=== PATIENT | male | born 1975 | race Caucasian/White ===

== ENCOUNTER 2021-09-04 21:59 | Emergency (ER) | payer MEDICAID, SELFPAY ==
[2021-09-04 22:00] VITALS: BP 163/88; PULSE 89; RESP 18; TEMP 36.3; O2SAT 98
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
[2021-09-04] MEDS: Lidocaine 5% Patch 1 PATCH TP (22:16)
[2021-09-04] MEDS: Acetaminophen 325 MG TAB 650 MG PO (22:16)
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
== END 2021-09-04 22:56 | disposition home or self-care (01) ==
PROVIDERS: Emergency Provider Physician Assistant; PCP Family Medicine
DX: S70.01XA Contusion of right hip, initial encounter (principal); W22.8XXA Striking against or struck by other objects, initial encounter
CPT/HCPCS: 99285; 73502; 99283

== ENCOUNTER 2022-01-30 18:21 | Outpatient (REF) | payer MEDICAID, SELFPAY ==
[2022-01-30 20:15] LABS: HCT 46.9 % (40.0-50.0); HGB 15.2 g/dL (13.5-17.5); MCH 27.2 pg (27.0-33.0); MCHC 32.4 % (32.0-36.0); MCV 83.9 fL (80-95); MPV 11.4 fL (8.0-11.0); Platelet Count 317 10^3/uL (130-400); RBC 5.59 10^6/uL (4.36-5.78); RDW 12.6 % (11.8-14.1); RDW-SD 38.4 fL; WBC 7.42 10^3/uL (4.4-10.8)
[2022-01-30 20:32] LABS: ALT 328 U/L (16-63); AST 110 U/L (15-37); Albumin 4.4 g/dL (3.4-5.0); Alkaline Phosphatase 107 U/L (46-116); Anion Gap 10.1 mmol/L (3-11); BUN 13 mg/dL (7-18); Bilirubin, Total 0.5 mg/dL (0.2-1.0); CO2 24.9 mmol/L (21.0-32.0); CREATININE 0.8 mg/dL (0.70-1.30); Calcium 9.4 mg/dL (8.5-10.1); Chloride 101 mmol/L (98-107); Glucose 401 mg/dL (74-106); Potassium 4.6 mmol/L (3.5-5.1); Sodium 136 mmol/L (136-145); Total Protein 8.3 g/dL (6.4-8.2)
[2022-01-30 20:34] LABS: Hemoglobin A1C 10.7 % (<5.7)
[2022-01-31 15:00] LABS: Calculated LDL 97 mg/dL (<100); Cholesterol 162 mg/dL (<200); HDL Cholesterol 46 mg/dL (40-60); Triglyceride 97 mg/dL (<150)
== END 2022-01-30 18:22 | disposition home or self-care (01) ==
LOC: NCHCN 18:21
PROVIDERS: PCP Family Medicine; Visit Provider Physician Assistant
DX: E11.9 Type 2 diabetes mellitus without complications (principal); I25.810 Atherosclerosis of coronary artery bypass graft(s) without angina pectoris
CPT/HCPCS: 80053; 80061; 85027; 83036

== ENCOUNTER → 2022-02-11 01:03 | Outpatient (CLI) | payer MEDICAID, SELFPAY ==
--- NOTE | 2022-02-11 13:30 | DI.RAD_ITS ---
Exam(s) XR HIP RT COMPLETE AP PELVIS EXAM: XR HIP RT COMPLETE AP PELVIS INDICATION: PROGRESSIVE LOWER BACK, HIP RT LEG PAIN, M25.551. COMPARISON: CR,XR XR HIP RT COMPLETE AP PELVIS from 09/04/2021 TECHNIQUE: 2D digital imaging was performed. Two views. FINDINGS: There is intramedullary stephan in the right femur. There is mild right hip joint space narrowing and mi ld periarticular spurring, greatest superiorly. The left hip joint space is well maintained. SI alexis nts and pubic symphysis are unremarkable. IMPRESSION: Mild degenerative changes of the right hip. DATA REPOSITORY: RADIATION DOSE DELIVERED:
== END ==
PROVIDERS: PCP Family Medicine; Visit Provider Physician Assistant
DX: M25.551 Pain in right hip (principal); M79.604 Pain in right leg; M54.59 Other low back pain; M16.11 Unilateral primary osteoarthritis, right hip
CPT/HCPCS: 73502

== ENCOUNTER 2022-04-05 14:56 | Outpatient (REF) | payer MEDICAID, SELFPAY ==
[2022-04-05 18:21] LABS: ALT 78 U/L (16-63); AST 56 U/L (15-37); Albumin 4.3 g/dL (3.4-5.0); Alkaline Phosphatase 105 U/L (46-116); Anion Gap 9.4 mmol/L (3-11); BUN 12 mg/dL (7-18); Bilirubin, Total 0.3 mg/dL (0.2-1.0); CO2 26.6 mmol/L (21.0-32.0); CREATININE 0.8 mg/dL (0.70-1.30); Calcium 9.2 mg/dL (8.5-10.1); Chloride 101 mmol/L (98-107); Glucose 139 mg/dL (74-106); Potassium 4.1 mmol/L (3.5-5.1); Sodium 137 mmol/L (136-145); Total Protein 8.5 g/dL (6.4-8.2)
[2022-04-05 18:24] LABS: Hemoglobin A1C 8.7 % (<5.7)
[2022-04-08 14:43] LABS: HCV RNA Detection Quantitative 14500000 IU/mL (Undetected); HCV RNA Qualitative Detected (Undetected)
== END 2022-04-05 14:57 | disposition home or self-care (01) ==
LOC: NCHCN 14:56
PROVIDERS: PCP Family Medicine; Visit Provider Physician Assistant
DX: B18.2 Chronic viral hepatitis C (principal); E11.9 Type 2 diabetes mellitus without complications
CPT/HCPCS: 80053; 86803; 87522; 83036

== ENCOUNTER 2022-04-11 10:15 | Outpatient (CLI) | payer MEDICAID, SELFPAY ==
--- NOTE | 2022-04-11 10:03 | DI.RAD_ITS ---
Exam(s) XR FEMUR RT EXAM: XR FEMUR RT CLINICAL HISTORY: painful hardware. TECHNIQUE: 2D digital imaging was performed. COMPARISON: CR,XR XR HIP RT COMPLETE AP PELVIS from 09/04/2021 FINDINGS: Two views There is again noted a long intramedullary stephan through the length of the femur transfixing a healed f racture site in the distal half. This exhibits healing. No evidence hardware loosening nor osteomye litis. Mild degenerative changes ipsilateral hip noted. IMPRESSION: DATA REPOSITORY: RADIATION DOSE DELIVERED:
== END 2022-04-11 10:16 | disposition home or self-care (01) ==
LOC: DIORS 10:15
PROVIDERS: PCP Physician Assistant; Visit Provider Physician Assistant Surgical
DX: Z87.81 Personal history of (healed) traumatic fracture (principal); T84.84XA Pain due to internal orthopedic prosthetic devices, implants and grafts, initial encounter; Y83.8 Other surgical procedures as the cause of abnormal reaction of the patient, or of later complication, without mention of misadventure at the time of the procedure
CPT/HCPCS: 73552

== ENCOUNTER 2022-06-13 19:50 | Emergency (ER) | payer MEDICAID, SELFPAY ==
[2022-06-13 20:00] VITALS: BP 153/100; PULSE 117; RESP 20; TEMP 36.9; O2SAT 94
[2022-06-13] MEDS: Normal Saline 1,000 ML 1000 ML IV (20:00)
--- NOTE | 2022-06-13 20:05 | ED.GENADUL_ITS ---
Discharge Plan Disposition Patient Disposition: STILL A PATIENT Condition: Good Discharge Details Clinical Impression: Elevated ETOH level, Depression Primary Care Provider: Ranjan Denise ED Provider: Myles Rangel Home Meds and New Rx's Prescriptions: Continued clonazepam 1 mg tablet 1 mg PO QID clopidogrel 75 mg tablet 75 mg PO DAILY gabapentin 800 mg tablet 800 mg PO TID glimepiride 2 mg tablet 2 mg PO DAILY metformin 1,000 mg tablet 1,000 mg PO BID metoprolol tartrate 100 mg tablet 100 mg PO BID venlafaxine 150 mg capsule,extended release 24hr 150 mg PO DAILY atorvastatin 80 mg tablet 80 mg PO DAILY amlodipine 10 mg tablet 10 mg PO DAILY dextroamphetamine-amphetamine [Adderall] 20 mg tablet 20 mg PO DAILY Discharge Instructions Instructions: Depression (ED) Additional Instructions: Please follow-up closely with your mental health advocates. If you notice any worsening of your symptoms, or any new symptoms such as vomiting, diarrhea, fever, chills, shortness of breath, chest pain, numbness, weakness, or fainting , please return immediately to the emergency department for reevaluation. Please follow up with your primary care provider as soon as possible for reassessment and reevaluation. As always, it was a pleasure participating in your medical care today. Referrals: Ranjan Denise [Primary Care Provider] - Medical Decision Making This is a 46-year-old male with a past medical history of CABG/AL, with stents in [place] 8 years ago, hepatitis C, type 2 diabetes, hyperte nsion, high cholesterol, anxiety and depression with previous suicidal ideations and previous suicide attempt via carbon monoxide poisoning, as well as a previous femur fracture on the right status post stephan placement, who presents today via local police for mental health evaluation. The patient was evicted from a location earlier today, he had been drinking alcohol. He was brought to the [facility] the [facility] term, and while there he expressed suicidal ideations. Mental health believe that secondary to his intoxicated state he needed to be brought to the emergency department to be medically cleared and then reevaluated by mental health. Currently the patient states that he does not see any point in living anymore, but also I do not really want to , and I do not want to kill myself.I just do not see a reason for living. Patient denies any IV or illicit drug use. He states that he has been taking his medications as directed. He states that he just had a little bit of alcohol this evening. He denies any other complaints or attempts to harm himself. No other modifying factors. Physical exam demonstrates a well-appearing male, dry mucous membranes, heightened emotional response, with active crying. He does not have a plan to harm himself currently and specifically states that he does not want to end his life, he just does not see a reason for living currently. Patient actively states and reassurance that he is not a threat to himself, but he just needs some help, and no one seems to be getting me any help. We will rehydrate, wait until the patient demonstrates sobriety, evaluate for metabolic abnormalities, reassess, and involve mental health. 6:10 AM Patient has been medically cleared, laboratory work-up is stable. Mental health has seen and assessed the patient, and at this time they do not feel that the patient meets inpatient criteria and. Mental health advocates states that he has a [facility] patient, and she will be meeting with them at 9 AM to discuss outpatient treatment options and support. She states that they will be calling back with the plan at around 10 AM. Patient otherwise remained stable. He will be signed out to my colleague Dr. Chambers for follow-up for plan and reassessment. HPI General Date/Time Provider Initiated Documentation: 06/13/22 20:02 . HPI Narrative: This is a 46-year-old male with a past medical history of CABG/AL, with stents in [place] 8 years ago, hepatitis C, type 2 diabetes, hypertension, high cholesterol, anxiety and depression with previous suicidal ideations and previous suicide attempt via carbon monoxide poisoning, as well as a previous femur fracture on the right status post stephan placement, who presents today via local police for mental health evaluation. The patient was evicted from a location earlier today, he had been drinking alcohol. He was brought to the [facility] at the long term, and while there he expressed suicidal ideations. Mental health believe that secondary to his intoxicated state he needed to be brought to the emergency department to be medically cleared and then reevaluated by mental health. Currently the patient states that he does not see any point in living anymore, but also I do not really want to , and I do not want to kill myself.I just do not see a reason for living. Patient denies any IV or illicit drug use. He states that he has been taking his medications as directed. He states that he just had a little bit of alcohol this evening. He denies any other complaints or attempts to harm himself. No other modifying factors. Related Data Home Medications Medication Instructions Recorded Confirmed clonazepam 1 mg tablet 1 mg PO QID 07/19/21 06/13/22 clopidogrel 75 mg tablet 75 mg PO DAILY 07/19/21 06/13/22 gabapentin 800 mg tablet 800 mg PO TID 07/19/21 06/13/22 glimepiride 2 mg tablet 2 mg PO DAILY 07/19/21 06/13/22 metformin 1,000 mg tablet 1,000 mg PO BID 07/19/21 06/13/22 metoprolol tartrate 100 mg tablet 100 mg PO BID 07/19/21 06/13/22 venlafaxine 150 mg 150 mg PO DAILY 07/19/21 06/13/22 capsule,extended release 24 hr amlodipine 10 mg tablet 10 mg PO DAILY 02/05/22 04/11/22 atorvastatin 80 mg tablet 80 mg PO DAILY 02/05/22 06/13/22 dextroamphetamine-amphetamine 20 20 mg PO DAILY 02/05/22 06/13/22 mg tablet (Adderall) Allergies Allergy/AdvReac Type Severity Reaction Status Date / Time No Known Allergies Allergy Verified 06/13/22 20:24 General FARAZ: 3 Review of Systems All systems reviewed & are unremarkable except as noted in HPI and below PFSH All Active Problems (Updated 06/14/22 @ 04:38 by Myles Rangel DO) Elevated ETOH level (Acute) Depression (Chronic) History of femur fracture (Acute 2001) Hypertension (Chronic) Hyperlipidemia (Acute) Nicotine dependence (Acute) Hepatitis C carrier (Acute) CAD (coronary artery disease) (Chronic) Hematoma of right hip (Acute) ADD (attention deficit disorder) (Acute) Anxiety (Chronic) Diabetes mellitus, type II (Acute) Medical History Myocardial infarction Social History Smoking/Tobacco Use Status: Current every day Tobacco Type: cigarettes and e- cigarettes Smoking risk assessment performed?: Yes Alcohol Intake: current Substance use type: other Details: declines to answer Do you feel safe at home: Yes Do you feel safe in your relationship?: Yes Exam Narrative Exam Narrative: 1.Const: Well-nourished, Well-developed, appearing stated age 2.Eyes: PERRL, no conjunctival injection, and symmetrical lids. 3.ENT: Atraumatic external nose and ears. Dry MM. Neck: Symmetric, trachea midline, No thyromegaly. 4.CVS: +S1/S2, No murmurs or gallops. Peripheral pulses 2+ and equal in all extremities. Brisk capillary refill in all extremities. 5.RESP: Unlabored respiratory effort. Clear to auscultation bilaterally. No wheezes rales or rhonchi 6.GI: Soft, Nontender/Nondistended, No hepatosplenomegaly. No guarding or rebound. 7.MSK: Normocephalic/Atraumatic, Extremities w/o deformity or ttp No cyanosis or clubbing, Normal movement of all extremities 8.Skin: Warm, Dry. No rashes or lesions. 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 Sensation grossly intact, no focal neurologic deficits. 10.Psych: (AAO) x3. Patient does appear slightly emotional, he is actively crying when we are talking. He does appear slightly intoxicated.
[2022-06-13 20:40] LABS: Source Nasal/Nares
[2022-06-13 20:50] LABS: Abs Immature Grans 0.02 10^3/uL (0.0-0.06); Absolute Basophil Count 0.07 10^3/uL (0.0-0.2); Absolute Eosinophil Count 0.23 10^3/uL (0.0-0.7); Absolute Lymphocyte Count 2.13 10^3/uL (1.2-3.4); Absolute Monocyte Count 0.68 10^3/uL (0.1-0.8); Absolute Neutrophil Count 4.66 10^3/uL (1.2-6.7); Basophils % 0.9; HCT 40.6 % (40.0-50.0); HGB 13.6 g/dL (13.5-17.5); Immature Grans % 0.3; Lymphocytes % 27.3; MCH 28.5 pg (27.0-33.0); MCHC 33.5 % (32.0-36.0); MCV 85 fL (80-95); MPV 10.1 fL (8.0-11.0); Monocytes % 8.7; Neutrophils % 59.8; Platelet Count 235 10^3/uL (130-400); RBC 4.77 10^6/uL (4.36-5.78); RDW 12.8 % (11.8-14.1); RDW-SD 39.3 fL; WBC 7.79 10^3/uL (4.4-10.8)
[2022-06-13 21:02] LABS: Ammonia < 10 umol/L (11-32)
[2022-06-13 21:09] LABS: ALT 83 U/L (16-63); AST 90 U/L (15-37); Albumin 4.4 g/dL (3.4-5.0); Alkaline Phosphatase 108 U/L (46-116); Anion Gap 10.4 mmol/L (3-11); BUN 9 mg/dL (7-18); Bilirubin, Total 0.3 mg/dL (0.2-1.0); CO2 27.6 mmol/L (21.0-32.0); CREATININE 0.8 mg/dL (0.70-1.30); Calcium 8.5 mg/dL (8.5-10.1); Chloride 100 mmol/L (98-107); ETHANOL BLOOD 164.8 mg/dL (<10); Glucose 185 mg/dL (74-106); Potassium 3.4 mmol/L (3.5-5.1); Sodium 138 mmol/L (136-145); TSH (W/Ref FT4) 0.56 uIU/mL (0.36-3.74); Total Protein 8.5 g/dL (6.4-8.2)
[2022-06-13 21:12] LABS: COVID-19 PCR Negative (Negative)
[2022-06-13 21:17] LABS: Salicylate 3.2 mg/dL (<2.8)
[2022-06-13 21:20] LABS: Acetaminophen < 2 ug/mL (10-30)
[2022-06-14 00:17] LABS: *AMPHETAMINES SCREEN URINE Positive (Negative); *BARBITURATES SCREEN URINE Negative (Negative); *BENZODIAZEPINES SCREEN URINE Negative (Negative); Cannabinoids THC Positive (Negative); Cocaine Screen,Urine Negative (Negative); METHADONE URINE SCREEN Negative (Negative); OPIATES URINE SCREEN Negative (Negative); Tricyclic Antidepressants Negative (Negative)
[2022-06-14 08:20] VITALS: BP 152/86; PULSE 82; RESP 18; TEMP 36.1; O2SAT 97
--- NOTE | 2022-06-14 08:34 | NUR.NOTE ---
pt refused his morning meds Nursing Note:
--- NOTE | 2022-06-14 09:54 | PDOC.CMSAFED ---
- If Service Date Differs Date of service: 06/14/22 Time of Service: 10:09 Care Management Safety Plan This is a 46-year-old male with a past medical history of CABG/NM, with stents in [place] 8 years ago, hepatitis C, type 2 diabetes, hypertension, high cholesterol, anxiety and depression with previous suicidal ideations and previous suicide attempt via carbon monoxide poisoning, as well as a previous femur fracture on the right status post stephan placement, who presents today via local police for mental health evaluation. The patient was evicted from a location earlier today, he had been drinking alcohol. He was brought to the [facility] at the halfway, and while there he expressed suicidal ideations. Mental health believe that secondary to his intoxicated state he needed to be brought to the emergency department to be medically cleared and then reevaluated by mental health. Currently the patient states that he does not see any point in living anymore, but also I do not really want to , and I do not want to kill myself.I just do not see a reason for living. Patient denies any IV or illicit drug use. He states that he has been taking his medications as directed.
[2022-06-14] MEDS: Clopidogrel 75 MG TAB PO (10:15)
[2022-06-14] MEDS: metFORMIN 500 MG TAB 1000 MG PO (10:16)
[2022-06-14] MEDS: Glimepiride 2 MG TAB PO (10:16)
[2022-06-14] MEDS: Gabapentin 800 MG TAB PO (10:16)
[2022-06-14] MEDS: Metoprolol 50 MG TAB 100 MG PO (10:16)
[2022-06-14] MEDS: Venlafaxine 150 MG CAPCR PO (10:17)
--- NOTE | 2022-06-14 12:15 | ED.PROG_ITS ---
Date of service: 06/14/22 Time of Service: 12:16 Medical Decision Making Care signed out by Dr. Rangel, patient medically cleared and awaiting [facility] [employer]IST consultation for disposition planning. Patient is not suicidal. 1200 -- I spoke with CUST[employer]ER [employer]OURCE SPECIALIST Agency Trainer Saravanan who evaluated the patient and is available for ongoing outpatient assistance. Plan for discharge with outpatient follow-up. Patient was provided [facility] [employer] contact information. Usual customary discharge instructions reviewed with the patient. Sign Out Sign Out Data: Sign Out Comment: Depression, currently homeless, was intoxicated last night. Mental health feels that he can go home for outpatient follow-up, however C[employer] [employer]OURCE SPECIALIST needs to formulate plan to facilitate this. They will be calling back at 10 AM with plan. Last updated by Myles Rangel DO at 06/14/22 06:12 Discharge Plan Disposition Patient Disposition: HOME Condition: Stable Discharge Details Clinical Impression: Elevated ETOH level, Depression Primary Care Provider: Ranjan Denise ED Provider: Steve Chambers Home Meds and New Rx's Prescriptions: Continued clonazepam 1 mg tablet 1 mg PO QID clopidogrel 75 mg tablet 75 mg PO DAILY gabapentin 800 mg tablet 800 mg PO TID glimepiride 2 mg tablet 2 mg PO DAILY metformin 1,000 mg tablet 1,000 mg PO BID metoprolol tartrate 100 mg tablet 100 mg PO BID venlafaxine 150 mg capsule,extended release 24hr 150 mg PO DAILY atorvastatin 80 mg tablet 80 mg PO DAILY amlodipine 10 mg tablet 10 mg PO DAILY dextroamphetamine-amphetamine [Adderall] 20 mg tablet 20 mg PO DAILY Discontinued dextroamphetamine-amphetamine [Adderall XR] 20 mg Capsule,Extended Release 24hr 20 mg PO DAILY dextroamphetamine-amphetamine [Adderall] 20 mg Tablet 20 mg PO HS clonazepam 1 mg Tablet 1 mg PO QID Discharge Instructions Instructions: Depression (ED), Abuse of Alcohol (ED) Additional Instructions: Please follow-up closely with your mental health advocates. Your CUST[employer]ER RESOURCE SPECIALIST is Saravanan and her number is . If you notice any worsening of your symptoms, or any new symptoms such as vomiting, diarrhea, fever, chills, shortness of breath, chest pain, numbness, weakness, or fainting , please return immediately to the emergency department for reevaluation. Please follow up with your primary care provider as soon as possible for reassessment and reevaluation. As always, it was a pleasure participating in your medical care today. Referrals: Ranjan Denise [Primary Care Provider] - Discharge Data Discharge Date/Time-TO BE ENTERED AT DEPARTURE: 06/14/22 13:40
== END 2022-06-14 13:40 | disposition home or self-care (01) ==
PROVIDERS: Student in an Organized Health Care Education/Training Program; Emergency Provider Student in an Organized Health Care Education/Training Program; PCP Physician Assistant
DX: F10.120 Alcohol abuse with intoxication, uncomplicated (principal); F32.A Depression, unspecified; I10 Essential (primary) hypertension; E11.9 Type 2 diabetes mellitus without complications; F17.210 Nicotine dependence, cigarettes, uncomplicated; F17.290 Nicotine dependence, other tobacco product, uncomplicated; Z20.822 Contact with and (suspected) exposure to COVID-19; Z79.84 Long term (current) use of oral hypoglycemic drugs; Z59.00 Homelessness unspecified
CPT/HCPCS: 80053; 80307; 87635; 96360; 99284; 80320; 80329; 82140; 84443; 85025

== ENCOUNTER 2023-05-16 01:01 | Emergency (ER) | payer MEDICAID, SELFPAY ==
[2023-05-16] VITALS (38 sets, daily range): BP systolic 103–152; BP diastolic 56–95; PULSE 89–127; RESP 10–28; TEMP 37.1; O2SAT 89–98
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
--- NOTE | 2023-05-16 02:00 | RT.EKG_ITS ---
APPROVED REPORT Exam: Resting ECG Reason for Exam: chest pain Patient Location: E HR:124 bpm ECG Measurements Heart Rate 124 AXIS NV 141 P 73 QRSd 82 QRS 82 QT 331 T 23 QTc 476 Conclusion Sinus tachycardia...rate> 99 sinus tachycardia, normal axis, non ischemic
--- NOTE | 2023-05-16 02:00 | DI.RAD_ITS ---
Exam(s) XR CHEST 2V PA LATERAL EXAM: XR CHEST 2V PA LATERAL CLINICAL HISTORY: chest pain. TECHNIQUE: 2D digital imaging was performed. COMPARISON: No exams were available for comparison FINDINGS: 2 views: Heart size is normal. The mediastinum is not widened. Lungs are clear. No infiltrates nor pleural effusions. IMPRESSION: No acute pulmonary findings. DATA REPOSITORY: RADIATION DOSE DELIVERED:
[2023-05-16 02:29] LABS: Abs Immature Grans 0.02 10^3/uL (0.0-0.06); Absolute Basophil Count 0.06 10^3/uL (0.0-0.2); Absolute Lymphocyte Count 1.95 10^3/uL (1.2-3.4); Absolute Monocyte Count 0.94 10^3/uL (0.1-0.8); Absolute Neutrophil Count 4.68 10^3/uL (1.2-6.7); Basophils % 0.8; Eosinophils % 1.3; HCT 42.2 % (40.0-50.0); HGB 13.7 g/dL (13.5-17.5); Immature Grans % 0.3; Lymphocytes % 25.2; MCH 27.1 pg (27.0-33.0); MCHC 32.5 % (32.0-36.0); MCV 84 fL (80-95); MPV 10.4 fL (8.0-11.0); Monocytes % 12.1; Neutrophils % 60.3; Platelet Count 409 10^3/uL (130-400); RBC 5.05 10^6/uL (4.36-5.78); RDW 13.2 % (11.8-14.1); RDW-SD 39.8 fL; WBC 7.75 10^3/uL (4.4-10.8)
[2023-05-16] MEDS: Aspirin 81 MG CHEW 324 MG CH (02:35)
[2023-05-16] MEDS: LORazepam 2 MG/ML VIAL 1 MG IVP (02:36)
[2023-05-16] MEDS: Normal Saline 1,000 ML 125 ML IV (02:46)
[2023-05-16 02:50] LABS: PTT Activated 27.1 sec (21.5-31.9); Prothrombin Time 10.3 sec (9.3-11.0)
[2023-05-16 02:58] LABS: ALT 57 U/L (16-63); AST 51 U/L (15-37); Albumin 3.7 g/dL (3.4-5.0); Alkaline Phosphatase 158 U/L (46-116); Anion Gap 10.7 mmol/L (3-11); BUN 7 mg/dL (7-18); Bilirubin, Direct 0.1 mg/dL (0.0-0.2); Bilirubin, Total 0.3 mg/dL (0.2-1.0); CO2 30.3 mmol/L (21.0-32.0); CREATININE 0.7 mg/dL (0.70-1.30); Calcium 9.2 mg/dL (8.5-10.1); Chloride 98 mmol/L (98-107); Estimated GFR 112.95 (mL/min/1.73m2); Glucose 333 mg/dL (74-106); Magnesium 1.7 mg/dL (1.8-2.4); NT-proBNP 400 pg/mL (<300); Potassium 3.9 mmol/L (3.5-5.1); Sodium 139 mmol/L (136-145); Total Protein 8.8 g/dL (6.4-8.2); Troponin I < 50 ng/L (<or=60)
[2023-05-16 03:09] LABS: D-Dimer 589 ng/mlFEU (<500)
[2023-05-16] MEDS: nitroGLYcerin 0.4 MG TAB SL (03:44)
[2023-05-16 04:14] LABS: Troponin I < 50 ng/L (<or=60)
--- NOTE | 2023-05-16 04:46 | DI.VRAD_ITS ---
PROCEDURE INFORMATION: Exam: XR Chest Exam date and time: 05/16/2023 3:12 AM Age: 47 years old Clinical indication: Pain; Left-sided; Prior surgery; Surgery date: <1 month; Surgery type: Cardiac stent; Additional info: Chest pain TECHNIQUE: Imaging protocol: Radiologic exam of the chest. Views: 2 views. COMPARISON: No relevant prior studies available. FINDINGS: Lungs: Normal. Pleural spaces: Unremarkable. No pleural effusion. No pneumothorax. Heart/Mediastinum: Normal. Bones/joints: No acute abnormality. IMPRESSION: No acute findings. Dictated and Authenticated by: Danie Estrada MD. Ordering:RON Contreras MD
--- NOTE | 2023-05-19 18:01 | NUR.NOTE ---
Nursing Note: Nursing Note: Accessed pt chart to determine number of EKG orders.
== END 2023-05-16 06:28 | disposition home or self-care (01) ==
PROVIDERS: Emergency Provider Emergency Medicine Emergency Medical Services; PCP Physician Assistant
DX: R07.9 Chest pain, unspecified (principal); E11.9 Type 2 diabetes mellitus without complications; I10 Essential (primary) hypertension; I50.9 Heart failure, unspecified; E78.5 Hyperlipidemia, unspecified; F17.210 Nicotine dependence, cigarettes, uncomplicated
CPT/HCPCS: 80053; 80076; 93005; 96361; 96374; 99291; 71046; 83735; 83880; 84484; 85025; 85379; 85610; 85730; 93010; J2060

== ENCOUNTER 2024-08-14 15:37 | Emergency (ER) | payer MEDICAID, SELFPAY ==
[2024-08-14 15:39] VITALS: BP 174/111; PULSE 123; RESP 24; TEMP 36.2; O2SAT 99
--- NOTE | 2024-08-14 16:00 | RT.EKG_ITS ---
APPROVED REPORT Exam: Resting ECG Reason for Exam: chest pain Patient Location: E HR:92 bpm ECG Measurements Heart Rate 92 AXIS ME 146 P 53 QRSd 85 QRS 43 QT 362 T 0 QTc 448 Conclusion Sinus arrhythmia...V-rate 64-107, variation>10% Probable inferior infarct, old...Q>35mS, II III aVF Sinus rhythm normal axis normal intervals , T wave inversion lead III
--- NOTE | 2024-08-14 16:00 | DI.RAD_ITS ---
Exam(s) XR PORTABLE CHEST AP EXAM: XR PORTABLE CHEST AP CLINICAL HISTORY: chest pain. TECHNIQUE: 2D digital imaging was performed. COMPARISON: CR,XR XR CHEST 2V PA LATERAL from 05/16/2023 FINDINGS: Single AP portable view. Heart size is upper normal. The mediastinum is not widened. Right coronary artery stent is again noted Lungs are clear. No infiltrates nor obvious pleural effusions. No pulmonary edema. IMPRESSION: No acute pulmonary findings on this single AP portable view of the chest. Right coronary artery stent again noted DATA REPOSITORY: RADIATION DOSE DELIVERED:
[2024-08-14] MEDS: clonazePAM 0.5 MG TAB 1 MG PO (16:13)
[2024-08-14 16:22] LABS: Absolute Basophil Count 0.06 10^3/uL (0.0-0.2); Absolute Eosinophil Count 0.06 10^3/uL (0.0-0.7); Absolute Lymphocyte Count 1.37 10^3/uL (1.2-3.4); Absolute Monocyte Count 0.48 10^3/uL (0.1-0.8); Absolute Neutrophil Count 3.17 10^3/uL (1.2-6.7); Basophils % 1.2 %; Eosinophils % 1.2 %; HCT 47.5 % (40.0-50.0); HGB 15.5 g/dL (13.5-17.5); Lymphocytes % 26.7 %; MCH 28.4 pg (27.0-33.0); MCHC 32.6 % (32.0-36.0); MCV 87 fL (80-95); MPV 11.1 fL (8.0-11.0); Monocytes % 9.3 %; Neutrophils % 61.6 %; Platelet Count 246 10^3/uL (130-400); RBC 5.45 10^6/uL (4.36-5.78); RDW-SD 41.2 fL; WBC 5.14 10^3/uL (4.4-10.8)
[2024-08-14 16:30] LABS: Bilirubin Negative (Negative); Blood Negative (Negative); Clarity Clear (Clear); Glucose 500 mg/dL (Negative); Ketones Negative (Negative); Leukocyte Esterase Negative (Negative); Nitrite Negative (Negative); Specific Gravity <= 1.005 (1.005-1.025); Urobilinogen 0.2 mg/dL (Up to 0.2)
[2024-08-14 16:41] LABS: ALT 29 U/L (16-63); AST 22 U/L (15-37); Albumin 3.8 g/dL (3.4-5.0); Alkaline Phosphatase 96 U/L (46-116); BUN 7 mg/dL (7-18); Bilirubin, Total 0.17 mg/dL (0.2-1.0); Calcium 8.8 mg/dL (8.5-10.1); Chloride 103 mmol/L (98-107); Estimated GFR 91.69 (mL/min/1.73m2); Glucose 291 mg/dL (74-106); Potassium 3.7 mmol/L (3.5-5.1); Sodium 140 mmol/L (136-145); Total Protein 8.1 g/dL (6.4-8.2); Troponin I 4 ng/L (<or=76)
[2024-08-14 16:49] LABS: Magnesium 1.8 mg/dL (1.8-2.4)
[2024-08-14 16:50] LABS: *AMPHETAMINES SCREEN URINE Negative (Negative); *BARBITURATES SCREEN URINE Negative (Negative); *BENZODIAZEPINES SCREEN URINE Negative (Negative); Cannabinoids THC Negative (Negative); Cocaine Screen,Urine Negative (Negative); METHADONE URINE SCREEN Negative (Negative); OPIATES URINE SCREEN Negative (Negative)
[2024-08-14 16:53] LABS: Tricyclic Antidepressants Negative (Negative)
[2024-08-14 17:05] VITALS: PULSE 104; RESP 12; O2SAT 99
--- OUTSIDE RECORDS SUMMARY | 2024-08-14 17:32 | XMS_ITS | Clinical Summary ---
Author Organization [facility] Address [address] [place] [address] Care Team Providers Care Demurrage Man Name Role Phone Ramila Pagan INFORMATION SYSTEMS CONSULTANT Unavailable [phone] Yana De La Cruz MD Primary Care Provider + Allergies No known active allergies Medications Medication Sig Dispensed Refills Start Date End Date Status nitroGLYCERIN (NITROSTAT) 0.[address] 1 Tab under the tongue every 5 minutes as needed for Chest Pain. 25 Tab 1 03/18/20 14 Active Additional Information Patient not taking.Reported on 04/22/2023 buprenorphine-naloxone (SUBOXONE) 8-2 mg tablet, sublingual 08/21/20 23 Active acetaminophen (TYLENOL) 325 mg tablet Take 2 Tablets by mouth every 4 hours as needed for Pain. 100 Tablet 2 08/23/20 23 Active atorvastatin (LIPITOR) 80 mg tabletIndications:Famil ial hypercholesterolemia Take 1 Tablet by mouth at bedtime. 90 Tablet 3 12/16/19 24 Active clopidogreL (PLAVIX) 75 mg tabletIndications:NSTEM I (non-ST elevated myocardial infarction) ([facility]) Take 1 Tablet by mouth daily. 90 Tablet 3 12/16/19 24 Active empagliflozin (JARDIANCE) 10 mg tabletIndications:Type 2 diabetes mellitus with hyperglycemia, unspecified whether supervisor intermediates insulin use ([facility]) Take 1 Tablet by mouth daily. 90 Tablet 3 12/16/19 24 Active metFORMIN (GLUCOPHAGE) 1,000 mg tabletIndications:Diabe manoj mellitus type 2 in nonobese ([facility]) Take 1 Tablet by mouth 2 times daily. 180 Tablet 3 12/16/19 24 Active metoprolol SUCCinate (TOPROL-XL) 100 mg tabletIndications:NSTEM I (non-ST elevated myocardial infarction) ([facility]) Take 1 Tablet by mouth daily. 90 Tablet 3 12/16/19 24 Active venlafaxine (EFFEXOR-XR) 150 mg XR capsuleIndications:Gene ralized anxiety disorder Take 1 Capsule by mouth daily. 90 Capsule 3 12/16/19 24 Active losartan (COZAAR) 100 mg tabletIndications:Prima ry hypertension Take 1 Tablet by mouth daily. 90 Tablet 3 02/17/20 24 Active glimepiride (AMARYL) 4 mg tabletIndications:Type 2 diabetes mellitus with hyperglycemia, unspecified whether senior care insulin use ([facility]) Take 1 Tablet by mouth daily. 90 Tablet 3 03/25/20 24 Active clonazePAM (KLONOPIN) 1 mg tabletIndications:Gener alized anxiety disorder Take 1 Tablet by mouth 2 times daily for 84 days. Daily Max: 2 mg 56 Tablet 2 06/15/20 24 024 Active gabapentin (NEURONTIN) 600 mg tabletIndications:Neuro loli Take 1 Tablet by mouth 3 times daily. 90 Tablet 3 07/19/20 24 Active gabapentin (NEURONTIN) 600 mg tabletIndications:Neuro loli Take 1 Tablet by mouth 3 times daily. 90 Tablet 3 04/06/20 24 024 Discontinued lisdexamfetamine (VYVANSE) 40 mg capsuleIndications:Atte ntion deficit hyperactivity disorder (ADHD), combined type Take 1 Capsule by mouth every morning for 28 days. Daily Max: 40 mg 28 Capsule 07/15/20 24 024 Active Problems Problem Noted Date Diagnosed Date Housing insecurity 07/08/2024 Chronic post-traumatic stress disorder (PTSD) Attention deficit hyperactiv ity disorder (ADHD), combined type 12/30/2023 History of alcohol use disorder 12/30/2023 Overview: Reports from ages ~[age]. Stopped drinking when his child was born. Opioid use disorder in remission 12/30/2023 Overview: Reports opioid (pills only) use from ~age [age]. He started suboxone for chronic pain related to an orthopedic injury. Depression 12/04/2023 Insomnia 12/04/2023 Type 2 diabetes mellitus wit h hyperglycemia, without long-term current use of insulin ([facility]) 04/23/2023 NSTEMI (non-ST elevated myocardial infarction) ( [facility]) 03/17/2014 Smoking 08/14/2010 Hypertensive disorder 08/14/2010 Hyperlipidemia 08/14/2010 Myocardial infarction ([facility]) 03/03/2008 Overview: Inf set elevation Anxiety disorder Resolved Problems Problem Noted Date Diagnosed Date Resolved Date Hypertensive disorder 2013 Hyperlipidemia 03/17/2014 Encounters Date Type Department Care Team Description 07/19/2024 Patient Outreach [address] [address] Ramila Pagan LICSW 07/19/[address] [address] Marisa Chan NP Medications Refill 07/14/2024 Refill [facility] [address] [place] [address] Yana De La Cruz MD Medications Refill 06/22/2024 Patient Outreach [facility] [address] [place] [address] Ramila Pagan LICSW 06/15/2024 Refill [facility] [address] [place] [address] Yana De La Cruz MD Medications Refill 05/24/2024 Patient Outreach [address] [address] Ramila Pagan LICSW from Last 3 Months Immunizations Name Administration Dates Next Due Covid-19 Ad26 Vaccine (JANSS EN COVID-19) PF 0.5 ml IM (18 yrs+) 03/22/2021 Covid-19 mRNA Vaccine (PFIZE R COVID-19) PF 0.3 ml IM (12 yrs+) 10/24/2021 Covid-19 mRNA-LNP La ccine (MODERNA COVID-19) PF 0.5 mL IM (12 yrs+) 09/11/2023 Influenza Vaccine Quad (AFLURIA) PF 0.5 ml IM (3 yrs+) 09/11/2023 Tdap Vaccine =>7YO IM 04/22/2019 Surgical History Surgery Date Site/Laterality Comments FEMUR FRACTURE SURGERY CARDIAC CATHERIZATION 03/2008 FINGER TRIGGER RELEASE Medical History Medical History Date Comments Hypertension Psychiatric problem anxiety and depression CAD (coronary artery disease) st ents placed in 2007 HLD (hyperlipidemia) Diabetes ([facility]) Social History Tobacco Use Types Packs/Day Years Used Date Smoking Tobacco: Every Day Cigarettes Smokeless Tobacco: Former Chew Tobacco Cessation:Ready to Q uit: Not Asked; Counseling Given: Not Answered Alcohol Use Standard Drinks/Week Comments Not Currently 0 (1 standard drink = 0.6 oz pur e alcohol) seldom [facility] Utilities Answer Date Recorded In the past 12 months has th e [employer], gas, oil, or water [employer] threatened to shut off services in your home? No 01/05/2024 Overall Financial Resource Strain (CARDIA) Answe r Date Recorded How hard is it for you to pa y for the very basics like food, housing, medical care, and heating? Hard 01/05/2024 Exercise Vital Sign Answer Date Recorde d On average, how many days pe r week do you engage in moderate to strenuous exercise (like a brisk walk)? 7 days 01/05/2024 On average, how many minutes do you engage in exercise at this level? 120 min 01/05/2024 Hunger Vital Sign Answer Date Recorded Within the past 12 months, y ou worried that your food would run out before you got the money to buy more. Often true 01/05/20 24 Within the past 12 months, t he food you bought just didn't last and you didn't have money to get more. Often true 01/05/2024 PRAPARE - Transportation Answer Date Re corded In the past 12 months, has l ack of transportation kept you from medical appointments or from getting medications? Yes 02/2024 In the past 12 months, has l ack of transportation kept you from meetings, work, or from getting things needed for daily living? Yes 01/05/2024 Housing Stability Vital Sign Answer Percy e Recorded In the last 12 months, was t here a time when you were not able to pay the mortgage or rent on time? Yes 01/05/2024 In the last 12 months, how many places have you lived? 3 01/05/2024 In the last 12 months, was t here a time when you did not have a steady place to sleep or slept in a residential (including now)? Yes 01/05/2024 Interpersonal Safety Answer Date Record ed How often does anyone, amna mahmood family, hit, punch or physically hurt you? 01/05/2024 How often does anyone, amna mahmood family, insult, scream, curse or threaten to hurt you? 01/05/2024 Sex and Gender Information Value Date Recorded Sex Assigned at Not on file Gender Identity Male 08/08/2023 21:13 EDT Sexual Orientation Not on file Obstetrics History Last Filed Vital Signs Vital Sign Reading Time Taken Comments Blood Pressure 130/78 03/25/2024 0934 EDT Pulse 67 03/25/2024 0934 EDT Temperature 36.1 ??C (97 ??F) 01/27/2024 2347 EDT Respiratory Rate 16 02/17/2024 0944 EDT Oxygen Saturation 98% 03/25/2024 0934 EDT Inhaled Oxygen Concentration - - Weight 71.1 kg (156 lb 12.5 oz) 03/25/2024 0934 EDT Height 165.1 cm (5' 5) 02/17/2024 0944 EDT Body Mass Index 26.09 02/17/2024 0944 EDT Plan of Treatment Health Maintenance Due Date Last Done Comments Eye Exam 1973 Foot Exam 1973 Microalbumin/Creatinine Ratio 1973 Pneumococcal Immunization (1 of 2 - PCV) 1979 Depression Screening 1985 Advance Directive 1991 Preventive Care Visit 1991 Hepatitis B Vaccine (1 of 3 - 19+ 3-dose series) 1992 Cologuard (Colon Cancer Screening) 2018 Colonoscopy (Colon Cancer Screening) 2018 Colorectal Cancer Screening 2018 FIT Test (Colon Cancer Screening) 2018 Sigmoidoscopy (Colon Cancer Screening) 2018 Shingles Immunization (1 of 2) 2023 COVID-19 Vaccine (2023-2 5 season) 2024 09/11/2023, 10/24/2021, 03/22/2021 Influenza Immunization (Adul t) (#1) 2024 09/11/2023 Hemoglobin A1C (Ha1C) 08/18/2024 02/17/2024 , 12/04/2023, 09/01/2023, Additional history exists Opioid Informed Consent 12/30/2024 12/30/2023 Prescription Agreement 12/30/2024 12/30/2023 Social Determinants Of Healt h (SDOH) 01/04/2025 01/05/2024 Lipid Profile Screening (Cholesterol) 02/16/2025 02/17/2024, 04/22/2023, 03/18/2014, Additional history exists Urine Drug Screen 02/16/2025 02/17/2024, 12/30/2023 [place] Prescription Monitor ing System 07/27/2025 07/27/2024 Tetanus (Adult) Immunization 04/22/2029 04/22/2019 HIV Screening Completed 11/09/2010 Pertussis (Adult) Immunization Completed 04/22/2019 Hepatitis C Screen Completed 04/05/2022, 11/09/2010 Medical Devices Implanted Type Area Animal Bounty Hunter Device Identifier Shelf Expiration Date Model / Serial / Lot Stent Coronary Everomimus Eluting Pt Cr Otw 3.5x38mm Promus Elite [id number] - [id number] Implanted:Qty : 1 on 04/24/2023 by Zeus Preciado MD at [facility] Drug Eluting Stent N/A: Coronary [employer] [id number] 03/07/2024 [id number] / [id number] Procedures Procedure Name Priority Date/Time Associated Diagnosis Comments HEMOGLOBIN A1C Routine 02/17/2024 10:26 EDT Type 2 diabetes mellitus with hyperglycemia, unspecified whether supervisor intermediates insulin use ([facility]) LIPID PROFILE (INCLUDES CHOLESTEROL, TRIGLYCERIDES, HDL, LDL) Routine 02/17/2024 10:26 EDT Familial hypercholesterolemia POCT DRUG SCREEN, URINE Routine 02/17/2024 Attention deficit hyperactivity disorder (ADHD), combined type Generalized anxiety disorder Controlled substance agreement signed HCV RNA DETECT QUANT Routine 04/05/2022 14:41 EDT HIV 1/2 ANTIGEN AND ANTIBODY, 4TH GENERATION Routine 11/09/2010 16:12 EST from Last 3 Months or Most Recently Relevant to Health Maintenance Results * (ABNORMAL) HEMOGLOBIN A1C (02/17/2024 10:26 EDT) Hemoglobin A1c 10.0(H) <5.7 % 02/23/2024 17:23 EDT [facility] Comment: Glycemic Status References: Normal: ??<5.7% Pre-Diabetes: ??5.7% - 6.4% Diagnostic of Diabetes: ??> or = 6.5% (if confirmed) Est Avg Glucose 240 mg/dL 17:23 EDT [facility] Comment:The eAG represents t he A1c result expressed as average glucose in mg/dL. Blood VENOUS BLOOD / Unknown Venipuncture / Unknown 02/17/2024 10:26 EDT 02/17/2024 10:26 EDT Beatrice Tsang MD CHEMISTRY & BLOOD G ORDERABLES [facility] [address] [place] [address] * LIPID PROFILE (INCLUDES CHOLESTEROL, TRIGLYCERIDES, HDL, LDL) (02/17/2024 10:26 EDT) Cholesterol 186 <200 mg/dL 02/17/2024 16:15 EDT [facility] Comment:Note that therapeuti c goals will differ between patients based on cardiac risk factors and current medical therapy. HDL 68 >=40 mg/dl 02/17/2024 16:15 EDT [facility] Comment:Note that therapeuti c goals will differ between patients based on cardiac risk factors and current medical therapy. LDL, Calculated 103 <160 mg/dL 16:15 [facility] Comment:Note that therapeuti c goals will differ between patients based on cardiac risk factors and current medical therapy. Triglyceride 77 <=150 mg/dL 02/17/2024 16:15 [facility] Comment:Note that therapeuti c goals will differ between patients based on cardiac risk factors and current medical therapy. Chol/HDL Ratio 2.7 See Note 02/17/2024 16:15 T [facility] Comment: NOTE: Desirable Ratio = <4.1 Patient At Risk Ratio = >5.0(Males) ?>6.0(Females) Non HDL Cholesterol 118 <160 mg/dL 02/17/2024 16:15 [facility] Comment:Note that therapeuti c goals will differ between patients based on cardiac risk factors and current medical therapy. Blood VENOUS BLOOD / Unknown Venipuncture / Unknown 02/17/2024 10:26 EDT 02/17/2024 10:26 EDT Beatrice Tsang MD CHEMISTRY & BLOOD G ORDERABLES Performing Organization Address [facility]/State/[facility] Co de Phone Number [facility] [address] [place] [address] * (ABNORMAL) POCT DRUG SCREEN, URINE (02/17/2024) Temperature, POC 94 ??F 90 - 100 ??F [facility] POINT OF CARE Creatinine, POC 20 mg/dL 20-200 mg/dL [facility] POINT OF CARE Specific [place], POC 1.015 1.005 - 1.025 [facility] pH, POC 5.0 4.0 - 9.0 [facility] POIN T OF CARE Amphetamine, POC Preliminary positive, Result should be confirmed if clinically indicated(A) . [facility] POINT [facility] CARE Barbiturates, POC Negative . [facility] POINT [facility] CARE Buprenorphine , POC Preliminary positive, Result should be confirmed if clinically indicated(A) . [facility] POINT OF CARE Benzodiazapen e, POC Negative . [facility] PO[facility] Cocaine, POC Negative . [facility] OINT [facility] MDMA, POC Negative . [facility] PO[facility] CARE Methamphetami ne, POC Negative . [facility] POINT OF CARE Opiates 300, POC Negative . [facility] POINT OF CARE Methadone, POC Negative . [facility] POINT OF CARE Oxycodone, POC Negative . [facility] POINT OF CARE PCP, POC Negative . [facility] POIN T OF CARE THC, POC Negative . [facility] POIN T OF CARE Urine URINE / Unknown 02/17/2024 Beatrice Tsang MD POINT OF CARE TEST ORDERABLES Performing Organization Address [facility]/ZIP Co de Phone Number [facility] POINT OF CARE * (ABNORMAL) HCV RNA DETECT QUANT (04/05/2022 14:41 EDT) [facility] HCV RNA Qualitative Detected( A) Undetected 04/08/2022 14:37 EDT [facility] HCV RNA Quantitative 14,500,00 0(H) Undetected IU/mL 04/08/2022 14:37 EDT [facility] Blood VENOUS BLOOD / Unknown 04/05/2022 14:41 EDT 04/06/2022 21:41 EDT Narrative [facility] - 04/08/2022 14:37 EDT The quantification range of this assay is 15 IU/mL to 100,000,000 IU/mL. Testing was performed using the Shahriar HCV test ([employer] with the shahriar 6800 System. Provider Outr Resulting Lab CHEMISTRY & BLOOD GAS ORDERABLES [facility] [address] [place] [address] * HIV ANTIBODY (11/09/2010 16:12 EST) [facility] HIV 1/2 Antibody Negative Reference Range: Negative [facility] 11/09/2010 16:1 2 EST 11/09/2010 16:25 EST January PHARMACY CONSULTANT IMMUNOLOGY AND SEROL OGY ORDERABLES [facility] [address] [place] [address] from Last 3 Months or Most Recently Relevant to Health Maintenance Advance Directives For more information, please contact: [phone] * Full Code (Latest Code Status on File) Date Activated Date Inactivated Comments 04/23/2023 17:58 04/24/2023 18:43 Question Answer Comments When the patient has NO PULSE: Full Code / CPR Who Made the Decision? Default/Not Discussed * Full Code Date Activated Date Inactivated Comments 04/23/2023 0:36 04/23/2023 17:47 Question Answer Comments When the patient has NO PULSE: Full Code / CPR Who Made the Decision? Default/Not Discussed * Full Code Date Activated Date Inactivated Comments 03/17/2014 11:26 03/18/2014 22:59 * Full Code Date Activated Date Inactivated Comments 08/13/2010 19:31 08/20/2010 17:08 Care Teams Demurrage Man Relationship Specialty Start Date End Date Yana De La Cruz MD [address] [place] [address] PCP - General 06/04/24 Ramila Pagan LICSW [address] [place], [place] [id number] Trial Mgr 12/19/23
--- OUTSIDE RECORDS SUMMARY | 2024-08-14 17:33 | XMS_ITS | Encounter Summary ---
Author Organization [facility] Address [address] [place] [address] Care Team Providers Care Cook Pickled Meat Name Role Phone Yumiko Land MD Primary Care Provider Ramila Pagan [facility] Unavailable [phone] Reason for Visit * Reason Comments Follow-up Encounter Details Date Type Department Care Team ([facility] st Contact Info) Description 03/10/2024 Community Health Team [facility] Primary [place] - [place] [address] [place] [id number] Care Management, [facility] [place] Social History Tobacco Use Types Packs/Day Years Used Date Smoking Tobacco: Every Day Cigarettes Smokeless Tobacco: Former Chew Alcohol Use Standard Drinks/Week Comments Not Currently 0 (1 standard drink = 0.6 oz pur e alcohol) seldom [facility] Utilities Answer Date Recorded In the past 12 months has th e electric, gas, oil, or water company threatened to shut off services in your [...] place to sleep or slept in a mcfp (including now)? Yes 01/05/2024 Interpersonal Safety Answer [...] 21:13 EDT Sexual Orientation Not on file documented as of this encounter Functional Status Functional Status Response Date of Assess ment Are you deaf or do you have serious difficulty h earing? No 04/23/2023 Are you blind or do you have serious difficulty seeing, even when wearing glasses? No 04/23/2023 Do you have serious difficul ty walking or climbing stairs? (5 years old or older) No 04/23/2023 Do you have difficulty dress ing or bathing? (5 years old or older) No 04/23/2023 Because of a physical, menta l, or emotional condition, do you have difficulty doing errands alone such as visiting a doctor's office or shopping? (15 years old or older) No 04/23/2023 Cognitive Status Response Date of Assessm ent Because of a physical, menta l, or emotional condition, do you have serious difficulty concentrating, remembering, or making decisions? (5 years old or older) No 04/23/2023 documented as of this encounter Progress Notes * Marianne Lara - 03/10/2024 1027 EDT Freight Flagman LVM for Rizwan on 03/10/24 in order to work on getting him a lock box for his medications (HAP). PLAN: [facility] to follow up on 03/15/24 if no response sooner. Marianne Lara 03/10/2024 10:29 documented in this encounter Plan of Treatment Not on file documented as of this encounter Visit Diagnoses Not on filedocumented in this encounter Care Teams Cook Pickled Meat Relationship Specialty Start Date End Date Yumiko Land MD PCP - General Internal Medicine - Primary Care 08/28/23 06/03/24 Ramila Pagan SET UP MACHINIST [address] [place] [id number] Supervisor Publications 12/19/23 documented as of this encounter
--- OUTSIDE RECORDS SUMMARY | 2024-08-14 17:33 | XMS_ITS | Encounter Summary ---
Author Organization [facility] Address [address] [place] [address] Care Team Providers Care Tenterer Name Role Phone Yumiko Land MD Primary Care Provider [phone] Ramila Pagan FURNITURE ASSEMBLER AND INSTALLER Unavailable [phone] Reason for Visit * Reason Onset Date Comments Coordination Of Care 05/03/2024 Encounter Details Date Type Department Care Team ([facility] st Contact Info) Description 05/03/2024 Telephone [facility] Adult Primary Care - [place] [address] [place], [place] [address] Ramila Pagan, FURNITURE ASSEMBLER AND INSTALLER [address] [place], [place] [phone] Coordination Of Care Social History Tobacco Use Types Packs/Day Years Used Date Smoking Tobacco: Every Day Cigarettes Smokeless Tobacco: Former Chew Alcohol Use Standard Drinks/Week Comments Not Currently 0 (1 standard drink = 0.6 oz pur e alcohol) seldom [facility] Utilities Answer Date Recorded In the past 12 months has [employer], gas, oil, or water [employer] threatened to shut off services in your [...] place to sleep or slept in a nursing home (including now)? Yes 01/05/2024 Interpersonal Safety Answer [...] No 04/23/2023 documented as of this encounter Miscellaneous Notes * Telephone Encounter - Ramila Pagan LICSW - 05/04/2024 1232 EDT Thank you. Form sent to [facility]. Patient notified. * Telephone Encounter - Otto Clinton MD - 05/03/2024 1800 EDT Form signed based on information in the chart. * Telephone Encounter - Ramila Pagan LICSW - 05/03/2024 1106 EDT Rizwan called to share that he is going to camp starting next Friday. He has 80 days and plans to use them in the fall. The state informed him that they updated the needed form for him to stay on the program that will give him 80 days in the fall. I went to Economic services to sweet pickle maker the form. It says that the provider is treating the issues. Shared that providers are covering for other providers so they may cover the issues for now howevernot ongoing. They said that it is fine to sign off on this. Also shared that Rizwan is going to be following up with [facility] and [facility]. They will be providing services however it has been difficult to get them to accept him as a patient, patient is willing. She shared that as long as he is working with Medical home to pursue his care it would be alright to sign the form. I will place the form on Dr. Collins's desk. documented in this encounter Plan of Treatment Not on file documented as of this encounter Visit Diagnoses Not on filedocumented in this encounter Care Teams Tenterer Relationship Specialty Start Date End Date Yumiko Land MD PCP - General Internal Medicine - Primary Care 08/28/23 06/03/24 Ramila Pagan, [facility] [address] [place] [id number] Veterinarian Laboratory Animal Care 12/19/23 documented as of this encounter
--- OUTSIDE RECORDS SUMMARY | 2024-08-14 17:33 | XMS_ITS | Encounter Summary ---
Author Organization [facility] Address [address] [place] [address] Care Team Providers Care Tape Edge Machine Operator Name Role Phone Yumiko Land MD Primary Care Provider [phone] Ramila Pagan DOBBY LOOM WEAVER Unavailable [phone] Yana De La Cruz MD Primary Care Provider + Reason for Visit * Reason Onset Date Comments Appointment Related 03/16/2024 Encounter Details Date Type Department Care Team (Late st Contact Info) Description 03/16/2024 Telephone [facility] [place] Adult Primary Care - [address] [address] Beatrice Tsang MD [address] [place] [phone] Appointment Related (/) Social History Tobacco Use Types Packs/Day Years Used Date Smoking Tobacco: Every Day Cigarettes Smokeless Tobacco: Former Chew Alcohol Use Standard Drinks/Week Comments Not Currently 0 (1 standard drink = 0.6 oz pur e alcohol) seldom [facility] Utilities Answer Date Recorded In the past 12 months has [employer], gas, oil, or water [employer] threatened to shut off services in your [...] place to sleep or slept in a snf (including now)? Yes 01/05/2024 Interpersonal Safety Answer [...] No 04/23/2023 documented as of this encounter Ordered Prescriptions Prescription Sig Dispensed Refills Start Date End Da te lisdexamfetamine (VYVANSE) 30 mg capsuleIndications:Atten tion deficit hyperactivity disorder (ADHD), combined type Take 1 Capsule by mouth every morning for 10 days. Daily Max: 30 mg 10 Capsule 03/16/2024 03/19/2024 clonazePAM (KLONOPIN) 0.5 mg tabletIndications:Genera lized anxiety disorder Take 2 Tablets by mouth 2 times daily for 10 days. Daily Max: 2 mg 40 Tablet 03/16/2024 03/19/2024 documented in this encounter Miscellaneous Notes * Telephone Encounter - Beatrice Tsang MD - 03/16/2024 1408 EDT Medication refills sent through 03/26 to get to rescheduled appointment. Beatrice Tsang MD * Telephone Encounter - Anabella Chan - 03/16/2024 1306 EDT Pt has been rescheduled to 03/25/24 at 9:45 am. Pt is requesting his refills to be sent to [facility] in [place] as he is living in [place] at the [facility] now. * Telephone Encounter - Beatrice Tsang MD - 03/16/2024 1257 EDT Please reschedule Rizwan first, then I can send refill. He will get a bridging refill that will last until his next appt so I need the date first. Beatrice Tsang MD * Telephone Encounter - Omkar Candi - 03/16/2024 1225 EDT Rizwan is unabloe to make the appointment today, requesting refills and qill call to rescheduel/ documented in this encounter Plan of Treatment Not on file documented as of this encounter Visit Diagnoses Diagnosis Generalized anxiety disorder Attention deficit hyperactivity disorder (ADHD), combined type documented in this encounter Discontinued Medications Medication Sig Discontinue Reason Start Date End Da te lisdexamfetamine (VYVANSE) 30 mg capsuleIndications:Attent ion deficit hyperactivity disorder (ADHD), combined type Take 1 Capsule by mouth every morning for 28 days. Daily Max: 30 mg Reorder 02/16/2024 03/16/2024 clonazePAM (KLONOPIN) 0.5 mg tabletIndications:General ized anxiety disorder Take 2 Tablets by mouth 2 times daily for 28 days. Daily Max: 2 mg Reorder 02/17/2024 03/16/2024 documented as of this encounter Care Teams Tape Edge Machine Operator Relationship Specialty Start Date End Date Yumiko Land MD PCP - General Internal Medicine - Primary Care 08/28/23 06/03/24 Yana De La Cruz MD [address] [place] [address] PCP - General 06/04/24 Ramila Pagan LICSW [address] [place], [place] [id number] Automatic Corn Grinder Operator 12/19/23 documented as of this encounter
--- OUTSIDE RECORDS SUMMARY | 2024-08-14 17:33 | XMS_ITS | Encounter Summary ---
Author Organization [facility] Address [address] [place] [address] Care Team Providers Care Manager Underwriting Name Role Phone Yumiko Land MD Primary Care Provider [phone] Ramila Pagan BILINGUAL SCHOOL PSYCHOLOGIST Unavailable [phone] Encounter Details Date Type Department Care Team (Late st Contact Info) Description 03/25/2024 Patient Outreach [facility] [place] [address] [place], [place] [address] Ramila Pagan LICSW [address] [place] [address] Social History Tobacco Use Types Packs/Day Years Used Date Smoking Tobacco: Every Day Cigarettes Smokeless Tobacco: Former Chew Alcohol Use Standard Drinks/Week Comments Not Currently 0 (1 standard drink = 0.6 oz pur e alcohol) seldom [facility] Utilities Answer Date Recorded In the past 12 months has [employer], gas, oil, or water [employer] threatened to shut off services in your [...] place to sleep or slept in a correction (including now)? Yes 01/05/2024 Interpersonal Safety Answer [...] as of this encounter Progress Notes * Ramila Pagan LICSW - 03/25/2024 0951 EDT [facility] Follow Up Principal Research Economist followed up with Rizwan prior to his visit with Dr. Tsang. TOPIC OF CONVERSATION: Reviewed assessment and plan from previous visit with patient. Engaged patient in conversation related to positive behavior change, self- management, goal setting and action planning using motivational interviewing and active listening. Medication reviewed: Will be addressing this with Dr. Tsang. He would like a lock box for medications. If it could have a combo lock it would be good. He said he has many medications. So it would have to be a good size. Social determinants of health needs reviewed: Rizwan said that he still has not heard about the paperwork to prove his citizenship. He paid them over a month ago and they have not provided proof. He needs this to obtain and ID to get medications and to work on SSI application. Call to Subha, his embedded case manager at [facility] that assisted with the process. Gaps in community resources: Needs help navigating social security, etc. He has not followed up with [employer]. Will assist for now. Education provided on condition and/or disease: no Prioritized Patient Identified Goals: 1. Rizwan would like to re establish with a counselor and psychiatrist. He will reach out to [facility] to determine if they are a resource. He will do so in the next month. Will extend to 6 months. Achievement towards goals: In progress 2. Rizwan would like to find an income source in the next 4 months. He will connect with [employer] and work with them to outline a plan for employment or application for SSDI. Achievement towards goals: In progress 3. 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 He will work with [employer] in the next 6 months to outline a plan for this.Waiting for ID, need citizenship paperwork. Plan: Call to [facility] manager of project management. Letter completed so he can apply for general assistance,he is going to apply for SSI will support this. CM will follow-up In 2 weeks CYNDY ALCANTARA 03/25/2024 13:06 documented in this encounter Plan of Treatment Not on file documented as of this encounter Visit Diagnoses Not on filedocumented in this encounter Care Teams Manager Underwriting Relationship Specialty Start Date End Date Yumiko Land MD PCP - General Internal Medicine - Primary Care 08/28/23 06/03/24 Ramila Pagan LICSW [address] [place] [address] Principal Research Economist 12/19/23 documented as of this encounter
--- OUTSIDE RECORDS SUMMARY | 2024-08-14 17:33 | XMS_ITS | Encounter Summary ---
Author Organization [facility] Address [address] [place] [address] Care Team Providers Care Screw Machine Adjuster Automatic Name Role Phone Ramila Pagan ALL ROUND BUTCHER Unavailable [phone] Yana De La Cruz MD Primary Care Provider + Reason for Visit * Reason Onset Date Comments Medications Refill 07/14/2024 Encounter Details Date Type Department Care Team (Late st Contact Info) Description 07/14/2024 Refill [facility] Adult Primary Care - [place] [address] [place], [place] [phone] Yana De La Cruz MD [address] [place] [address] Medications Refill Social History Tobacco Use Types Packs/Day Years Used Date Smoking Tobacco: Every Day Cigarettes Smokeless Tobacco: Former Chew Alcohol Use Standard Drinks/Week Comments Not Currently 0 (1 standard drink = 0.6 oz pur e alcohol) seldom [facility] Utilities Answer Date Recorded In the past 12 months has [employer], gas, oil, or water [employer] threatened to shut off services in [...] place to sleep or slept in a skilled nursing (including now)? Yes 01/05/2024 Interpersonal Safety Answer [...] Start Date End Da te lisdexamfetamine (VYVANSE) 40 mg capsuleIndications:Atten tion deficit hyperactivity disorder (ADHD), combined type Take 1 Capsule by mouth every morning for 28 days. Daily Max: 40 mg 28 Capsule 07/15/2024 08/12/2024 documented in this encounter Miscellaneous Notes * Telephone Encounter - Anabella Chan - 07/15/2024 1252 EDT Pt is out of his prescription for Vyvanse and need a refill sent to [facility] in [place] please. * Telephone Encounter - Alfredo Valadez RN - 07/15/2024 1235 EDT Medication(s) Requested: vyvanse Preferred Pharmacy: [facility] Are visits in compliance? Yes Last Refill Date: VPMS: 06/17/24, #28, 28d, 0rf, due 07/15/24 Script pended Recent Visits Date Type Provider Dept 09/01/23 Office Visit Yumiko Land MD [facility] [place] Showing recent visits within past 540 days with a meds authorizing provider and meeting all other requirements Future Appointments Date Type Provider Dept 07/27/24 Appointment Marisa Chan NP [facility] [place] Showing future appointments within next 150 days with a meds authorizing provider and meeting all other requirements ALFREDO VALADEZ RN 07/15/2024 12:35 * Telephone Encounter - Diogo Carcamo - 07/15/2024 0844 EDT 07/15/24 8:49AM Rizwan called again, his Vyvanse runs out today so he needs the refill sent today to [facility]. * Telephone Encounter - Cathryn Victor - 07/14/2024 0832 EDT Rizwan patient calling needs a refill on Vyvanse 40mg Dawson Gomez [phone] documented in this encounter Plan of Treatment Not on file documented as of this encounter Visit Diagnoses Diagnosis Attention deficit hyperactivity disorder (ADHD), combined type- Primary documented in this encounter Discontinued Medications Medication Sig Discontinue Reason Start Date End Da te lisdexamfetamine (VYVANSE) 40 mg capsuleIndications:Attent ion deficit hyperactivity disorder (ADHD), combined type Take 1 Capsule by mouth every morning for 28 days. Daily Max: 40 mg Reorder 06/17/2024 07/15/2024 documented as of this encounter Care Teams Screw Machine Adjuster Automatic Relationship Specialty Start Date End Date Yana De La Cruz MD [address] [place] [address] PCP - General 06/04/24 Ramila Pagan LICSW [address] [place] [address] Trademark Attorney 12/19/23 documented as of this encounter
--- OUTSIDE RECORDS SUMMARY | 2024-08-14 17:33 | XMS_ITS | Encounter Summary ---
Author Organization [facility] Address [address] [place] [address] Care Team Providers Care Voice Intercept Technician Name Role Phone Yumiko Land MD Primary Care Provider [phone] Ramila Pagan [facility] Unavailable [phone] Reason for Visit * Reason Comments Follow-up Encounter Details Date Type Department Care Team ([facility] st Contact Info) Description 03/18/2024 Community Health Team [facility] [place] - [place] [address] [place] [phone] Care Management, [facility] [place] Social History Tobacco Use Types Packs/Day Years Used Date Smoking Tobacco: Every Day Cigarettes Smokeless Tobacco: Former Chew Alcohol Use Standard Drinks/Week Comments Not Currently 0 (1 standard drink = 0.6 oz pur e alcohol) seldom [facility] Utilities Answer Date Recorded In the past [...] place to sleep or slept in a chcf (including now)? Yes 01/05/2024 Interpersonal Safety Answer [...] encounter Progress Notes * Marianne Lara - 03/18/2024 1034 EDT Fence Laborer LVM for Rizwan on 03/18/24 to get details on what he wants for his lockbox. PLAN: RC to follow up with [facility]. Marianne Lara 03/18/2024 10:38 documented in this encounter Plan of Treatment Not on file documented as of this encounter Visit Diagnoses Not on filedocumented in this encounter Care Teams Voice Intercept Technician Relationship Specialty Start Date End Date Yumiko Land MD PCP - General Internal Medicine - Primary Care 08/28/23 06/03/24 Ramila Pagan LEAD SOFTWARE ARCHITECT [address] [place] [address] Chinchilla Machine Operator 12/19/23 documented as of this encounter
--- OUTSIDE RECORDS SUMMARY | 2024-08-14 17:33 | XMS_ITS | Encounter Summary ---
Author Organization [facility] Address [address] [place] [address] Care Team Providers Care Director Of Corporate Real Estate Name Role Phone Yumiko Land MD Primary Care Provider [phone] [facility] Unavailable [phone] Reason for Visit * Reason Comments Medications Refill Encounter Details Date Type Department Care Team ([facility] st Contact Info) Description 03/16/2024 Refill [facility] Adult Primary Care - [address] [id number] Beatrice Tsang MD [address] [place] [phone] Medications Refill Social History Tobacco Use Types Packs/Day Years Used Date Smoking Tobacco: Every Day Cigarettes Smokeless Tobacco: Former Chew Alcohol Use Standard Drinks/Week Comments Not Currently 0 (1 standard drink = 0.6 oz pur e alcohol) seldom [facility] Utilities Answer Date Recorded In the past 12 months has [employer], gas, oil, or water [employer] threatened to shut off services in your [...] place to sleep or slept in a penitentiary (including now)? Yes 01/05/2024 Interpersonal Safety Answer [...] No 04/23/2023 documented as of this encounter Plan of Treatment Not on file documented as of this encounter Visit Diagnoses Diagnosis Generalized anxiety disorder- Primary documented in this encounter Care Teams Director Of Corporate Real Estate Relationship Specialty Start Date End Date Yumiko Land MD PCP - General Internal Medicine - Primary Care 08/28/23 06/03/24 Ramila Pagan BLOOD BANK SPECIALIST [address] [place] [address] Dried Yeast Supervisor 12/19/23 documented as of this encounter
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
--- OUTSIDE RECORDS SUMMARY | 2024-08-14 17:33 | XMS_ITS | Encounter Summary ---
Author Organization [facility] Address [address] [place] [address] Care Team Providers Care Handbag Operator Name Role Phone Ramila Pagan PRICING STRATEGIST Unavailable [phone] Yana De La Cruz MD Primary Care Provider + Encounter Details Date Type Department Care Team ([facility] st Contact Info) Description 06/22/2024 Patient Outreach [facility] [place] Primary Care - [place] [address] [place], [place] [phone] Ramila Pagan, PRICING STRATEGIST [address] [place], [place] [address] Social History Tobacco Use Types Packs/Day Years Used Date Smoking Tobacco: Every Day Cigarettes Smokeless Tobacco: Former Chew Alcohol Use Standard Drinks/Week Comments Not Currently 0 (1 standard drink = 0.6 oz pur e alcohol) seldom [facility] Utilities Answer Date Recorded In the past 12 months has [employer], gas, oil, or water [employer] threatened to shut off services in your [...] place to sleep or slept in a senior care (including now)? Yes 01/05/2024 Interpersonal Safety Answer [...] of this encounter Progress Notes * Ramila Pagan, PRICING STRATEGIST - 06/22/2024 1113 EDT [facility] Care Management Follow Up Finisher Operator was alerted by Rizwan that he needs another letter from [employer] to obtain his GA. TOPIC OF CONVERSATION: Reviewed assessment and plan from previous visit with patient. Engaged patient in conversation related to positive behavior change, self- management, goal setting and action planning using motivational interviewing and active listening. Medication reviewed: No new needs identified Social determinants of health needs reviewed: Rizwan may return to the senior care. He is on the list and can call close to the th when his hotel voucher runs out. Gaps in community resources: He is still waiting for his naturalization papers to be sent. He spokewith Taylor at the senior care. She assisted in the process and she said that they are on their way. Education provided on condition and/or disease: no Rizwan has not heard from [facility], he is on the wait list for a therapist. I sent a message to [facility] to check the status. Letter provided for [employer] Rizwan has a packet of paperwork for SSDI. He is working on this. Prioritized Patient Identified Goals: Rizwan would like to re establish with a counselor and psychiatrist. He will reach out to [facility] to determine if they are a resource. He will do so in the next year. Achievement towards goals: Ended - pt no longer working towards this goal, [facility] 2. Rizwan would like to find an income source in the next 12 months. He will connect with [employer] and work with them to outline a plan for employment or application for SSDI. 3. 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 He will work with [employer] in the next 6 months to outline a plan for this. Achievement towards goals: Ended - pt no longer working towards this goal New Goal: Rizwan is still in need of income, however he has decided to apply for SSDI instead of working on it with [employer]. He will also work on the driver engineer's license independently. He will follow throughwith all appointments and paperwork needed for this over the next 6 months. Plan: Available as needed, otherwise CM will follow-up in one month CYNDY ALCANTARA 06/23/2024 8:39 documented in this encounter Plan of Treatment Not on file documented as of this encounter Visit Diagnoses Not on filedocumented in this encounter Care Teams Handbag Operator Relationship Specialty Start Date End Date Yana De La Cruz MD [address] [place] [address] PCP - General 06/04/24 Ramila Pagan LICSW [address] [place] [address] Finisher Operator 12/19/23 documented as of this encounter
--- OUTSIDE RECORDS SUMMARY | 2024-08-14 17:33 | XMS_ITS | Encounter Summary ---
Author Organization [facility] Address [address] [place] [address] Care Team Providers Care Grades 9 Thru 12 Visiting Teacher Name Role Phone Yumiko Land MD Primary Care Provider [phone] Ramila Pagan [facility] Unavailable [phone] Reason for Visit * Reason Comments DME Encounter Details Date Type Department Care Team ([facility] st Contact Info) Description 04/07/2024 Community Health Team [facility] [place] - [place] [address] [place] [phone] Care Management, [facility] [place] Social History Tobacco Use Types Packs/Day Years Used Date Smoking Tobacco: Every Day Cigarettes Smokeless Tobacco: Former Chew Alcohol Use Standard Drinks/Week Comments Not Currently 0 (1 standard drink = 0.6 oz pur e alcohol) seldom [facility] Utilities Answer Date Recorded In the [...] to sleep or slept in a senior living (including now)? Yes 01/05/2024 Interpersonal Safety Answer [...] encounter Progress Notes * Marianne Lara - 04/07/2024 1537 EDT Upper Extremity Surgeon submitted medication lock box DME order request on 04/07/24 to [facility] team. PLAN: RC awaiting response and will contact Rizwan once the item has shipped. Marianne Lara 04/07/2024 15:38 documented in this encounter Plan of Treatment Not on file documented as of this encounter Visit Diagnoses Not on filedocumented in this encounter Care Teams Grades 9 Thru 12 Visiting Teacher Relationship Specialty Start Date End Date Yumiko Land MD PCP - General Internal Medicine - Primary Care 08/28/23 06/03/24 Ramila Pagan DISPATCHER CHIEF COAL SLURRY [address] [place] [phone] Baby Doctor 12/19/23 documented as of this encounter
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
--- OUTSIDE RECORDS SUMMARY | 2024-08-14 17:33 | XMS_ITS | Encounter Summary ---
Author Organization [facility] Address [address] [place] [address] Care Team Providers Care Manager Leadership Development Name Role Phone Ramila Pagan MANAGER FEDERAL Unavailable [phone] Yana De La Cruz MD Primary Care Provider + Encounter Details Date Type Department Care Team (Late st Contact Info) Description 07/19/[address] [facility] Adult Primary Care - [place] [address] [place], [place] [id number] Ramila Pagan, MANAGER FEDERAL [address] [place], [place] [address] Social History Tobacco Use Types Packs/Day Years Used Date Smoking Tobacco: Every Day Cigarettes Smokeless Tobacco: Former Chew Alcohol Use Standard Drinks/Week Comments Not Currently 0 (1 standard drink = 0.6 oz pur e alcohol) seldom [facility] Utilities Answer Date Recorded In the past 12 months has [employer], gas, oil, or water [employer] threatened to shut off services in your [...] place to sleep or slept in a fdc (including now)? Yes 01/05/2024 Interpersonal Safety Answer [...] Progress Notes * Ramila Pagan LICSW - 07/19/2024 0905 EDT [facility] Care Management Follow Up Community Theater Actor followed up with Rizwan by phone. TOPIC OF CONVERSATION: Reviewed assessment and plan from previous visit with patient. Engaged patient in conversation related to positive behavior change, self- management, goal setting and action planning using motivational interviewing and active listening. Medication reviewed: No new needs identified Social determinants of health needs reviewed: No new needs identified Gaps in community resources: No new needs identified Education provided on condition and/or disease: no Rizwan has to leave the hotel by next week. He has a plan to move in with his ex girlfriend. They have both talked it over and feel that this plan will work. He will be able [facility] support. Agree to follow through the transition and assist with barriers. Prioritized Patient Identified Goals: Rizwan is still in need of income, however he has decided to apply for SSDI instead of working on it with [employer]. 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 He will follow throughwith all appointments and paperwork needed for this over the next 6 months.(copy and paste previousgoal) Achievement towards goals: In progress Rizwan is still in process of application process. He still has not received his documentation for citizenship. He is contacting [employer] office. Plan: Follow up next week to assure that he moves safely. Rizwan has moved. He will follow up. He is alight in this setting for now. He is not sure it will be alright prison. CYNDY ALCANTARA 07/19/2024 9:28 documented in this encounter Plan of Treatment Not on file documented as of this encounter Visit Diagnoses Not on filedocumented in this encounter Care Teams Manager Leadership Development Relationship Specialty Start Date End Date Yana De La Cruz MD [address] [place] [phone] PCP - General 06/04/24 Ramila Pagan LICSW [address] [place] [address] Community Theater Actor 12/19/23 documented as of this encounter
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
--- OUTSIDE RECORDS SUMMARY | 2024-08-14 17:33 | XMS_ITS | Encounter Summary ---
Author Organization [facility] Address [address] [place] [address] Care Team Providers Care Information Officer Name Role Phone Yumiko Land MD Primary Care Provider [phone] Ramila Pagan OUTSOLE FLEXER Unavailable [phone] Encounter Details Date Type Department Care Team (Late st Contact Info) Description 04/23/2024 Patient Outreach [facility] Adult Primary Care - [place] [address] [place], [place] [id number] Ramila Pagan LICSW [address] [place] [address] Social History Tobacco Use Types Packs/Day Years Used Date Smoking Tobacco: Every Day Cigarettes Smokeless Tobacco: Former Chew Alcohol Use Standard Drinks/Week Comments Not Currently 0 (1 standard drink = 0.6 oz pur e alcohol) seldom [facility] Utilities Answer Date Recorded In the past 12 months has AA Party, gas, oil, or water [employer] threatened to shut off services in your [...] place to sleep or slept in a usp (including now)? Yes 01/05/2024 Interpersonal Safety Answer [...] Progress Notes * Ramila Pagan LICSW - 04/23/2024 1049 EDT [facility] Care Management Follow Up Manufacturing Test Engineer followed up with Rizwan by phone. TOPIC OF CONVERSATION: Reviewed assessment and plan from previous visit with patient. Engaged patient in conversation related to positive behavior change, self- management, goal setting and action planning using motivational interviewing and active listening. Medication reviewed: No new needs identified Social determinants of health needs reviewed: need for continued housing Gaps in community resources: No new needs identified Education provided on condition and/or disease: yes educate on the need to be in counseling, addressing mental health especially if applying for SSI [facility] has his med lock box, will arrange to deliver Rizwan needs a form to extent housing 80 days past May 03. Will send to a covering provider. Rizwan made an appt with [facility] 04/30/24 at 1:15, [facility] to join via phone. He has to clarify housing with [facility]. He will then schedule an intake with TA. Prioritized Patient Identified Goals: Rizwan would like to re establish with a counselor and psychiatrist. He will reach out to [facility] to determine if they are a resource. He will do so in the next month. Achievement towards goals: In progress 2. Rizwan would like to find an income source in the next 4 months. He will connect with [employer] and work with them to outline a plan for employment or application for SSDI. Achievement towards goals: In progress 3. 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 He will work with [email or web address] in the next 6 months to outline a plan for this. In process, defer Plan: Rizwan will make the needed appointments, requesting career technology teacherplant quality manager with the appointments. Will accommodate as able. CM will follow-up on 04/30, and sooner to address housing and the lock box CYNDY ALCANTARA 04/23/2024 10:52 documented in this encounter Plan of Treatment Not on file documented as of this encounter Visit Diagnoses Not on filedocumented in this encounter Care Teams Information Officer Relationship Specialty Start Date End Date Yumiko Land MD PCP - General Internal Medicine - Primary Care 08/28/23 06/03/24 Ramila Pagan OUTSOLE FLEXER [address] [place] [address] Manufacturing Test Engineer 12/19/23 documented as of this encounter
--- OUTSIDE RECORDS SUMMARY | 2024-08-14 17:33 | XMS_ITS | Encounter Summary ---
Author Organization [facility] Address [address] [place] [address] Care Team Providers Care Arc Cutter Plasma Arc Name Role Phone Yumiko Land MD Primary Care Provider [phone] [facility] Unavailable [phone] Reason for Visit * Reason Comments Other Food stamps Encounter Details Date Type Department Care Team (Late st Contact Info) Description 02/16/2024 Community Health Team [facility] [address], [address] [place], [place] [id number] [facility] Aco/Clothes Wringer, [facility] Adult Social History Tobacco Use Types Packs/Day Years Used Date Smoking Tobacco: Every Day Cigarettes Smokeless Tobacco: Former Chew Alcohol Use Standard Drinks/Week Comments Not Currently 0 (1 standard drink = 0.6 oz pur e alcohol) seldom [facility] Utilities Answer Date Recorded In the past 12 months has e electric, gas, oil, or water company [...] encounter Progress Notes * Marianne Lara - 02/16/2024 1030 EDT Foot Doctor spoke with Rizwan on 02/16/24 to follow up on the [employer] application RC completed with him weeks ago. Rizwan states he hasn't heard anything on it. He states he needs to go to [facility] to get it straightened out and he will. PLAN: RC to follow up with Rizwan in 2 weeks after he has done this. Marianne Lara 02/16/2024 10:32 documented in this encounter Plan of Treatment Not on file documented as of this encounter Visit Diagnoses Not on filedocumented in this encounter Care Teams Arc Cutter Plasma Arc Relationship Specialty Start Date End Date Yumiko Land MD PCP - General Internal Medicine - Primary Care 08/28/23 06/03/24 Ramila Pagan LICSW [address] [place] [address] Media Services Coordinator 12/19/23 documented as of this encounter
--- OUTSIDE RECORDS SUMMARY | 2024-08-14 17:33 | XMS_ITS | Encounter Summary ---
Author Organization [facility] Address [address] [place] [address] Care Team Providers Care Dope Edger Name Role Phone Ramila Pagan RUBBER WORKER Unavailable [phone] Yana De La Cruz MD Primary Care Provider + Reason for Visit * Reason Comments Medications Refill Encounter Details Date Type Department Care Team ([facility] st Contact Info) Description 07/19/2024 Refill [facility] Adult Primary Care - [place] [address] [place] [address] Marisa Chan NP [address] [place] [address] Medications Refill Social History Tobacco Use Types Packs/Day Years Used Date Smoking Tobacco: Every Day Cigarettes Smokeless Tobacco: Former Chew Alcohol Use Standard Drinks/Week Comments Not Currently 0 (1 standard drink = 0.6 oz pur e alcohol) seldom [facility] Utilities Answer Date Recorded In the past 12 months has [employer], gas, oil, or water [employer] threatened to shut off services in your [...] Dispensed Refills Start Date End Da te gabapentin (NEURONTIN) 600 mg tabletIndications:Neuropat hy Take 1 Tablet by mouth 3 times daily. 90 Tablet 3 07/19/2024 documented in this encounter Miscellaneous Notes * Telephone Encounter - Alfredo Valadez RN - 07/19/2024 1621 EDT Medication(s) Requested: gabapentin Preferred Pharmacy: [facility] Are visits in compliance? Yes Last Refill Date: Script escribed Recent Visits Date Type Provider Dept 09/01/23 Office Visit Yumiko Land MD [facility] Showing recent visits within past 540 days with a meds authorizing provider and meeting all other requirements Future Appointments Date Type Provider Dept 07/27/24 Appointment Marisa Chan NP [facility] Showing future appointments within next 150 days with a meds authorizing provider and meeting all other requirements ALFREDO VALADEZ RN 07/19/2024 16:21 * Telephone Encounter - Anabella Chan - 07/19/2024 1245 EDT Pt is in need of Gabapentin refill to be sent to [facility] in [place] please. documented in this encounter Plan of Treatment Not on file documented as of this encounter Visit Diagnoses Diagnosis Neuropathy- Primary Mononeuritis of unspecified site documented in this encounter Discontinued Medications Medication Sig Discontinue Reason Start Date End Da te gabapentin (NEURONTIN) 600 mg tabletIndications:Neurop athy Take 1 Tablet by mouth 3 times daily. 04/06/2024 07/19/2024 documented as of this encounter Care Teams Dope Edger Relationship Specialty Start Date End Date Yaan De La Cruz MD [address] [place] [address] PCP - General 06/04/24 Ramila Pagan, RUBBER WORKER [address] [place] [address] Vacuum Spindle Sander 12/19/23 documented as of this encounter
--- OUTSIDE RECORDS SUMMARY | 2024-08-14 17:33 | XMS_ITS | Referral Summary ---
Author Organization [facility] Address [address] [place] [address] Care Team Providers Care Whipped Topping Finisher Name Role Phone Ramila Pagan NUCLEAR PLANT INSTRUMENT TECHNICIAN Unavailable [phone] Yana De La Cruz MD Primary Care Provider + Encounters Date Type Department Care Team Description 07/19/2024 Patient Outreach [facility] [address] [place] [address] Ramila Pagan LICSW 07/19/2024 Refill [facility] [address] [place] [address] Marisa Chan NP Medications Refill 07/14/[address] [address] Yana De La Cruz MD Medications Refill 06/22/2024 Patient Outreach [facility] [address] [place] [address] Ramila Pagan LICSW 06/15/2024 Refill [facility] [address] [place] [address] Yana De La Cruz MD Medications Refill 05/24/2024 Patient Outreach [facility] [address] [place] [address] Ramila Pagan LICSW from Last 3 Months Allergies No known active allergies Medications Medication Sig Dispensed Refills Start Date End Date Status nitroGLYCERIN (NITROSTAT) 0.[address] 1 Tab under the tongue every 5 minutes as needed for Chest Pain. 25 Tab 1 03/18/20 14 Active Additional Information Patient not taking.Reported on 04/22/2023 buprenorphine-naloxone (SUBOXONE) 8-2 mg tablet, sublingual 08/21/20 Active acetaminophen (TYLENOL) 325 mg tablet Take 2 Tablets by mouth every 4 hours as needed for Pain. 100 Tablet 2 08/23/20 23 Active atorvastatin (LIPITOR) 80 mg tabletIndications:Famil ial hypercholesterolemia Take 1 Tablet by mouth at bedtime. 90 Tablet 3 12/16/19 24 Active clopidogreL (PLAVIX) 75 mg tabletIndications:NSTEM I (non-ST elevated myocardial infarction) ([facility]) Take 1 Tablet by mouth daily. 90 Tablet 3 12/16/19 24 Active empagliflozin (JARDIANCE) 10 mg tabletIndications:Type 2 diabetes mellitus with hyperglycemia, unspecified whether care home insulin use ([facility]) Take 1 Tablet by mouth daily. 90 Tablet 3 12/16/19 24 Active metFORMIN (GLUCOPHAGE) 1,000 mg tabletIndications:Diabe manoj mellitus type 2 in nonobese ([facility]) Take 1 Tablet by mouth 2 times daily. 180 Tablet 3 12/16/19 24 Active metoprolol SUCCinate (TOPROL-XL) 100 mg tabletIndications:NSTEM I (non-ST elevated myocardial infarction) ([facility]) Take 1 Tablet by mouth daily. 90 [...] 2 diabetes mellitus with hyperglycemia, unspecified whether intermission coordinator insulin use ([facility]) Take 1 Tablet by mouth daily. 90 [...] hyperglycemia, without long-term current use of insulin ([facility]) 04/23/2023 NSTEMI (non-ST elevated myocardial infarction) ( [facility]) 03/17/2014 Smoking 08/14/2010 Hypertensive disorder 08/14/2010 Hyperlipidemia 08/14/2010 Myocardial infarction ([facility]) 03/03/2008 Overview: Inf set elevation Anxiety disorder Resolved Problems Problem Noted Date Diagnosed Date Resolved Date Hypertensive disorder 2013 Hyperlipidemia 03/17/2014 Immunizations Name Administration Dates Next Due Covid-19 Ad26 Vaccine (JANSJayy EN COVID-19) PF 0.5 ml IM (18 yrs+) 03/22/2021 Covid-19 mRNA Vaccine (PFIZE R COVID-19) PF 0.3 ml IM (12 yrs+) 10/24/2021 Covid-19 mRNA-LNP Nm ccine (MODERNA COVID-19) PF 0.5 mL IM (12 yrs+) 09/11/2023 Influenza Vaccine Quad (AFLURIA) PF 0.5 ml IM (3 yrs+) 09/11/2023 Tdap Vaccine =>7YO IM 04/22/2019 Social History Tobacco Use Types Packs/Day Years Used Date Smoking Tobacco: Every Day Cigarettes Smokeless Tobacco: Former Chew Tobacco Cessation:Ready to Q uit: Not Asked; Counseling Given: Not Answered Alcohol Use Standard Drinks/Week Comments Not Currently 0 (1 standard drink = 0.6 oz pur e alcohol) seldom [facility] Utilities Answer Date Recorded In the [...] money to buy more. Often true 01/05/20 Within the past 12 months, t he [...] 21:13 EDT Sexual Orientation Not on file Last Filed Vital Signs Vital Sign Reading [...] Body Mass Index 26.09 02/17/2024 0944 EDT Functional Status Functional Status Response Date of [...] (5 years old or older) No 04/23/2023 Plan of Treatment Not on file Medical Devices Implanted Type Area Software Reliability Engineer Device Identifier Shelf Expiration Date Model / Serial / Lot Stent Coronary Everomimus Eluting Pt Cr Otw 3.5x38mm Promus Elite [id number] - [id number] Implanted:Qty : 1 on 04/24/2023 by Zeus Preciado MD at [facility] Drug Eluting Stent N/A: Coronary [employer] [id number] 03/07/2024 [id number] / / [id number] Procedures Procedure Name Priority Date/Time Associated Diagnosis Comments HEMOGLOBIN A1C Routine 02/17/2024 10:26 EDT Type 2 diabetes mellitus with hyperglycemia, unspecified whether care home insulin use ([facility]) LIPID PROFILE (INCLUDES CHOLESTEROL, TRIGLYCERIDES, HDL, LDL) [...] A1c 10.0(H) <5.7 % 02/23/2024 17:23 EDT [facility] Comment: Glycemic Status References: Normal: ??<5.7% Pre-Diabetes: ??5.7% - 6.4% Diagnostic of Diabetes: ??> or = 6.5% (if confirmed) Est Avg Glucose 240 mg/dL 17:23 T [facility] Comment:The eAG represents t he A1c result expressed as average glucose in mg/dL. Blood VENOUS BLOOD / Unknown Venipuncture / Unknown 02/17/2024 10:26 EDT 02/17/2024 10:26 EDT Beatrice Tsang MD CHEMISTRY & BLOOD G ORDERABLES [facility] [address] [place] [address] * LIPID PROFILE (INCLUDES CHOLESTEROL, TRIGLYCERIDES, HDL, LDL) (02/17/2024 10:26 EDT) Cholesterol 186 <200 mg/dL 02/17/2024 16:15 EDT [facility] Comment:Note that therapeuti c goals will differ between patients based on cardiac risk factors and current medical therapy. HDL 68 >=40 mg/dl 02/17/2024 16:15 [facility] Comment:Note that therapeuti c goals will differ between patients based on cardiac risk factors and current medical therapy. LDL, Calculated 103 <160 mg/dL 16:15 T [facility] Comment:Note that therapeuti c goals will differ between patients based on cardiac risk factors and current medical therapy. Triglyceride 77 <=150 mg/dL 02/17/2024 16:15 [facility] Comment:Note that therapeuti c goals will differ between patients based on cardiac risk factors and current medical therapy. Chol/HDL Ratio 2.7 See Note 02/17/2024 16:15 [facility] Comment: NOTE: Desirable Ratio = <4.1 Patient At Risk Ratio = >5.0(Males) ?>6.0(Females) Non HDL Cholesterol 118 <160 mg/dL 02/17/2024 16:15 T [facility] Comment:Note that therapeuti c goals will differ between patients based on cardiac risk factors and current medical therapy. Blood VENOUS BLOOD / Unknown Venipuncture / Unknown 02/17/2024 10:26 EDT 02/17/2024 10:26 EDT Beatrice Tsang MD CHEMISTRY & BLOOD G ORDERABLES [facility] [address] [place] [address] * (ABNORMAL) POCT DRUG SCREEN, URINE (02/17/2024) Temperature, POC 94 ??F 90 - 100 ??F [facility] POINT OF CARE Creatinine, POC 20 mg/dL 20-200 mg/dL [facility] POINT OF CARE Specific [place], POC 1.015 1.005 - 1.025 [facility] POINT OF CARE pH, POC 5.0 4.0 - 9.0 [facility] POIN T OF CARE Amphetamine, POC Preliminary positive, Result should be confirmed if clinically indicated(A) . [facility] POINT OF CARE Barbiturates, POC Negative . [facility] POINT OF CARE Buprenorphine , POC Preliminary positive, Result should be confirmed if clinically indicated(A) . [facility] POINT OF CARE Benzodiazapen e, POC Negative . [facility] POINT [facility] Cocaine, POC Negative . [facility] OINT [facility] MDMA, POC Negative . [facility] POIN T OF CARE Methamphetami ne, POC Negative . [facility] POINT OF CARE Opiates 300, POC Negative . [facility] POINT OF CARE Methadone, POC Negative . [facility] POINT OF CARE Oxycodone, POC Negative . [facility] POINT OF CARE PCP, POC Negative . [facility] POIN [facility] OF CARE THC, POC Negative . [facility] POIN T OF CARE Urine URINE / Unknown 02/17/2024 Beatrice Tsang MD POINT OF CARE TEST ORDERABLES [facility] POINT OF CARE * (ABNORMAL) HCV RNA DETECT QUANT (04/05/2022 14:41 EDT) [facility] HCV RNA Qualitative Detected( A) Undetected 04/08/2022 14:37 EDT [facility] HCV RNA Quantitative 14,500,00 0(H) Undetected IU/mL 04/08/2022 14:37 EDT [facility] Blood VENOUS BLOOD / Unknown 04/05/2022 14:41 EDT 04/06/2022 21:41 EDT Narrative [facility] - 04/08/2022 14:37 EDT The quantification range of this assay is 15 IU/mL to 100,000,000 IU/mL. Testing was performed using the Shahriar HCV test ([employer] with the shahriar 6800 System. Provider Outr Resulting Lab CHEMISTRY & BLOOD GAS ORDERABLES Performing Organization Address City/[facility] Co de Phone Number [facility] [address] [place] [address] * HIV ANTIBODY (11/09/2010 16:12 EST) [facility] HIV 1/2 Antibody Negative Reference Range: Negative [facility] 11/09/2010 16:1 2 EST 11/09/2010 16:25 EST Deann Lukas January [facility] IMMUNOLOGY AND SEROL OGY ORDERABLES Performing Organization Address [facility] de Phone Number [facility] [address] [place] [address] from Last 3 Months or Most Recently Relevant to Health Maintenance Advance Directives For more information, please contact: [phone] * Full Code (Latest Code Status on [...] Comments 08/13/2010 19:31 08/20/2010 17:08 Care Teams Whipped Topping Finisher Relationship Specialty Start Date End Date Yana De La Cruz MD [address] [place] [address] PCP - General 06/04/24 Ramila Pagan, [facility] [address] [place] [address] Freight Car Loader 12/19/23
--- OUTSIDE RECORDS SUMMARY | 2024-08-14 17:33 | XMS_ITS | Encounter Summary ---
Author Organization [facility] Address [address] [place] [address] Care Team Providers Care Industrial Laborer Name Role Phone Yumiko Land MD Primary Care Provider [phone] Ramila Pagan INFORMATION LEAD Unavailable [phone] Encounter Details Date Type Department Care Team (Late st Contact Info) Description 02/17/2024 Patient Outreach [facility] Adult Primary Care - [place] [address] [place] [address] Ramila Pagan LICSW [address] [place] [address] Social History Tobacco Use Types Packs/Day Years Used Date Smoking Tobacco: Every Day Cigarettes Smokeless Tobacco: Former Chew Alcohol Use Standard Drinks/Week Comments Not Currently 0 (1 standard drink = 0.6 oz pur e alcohol) seldom [facility] Utilities Answer Date Recorded In the past 12 months has [employer], gas, oil, or water [employer] threatened to shut off services in your [...] Progress Notes * Ramila Pagan LICSW - 02/17/2024 1346 EDT [facility] Care Management Follow Up Composition Professor followed up with Rizwan at his office visit. TOPIC OF CONVERSATION: Reviewed assessment and plan from previous visit with patient. Engaged patient in conversation related to positive behavior change, self- management, goal setting and action planning using motivational interviewing and active listening. Medication reviewed: handled by provider Social determinants of health needs reviewed: Rizwan would like to transfer to a hotel Gaps in community resources: No new needs identified Education provided on condition and/or disease: no Rizwan said that he called [facility] and they told him he needed to go to [facility]. Agreed SW would follow up with this. Prioritized Patient Identified Goals: Rizwan would like to re establish with a counselor and psychiatrist. He will reach out to [facility] to determine if they are a resource. He will do so in the next month. Achievement towards goals: In progress, will extend 2. Rizwan would like to find an income source in the next 4 months. He will connect with [employer] and work with them to outline a plan for employment or application for SSDI. Achievement towards goals: In progress 3. 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 He will work with [employer] in the next 6 months to outline a plan for this. Plan: Call to [facility] and [facility] to determine plan CM will follow-up in one month Spoke with [facility] and [facility], will assist pt making the phone calls. CYNDY ALCANTARA 02/17/2024 21:28 documented in this encounter Plan of Treatment Not on file documented as of this encounter Visit Diagnoses Not on filedocumented in this encounter Care Teams Industrial Laborer Relationship Specialty Start Date End Date Yumiko Land MD PCP - General Internal Medicine - Primary Care 08/28/23 06/03/24 Ramila Pagan, INFORMATION LEAD [address] [place] [address] Composition Professor 12/19/23 documented as of this encounter
--- OUTSIDE RECORDS SUMMARY | 2024-08-14 17:33 | XMS_ITS | Encounter Summary ---
Author Organization [facility] Address [address] [place] [address] Care Team Providers Care Director Family Name Role Phone Yumiko Land MD Primary Care Provider [phone] Ramila Pagan NETBACKUP ADMINISTRATOR Unavailable [phone] Yana De La Cruz MD Primary Care Provider + Reason for Visit * Reason Comments Medications Refill Encounter Details Date Type Department Care Team (Late st Contact Info) Description 02/12/2024 Refill [facility] Adult Primary Care - [address] [address] Beatrice Tsang MD [address] [place] [phone] Medications Refill Social History Tobacco Use Types Packs/Day Years Used Date Smoking Tobacco: Every Day Cigarettes Smokeless Tobacco: Former Chew Alcohol Use Standard Drinks/Week Comments Not Currently 0 (1 standard drink = 0.6 oz pur e alcohol) seldom [facility] Utilities Answer Date Recorded In the past 12 months has [employer], gas, oil, or water [employer] threatened to shut off services in your [...] place to sleep or slept in a half-way (including now)? Yes 01/05/2024 Interpersonal Safety Answer [...] Dispensed Refills Start Date End Da te clonazePAM (KLONOPIN) 1 mg tabletIndications:General ized anxiety disorder Take 1 Tablet by mouth 2 times daily. Daily Max: 2 mg 56 Tablet 02/17/2024 02/17/2024 documented in this encounter Miscellaneous Notes * Telephone Encounter - Connie Parada - 02/16/2024 1004 EDT DKASHA Astorga states elisha rene will not have 1 mg of clonazepam for two weeks, he takes it two timesper day. He mentioned he has an appt tomorrow with dr tsang. Other TE states she will be discussing another med at his appt. Advised him to speak to her about this med too, he agreed. Reviewed time of apptfor tomorrow. * Telephone Encounter - Beatrice Tsang MD - 02/12/2024 1044 EDT Last clonazepam Rx was supposed to be filled on 01/19 - that is when the Rx was dated for. I am unsure why he was able to fill at the pharmacy on 01/12, however I can confirm on VPMS that this was whenit was last filled. Will follow up at our upcoming visit. Beatrice Tsang MD * Telephone Encounter - Isabel-Deidre Simms RN - 02/12/2024 1024 EDT Medication(s) Requested: Clonazepam Preferred Pharmacy: 01/13/2024 Is patient out of medication? Unknown Last Refill Date: 01/13/2024 Due: 02/10/2024 Recent Visits Date Type Provider Dept 01/13/24 Office Visit Beatrice Tsang MD [facility] [place] 12/30/23 Office Visit Beatrice Tsang MD [facility] [place] 12/15/23 Office Visit Beatrice Tsang MD [facility] [place] Showing recent visits within past 540 days with a meds authorizing provider and meeting all other requirements Future Appointments Date Type Provider Dept 02/17/24 Appointment Beatrice Tsang MD [facility] [place] Showing future appointments within next 150 days with a meds authorizing provider and meeting all other requirements DEIDRE BROUSSARD RN 02/12/2024 10:25 documented in this encounter Plan of Treatment Not on file documented as of this encounter Visit Diagnoses Diagnosis Generalized anxiety disorder documented in this encounter Discontinued Medications Medication Sig Discontinue Reason Start Date End Da te clonazePAM (KLONOPIN) 1 mg tabletIndications:Genera lized anxiety disorder Take 1 Tablet by mouth 2 times daily. Daily Max: 2 mg 01/20/2024 02/12/2024 documented as of this encounter Care Teams Director Family Relationship Specialty Start Date End Date Yumiko Land MD PCP - General Internal Medicine - Primary Care 08/28/23 06/03/24 Yana De La Cruz MD [address] [place] [phone] PCP - General 06/04/24 Ramila Pagan LICSW [address] [place], [place] [id number] Manual Lathe Operator 12/19/23 documented as of this encounter
--- OUTSIDE RECORDS SUMMARY | 2024-08-14 17:33 | XMS_ITS | Encounter Summary ---
Author Organization [facility] Address [address] [place] [address] Care Team Providers Care Reference Archivist Name Role Phone Yumiko Land MD Primary Care Provider [phone] Ramila Pagan MDS MANAGER Unavailable [phone] Encounter Details Date Type Department Care Team (Late st Contact Info) Description 05/24/2024 Patient Outreach [facility] [place] - [place] [address] [place] [address] Ramila Pagan LICSW [address] [place] [address] Social History Tobacco Use Types Packs/Day Years Used Date Smoking Tobacco: Every Day Cigarettes Smokeless Tobacco: Former Chew Alcohol Use Standard Drinks/Week Comments Not Currently 0 (1 standard drink = 0.6 oz pur e alcohol) seldom [facility] Utilities Answer Date Recorded In the past 12 months has [employer], gas, oil, or water [employer] threatened to shut off services in your [...] Progress Notes * Ramila Pagan LICSW - 05/24/2024 1331 EDT [facility] Integrated Care Management Care Coordination Note Manager Outreach spoke with Rizwan. He is working to navigate his housing voucher. He does not need a letter at this time. He is having difficulty getting in touch with [facility]. Will support him with this process when he is able. PLAN: Available when Rizwan reaches out, otherwise follow up in one month. CYNDY ALCANTARA 05/26/2024 13:50 documented in this encounter Plan of Treatment Not on file documented as of this encounter Visit Diagnoses Not on filedocumented in this encounter Care Teams Reference Archivist Relationship Specialty Start Date End Date Yumiko Land MD PCP - General Internal Medicine - Primary Care 08/28/23 06/03/24 Ramila Pagan LICSW [address] [place] [phone] Manager Outreach 12/19/23 documented as of this encounter
--- OUTSIDE RECORDS SUMMARY | 2024-08-14 17:33 | XMS_ITS | Encounter Summary ---
Author Organization [facility] Address [address] [place] [address] Care Team Providers Care Ham Curer Name Role Phone Yumiko Land MD Primary Care Provider [phone] Ramila Pagan [facility] Unavailable [phone] Reason for Visit * Reason Onset Date Comments Paperwork request 02/20/2024 Temporary hous ing Encounter Details Date Type Department Care Team ([facility] st Contact Info) Description 02/20/2024 Telephone [facility] [place] - [address] [address] Yumiko Land MD [address] [place] [address] Paperwork request (Temporary housing ) Social History Tobacco Use Types Packs/Day Years Used Date Smoking Tobacco: Every Day Cigarettes Smokeless Tobacco: Former Chew Alcohol Use Standard Drinks/Week Comments Not Currently 0 (1 standard drink = 0.6 oz pur e alcohol) seldom [facility] Utilities Answer Date Recorded In the past 12 months has [employer], gas, oil, or water [employer] threatened to shut off services in your [...] place to sleep or slept in a fpc (including now)? Yes 01/05/2024 Interpersonal Safety Answer [...] encounter Miscellaneous Notes * Telephone Encounter - Diogo Carcamo - 02/25/2024 1017 EDT 02/25/24 9:00am Rizwan stopped in and picked up paperwork. 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 Tsang to fill out for temporary emergency housing. Scanned paperwork into chart and placedin Dr. Tsang' folder. Rizwan will stop back in next week to pick it up. documented in this encounter Plan of Treatment Not on file documented as of this encounter Visit Diagnoses Not on filedocumented in this encounter Care Teams Ham Curer Relationship Specialty Start Date End Date Yumiko Land MD PCP - General Internal Medicine - Primary Care 08/28/23 06/03/24 Ramila Pagan WASH OPERATOR [address] [place] [address] Supervisor Evaporator 12/19/23 documented as of this encounter
--- OUTSIDE RECORDS SUMMARY | 2024-08-14 17:33 | XMS_ITS | Encounter Summary ---
Author Organization [facility] Address [address] [place] [address] Care Team Providers Care Erp Developer Name Role Phone Yumiko Land MD Primary Care Provider [phone] Ramila Pagan [facility] Unavailable [phone] Reason for Visit * Reason Onset Date Comments Medications Refill 02/17/2024 Encounter Details Date Type Department Care Team ([facility] st Contact Info) Description 02/17/2024 Telephone [facility] - [address] [phone] Yumiko Land MD [address] [place] [address] Medications Refill Social History Tobacco Use Types Packs/Day Years Used Date Smoking Tobacco: Every Day Cigarettes Smokeless Tobacco: Former Chew Alcohol Use Standard Drinks/Week Comments Not Currently 0 (1 standard drink = 0.6 oz pur e alcohol) seldom [facility] Utilities Answer Date Recorded In the past 12 months has [employer], oil, or water [employer] threatened to shut off services in your [...] encounter Miscellaneous Notes * Telephone Encounter - Sharee Valadez, RN - 02/17/2024 1555 EDT Script already sent * Telephone Encounter - Anabella Chan - 02/17/2024 1124 EDT Pt states that he needs a new prescription for .5mg Clonzapam as [facility] only has that amount available. documented in this encounter Plan of Treatment Not on file documented as of this encounter Visit Diagnoses Not on filedocumented in this encounter Care Teams Erp Developer Relationship Specialty Start Date End Date Yumiko Land MD PCP - General Internal Medicine - Primary Care 08/28/23 06/03/24 Ramila Pagan LICSW [address] [place] [id number] Media Arts Professor 12/19/23 documented as of this encounter
--- OUTSIDE RECORDS SUMMARY | 2024-08-14 17:33 | XMS_ITS | Encounter Summary ---
Author Organization [facility] Address [address] [place] [address] Care Team Providers Care Technician Telecommunication Systems Name Role Phone Yumiko Land MD Primary Care Provider [phone] Ramila Pagan MEMBERSHIP DIRECTOR Unavailable [phone] Reason for Visit * Reason Onset Date Comments Medication Questions 03/25/2024 Encounter Details Date Type Department Care Team ([facility] st Contact Info) Description 03/25/2024 Telephone [facility] [place] [address] [place] [address] Ramila Pagan, MEMBERSHIP DIRECTOR [address] [place], [place] [phone] Medication Questions Social History Tobacco Use Types Packs/Day Years Used Date Smoking Tobacco: Every Day Cigarettes Smokeless Tobacco: Former Chew Alcohol Use Standard Drinks/Week Comments Not Currently 0 (1 standard drink = 0.6 oz pur e alcohol) seldom [facility] Utilities Answer Date Recorded In the past 12 months has [employer], gas, oil, or water [employer] threatened to shut off services in your [...] place to sleep or slept in a assisted (including now)? 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 * Telephone Encounter - Cathryn Victor - 03/26/2024 1352 EDT Rizwan calling in regard to Clozapine script says [facility] doesn't have it. Advised it was sent yesterday and they verified the receipt it may take 24 hours from when it was sent for them to review Spoke to Sharee she will check when they open (currently closed for lunch) Patient doesn't have an ID so he has to have someone go with him when he picks it up * Telephone Encounter - Ramila Pagan LICSW - 03/25/2024 1452 EDT I called Rizwan and let him know. 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 He is aware that he is to take one tab 2x a day. Thank you * Telephone Encounter - Beatrice Tsang MD - 03/25/2024 1437 EDT New script signed for 1mg clonazepam. Please let rizwan know that with the 1mg tablets he can only take ONE twice per day, not 2. Beatrice Tsang MD * Telephone Encounter - Marguerite Rodriguez - 03/25/2024 1235 EDT [facility] called and stated they have the 1mg Clonazepam if you want to sent a script for that CB: [phone] * Telephone Encounter - Beatrice Tsang MD - 03/25/2024 1218 EDT His prescriptions were already sent at the time of our OV today. * Telephone Encounter - Ramila Pagan LICSW - 03/25/2024 1159 EDT Rizwan asked if he could have his script sent to [facility] he is in town and can pickit up. He has to have a friend help with this as he does not have ID. documented in this encounter Plan of Treatment Not on file documented as of this encounter Visit Diagnoses Diagnosis Generalized anxiety disorder- Primary documented in this encounter Discontinued Medications Medication Sig Discontinue Reason Start Date End Da te clonazePAM (KLONOPIN) 0.5 mg tabletIndications:Genera lized anxiety disorder Take 2 Tablets by mouth 2 times daily for 84 days. Daily Max: 2 mg Reorder 03/25/2024 03/25/2024 documented as of this encounter Care Teams Technician Telecommunication Systems Relationship Specialty Start Date End Date Yumiko Land MD PCP - General Internal Medicine - Primary Care 08/28/23 06/03/24 Ramila Pagan LICSW [address] [place] [id number] Tube Filler 12/19/23 documented as of this encounter
--- OUTSIDE RECORDS SUMMARY | 2024-08-14 17:33 | XMS_ITS | Encounter Summary ---
Author Organization [facility] Address [address] [place] [address] Care Team Providers Care Lease Administrator Name Role Phone Yumiko Land MD Primary Care Provider [phone] Ramila Pagan [facility] Unavailable [phone] Reason for Visit * Reason Comments Follow-up ADHD, anxiety Encounter Details Date Type Department Care Team (Latest Contact Info) Description 03/25/2024 9:45 EDT [facility] [place] Primary Care - [address] [address] Beatrice Tsang MD [address] [place] [phone] Attention deficit hyperactivity disorder (ADHD), combined type (Primary Dx); Generalized anxiety disorder; Type 2 diabetes mellitus with hyperglycemia, unspecified whether fdc insulin use ([facility]); Primary hypertension; History of alcohol use disorder; Housing insecurity Social History Tobacco Use Types Packs/Day Years Used Date Smoking Tobacco: Every Day Cigarettes Smokeless Tobacco: Former Chew Tobacco Cessation:Ready to Q uit: Not Asked; Counseling Given: Not Answered Alcohol Use Standard Drinks/Week Comments Not Currently 0 (1 standard drink = 0.6 oz pur e alcohol) seldom [facility] Utilities Answer Date Recorded In the past 12 months has th e [employer], gas, oil, or water company threatened to [...] EDT Pulse 67 03/25/2024 0934 EDT Temperature - - Respiratory Rate - - Oxygen Saturation 98% 03/25/2024 0934 EDT Inhaled Oxygen Concentration - - Weight 71.1 kg (156 lb 12.5 oz) 03/25/2024 0934 EDT Height - - Body Mass Index 26.09 02/17/2024 0944 EDT documented in this encounter [...] Dispensed Refills Start Date End Da te glimepiride (AMARYL) 4 mg tabletIndications:Type 2 diabetes mellitus with hyperglycemia, unspecified whether roasterman insulin use ([facility]) Take 1 Tablet by mouth daily. 90 Tablet 3 03/25/2024 clonazePAM (KLONOPIN) 0.5 mg tabletIndications:Genera lized anxiety disorder Take 2 Tablets by mouth 2 times daily for 84 days. Daily Max: 2 mg 112 Tablet 2 03/25/2024 03/25/2024 lisdexamfetamine (VYVANSE) 40 mg capsuleIndications:Atten tion deficit hyperactivity disorder (ADHD), combined type Take 1 Capsule by mouth every morning for 28 days. Daily Max: 40 mg 28 Capsule 03/25/2024 04/22/2024 lisdexamfetamine (VYVANSE) 40 mg capsuleIndications:Atten tion deficit hyperactivity disorder (ADHD), combined type Take 1 Capsule by mouth every morning for 28 days. Daily Max: 40 mg 28 Capsule 04/22/2024 05/20/2024 lisdexamfetamine (VYVANSE) 40 mg capsuleIndications:Atten tion deficit hyperactivity disorder (ADHD), combined type Take 1 Capsule by mouth every morning for 28 days. Daily Max: 40 mg 28 Capsule 05/20/2024 06/15/2024 documented in this encounter Progress Notes * Beatrice Tsang MD - 03/25/2024 0945 EDT Adult Primary Care Office Visit Assessment & Plan Rizwan was seen today for follow-up. Diagnoses and all orders for this visit: Attention deficit hyperactivity disorder (ADHD), combined type Prior dose of vyvanse in [facility] was 60mg. Have not titrated vyvanse since initiating dueto prohibitive blood pressures. His BP today is under good control, allowing uptitrating of vyvanse. Explained that we will up-titrate slowly, by 10mg max each OV, monitoring BP closely. - lisdexamfetamine (VYVANSE) 40 mg capsule; Take 1 Capsule by mouth every morning for 28 days. Daily Max: 40 mg - lisdexamfetamine (VYVANSE) 40 mg capsule; Take 1 Capsule by mouth every morning for 28 days. Daily Max: 40 mg - lisdexamfetamine (VYVANSE) 40 mg capsule; Take 1 Capsule by mouth every morning for 28 days. Daily Max: 40 mg Generalized anxiety disorder Externalized anxiety is overall much improved from prior appointments. On stable dose of SNRI and BZD for several visits, will add refills to clonazepam and extend follow up to q2m. Interested in establishing with counselor - determined that he will have to get a counselor through [facility], he reportspreviously was on a long wait list. It would be a priority for him to be established with a consistent therapist, not bounce around. - clonazePAM (KLONOPIN) 0.5 mg tablet; Take 2 Tablets by mouth 2 times daily for 84 days. Daily Max: 2 mg Type 2 diabetes mellitus with hyperglycemia, unspecified whether fdc insulin use ([facility]) Much improved from >14.3 to 10.0 on labs from last visit. On metformin 1000mg BID, jardiance 10mg, and glimepiride 2mg. Will increase glimepiride to 4mg daily today. Recheck A1c at next f/u in 2 months. - glimepiride (AMARYL) 4 mg tablet; Take 1 Tablet by mouth daily. Primary hypertension Now controlled on losartan 100mg, metoprolol 100mg XL. History of alcohol use disorder Currently not drinking. He finds that his change in living situation makes it easier to stay away from alcohol. Admits to drinking for 4-5 days while in the senior care, around the time of the ED visit. Housing insecurity Successfully moved from senior care to a hotel, doing better with this move. Working closely with [employer] obtaining ID/naturalization (born in [place]) and housing insecurity. Some difficulty with follow up on certain goals. Beatrice Tsang MD Subjective HPI Rizwan Solano is a 48 y.o. male presenting with Follow-up (ADHD, anxiety ) ?[facility] vs treatment associates -->ramila thinks TA Had to be established with [facility] to even to TA Needs to go to the hub to be established ETOH - not now 4 days ago smoked some cannabis, can cause him to feel paranoid T2DM A1c from 14.3 -> 10.0 On metformin 1000mg BID, glimepiride 2mg, jardiance 10mg Glimep 2->4mg Objective BP 130/78 (BP Cuff Location: Left arm, BP Patient Position: Sitting, BP Cuff Sizes: Adult, regular) Pulse 67 Wt 71.1 kg (156 lb 12.5 oz) SpO2 98% BMI 26.09 kg/m?? Wt Readings from Last 3 Encounters: 03/25/24 71.1 kg (156 lb 12.5 oz) 02/17/24 73.5 kg (162 lb) 01/27/24 79.4 kg (175 lb) Physical Exam Constitutional: General: He is not [...] Mood and affect normal. Behavior: Behavior normal. Comments: Appears calm, alert, well groomed documented in this encounter Plan of Treatment Not on file documented as of this encounter Visit Diagnoses Diagnosis Attention deficit hyperactivity disorder (ADHD), combined type- Primary Generalized anxiety disorder Type 2 diabetes mellitus with hyperglycemia, unspecified whether fdc insulin use (HCC-CMS) Primary hypertension Unspecified essential hypertension History of alcohol use disorder Housing insecurity documented in this encounter Discontinued Medications Medication Sig Discontinue Reason Start Date End Da te glimepiride (AMARYL) 2 mg tabletIndications:Type 2 diabetes mellitus with hyperglycemia, unspecified whether fdc insulin use (HCC-CMS) Take 1 Tablet by mouth daily. Reorder 12/16/2023 03/25/2024 clonazePAM (KLONOPIN) 0.5 mg tabletIndications:General ized anxiety disorder Take 2 Tablets by mouth 2 times daily for 10 days. Daily Max: 2 mg Reorder 03/16/2024 03/19/2024 lisdexamfetamine (VYVANSE) 30 mg capsuleIndications:Attent ion deficit hyperactivity disorder (ADHD), combined type Take 1 Capsule by mouth every morning for 10 days. Daily Max: 30 mg Reorder 03/16/2024 03/19/2024 documented as of this encounter Care Teams Lease Administrator Relationship Specialty Start Date End Date Yumiko Land MD PCP - General Internal Medicine - Primary Care 08/28/23 06/03/24 Ramila Pagan, FLIGHT ATTENDANT [employer] [address] [place] [address] Wharf Laborer 12/19/23 documented as of this encounter
--- OUTSIDE RECORDS SUMMARY | 2024-08-14 17:33 | XMS_ITS | Encounter Summary ---
Author Organization [facility] Address [address] [place] [address] Care Team Providers Care Steel Construction Worker Name Role Phone Yumiko Land MD Primary Care Provider [phone] [facility] Unavailable [phone] Reason for Visit * Reason Onset Date Comments Medications Refill 04/02/2024 Encounter Details Date Type Department Care Team (Late st Contact Info) Description 04/02/2024 Refill [facility] [place] [facility] [place] - [address] [address] Yumiko Land MD [address] [place], [place] [id number] Medications Refill Social History Tobacco Use Types Packs/Day Years Used Date Smoking Tobacco: Every Day Cigarettes Smokeless Tobacco: Former Chew Alcohol Use Standard Drinks/Week Comments Not Currently 0 (1 standard drink = 0.6 oz pur e alcohol) seldom [facility] Utilities Answer Date Recorded In the past 12 months has [employer], [employer], oil, or water [employer] threatened to shut off services in your [...] place to sleep or slept in a prison (including now)? Yes 01/05/2024 Interpersonal Safety Answer Date Record ed How often does anyone, amna mahmodo family, hit, punch or physically hurt you? [...] End Da te gabapentin (NEURONTIN) 600 mg tabletIndications:Neuropa thy Take 1 Tablet by mouth 3 times daily. 90 Tablet 3 04/06/2024 07/19/2024 documented in this encounter Miscellaneous Notes * Telephone Encounter - Johana Ryan MA - 04/02/2024 1504 EDT Medication(s) Requested: Gabapentin [facility]acy: [facility] Are visits in compliance? Yes Last Refill Date: 12/16/23 90/3 Recent Visits Date Type Provider Dept 03/25/24 Office Visit Beatrice Tsang MD [facility] [place] 02/17/24 Office Visit Beatrice Tsang MD [facility] [place] 01/13/24 Office Visit Beatrice Tsang MD [facility] [place] 12/30/23 Office Visit Beatrice Tsang MD [facility] [place] 12/15/23 Office Visit Beatrice Tsang MD [facility] [place] 09/01/23 Office Visit Yumiko Land MD [facility] [place] Showing recent visits within past 540 days with a meds authorizing provider and meeting all other requirements Future Appointments Date Type Provider Dept 05/26/24 Appointment Marisa Chan NP [facility] [place] Showing future appointments within next 150 days with a meds authorizing provider and meeting all other requirements JOHANA RYAN MA 04/02/2024 15:05 documented in this encounter Plan of Treatment Not on file documented as of this encounter Visit Diagnoses Diagnosis Neuropathy- Primary Mononeuritis of unspecified site documented in this encounter Discontinued Medications Medication Sig Discontinue Reason Start Date End Da te gabapentin (NEURONTIN) 600 mg tabletIndications:Neurop athy Take 1 Tablet by mouth 3 times daily. Reorder 12/16/2023 04/02/2024 documented as of this encounter Care Teams Steel Construction Worker Relationship Specialty Start Date End Date Yumiko Land MD PCP - General Internal Medicine - Primary Care 08/28/23 06/03/24 Ramila Pagan LICSW [address] [place] [address] Sterile Processing Manager 12/19/23 documented as of this encounter
--- OUTSIDE RECORDS SUMMARY | 2024-08-14 17:33 | XMS_ITS | Encounter Summary ---
Author Organization [facility] Address [address] [place] [address] Care Team Providers Care Facilities Supervisor Name Role Phone Yumiko Land MD Primary Care Provider [phone] Ramila Pagan TOOL REPAIR TECHNICIAN Unavailable [phone] Encounter Details Date Type Department Care Team (Late st Contact Info) Description 05/11/2024 Patient Outreach [facility] [place] - [place] [address] [place] [address] Ramila Pagan LICSW [address] [place] [address] Social History Tobacco Use Types Packs/Day Years Used Date Smoking Tobacco: Every Day Cigarettes Smokeless Tobacco: Former Chew Alcohol Use Standard Drinks/Week Comments Not Currently 0 (1 standard drink = 0.6 oz pur e alcohol) seldom [facility] Utilities Answer Date Recorded In the past 12 months has [employer], gas, oil, or water [employer] threatened to shut off services in your [...] place to sleep or slept in a intermediate (including now)? Yes 01/05/2024 Interpersonal Safety Answer [...] this encounter Progress Notes * Ramila Pagan, [facility] - 05/11/2024 6572 EDT [facility] Care Management Follow Up Senior Technologist followed up with Rizwan by phone. TOPIC OF CONVERSATION: Reviewed assessment and plan from previous visit with patient. Engaged patient in conversation related to positive behavior change, self- management, goal setting and action planning using motivational interviewing and active listening. Medication reviewed: No new needs identified Social determinants of health needs reviewed: No new needs identified Gaps in community resources: Rizwan said he is still waiting for his ID for citizenship. Once he receives this he will be able to replace needed identification. Plan to call previous briefcase sewer, Taylor to obtain timeframe for the ID to come. Education provided on condition and/or disease: no Rizwan had a letter stating that he is not being screed for SSI as he declined to be. We called Martina. Celio spoke with us and shared that the letter is just a time stamp. He can disregard the letter, he is being screened for SSI. Rizwan agreed that he would call [facility] to initiate counseling. We discussed the reason [facility] originally turned him down and recommended TA. He is not engaging in substance use. Rizwan said he is taking all medication as prescribed. He is working with [facility] for suboxone. Rizwan is in the hotel at this time. He has renewed until the end of May. We will continue to coordinate. Prioritized Patient Identified Goals: Rizwan would like to re establish with a counselor and psychiatrist. He will reach out to [facility] to determine if they are a resource. He will do so in the next year Achievement towards goals: In progress, see note, will start with [facility]. Rizwan is not using substances at this time, he feels support through mental health would be beneficial. 2. Rizwan would like to find an income source in the next 12 months. He will connect with [employer] and work with them to outline a plan for employment or application for SSDI. Achievement towards goals: In progress 3. 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 He will work with [employer] in the next 6 months to outline a plan for this. In process Plan: Available to assist as needed otherwise, CM will follow-up in one month CYNDY ALCANTARA 05/11/2024 13:32 documented in this encounter Plan of Treatment Not on file documented as of this encounter Visit Diagnoses Not on filedocumented in this encounter Care Teams Facilities Supervisor Relationship Specialty Start Date End Date Yumiko Land MD PCP - General Internal Medicine - Primary Care 08/28/23 06/03/24 Ramila Pagan LICSW [address] [place] [address] Senior Technologist 12/19/23 documented as of this encounter
--- OUTSIDE RECORDS SUMMARY | 2024-08-14 17:33 | XMS_ITS | Encounter Summary ---
Author Organization [facility] Address [address] [place] [address] Care Team Providers Care Winder Hand Name Role Phone Yumiko Land MD Primary Care Provider [phone] Ramila Pagan [facility] [phone] Yana De La Cruz MD Primary Care Provider + Reason for Visit * Reason Onset Date Comments Patient Information Update 02/18/2024 Encounter Details Date Type Department Care Team ([facility] st Contact Info) Description 02/18/2024 Telephone [facility] [place] [facility] [place] Primary Care - [address] [address] Yumiko Land MD [address] [place] [address] Patient Information Update Social History Tobacco Use Types Packs/Day Years Used Date Smoking Tobacco: Every Day Cigarettes Smokeless Tobacco: Former Chew Alcohol Use Standard Drinks/Week Comments Not Currently 0 (1 standard drink = 0.6 oz pur e alcohol) seldom [facility] Utilities Answer Date Recorded In the past 12 months has [employer], gas, oil, or water [employer] threatened to shut off services in your [...] * Telephone Encounter - Anabella Chan - 02/19/2024 1003 EDT Yes he is requesting this be sent to [facility]. * Telephone Encounter - Beatrice Tsang MD - 02/18/2024 1701 EDT I think this was a conversation with Ramila, not me. I can place a DME order, unsure if it needs to go [facility] or somewhere else? Beatrice Tsang MD * Telephone Encounter - Connie Parada - 02/18/2024 1417 EDT Rizwan said initially he did not want a lock box for his meds when he spoke to dr tsang but now he does want it. [facility]. Rizwan tele number [phone]. * Telephone Encounter - Anabella Chan - 02/18/2024 1002 EDT Pt states he spoke to Dr. Tsang/ Ramila about getting a prescription for lock box that would be cost free to him and he would like to proceed in getting this please. A return call is requested please. documented in this encounter Plan of Treatment Not on file documented as of this encounter Visit Diagnoses Diagnosis Controlled substance agreement signed- Primary Encounter for long-term (current) use of other medications documented in this encounter Orders Equipment Count Last Ordered Date First Orde red Date GENERIC DME ORDER 1 02/18/2024 documented in this encounter Care Teams Winder Hand Relationship Specialty Start Date End Date Yumiko Land MD PCP - General Internal Medicine - Primary Care 08/28/23 06/03/24 Yana De La Cruz MD [address] [place] [phone] PCP - General 06/04/24 Ramila Pagan LICSW [address] [place] [address] Paperhanger Supervisor 12/19/23 documented as of this encounter
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
--- OUTSIDE RECORDS SUMMARY | 2024-08-14 17:33 | XMS_ITS | Encounter Summary ---
Author Organization [facility] Address [address] [place] [address] Care Team Providers Care Carpenter'S Assistant Name Role Phone Yumiko Land MD Primary Care Provider Ramila Pagan CLINICAL MOLECULAR GENETICIST Unavailable [phone] Encounter Details Date Type Department Care Team (Late st Contact Info) Description 02/03/2024 Patient Outreach [facility] [place] [place] - [place] [address] [place] [address] Ramila Pagan LICSW [address] [place] [address] Social History Tobacco Use Types Packs/Day Years Used Date Smoking Tobacco: Every Day Cigarettes Smokeless Tobacco: Former Chew Alcohol Use Standard Drinks/Week Comments Not Currently 0 (1 standard drink = 0.6 oz pur e alcohol) seldom [facility] Utilities Answer Date Recorded In the past 12 months has [employer] gas, oil, or water [employer] threatened to shut off services in your [...] place to sleep or slept in a [facility] (including now)? Yes 01/05/2024 Interpersonal Safety Answer [...] Progress Notes * Ramila Pagan LICSW - 02/03/2024 1513 EDT [facility] Care Management Follow Up Call to Rizwan as he did not return the call last week, mailbox full unable to leave a message. Message left with the [facility], 02/09/24. Qa Automation Architect followed up with Rizwan 02/09/24. TOPIC OF CONVERSATION: He shared that he felt he could lower his A1C by cutting out sugar, taking his medication and he has increased his activity. He will have a blood draw next visit to check on the progress. He will follow up with [facility]. Rizwan shared that the manager account management is going to have him sign something so he can get his identification as a naturalized citizen. Asked that he share my information so we can coordinate. This is holding up his ability to apply for SSI. Prioritized Patient Identified Goals: Rizwan would like [...] 3. 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 He will work with [employer] in the next 6 months to outline a plan for this.In progress. Will address this at the next visit. Plan: CM will follow-up in 7 days CYNDY ALCANTARA 02/03/2024 15:14 documented in this encounter Plan of Treatment Not on file documented as of this encounter Visit Diagnoses Not on filedocumented in this encounter Care Teams Carpenter'S Assistant Relationship Specialty Start Date End Date Yumiko Land MD PCP - General Internal Medicine - Primary Care 08/28/23 06/03/24 Ramila Pagan, CLINICAL MOLECULAR GENETICIST [address] [place] [address] Qa Automation Architect 12/19/23 documented as of this encounter
--- OUTSIDE RECORDS SUMMARY | 2024-08-14 17:33 | XMS_ITS | Encounter Summary ---
Author Organization [facility] Address [address] [place] [address] Care Team Providers Care Medical Records Secretary Name Role Phone Yumiko Land MD Primary Care Provider [phone] Ramila Pagan [facility] Unavailable Reason for Visit * Reason Comments Follow-up Encounter Details Date Type Department Care Team ([facility] st Contact Info) Description 05/05/2024 Community Health Team [facility] [place] - [place] [address] [place] [id number] Care Management, [facility] [place] Social History Tobacco Use Types Packs/Day Years Used Date Smoking Tobacco: Every Day Cigarettes Smokeless Tobacco: Former Chew Alcohol Use Standard Drinks/Week Comments Not Currently 0 (1 standard drink = 0.6 oz pur e alcohol) seldom [facility] Utilities Answer Date Recorded In the [...] place to sleep or slept in a alf (including now)? Yes 01/05/2024 Interpersonal Safety Answer [...] encounter Progress Notes * Marianne Lara - 05/05/2024 1538 EDT [facility] ICM Faculty Administrator Follow-up Note Encounter type: Text Notes: RC texted Rizwan on 05/05/24 offering to support him in completing housing applications next week. Plan / Action Items: RC will follow up on 05/11/24. Marianne Lara 05/05/24 15:38 documented in this encounter Plan of Treatment Not on file documented as of this encounter Visit Diagnoses Not on filedocumented in this encounter Care Teams Medical Records Secretary Relationship Specialty Start Date End Date Yumiko Land MD PCP - General Internal Medicine - Primary Care 08/28/23 06/03/24 Ramila Pagan LICSW [address] [place] [address] Chief Analytics Officer 12/19/23 documented as of this encounter
--- OUTSIDE RECORDS SUMMARY | 2024-08-14 17:33 | XMS_ITS | Encounter Summary ---
Author Organization [facility] Address [address] [place] [address] Care Team Providers Care Environmental Protection Specialist Name Role Phone Yumiko Land MD Primary Care Provider [phone] Ramila Pagan [facility] Unavailable [phone] Reason for Visit * Reason Onset Date Comments Medications Refill 02/12/2024 Encounter Details Date Type Department Care Team (Late st Contact Info) Description 02/12/2024 Refill [facility] [place] - [address] [address] Yumiko Land MD [address] [place] [address] Medications Refill Social History Tobacco Use Types Packs/Day Years Used Date Smoking Tobacco: Every Day Cigarettes Smokeless Tobacco: Former Chew Alcohol Use Standard Drinks/Week Comments Not Currently 0 (1 standard drink = 0.6 oz pur e alcohol) seldom [facility] Utilities Answer Date Recorded In the past 12 months has [employer], [employer], oil, or water [employer] threatened to shut off services in your [...] place to sleep or slept in a long-term (including now)? Yes 01/05/2024 Interpersonal Safety Answer [...] for 28 days. Daily Max: 30 mg 28 Capsule 02/16/2024 03/16/2024 documented in this encounter Miscellaneous Notes * Telephone Encounter - Beatrice Tsang MD - 02/16/2024 0905 EDT Signed for 1 month only, appointment tomorrow to discuss duration of refills, likely will remain with q1 month follow ups Beatrice Tsang MD * Telephone Encounter - Verenice Hubbard MA - 02/12/2024 1332 EDT Medication(s) Requested: Vyvanse [facility] Are visits in compliance? Yes Last Refill Date: Recent Visits Date Type Provider Dept 01/13/24 Office Visit Beatrice Tsang MD [facility] [place] 12/30/23 Office Visit Beatrice Tsang MD [facility] [place] 12/15/23 Office Visit Beatrice Tsang MD [facility] [place] Showing recent visits within past 540 days with a meds authorizing provider and meeting all other requirements Future Appointments Date Type Provider Dept 02/17/24 Appointment Beatrice Tsang MD [facility] [place] Showing future appointments within next 150 days with a meds authorizing provider and meeting all other requirements VERENICE HUBBARD MA 02/12/2024 13:33 documented in this encounter Plan of Treatment Not on file documented as of this encounter Visit Diagnoses Diagnosis Attention deficit hyperactivity disorder (ADHD), combined type- Primary documented in this encounter Discontinued Medications Medication Sig Discontinue Reason Start Date End Da te lisdexamfetamine (VYVANSE) 30 mg capsuleIndications:Attent ion deficit hyperactivity disorder (ADHD), combined type Take 1 Capsule by mouth every morning. Daily Max: 30 mg Reorder 01/13/2024 02/12/2024 documented as of this encounter Care Teams Environmental Protection Specialist Relationship Specialty Start Date End Date Yumiko Land MD PCP - General Internal Medicine - Primary Care 08/28/23 06/03/24 Ramila Pagan [facility] [address] [place] [address] Store Stock Help 12/19/23 documented as of this encounter
--- OUTSIDE RECORDS SUMMARY | 2024-08-14 17:33 | XMS_ITS | Encounter Summary ---
Author Organization [facility] Address [address] [place] [address] Care Team Providers Care Skatesman Name Role Phone Yumiko Land MD Primary Care Provider [phone] Ramila Pagan DRUM STRAIGHTENER Unavailable [phone] Encounter Details Date Type Department Care Team (Late st Contact Info) Description 02/24/2024 Patient Outreach [facility] [place] Primary Care - [place] [address] [place] [address] Ramila Pagan LICSW [address] [place] [address] Social History Tobacco Use Types Packs/Day Years Used Date Smoking Tobacco: Every Day Cigarettes Smokeless Tobacco: Former Chew Alcohol Use Standard Drinks/Week Comments Not Currently 0 (1 standard drink = 0.6 oz pur e alcohol) seldom [facility] Utilities Answer Date Recorded In the past 12 months has [employer], gas, oil, or water [employer] threatened to shut off services in your [...] Progress Notes * Ramila Pagan LICSW - 02/24/2024 1336 EDT [facility] Cyber Security Specialist Care Coordination Cyber Security Specialist spoke with Rizwan. Dr. Tsang completed the missing page for the hotel. Rizwan shared that it will really help him focus and reduce anxiety to be out of the correction. They staff said that they would continue to director case for housing as long as he remains in [facility]. He will picking machine operator the form and present to economic services. PLAN: Follow up next week to call [facility]. CYNDY ALCANTARA 02/24/2024 14:04 documented in this encounter Plan of Treatment Not on file documented as of this encounter Visit Diagnoses Not on filedocumented in this encounter Care Teams Skatesman Relationship Specialty Start Date End Date Yumiko Land MD PCP - General Internal Medicine - Primary Care 08/28/23 06/03/24 Ramila Pagan LICSW [address] [place] [address] Cyber Security Specialist 12/19/23 documented as of this encounter
--- OUTSIDE RECORDS SUMMARY | 2024-08-14 17:33 | XMS_ITS | Encounter Summary ---
Author Organization [facility] Address [address] [place] [address] Care Team Providers Care Catshovel Driver Name Role Phone Yumiko Land MD Primary Care Provider [phone] Ramila Pagan BOTTOM LIQUOR ATTENDANT Unavailable [phone] Encounter Details Date Type Department Care Team (Late st Contact Info) Description 04/30/2024 Patient Outreach [facility] [place] - [place] [address] [place] [address] Bre Cazares RN [address] [place] [address] Social History Tobacco Use Types Packs/Day Years Used Date Smoking Tobacco: Every Day Cigarettes Smokeless Tobacco: Former Chew Alcohol Use Standard Drinks/Week Comments Not Currently 0 (1 standard drink = 0.6 oz pur e alcohol) seldom [facility] Utilities Answer Date Recorded In the past 12 months has [email or web address], gas, oil, or water company threatened [...] as of this encounter Progress Notes * Bre Cazares, RN - 04/30/2024 1424 EDT [facility] Management Care Coordination Note Clay Processing Labourer spoke with Rizwan and Social Security representation in order to coordinate care. Information taken for Disability Insurance application Social security will provide a determinationwithin the next 4 to 6 months. PLAN: Coordination with his assigned Clay Processing Labourer , Ramila Next visit date unknown BRE CAZARES RN 04/30/2024 14:25 documented in this encounter Plan of Treatment Not on file documented as of this encounter Visit Diagnoses Not on filedocumented in this encounter Care Teams Catshovel Driver Relationship Specialty Start Date End Date Yumiko Land MD PCP - General Internal Medicine - Primary Care 08/28/23 06/03/24 Ramila Pagan, [facility] [address] [place] [id number] Clay Processing Labourer 12/19/23 documented as of this encounter
--- OUTSIDE RECORDS SUMMARY | 2024-08-14 17:33 | XMS_ITS | Encounter Summary ---
Author Organization [facility] Address [address] [place] [address] Care Team Providers Care Swager Operator Name Role Phone Yumiko Land MD Primary Care Provider [phone] Raimla Pagan MECHANICAL ENGINEERING TEACHER Unavailable [phone] Encounter Details Date Type Department Care Team (Late st Contact Info) Description 05/03/2024 Patient Outreach [facility] [place] [facility] [place] [address] [place] [address] Ramila Pagan LICSW [address] [place] [address] Social History Tobacco Use Types Packs/Day Years Used Date Smoking Tobacco: Every Day Cigarettes Smokeless Tobacco: Former Chew Alcohol Use Standard Drinks/Week Comments Not Currently 0 (1 standard drink = 0.6 oz pur e alcohol) seldom [facility] Utilities Answer Date Recorded In the past 12 months has [employer], gas, oil, or water Known threatened to shut off services in your [...] Progress Notes * Ramila Pagan LICSW - 05/03/2024 6160 EDT [facility] Care Management Follow Up Clerical And Office Support Workers followed up with Rizwan by phone. TOPIC OF CONVERSATION: Reviewed assessment and plan from previous visit with patient. Engaged patient in conversation related to positive behavior change, self- management, goal setting and action planning using motivational interviewing and active listening. Medication reviewed: No new needs identified Social determinants of health needs reviewed: Rizwan said he is going to start camping on Friday. He will save his 80 days for colder weather. He is gathering camping gear. Gaps in community resources: No new needs identified Education provided on condition and/or disease: yes Stressed the need [facility] to show the need [facility] disability. He agreed. Rizwan needed a new form for housing. Obtained the form, Dr. Clinton completed it and sent it to [employer]. Rizwan reached out later to say they denied him SSI as he told them he did not want SSI in the interview. He said that this was not true. Agreed to call SSA together when they are open. Messages leftfor Rizwan the rest of the week. No return contact from him. Of note ROBI Ball also tried to contact him to help with housing applications. He did not return the call. Prioritized Patient Identified Goals: Rizwan would like to re establish with a counselor and psychiatrist. He will reach out to [facility] to determine if they are a resource. He will do so in the next month. Achievement towards goals: In progress, extended to one year 2. Rizwan would like to find an income source in the next 4 months. He will connect with [employer] and work with them to outline a plan for employment or application for SSDI. 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 He will work with [employer] in the next 6months to outline a plan for this. In progress Plan: CM will follow-up In one month, sooner if he returns the calls. CYNDY ALCANTARA 05/07/2024 12:11 documented in this encounter Plan of Treatment Not on file documented as of this encounter Visit Diagnoses Not on filedocumented in this encounter Care Teams Swager Operator Relationship Specialty Start Date End Date Yumiko Land MD PCP - General Internal Medicine - Primary Care 08/28/23 06/03/24 Ramila Pagan LICSW [address] [place] [id number] Clerical And Office Support Workers 12/19/23 documented as of this encounter
--- OUTSIDE RECORDS SUMMARY | 2024-08-14 17:33 | XMS_ITS | Encounter Summary ---
Author Organization [facility] Address [address] [place] [address] Care Team Providers Care Repairer Cylinder Heads Name Role Phone Ramila Pagan PARQUET FLOOR LAYER'S HELPER Unavailable [phone] Yana De La Cruz MD Primary Care Provider + Reason for Visit * Reason Onset Date Comments Medications Refill 06/15/2024 Encounter Details Date Type Department Care Team (Late st Contact Info) Description 06/15/2024 Refill [facility] Adult Primary Care - [place] [address] [place], [place] [id number] Yana De La Cruz MD [address] [place] [address] Medications Refill Social History Tobacco Use Types Packs/Day Years Used Date Smoking Tobacco: Every Day Cigarettes Smokeless Tobacco: Former Chew Alcohol Use Standard Drinks/Week Comments Not Currently 0 (1 standard drink = 0.6 oz pur e alcohol) seldom [facility] Utilities Answer Date Recorded In the past 12 months has [employer], gas, oil, or water English Helper threatened to shut off services in your [...] Daily Max: 2 mg 56 Tablet 2 06/15/2024 09/07/2024 lisdexamfetamine (VYVANSE) 40 mg capsuleIndications:Atten tion deficit hyperactivity disorder (ADHD), combined type Take 1 Capsule by mouth every morning for 28 days. Daily Max: 40 mg 28 Capsule 06/17/2024 07/15/2024 documented in this encounter Miscellaneous Notes * Telephone Encounter - Iris Sampson RN - 06/15/2024 5908 EDT Per [facility] Medication: clonazepam Last Filled: 04/22/2024 Last Script: 03/25/2024 # Refills: 0 Quantity: 56 Duration: 28 Due: 05/20/2024 Last OV: 03/25/2024 Next OV: 07/08/2024 Requesting Refill Per [facility] Medication: vyvanse Last Filled: 04/22/2024 Last Script: 03/25/2024 # Refills: 0 Quantity: 28 Duration: 28 Due: 05/20/2024 Last OV: 03/25/2024 Next OV: 07/08/2024 Requesting Refill * Telephone Encounter - Diogo Carcamo - 06/15/2024 1349 EDT 06/15/24 1:49pm Rizwan has an upcoming appt with Marisa in July but he is in need of having some prescriptions refilled. He needs his Clonazapam and his Vyvanse. He would like them to be sent to [facility]. CB: [phone] documented in this encounter Plan of Treatment [...] 28 days. Daily Max: 40 mg Reorder 05/20/2024 06/15/2024 clonazePAM (KLONOPIN) 1 mg tabletIndications:General ized anxiety disorder Take 1 Tablet by mouth 2 times daily for 84 days. Daily Max: 2 mg Reorder 03/25/2024 06/15/2024 documented as of this encounter Care Teams Repairer Cylinder Heads Relationship Specialty Start Date End Date Yana De La Cruz MD [address] [place] [address] PCP - General 06/04/24 Ramila Pagan LICSW [address] [place] [address] Pier Master Assistant 12/19/23 documented as of this encounter
--- OUTSIDE RECORDS SUMMARY | 2024-08-14 17:33 | XMS_ITS | Encounter Summary ---
Author Organization [facility] Address [address] [place] [address] Care Team Providers Care Senior Bioinformatics Specialist Name Role Phone Yumiko Land MD Primary Care Provider [phone] Ramila Pagan OIL PUMP STATION OPERATOR CHIEF Unavailable [phone] Encounter Details Date Type Department Care Team (Late st Contact Info) Description 04/28/2024 Community Health Team [facility] Adult Primary Care - [place] [address] [place] [address] Care Management, [facility] [place] Social History Tobacco Use Types Packs/Day Years Used Date Smoking Tobacco: Every Day Cigarettes Smokeless Tobacco: Former Chew Alcohol Use Standard Drinks/Week Comments Not Currently 0 (1 standard drink = 0.6 oz pur e alcohol) seldom [facility] Utilities Answer Date Recorded In [...] as of this encounter Progress Notes * O'Tigist-Short, Marianne - 04/28/2024 1014 EDT [facility] Washer Repairman Follow-up Note Encounter type: Telephone Notes: Washer Repairman LVM for Rizwan on 04/28/24 to see if he wanted to set up a time to complete housing applications. iRzwan has picked up his medication lockbox. Plan / Action Items: RC will follow up in 1 week. Marianne Lara 04/28/24 10:14 documented in this encounter Plan of Treatment Not on file documented as of this encounter Visit Diagnoses Not on filedocumented in this encounter Care Teams Senior Bioinformatics Specialist Relationship Specialty Start Date End Date Yumiko Land MD PCP - General Internal Medicine - Primary Care 08/28/23 06/03/24 Ramila Pagan OIL PUMP STATION OPERATOR CHIEF [address] [place] [address] City Director 12/19/23 documented as of this encounter
--- OUTSIDE RECORDS SUMMARY | 2024-08-14 17:33 | XMS_ITS | Encounter Summary ---
Author Organization [facility] Address [address] [place] [address] Care Team Providers Care Ostrich Farmer Name Role Phone Yumiko Land MD Primary Care Provider [phone] Ramila Pagan [facility] Unavailable Reason for Visit * Reason Comments Medication Management Encounter Details Date Type Department Care Team ([facility] st Contact Info) Description 03/01/2024 Community Health Team [facility] [place] [facility] [place] Primary Care - [place] [address] [place] [address] Care Management, [facility] [place] Social History Tobacco Use Types Packs/Day Years Used Date Smoking Tobacco: Every Day Cigarettes Smokeless Tobacco: Former Chew Alcohol Use Standard Drinks/Week Comments Not Currently 0 (1 standard drink = 0.6 oz pur e alcohol) seldom [facility] Utilities Answer Date Recorded In [...] encounter Progress Notes * Marianne Lara - 03/01/2024 1456 EDT Internal Communications Specialist LVM for Rizwan on 03/01/24 to discuss what kind of lockbox he is interested infor his medications. RC will plan to use [facility] funding for this. PLAN: RC to follow up within 1 week. Marianne Lara 03/01/2024 14:57 documented in this encounter Plan of Treatment Not on file documented as of this encounter Visit Diagnoses Not on filedocumented in this encounter Care Teams Ostrich Farmer Relationship Specialty Start Date End Date Yumiko Land MD PCP - General Internal Medicine - Primary Care 08/28/23 06/03/24 Ramila Pagan LICSW [address] [place] [id number] Leather Colorer 12/19/23 documented as of this encounter
--- OUTSIDE RECORDS SUMMARY | 2024-08-14 17:34 | XMS_ITS | Encounter Summary ---
Author Organization [facility] Address [address] [place] [address] Care Team Providers Care Bed Spring Maker Name Role Phone Yumiko Land MD Primary Care Provider [phone] Ramila Pagan OYSTER TONGER Unavailable [phone] Encounter Details Date Type Department Care Team (Late st Contact Info) Description 01/26/2024 Patient Outreach [facility] - [facility] [place] Care - [place] [address] [place] [address] Ramila Pagan LICSW [address] [place] [address] Social History Tobacco Use Types Packs/Day Years Used Date Smoking Tobacco: Every Day Cigarettes Smokeless Tobacco: Former Chew Alcohol Use Standard Drinks/Week Comments Not Currently 0 (1 standard drink = 0.6 oz pur e alcohol) seldom [facility] Utilities Answer Date Recorded In the past 12 months has [employer], gas, oil, or water [employer] threatened to shut off services in your [...] place to sleep or slept in a custodial (including now)? Yes 01/05/2024 Interpersonal Safety Answer [...] this encounter Progress Notes * Ramila Pagan, [facility] - 01/26/2024 1504 EDT [facility] Care Management Follow Up Electrician Deck followed up with iRzwan by phone. He said he was walking around town and enjoying the day. TOPIC OF CONVERSATION: Reviewed assessment and plan from previous visit with patient. Engaged patient in conversation related to positive behavior change, self- management, goal setting and action planning using motivational interviewing and active listening. Medication reviewed: No new needs identified Social determinants of health needs reviewed: Expressed that he really wants to get out of the custodial. He is agitated by other people, he is not able to study now that he is in college. He would like to get into a hotel. Gaps in community resources: No new needs identified Education provided on condition and/or disease: no Asked Rizwan about his missed appointments. His overall tone for the phone call was agitation. He said he did not know about the visits. Asked how we could help to fix that. He said he has a process planner and he can call later to get his appointments. Agreed to this. He was also very agitated that he has to stay at the custodial. He wants a form to be able to stay inthe hotel. Asked him to get the form and I could have Dr. Dumas review it. Asked if he followed up with TA as promised. He said he has not, again said he does not have a way to remember appointments. Asked him about My Chart, he said he does not know how to access it. It does seem that he has accessed it last month. Shared that we can help him with this so he can see his appointments. Prioritized Patient Identified Goals: Rizwan would like [...] 3. 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 He will work with [employer] in the next 6 months to outline a plan for this. Plan: Rizwan was to call me later in the day. Closing note 01/27 end of day. He still has not calledto coordinate his appointments. CM will follow-up in 7 days CYNDY ALCANTARA 01/26/2024 15:05 documented in this encounter Plan of Treatment Not on file documented as of this encounter Visit Diagnoses Not on filedocumented in this encounter Care Teams Bed Spring Maker Relationship Specialty Start Date End Date Yumiko Land MD PCP - General Internal Medicine - Primary Care 08/28/23 06/03/24 Ramila Pagan LICSW [address] [place] [address] Electrician Deck 12/19/23 documented as of this encounter
--- OUTSIDE RECORDS SUMMARY | 2024-08-14 17:34 | XMS_ITS | Encounter Summary ---
Author Organization [facility] Address [address] [place] [address] Care Team Providers Care Extended Insurance Clerk Name Role Phone None, Provider Primary Care Provider Unavailabl e Encounter Details Date Type Department Care Team (Latest Contact Info) Description 08/08/2023 Travel Social History Tobacco Use Types Packs/Day Years Used Date Smoking Tobacco: Every Day Cigarettes Smokeless Tobacco: Current Chew Alcohol Use Standard Drinks/Week Comments Not Currently 0 (1 standard drink = 0.6 oz pur e alcohol) seldom Sex and Gender Information Value Date Recorded [...] on filedocumented in this encounter Care Teams Extended Insurance Clerk Relationship Specialty Start Date End Date None, Provider PCP - General 08/08/23 08/27/23 documented as of this encounter
--- OUTSIDE RECORDS SUMMARY | 2024-08-14 17:34 | XMS_ITS | Encounter Summary ---
Author Organization [facility] Address [address] [place] [address] Care Team Providers Care Laborer Tan [facility] Name Role Phone Yumiko Land MD Primary Care Provider [phone] Reason for Referral * Consult (Routine/Next Available) - Closed Specialty Diagnoses / Procedures Referred By Devendra alonzo Referred To Contact Diagnoses Sheltered homelessness Persistent depressive disorder Anxiety disorder, unspecified type Beatrice Tsang MD [address] [place] [address] Referral ID Status Reason Start Date Expiration Date V isits Requested Visits Authorized [id number] Closed Specialty Services Required 12/15/2023 1 1 Question Answer Practice Site: [facility] Adult Counseling - Behavioral Health Integration Program - [facility] Concerns Resulting in Behavioral Health Consultation: Depression, Anxiety, Mental Health Assessment Comments [facility] then was moved to friend for assisted placement now with significant destabilization. * Consult (Routine/Next Available) - Closed Specialty Diagnoses / Procedures Referred By Devendra alonzo Referred To Contact Endocrinology Diagnoses Type 2 diabetes mellitus with hyperglycemia, unspecified whether half-way insulin use ([facility]) Beatrice Tsang MD [address] [place] [address] [facility] [address] [place] [id number] Referral ID Status Reason Start Date Expiration Date V isits Requested Visits Authorized [id number] Closed Specialty Services Required 12/15/2023 1 1 Question Answer Reason for Request: uncontrolled T2DM >14%, socioeconomic challenges, would benefit from specialist/wraparound care for uncontrolled DM. * Referral (Routine/Next Available) - Specialty Report Received Specialty Diagnoses / Procedures Referred By Contac t Referred To Contact Multidisciplinary Diagnoses Type 2 diabetes mellitus with hyperglycemia, unspecified whether half-way insulin use ([facility]) Sheltered homelessness Beatrice Tsang MD [address] [place] [phone] [facility] Community Health Team [address], [address] [place] [address] Referral ID Status Reason Start Date Expiration Date Visits Requested Visits Authorized [id number] Specialty Report Received Specialty Services Required 12/15/2023 1 1 Question Answer Reason for Request: homelessness, uncontrolled medical conditions Reason for Visit * Reason Comments Depression ADHD Medication Management Homeless; staying [facility] in [place], [place]. Encounter Details Date Type Department Care Team (Latest Contact Info) Description 12/15/2023 13:45 EST Office Visit [facility] Adult Primary Care - [address] [address] Beatrice Tsang MD [address] [place] [phone] Type 2 diabetes mellitus with hyperglycemia, unspecified whether half-way insulin use ([facility]) (Primary Dx); Sheltered homelessness; Primary hypertension; Neuropathy; Persistent depressive disorder; Anxiety disorder, unspecified type; Attention deficit hyperactivity disorder (ADHD), unspecified ADHD type Social History Tobacco Use Types Packs/Day Years [...] Sign Reading Time Taken Comments Blood Pressure 184/116 12/15/2023 1342 EST Pulse 114 12/15/2023 1342 EST Temperature - - Respiratory Rate - - Oxygen Saturation - - Inhaled Oxygen Concentration - - Weight 78.7 kg (173 lb 8 oz) 12/15/2023 1342 EST shoes and heavy clothing. Height - - Body Mass Index 28 09/01/2023 1315 EDT documented in this encounter Functional Status [...] 2 diabetes mellitus with hyperglycemia, unspecified whether half-way insulin use ([facility]) Take 1 Tablet by mouth daily. 90 Tablet 3 12/15/2023 12/16/2023 empagliflozin (JARDIANCE) 10 mg tabletIndications:Type 2 diabetes mellitus with hyperglycemia, unspecified whether termite inspector insulin use ([facility]) Take 1 Tablet by mouth daily. 90 Tablet 3 12/15/2023 12/16/2023 gabapentin (NEURONTIN) 600 mg tabletIndications:Neuropa thy Take 1 Tablet by mouth 3 times daily. 90 Tablet 3 12/15/2023 12/16/2023 losartan (COZAAR) 50 mg tabletIndications:Primary hypertension Take 1 Tablet by mouth daily. 90 Tablet 3 12/15/2023 12/16/2023 documented in this encounter Progress Notes * Beatrice Tsang MD - 12/15/2023 6116 EST Adult Primary Care Office Visit Assessment & Plan Rizwan was seen today for depression, adhd and medication management. Diagnoses and all orders for this visit: Type 2 diabetes mellitus with hyperglycemia, unspecified whether half-way insulin use ([facility]) Severely uncontrolled with A1c >14. Rizwan has low confidence in starting JAIN to reduce A1c. We discussed the severity of T2DM and how close follow up and medication titration is essential. We reviewed that it will likely take several medication additions/adjustments to improve T2DM. Given his uncontrolled status and significant concurrent medical/psychiatric/social factors working against him, will refer to endocrinology for additional wraparound care. Today, will start jardiance and increase glimepiride. - AMB CONS/FOLLOW UP OUTPATIENT CARE MANAGEMENT - [facility]; Future - AMB CONS/FOLLOW UP ENDOCRINOLOGY; Future - empagliflozin (JARDIANCE) 10 mg tablet; Take 1 Tablet by mouth daily. - glimepiride (AMARYL) 2 mg tablet; Take 1 Tablet by mouth daily. Sheltered homelessness Referral to [facility] to establish. - AMB CONS/FOLLOW UP OUTPATIENT CARE MANAGEMENT - [facility]; Future Primary hypertension Severely uncontrolled today, consistent on my recheck ~180/120. Start losartan 50mg, normal baseline renal function from ED labs. Recheck BMP and BP next visit in 2 weeks. - losartan (COZAAR) 50 mg tablet; Take 1 Tablet by mouth daily. Neuropathy Requests increase in gabapentin to near his prior dose (800mg TID). Will up- titrate to 600mg TID, instructions given to increase by 300mg every 2-3 days up to 600mg TID. - gabapentin (NEURONTIN) 600 mg tablet; Take 1 Tablet by mouth 3 times daily. Persistent depressive disorder Anxiety disorder, unspecified type Attention deficit hyperactivity disorder (ADHD), unspecified ADHD type Currently on venlafaxine 225mg XR daily and mirtazapine 15mg daily. He reports significant distresswith being off prior medications of clonazepam and vyvanse. On VPMS review, it appears his last fill of clonazepam was in May and last fill of vyvanse was in February of 2023. He reports taking these more recently, he reports getting them from [facility] mental health hub, though I am uncertain why this would not appear on VPMS. He is also on suboxone for chronic pain (not documented what location/source of pain). During recent ED visit, he was offered inpatient admission, IOP, referral [facility] (has already contacted, long wait) and ultimately decided to follow up with our office. I do not see any records received from prior PCP or psychiatry prescriber about course of treatment. Plan to refer to [facility] primary care counselor, work with CM, and work on stabilization of severely uncontrolled T2DM and HTN first before restarting requested BZD/stimulant. Beatrice Tsang MD Subjective HPI Rizwan Solano is a 48 y.o. male presenting with Depression, ADHD, and Medication Management (Homeless; staying at a [facility] in [place], [place].) ED follow up Established care in Aug, has h/o CAD, uncontrolled T2DM, tobacco use, HLD, chronic pain on suboxone, HTN, anxiety, depression. Recent ED visit for fatigue, headaches following COVID 2 weeks prior. Very hyperglycemic, taking metformin but not glimepiride. Seen by psychiatry, ordered for venlafaxine to 225mg and mirtazapine 15mg. [facility] then broke up with girlfriend and with the pandemic. Got sent to [place] due to no room in [facility]. A1c in ED undetectably high >14.3% Mental health- weekly counselor, anxiety super high, in the past has been diagnosed with PTSD, panic, ADHD, borderline personality d/o etc. With Dr Martines in [facility]. Hasn't been able to establish with [facility] Homelessness- Lis[facility] On metformin and glimepiride Objective BP (!) 184/116 (BP Cuff Location: Left arm, BP Patient Position: Sitting, BP Cuff Sizes: Adult, regular) Pulse (!) 114 Wt 78.7 kg (173 lb 8 oz) Comment: shoes and heavy clothing. BMI 28.00 kg/m?? Wt Readings from Last 3 Encounters: 12/15/23 78.7 kg (173 lb 8 oz) 09/01/23 77.6 kg (171 lb 1.6 oz) 08/08/23 77.1 kg (170 lb) Physical Exam Constitutional: General: He is [...] and time. Psychiatric: Mood and Affect: Mood is anxious. Affect is tearful. Behavior: Behavior is agitated (physical agitation, constantly bouncing leg, moving arms). 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 whether termite inspector insulin use ([facility]) Expected: 12/22/2023 (Approximate), Expires: 12/15/2024 AMB CONS/FOLLOW UP [facility] REFERRAL Outpatient Referral Routine/Next Available Sheltered homelessness Persistent depressive disorder Anxiety disorder, unspecified type Expected: 12/22/2023 (Approximate), Expires: 12/15/2024 documented as of this encounter Visit Diagnoses Diagnosis Type 2 diabetes mellitus with hyperglycemia, unspecified whether half-way insulin use ([facility])- Primary Sheltered homelessness Primary hypertension Unspecified essential hypertension Neuropathy Mononeuritis of unspecified site Persistent depressive disorder Anxiety disorder, unspecified type Attention deficit hyperactivity disorder (ADHD), unspecified ADHD type documented in this encounter Discontinued Medications Medication Sig Discontinue Reason Start Date End Da te gabapentin (NEURONTIN) 300 mg capsuleIndications:Gener alized anxiety disorder Take 1 Capsule by mouth 3 times daily. Alternate therapy 09/01/2023 12/15/2023 glimepiride (AMARYL) 1 mg tabletIndications:Diabet es mellitus type 2 in nonobese ([facility]) Take 1 Tablet by mouth daily. Reorder 09/01/2023 12/15/2023 documented as of this encounter Historical Medications * This list may reflect changes made after this encounter. Medication Sig Dispensed Refills Start Date End Date VYVANSE 70 mg capsule 05/08/20232023 added in this encounter Care Teams Laborer [facility] Relationship Specialty Start Date End Date Yumiko Land MD PCP - General Internal Medicine - Primary Care 08/28/23 06/03/24 documented as of this encounter
--- OUTSIDE RECORDS SUMMARY | 2024-08-14 17:34 | XMS_ITS | Encounter Summary ---
Author Organization [facility] Address [address] [place] [address] Care Team Providers Care Bin Cleaner Name Role Phone None, Provider Primary Care Provider Unavailabl e Reason for Visit * Reason Onset Date Comments Coordination Of Care 08/25/2023 LM for Pt t o call back to be connected with a PCP. [facility] is fashion adviser for Pt's last ED visit. Encounter Details Date Type Department Care Team (Late st Contact Info) Description 08/25/2023 Telephone [facility] Case Management [address] [place] [address] CARE MANAGEMENT [phone] Zulay Salmeron Coordination Of Care (LM for Pt to call back to be connected with a PCP. [facility] is fashion adviser for Pt's last ED visit. ) Social History Tobacco Use Types Packs/Day [...] encounter Miscellaneous Notes * Telephone Encounter - Zulay Salmeron - 08/25/2023 1352 EDT ZACARIAS LM for Pt to call back to be connect with a PCP. [facility] is medical unassigned for Pt's last ER visit. documented in this encounter Plan of Treatment Not on file documented as of this encounter Visit Diagnoses Not on filedocumented in this encounter Care Teams Bin Cleaner Relationship Specialty Start Date End Date None, Provider PCP - General 08/08/23 08/27/23 documented as of this encounter
--- OUTSIDE RECORDS SUMMARY | 2024-08-14 17:34 | XMS_ITS | Encounter Summary ---
Author Organization [facility] Address [address] [place] [address] Care Team Providers Care Paramedic Instructor Name Role Phone None, Provider Primary Care Provider Unavailabl e Reason for Visit * Reason Onset Date Comments Coordination Of Care 08/26/2023 Encounter Details Date Type Department Care Team (Late st Contact Info) Description 08/26/2023 Telephone [facility] [address] [place] [address] CARE MANAGEMENT [phone] Ramona Montero, ALEX Coordination Of Care Social History Tobacco Use [...] encounter Miscellaneous Notes * Telephone Encounter - Ramona Montero LMSW - 08/26/2023 1411 EDT CM spoke to Pt. Pt continues to need primary care and medication refills. Discussed [facility] (on-call last ED visit). Pt believes this would be an accessible location for him. CM can also discuss with [facility] case therapist once confirmed. Spoke to [facility]- they will pass the message to [facility] family practice physician, who is out today. CM to follow up with [facility] and Pt tomorrow. documented in this encounter Plan of Treatment Not on file documented as of this encounter Visit Diagnoses Not on filedocumented in this encounter Care Teams Paramedic Instructor Relationship Specialty Start Date End Date None, Provider PCP - General 08/08/23 08/27/23 documented as of this encounter
--- OUTSIDE RECORDS SUMMARY | 2024-08-14 17:34 | XMS_ITS | Encounter Summary ---
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 mmol/L 12/04/2023 10:18 [facility] Glucose 414(H) 70 - 99 mg/dl 12/04/2023 10:18 [facility] BUN 12 10 - 26 mg/dL 12/04/2023 10:18 [facility] Creatinine 0.55(L) 0.66 - 1.25 mg/dL 12/04/2023 10:18 [facility] eGFR 121 >60 mL/min/1.7 3m2 12/04/2023 10:18 [facility] Total Protein 8.6(H) 6.3 - 8.2 g/dL 12/04/2023 10:18 [facility] Albumin 4.5 3.4 - 4.9 g/dL 12/04/2023 10:18 [facility] Alkaline Phosphatase 125 38 - 126 U/L 12/04/2023 10:18 [facility] AST 42 15 - 46 U/L 12/04/2023 10:18 [facility] ALT 45 <50 U/L 12/04/2023 10:18 [facility] Bilirubin, Total <0.5 <1.4 mg/dL 12/04/19 10:18 [facility] Calcium 9.0 8.5 - 10.5 mg/dL 12/04/2023 10:18 [facility] Albumin/Globulin Ratio 1.1 1.0 - 2.5 12/04/2023 10:18 [facility] Anion Gap 15(H) 5 - 14 mmol/L 12/04/2023 10:18 [facility] Blood VENOUS BLOOD / Unknown Venipuncture / Unknown 12/04/2023 9:55 EST 12/04/2023 9:59 EST Thania Salmeron PA-C CHEMISTRY & BLO OD GAS ORDERABLES [facility] [address] [phone] * (ABNORMAL) COMPLETE BLOOD COUNT AND DIFFERENTIAL (12/04/2023 9:55 EST) WBC 12.93(H) 4.00 - 10.40 K/cmm 12/04/2023 10:02 [facility] RBC 5.62 4.36 - 5.78 M/cmm 12/04/2023 10:02 [facility] Hemoglobin 15.2 13.8 - 17.3 g/dL 12/04/2023 10:02 [facility] HCT 45.7 39.5 - 50.2 % 12/04/2023 10:02 [facility] MCV 81 81 - 95 fL 12/04/2023 10:02 [facility] MCH 27.0(L) 27.6 - 33.0 pg 12/04/2023 10:02 [facility] MCHC 33.3 32.8 - 36.4 g/dL 12/04/2023 10:02 [facility] RDW-CV 13.4 <14.2 % 12/04/2023 10:02 [facility] RDW-SD 39.1 <46.0 fl 12/04/2023 10:02 [facility] PLT 331 141 - 377 K/cmm 12/04/2023 10:02 [facility] MPV 10.6 9.5 - 12.7 fL 12/04/2023 10:02 [facility] % Neutrophils 70.3 % 12/04/2023 10:02 [facility] % Lymphocytes 20.0 % 12/04/2023 10:02 [facility] % Monocytes 8.0 % 12/04/2023 10:02 [facility] % Eosinophils 0.9 % 12/04/2023 10:02 [facility] % Basophils 0.5 % 12/04/2023 10:02 [facility] % Immature Grans 0.3 % 12/04/19 10:02 [facility] Absolute Neutrophils 9.10(H) 2.20 - 8.85 K/cmm 12/04/2023 10:02 [facility] Absolute Lymphocytes 2.59 1.09 - 3.30 K/cmm 12/04/2023 10:02 [facility] Absolute Monocytes 1.03(H) 0.10 - 0.80 K/cmm 12/04/2023 10:02 [facility] Absolute Eosinophils 0.11 0.03 - 0.61 K/cmm 12/04/2023 10:02 [facility] ABS Basophils 0.06 0.01 - 0.11 K/cmm 12/04/2023 10:02 [facility] Absolute Immature Grans 0.04 0.00 - 0.06 K/cmm 12/04/2023 10:02 [facility] Type of Differential: Auto 12/04/2023 10:02 [facility] Blood VENOUS BLOOD / Unknown Venipuncture / Unknown 12/04/2023 9:55 EST 12/04/2023 9:59 EST Thania Salmeron PA-C PACKAGES & DNA PROBE ORDERABLES [facility] [address] [place] [address] documented in this encounter Visit Diagnoses Diagnosis Hyperglycemia- Primary Other abnormal glucose Depression, unspecified depression type Anxiety disorder, unspecified type [F41.9] Insomnia, unspecified type [G47.00] documented in this encounter Admitting Diagnoses Diagnosis Depression Depressive disorder, not elsewhere classified documented in this encounter Administered Medications Inactive Administered Medications - up to 3 most recent administrations Medication Order MAR Action Action Date Dose Rate Site acetaminophen (OFIRMEV) IV solution 1,000 mg 1,000 mg, intravenous, NOW X1, 1 dose, On Avani 12/04/23 at 1000, STAT Given 12/04/2023 9:56 EST 1,000 mg lactated ringers BOLUS 1,000 mL 1,000 mL, intravenous, NOW X1, 1 dose, On Avani 12/04/23 at 1000, STAT New Bag 12/04/2023 9:56 EST 1,000 mL lactated ringers BOLUS 1,000 mL 1,000 mL, intravenous, NOW X1, 1 dose, On Avani 12/04/23 at 1200, STAT New Bag 12/04/2023 11:38 EST 1,000 mL documented in this encounter Discontinued Medications Medication Sig Discontinue Reason Start Date End Da te venlafaxine (EFFEXOR-XR) 75 mg XR capsule Take 1 Capsule by mouth daily for 21 days. Take 75 mg plus 150 mg (other prescription) for a total of 225 mg per day in the morning Reorder 12/04/2023 12/04/2023 mirtazapine (REMERON) 15 mg tablet Take 1 Tablet by mouth at bedtime for 21 days. Reorder 12/04/2023 12/04/2023 documented as of this encounter Active and Recently Administered Medications Times are shown in EST. Scheduled Medication Order 12/02/2023 12/03/2023 12/04/2023 acetaminophen (OFIRMEV) IV solution 1,000 mg (COMPLETED) 1,000 mg, intravenous, NOW X1, 1 dose, On Avani 12/04/23 at 1000, STAT 0956 (Given - Provid er: Otto Gerard RN)1035 (Completed - Provider: Otto Gerard RN) lactated ringers BOLUS 1,000 mL (COMPLETED) 1,000 mL, intravenous, NOW X1, 1 dose, On Avani 12/04/23 at 1000, STAT 0956 (New Bag - Prov ider: Otto Gerard RN)1241 (Completed - Provider: Otto Gerard SARAH) lactated ringers BOLUS 1,000 mL (COMPLETED) 1,000 mL, intravenous, NOW X1, 1 dose, On Avani 12/04/23 at 1200, STAT 1138 (New Bag - Prov ider: Otto Gerard, SARAH)1230 (Completed - Provider: Otto Gerard, SARAH) documented in this encounter Orders Nursing Count Last Ordered Date First Orde red Date CALL PHYSICIAN SPECIALTY CONSULT 1 12/04/19 documented in this encounter Care Teams [employer] Machine Operator Relationship Specialty Start Date End Date Yumiko Land MD PCP - General Internal Medicine - Primary Care 08/28/23 06/03/24 documented as of this encounter
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
--- OUTSIDE RECORDS SUMMARY | 2024-08-14 17:34 | XMS_ITS | Encounter Summary ---
Author Organization [facility] Address [address] [place] [address] Care Team Providers Care Flat Folder Name Role Phone Yumiko Land MD Primary Care Provider [phone] Encounter Details Date Type Department Care Team (Latest Contact Info) Description 12/04/2023 Travel Social History Tobacco Use Types Packs/Day [...] on filedocumented in this encounter Care Teams Flat Folder Relationship Specialty Start Date End Date Yumiko Land MD PCP - General Internal Medicine - Primary Care 08/28/23 06/03/24 documented as of this encounter
--- OUTSIDE RECORDS SUMMARY | 2024-08-14 17:34 | XMS_ITS | Encounter Summary ---
Author Organization [facility] Address [address] [place] [address] Care Team Providers Care Cut Off Sawyer Name Role Phone Yumiko Land MD Primary Care Provider [phone] Reason for Referral * Referral (Routine/Next Available) - Specialty Report Received Specialty Diagnoses / Procedures Referred By Devendra alonzo Referred To Contact Multidisciplinary Diagnoses Needs assistance with community resources Beatrice Tsang MD [address] [place] [address] [facility] Community Health Team [address], [address] [place] [address] Referral ID Status Reason Start Date Expiration Date Visits Requested Visits Authorized [id number] Specialty Report Received Specialty Services Required 12/08/2023 1 1 Question Answer Reason for Request: assistance with resources/health/depression ED referred did not know how to place an order Encounter Details Date Type Department Care Team (Late st Contact Info) Description 12/08/2023 Orders Only [facility] Adult Primary Care - [address] [address] Ramila Pagan LICSW [address] [place] [address] Needs assistance with community resources (Primary Dx) Social History Tobacco Use Types Packs/Day Years [...] Progress Notes * Ramila Pagan LICSW - 12/08/2023 1530 EST Placed order for ED health care social worker documented in this encounter Plan of Treatment Scheduled Referrals Name Type Priority Associated Diagnoses Order Schedule AMB CONS/FOLLOW UP OUTPATIENT CARE MANAGEMENT - [facility] Outpatient Referral Routine/Next Available Needs assistance with community resources Expected: 12/15/2023 (Approximate), Expires: 12/08/2024 documented as of this encounter Visit Diagnoses Diagnosis Needs assistance with community resources- Primary documented in this encounter Care Teams Cut Off Sawyer Relationship Specialty Start Date End Date Yumiko Land MD PCP - General Internal Medicine - Primary Care 08/28/23 06/03/24 documented as of this encounter
--- OUTSIDE RECORDS SUMMARY | 2024-08-14 17:34 | XMS_ITS | Encounter Summary ---
Author Organization [facility] Address [address] [place] [address] Care Team Providers Care Angle Bender Name Role Phone Yumiko Land MD Primary Care Provider [phone] Reason for Visit * Reason Onset Date Comments Coordination Of Care 08/28/2023 Encounter Details Date Type Department Care Team (Late st Contact Info) Description 08/28/2023 Telephone [facility] Case Management [address] [place] [address] CARE MANAGEMENT [phone] Ramona Montero, ALEX Coordination Of Care Social [...] Telephone Encounter - Ramona Montero LMSW - 08/28/2023 1349 EDT CM spoke to [facility] Adult Primary. She will reach out to Pt directly to schedule a PCP appointment, likely with MD Land. documented in this encounter Plan of Treatment Not on file documented as of this encounter Visit Diagnoses Not on filedocumented in this encounter Care Teams Angle Bender Relationship Specialty Start Date End Date Yumiko Land MD PCP - General Internal Medicine - Primary Care 08/28/23 06/03/24 documented as of this encounter
--- OUTSIDE RECORDS SUMMARY | 2024-08-14 17:34 | XMS_ITS | Encounter Summary ---
Author Organization [facility] Address [address] [place] [address] Care Team Providers Care Director Of Marketing Communications Name Role Phone Yumiko Land MD Primary Care Provider [phone] Ramila Pagan [facility] Unavailable [phone] Reason for Visit * Reason Onset Date Comments No Show 01/23/2024 Encounter Details Date Type Department Care Team (Late st Contact Info) Description 01/23/2024 Telephone [facility] Endocrinology [address] [place] [address] Dottie Steen, SARAH [address] [place] [address] No Show Social History Tobacco Use Types Packs/Day Years Used Date Smoking Tobacco: Every Day Cigarettes Smokeless Tobacco: Former Chew Alcohol Use Standard Drinks/Week Comments Not Currently 0 (1 standard drink = 0.6 oz pur e alcohol) seldom [facility] Utilities Answer Date Recorded In the past 12 months has [employer], gas, oil, or water [employer] threatened to shut off services in your [...] encounter Miscellaneous Notes * Telephone Encounter - Kristie Chatterjee - 01/23/2024 0912 EDT Called patient to reschedule missed dm new pt, a1c 14 education appointment with [facility]. Unable to leave voicemail, mailbox is full. documented in this encounter Plan of Treatment Not on file documented as of this encounter Visit Diagnoses Not on filedocumented in this encounter Care Teams Director Of Marketing Communications Relationship Specialty Start Date End Date Yumiko Land MD PCP - General Internal Medicine - Primary Care 08/28/23 06/03/24 Ramila Pagan, [facility] [address] [place] [id number] Wire Repairer 12/19/23 documented as of this encounter
--- OUTSIDE RECORDS SUMMARY | 2024-08-14 17:34 | XMS_ITS | Encounter Summary ---
Author Organization [facility] Address [address] [place] [address] Care Team Providers Care Political Geographer Name Role Phone Yumiko Land MD Primary Care Provider [phone] Ramila Pagan [facility] Unavailable [phone] Reason for Visit * Reason Comments Other 3Squares application s Encounter Details Date Type Department Care Team ([facility] st Contact Info) Description 01/13/2024 Community Health Team [facility] Adult Primary Care - [address] [address] [facility], Health Assistance Program [address] [place] [address] Social History Tobacco Use Types Packs/Day Years Used Date Smoking Tobacco: Every Day Cigarettes Smokeless Tobacco: Former Chew Alcohol Use Standard Drinks/Week Comments Not Currently 0 (1 standard drink = 0.6 oz pur e alcohol) seldom [facility] Utilities Answer Date Recorded In [...] encounter Progress Notes * Marianne Lara - 01/13/2024 1615 EDT Blank Driller met with Rizwan on 01/13/24 after his appointment with Dr. Tsang. ROBI and Rizwan completed 3SYoyoes application together and RC gave it to [facility] who will deliver it [facility]. RC will attempt to upload the application with [facility] uploader as well. PLAN: RC to follow up with Rizwan in 3 weeks on the status of his application. Marianne Lara 01/13/2024 16:20 documented in this encounter Plan of Treatment Not on file documented as of this encounter Visit Diagnoses Not on filedocumented in this encounter Care Teams Political Geographer Relationship Specialty Start Date End Date Yumiko Land MD PCP - General Internal Medicine - Primary Care 08/28/23 06/03/24 Ramila Pagan [facility] [address] [place] [address] Fiber Optic Assembler 12/19/23 documented as of this encounter
--- OUTSIDE RECORDS SUMMARY | 2024-08-14 17:34 | XMS_ITS | Encounter Summary ---
Author Organization [facility] Address [address] [place] [address] Care Team Providers Care Tinsel Machine Operator Name Role Phone Yumiko Land MD Primary Care Provider [phone] Ramila Pagan INKJET OPERATOR Unavailable [phone] Encounter Details Date Type Department Care Team (Late st Contact Info) Description 12/18/2023 Patient Outreach [facility] - [facility] Adult Primary Care - [place] [address] [place], [place] [address] Ramila Pagan INKJET OPERATOR [address] [place] [address] Social History Tobacco Use Types Packs/Day Years [...] Progress Notes * Ramila Pagan LICSW - 12/18/2023 3556 EST [facility] [employer] Care Coordination Timber Bucker spoke with Rizwan. He was able to get his gabapentin. Shared that we are working on referral to [facility] and consulting psychiatrist. Justin Tate Counselor from [facility] called to say that they have already tried to work with Rizwan. They scheduled visits with a counselor and psychiatrist. He did not show. They are closing the referral. They have recommended he follow up with [facility] given the medications he is on or would like to return to having. Left Rizwan a message to assist with contacting [facility]. PLAN: 12/19 no return call. Plan to contact next week. CYNDY ALCANTARA 12/19/2023 20:18 documented in this encounter Plan of Treatment Not on file documented as of this encounter Visit Diagnoses Not on filedocumented in this encounter Care Teams Tinsel Machine Operator Relationship Specialty Start Date End Date Yumiko Land MD PCP - General Internal Medicine - Primary Care 08/28/23 06/03/24 Ramila Pagan LICSW [address] [place] [address] Timber Bucker 12/19/23 documented as of this encounter
--- OUTSIDE RECORDS SUMMARY | 2024-08-14 17:34 | XMS_ITS | Encounter Summary ---
Author Organization [facility] Address [address] [place] [address] Care Team Providers Care Personalized Living Manager Name Role Phone Yumiko Land MD Primary Care Provider Ramila Pagan YARD GENERAL CAR SUPERVISOR Unavailable [phone] Yana De La Cruz MD Primary Care Provider + Reason for Visit * Reason Onset Date Comments Referral Related 12/25/2023 Encounter Details Date Type Department Care Team (Late st Contact Info) Description 12/25/2023 Telephone [facility] Adult Primary Care - [address] [address] Yumiko Land MD [address] [place] [address] Referral Related Social History Tobacco Use Types Packs/Day Years [...] * Telephone Encounter - Anabella Chan - 12/25/2023 1725 EST Referral has been closed. * Telephone Encounter - Beatrice Tsang MD - 12/25/2023 1718 EST Yes can close * Telephone Encounter - Anabella Chan - 12/25/2023 1520 EST Shyam Tiwari, The referral to [facility] Family Psych was denied for pt for the following reasons. Would you like me toclose this out? Thank you. Minna Tsang and Ramila, I'm looking through this referral/request and I'm going to be up front and let you know we are going to deny it for several reasons. Based on what we can see this patient is not going to benefit froma quick consult. We are not going to restart controlled substances without those past records and even then likely not. 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 He is going to need close case management. It appears that the issue with [facility] was not that they couldn't get him in but that he didn't show for appointments. That is the organization that will be best able to provide all of those services. I did see that Justin recommended f/u with [facility] for the suboxone. They will not treat any underlying psych issues. Here is my advise for the best intermodal truck driver treatment. Ramila, can you work with Justin to help pt re-engage in their system and help with reminders/transportation to those appointments? Then he will be assigned a CM there and they should be able to take over his psychiatric needs. Take care Hayder Cardenas APRN [place], [employer] documented in this encounter Plan of Treatment Not on file documented as of this encounter Visit Diagnoses Not on filedocumented in this encounter Care Teams Personalized Living Manager Relationship Specialty Start Date End Date Yumiko Land MD PCP - General Internal Medicine - Primary Care 08/28/23 06/03/24 Yana De La Cruz MD [address] [place] [phone] PCP - General 06/04/24 Ramila Pagan YARD GENERAL CAR SUPERVISOR [address] [place] [id number] Senior Software Systems Engineer 12/19/23 documented as of this encounter
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
--- OUTSIDE RECORDS SUMMARY | 2024-08-14 17:34 | XMS_ITS | Encounter Summary ---
Author Organization [facility] Address [address] [place] [address] Care Team Providers Care Beet End Supervisor Name Role Phone Yumiko Land MD Primary Care Provider [phone] Ramila Pagan [facility] Unavailable [phone] Reason for Visit * Reason Comments Other 3squares Encounter Details Date Type Department Care Team (Late st Contact Info) Description 01/12/2024 Community Health Team [facility] Community Health [address], [address] [place] [address] [facility], Health Assistance Program [address] [place] [address] Social History Tobacco Use Types Packs/Day Years Used Date Smoking Tobacco: Every Day Cigarettes Smokeless Tobacco: Former Chew Alcohol Use Standard Drinks/Week Comments Not Currently 0 (1 standard drink = 0.6 oz pur e alcohol) seldom [facility] Utilities Answer Date Recorded In [...] encounter Progress Notes * Marianne Lara - 01/12/2024 0846 EDT Agricultural Real Estate Agent spoke with Rizwan on 01/08/24 to schedule an appointment to complete a 3squares application together. Rizwan was referred by Ramila ROSENBAUM to meet Rizwan after his 2:30 pm appointment on 01/[address] Tsang to complete the application together (around 3pm). PLAN: ROBI and Rizwan appointment scheduled for 3pm (lisa) on 01/13/24. Marianne Lara 01/12/2024 8:50 documented in this encounter Plan of Treatment Not on file documented as of this encounter Visit Diagnoses Not on filedocumented in this encounter Care Teams Beet End Supervisor Relationship Specialty Start Date End Date Yumiko Land MD PCP - General Internal Medicine - Primary Care 08/28/23 06/03/24 Ramila Pagan WARP SPINNER [address] [place] [address] Porcelain Enameler 12/19/23 documented as of this encounter
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
--- OUTSIDE RECORDS SUMMARY | 2024-08-14 17:34 | XMS_ITS | Encounter Summary ---
Author Organization [facility] Address [address] [place] [address] Care Team Providers Care Highway Commissioner Name Role Phone None, Provider Primary Care Provider Yumiko Araujo MD Primary Care Provider [phone] Ramila PaganSW Unavailable [phone] Yana De La Cruz MD Primary Care Provider + Reason for Visit * Reason Onset Date Comments Coordination Of Care 08/23/2023 NEW PCP NEE DED/NEW PHONE Encounter Details Date Type Department Care Team (Late st Contact Info) Description 08/23/2023 Telephone [facility] [place] [address] [place] [address] [phone] Diana Carson PA-C [address] [facility] [address] [place] [address] Coordination Of Care (NEW PCP NEEDED/NEW PHONE ) Social History Tobacco Use Types Packs/Day [...] encounter Miscellaneous Notes * Telephone Encounter - Diana Carson PA-C - 08/23/2023 1726 EDT DAKSHA Solo I saw this patient today in clinic. I noticed that you had attempted to call him. He notes that phone number is incorrect. His appropriate phone number is loaded into his chart now. He really needs a PCP and I would appreciate it if you would try to reach out to him again, I did let him know that you would call. Thank you very much, Diana documented in this encounter Plan of Treatment Not on file documented as of this encounter Visit Diagnoses Not on filedocumented in this encounter Care Teams Highway Commissioner Relationship Specialty Start Date End Date None, Provider PCP - General 08/08/23 08/27/23 Yumiko Land MD PCP - General Internal Medicine - Primary Care 08/28/23 06/03/24 Yana De La Cruz MD [address] [place] [address] [phone] PCP - General 06/04/24 Ramila Pagan CLINICAL ORTHOPTIST [address] [place] [address] [phone] Professor Of Chemistry 12/19/23 documented as of this encounter
--- OUTSIDE RECORDS SUMMARY | 2024-08-14 17:34 | XMS_ITS | Encounter Summary ---
Author Organization [facility] Address [address] [place] [address] Care Team Providers Care Gas Plant Dispatcher Name Role Phone None, Provider Primary Care Provider Yumiko Araujo MD Primary Care Provider [phone] Reason for Visit * Reason Onset Date Comments Appointment Related 08/26/2023 Encounter Details Date Type Department Care Team ([facility] st Contact Info) Description 08/26/2023 Telephone [facility] [place] - [address] [address] None, Provider Appointment Related Social History Tobacco Use Types Packs/Day [...] encounter Miscellaneous Notes * Telephone Encounter - Ismael Rowland - 08/28/2023 1349 [address] appt made with Dr. Land for 09/01/2023. He was given directions and the number for [employer] toarrange transportation if he needs it. * Telephone Encounter - Diogo Carcamo - 08/27/2023 1417 EDT 08/27/23 2:17pm Ramona called again to speak with Ismael about Rizwan. Please call her back at [phone] * Telephone Encounter - Connie Parada - 08/26/2023 1407 EDT Ramona, [facility] [place], called. Pt does not have a primary dr, our office was utilization manager on the . Pt in hospital for dehydration, had cardiac issue, needs med refills, appt with cardio, needs home management, is diabetic, pt is homeless. Ramona's contact number [phone]. (Made Ramona aware Ismael is out of the office today). documented in this encounter Plan of Treatment Not on file documented as of this encounter Visit Diagnoses Not on filedocumented in this encounter Care Teams Gas Plant Dispatcher Relationship Specialty Start Date End Date None, Provider PCP - General 08/08/23 08/27/23 Yumiko Land MD PCP - General Internal Medicine - Primary Care 08/28/23 06/03/24 documented as of this encounter
--- OUTSIDE RECORDS SUMMARY | 2024-08-14 17:34 | XMS_ITS | Encounter Summary ---
Author Organization [facility] Address [address] [place] [address] Care Team Providers Care Agricultural Commodities Inspector Name Role Phone Ranjan Denise [facility] Primary Care Provider [phone] Reason for Visit * Reason Comments Rash Itchy rash on back o f legs for five days, also c/o increased anxiety due to running out of clonazepam 2-3 days ago Encounter Details Date Type Department Care Team (Late st Contact Info) Description 06/11/2023 10:07 EDT - 06/11/2023 11:34 EDT Emergency [facility] Emergency Department [address] [place], [place] [id number] Colin Bergman MD [address] [place] [address] Poison nely dermatitis (Primary Dx) Discharge Disposition: Home or Self Care Social [...] Sign Reading Time Taken Comments Blood Pressure 139/87 06/11/2023 1005 EDT Pulse 75 06/11/2023 1005 EDT Temperature - - Respiratory Rate 20 06/11/2023 1005 EDT Oxygen Saturation 99% 06/11/2023 1005 EDT Inhaled Oxygen Concentration - - Weight - [...] this encounter Discharge Instructions * Discharge Instructions* Colin Bergman MD - 06/11/2023 11:19 EDT Apply the ointment that was prescribed once a day. Return to the emergency department immediately if you develop any fevers, or for any other concerning symptoms at all. * Attachments The following attachments cannot be sent through Care Everywhere. * Poison Nely - [place] - or [place]: What to Do First: Video ([place]) * Poison Nely - [place] - and [place] ([place] Islander) documented in this encounter Medications at Time of Discharge Medication Sig Dispensed Refills Start Date End Date nitroGLYCERIN (NITROSTAT) 0.[address] 1 Tab under the tongue every 5 minutes as needed for Chest Pain. 25 Tab 1 03/18/2014 aspirin 81 mg EC tablet Take 1 Tablet by mouth daily. 90 Tablet 3 04/25/2023 09/01/2023 atorvastatin (LIPITOR) 80 mg tablet Take 1 Tablet by mouth at bedtime. 90 Tablet 3 04/24/2023 09/01/2023 betamethasone dipropionate 0.05 % ointment Apply topically to affected area daily for 14 days. 10 g 06/11/2023 06/25/2023 clopidogreL (PLAVIX) 75 mg tablet Take 1 Tablet by mouth daily. 90 Tablet 3 04/25/2023 09/01/2023 metoprolol XL (TOPROL-XL) 100 mg tablet Take 1 Tab by mouth daily. 30 Tab 0 03/18/2014 09/01/2023 VYVANSE 70 mg capsule 05/08/20232023 documented as of this encounter Ordered Prescriptions Prescription Sig Dispensed Refills Start Date End Da te betamethasone dipropionate 0.05 % ointment Apply topically to affected area daily for 14 days. 10 g 06/11/2023 06/25/2023 documented in this encounter Discharge Disposition Disposition Code Departure Means Destination Comment s Home or Self Group Home documented in this encounter ED Notes * Colin Bergman MD - 06/11/2023 1110 EDT Emergency Department Visit Medical Decision Making This patient is a 47-year-old male who presents to the emergency department with chief complaint ofrash that is most consistent with poison nely. Patient will be prescribed high potency topical steroid. He will provided return precautions and discharge instructions and agrees with the outpatient treatment plan. Medical Decision Making Final diagnoses: None Disposition: No disposition on file Chief complaint: Rash on his legs NICKI Solano is a 47 y.o. male who presents to the emergency department with a chief complaint of rash on his posterior legs, [place] It is itchy. No fevers. No other recent illness. This happened in the past few days. History was provided by: Patient Patient's pertinent PMH, FH, SH were reviewed and edited as necessary. Nursing notes reviewed. A medical screening exam was performed. Physical Exam BP 139/87 Pulse 75 Resp 20 SpO2 99% Physical Exam Constitutional: Appearance: Normal appearance. HENT: Head: Normocephalic and atraumatic. Eyes: Extraocular Movements: Extraocular movements intact. Conjunctiva/sclera: Conjunctivae normal. Musculoskeletal: Cervical back: Normal range of motion. Skin: General: Skin is warm and dry. Comments: There is an erythematous linear rash on the posterior legs and lower legs. No surroundingerythema or warmth. Neurological: General: No focal deficit present. Mental Status: He is alert. Psychiatric: Mood and Affect: Mood normal. Thought Content: Thought content normal. Procedures Procedures documented in this encounter Plan of Treatment Not on file documented as of this encounter Visit Diagnoses Diagnosis Poison nely dermatitis- Primary Contact dermatitis and other eczema due to plants (except food) documented in this encounter Care Teams Agricultural Commodities Inspector Relationship Specialty Start Date End Date Ranjan Denise RPA [address] [place] [id number] PCP - General Family Medicine - Primary Care 12/17/22 08/07/23 documented as of this encounter
--- OUTSIDE RECORDS SUMMARY | 2024-08-14 17:34 | XMS_ITS | Encounter Summary ---
Author Organization [facility] Address [address] [place] [address] Care Team Providers Care Intelligence Research Specialist Name Role Phone Yumiko Land MD Primary Care Provider [phone] Ramila Pagan GREENHOUSE MANAGER Unavailable [phone] Encounter Details Date Type Department Care Team (Latest Contact Info) Description 01/27/2024 Travel Social History Tobacco Use Types Packs/Day Years Used Date Smoking Tobacco: Every Day Cigarettes Smokeless Tobacco: Former Chew Alcohol Use Standard Drinks/Week Comments Not Currently 0 (1 standard drink = 0.6 oz pur e alcohol) seldom [facility] Utilities Answer Date Recorded In the [...] on filedocumented in this encounter Care Teams Intelligence Research Specialist Relationship Specialty Start Date End Date Yumiko Land MD PCP - General Internal Medicine - Primary Care 08/28/23 06/03/24 Ramila Pagan LICSW [address] [place] [id number] Driller'S Assistant 12/19/23 documented as of this encounter
--- OUTSIDE RECORDS SUMMARY | 2024-08-14 17:34 | XMS_ITS | Encounter Summary ---
Author Organization [facility] Address [address] [place] [address] Care Team Providers Care Filtration Plant Mechanic Name Role Phone None, Provider Primary Care Provider Unavailabl e Reason for Visit * Reason Onset Date Comments Coordination Of Care 08/12/2023 CM has call ed x2 to attempt to reach Pt to help him connect with a new PCP. Unable to reach Pt. Encounter Details Date Type Department Care Team (Late st Contact Info) Description 08/12/2023 Telephone [facility] Case Management [address] [place] [address] CARE MANAGEMENT [phone] Zulay Salmeron Coordination Of Care (CM has called x2 to attempt to reach Pt to help him connect with a new PCP. Unable to reach Pt. ) Social History Tobacco Use Types Packs/Day [...] * Telephone Encounter - Zulay Salmeron - 08/12/2023 1532 EDT CM attempted to reach Pt to help connect him with a PCP for follow-up. No answer and no voicemail set up. documented in this encounter Plan of Treatment Not on file documented as of this encounter Visit Diagnoses Not on filedocumented in this encounter Care Teams Filtration Plant Mechanic Relationship Specialty Start Date End Date None, Provider PCP - General 08/08/23 08/27/23 documented as of this encounter
--- OUTSIDE RECORDS SUMMARY | 2024-08-14 17:34 | XMS_ITS | Encounter Summary ---
Author Organization [facility] Address [address] [place] [address] Care Team Providers Care Outer Diameter Grinder Tool Name Role Phone Yumiko Land MD Primary Care Provider [phone] Ramila Pagan [facility] Unavailable [phone] Reason for Visit * Reason Comments Medications Refill Encounter Details Date Type Department Care Team ([facility] st Contact Info) Description 01/09/2024 Refill [facility] Adult Primary Care - [address] [address] Beatrice Tsang MD [address] [place] [phone] Medications Refill Social History Tobacco Use Types Packs/Day Years Used Date Smoking Tobacco: Every Day Cigarettes Smokeless Tobacco: Former Chew Alcohol Use Standard Drinks/Week Comments Not Currently 0 (1 standard drink = 0.6 oz pur e alcohol) seldom [facility] Utilities Answer Date Recorded In the past 12 months has [employer], gas, oil, or water Collect threatened to shut off services in your [...] Miscellaneous Notes * Telephone Encounter - Sharee Valadez RN - 01/10/2024 1902 EST Mirtazepine denied, alternate therapy ordered. documented in this encounter Plan of Treatment Not on file documented as of this encounter Visit Diagnoses Diagnosis Generalized anxiety disorder- Primary documented in this encounter Care Teams Outer Diameter Grinder Tool Relationship Specialty Start Date End Date Yumiko Land MD PCP - General Internal Medicine - Primary Care 08/28/23 06/03/24 Ramila Pagan LICSW [address] [place] [address] Gluing Machine Operator 12/19/23 documented as of this encounter
--- OUTSIDE RECORDS SUMMARY | 2024-08-14 17:34 | XMS_ITS | Encounter Summary ---
Author Organization [facility] Address [address] [place] [address] Care Team Providers Care Screwmaker Automatic Name Role Phone Yumiko Land MD Primary Care Provider [phone] Ramila Pagan CAN DRAGGER Unavailable [phone] Yana De La Cruz MD Primary Care Provider + Reason for Visit * Reason Onset Date Comments Patient Information Update 12/17/2023 Encounter Details Date Type Department Care Team ([facility] st Contact Info) Description 12/17/2023 Telephone [facility] [place] [place] Primary Care - [address] [address] Yumiko Land MD [address] [place] [address] Patient Information Update Social History [...] Encounter - Ramila Pagan LICSW - 12/17/2023 1634 EST Called [facility]wan and left a message about his engagement with [facility]. * Telephone Encounter - Anabella Chan - 12/17/2023 1425 EST Justin from [facility] LMV stating pt referral to psychiatry is being closed due to pt no showing appt and then disengaging in services. He feels pt would be better served by [facility] for his substance abuse/addiction care/needs and medications. Provider is welcomed to reach out of they have any other concerns documented in this encounter Plan of Treatment Not on file documented as of this encounter Visit Diagnoses Not on filedocumented in this encounter Care Teams Screwmaker Automatic Relationship Specialty Start Date End Date Yumiko Land MD PCP - General Internal Medicine - Primary Care 08/28/23 06/03/24 Yana De La Cruz MD [address] [place] [address] [phone] PCP - General 06/04/24 Ramila Pagan LICSW [address] [place] [address] [phone] Edge Plugger 12/19/23 documented as of this encounter
--- OUTSIDE RECORDS SUMMARY | 2024-08-14 17:34 | XMS_ITS | Encounter Summary ---
Author Organization [facility] Address [address] [place] [address] Care Team Providers Care Lasting Room Machine Operator Name Role Phone Yumiko Land MD Primary Care Provider Ramila Pagan CLAY TRANSPORTER Unavailable [phone] Encounter Details Date Type Department Care Team (Late st Contact Info) Description 12/30/2023 Patient Outreach [facility] Adult Primary Care - [place] [address] [place] [address] Ramila Pagan LICSW [address] [place] [address] Social History Tobacco Use Types Packs/Day Years Used Date Smoking Tobacco: Every Day Cigarettes Smokeless Tobacco: Former Chew Alcohol Use Standard Drinks/Week Comments Not Currently 0 (1 standard drink = 0.6 oz pur e alcohol) seldom [facility] Utilities Answer Date Recorded In the past 12 months has [employer], gas, oil, or water [employer] threatened to shut off services in your [...] place to sleep or slept in a detention (including now)? Yes 01/05/2024 Interpersonal Safety Answer [...] Progress Notes * Ramila Pagan LICSW - 12/30/2023 1641 EST [facility] Assessment and Care Plan Referral Reason: Assistance with care coordination, connection to healthcare and local resources. Pertinent medical and behavioral health issues: Type 2 diabetes, Hypertensive DO, Depression, ADHD Has the patient had an inpatient hospitalization or an ED visit within the last year: Yes If yes, what was the patient's primary diagnosis for their hospitalization or ED visit? NSTEMI, poison miky, dehydration, hypergycemia 4 ed visits and one admit. Patient Care Team: Yumiko Land MD as PCP - General (Internal Medicine - Primary Care) Ramila Pagan LICSW as Manager Visual Medications: Current Outpatient Medications: acetaminophen (TYLENOL) 325 mg tablet, Take 2 Tablets by mouth every 4 hours as needed for Pain., Disp: 100 Tablet, Rfl: 2 atorvastatin (LIPITOR) 80 mg tablet, Take 1 Tablet by mouth at bedtime., Disp: 90 Tablet, Rfl: 3 buprenorphine-naloxone (SUBOXONE) 8-2 mg tablet, sublingual, , Disp: , Rfl: clonazePAM (KLONOPIN) 0.5 mg tablet, Take 1 Tablet by mouth 2 times daily. Daily Max: 1 mg, Disp: 56 Tablet, Rfl: 0 clopidogreL (PLAVIX) 75 mg tablet, Take 1 Tablet by mouth daily., Disp: 90 Tablet, Rfl: 3 empagliflozin (JARDIANCE) 10 mg tablet, Take 1 Tablet by mouth daily., Disp: 90 Tablet, Rfl: 3 gabapentin (NEURONTIN) 600 mg tablet, Take 1 Tablet by mouth 3 times daily., Disp: 90 Tablet, Rfl: 3 glimepiride (AMARYL) 2 mg tablet, Take 1 Tablet by mouth daily., Disp: 90 Tablet, Rfl: 3 losartan (COZAAR) 50 mg tablet, Take 1 Tablet by mouth daily., Disp: 90 Tablet, Rfl: 3 metFORMIN (GLUCOPHAGE) 1,000 mg tablet, Take 1 Tablet by mouth 2 times daily., Disp: 180 Tablet, Rfl: 3 metoprolol SUCCinate (TOPROL-XL) 100 mg tablet, Take 1 Tablet by mouth daily., Disp: 90 Tablet, Rfl: 3 mirtazapine (REMERON) 15 mg tablet, Take 1 Tablet by mouth at bedtime for 21 days., Disp: 21 Tablet, Rfl: 0 nitroGLYCERIN (NITROSTAT) 0.4 mg SL tablet, Place 1 Tab under the tongue every 5 minutes as needed for Chest Pain. (Patient not taking: Reported on 04/22/2023), Disp: 25 Tab, Rfl: 1 venlafaxine (EFFEXOR-XR) 150 mg XR capsule, Take 1 Capsule by mouth daily., Disp: 90 Capsule, Rfl: 3 venlafaxine (EFFEXOR-XR) 75 mg XR capsule, Take 1 Capsule by mouth daily for 21 days. Take 75 mg plus 150 mg (other prescription) for a total of 225 mg per day in the morning, Disp: 21 Capsule, Rfl: 0 VYVANSE 70 mg capsule, , Disp: , Rfl: CM reviewed medication list in the chart Living Arrangement: Carmelo currently resides at the [facility]. Social Supports: Carmelo was well supported in [place] where he is originally from. He moved to [facility] for a relationship that did not work out. This was during the covid pandemic. [facility] asked him to stop engaging with his support system in the [facility] and to start services with [facility]. [facility] has not provided help, they declined a recent referral. Goalcenter around Carmelo' desire to connect with appropriate services. Carmelo is reconnected with his 15 year old daughter, they speak on the phone. Activities requiring assistance: driving Current plan for assistance with ADLs: n/a Need for caregiver resources in order to meet patient's ADL needs: not applicable Hearing/Vision: no hearing or visual limitations identified, Carmelo is overdue for an eye exam. Will put this on a list for possible future goal. Cognitive Function: No cognitive impairment identified Health literacy Assessment: patient is able to read/write, appropriate to their developmental age Social Determinants of Health: SDOH screen completed during visit: Yes Food Insecurity: Food Insecurity Present (01/05/2024) Hunger Vital Sign Worried About Running Out of Food in the Last Year: Often true Ran Out of Food in the Last Year: Often true Financial Resource Strain: High Risk (01/05/2024) Overall Financial Resource Strain (CARDIA) Difficulty of Paying Living Expenses: Hard Housing Stability: High Risk (01/05/2024) Housing Stability Vital Sign Unable to Pay for Housing in the Last Year: Yes Number of Places Lived in the Last Year: 3 Unstable Housing in the Last Year: Yes Transportation Needs: Unmet Transportation Needs (01/05/2024) PRAPARE - Transportation Lack of Transportation (Medical): Yes Lack of Transportation (Non-Medical): Yes Utilities: Not At Risk (01/05/2024) [facility] Utilities Threatened with loss of utilities: No Depression: Not on file Social History Tobacco Use Smoking status: Every Day Current packs/day: 0.50 Types: Cigarettes Smokeless tobacco: Former Types: Chew Substance Use Topics Alcohol use: Not Currently Comment: seldom Healthcare Insurance: Payer/Plan Subscr Sex Relation Sub. Ins. ID Effective Group Num 1. MEDICAID [place] -* CARMELO COHEN* 1975 Male Self [id number] 11/03/23 [address] Any gaps or barriers with healthcare insurance coverage: No DME: none DME vendor: not applicable Barriers to using technology: none identified Preferred method of communication: Phone Call Cultural, spiritual or language factors affecting health: none identified Existing Community Resources: Carmelo is working with outsole caser at the [facility], he uses [facility] for suboxone, (this is for pain management), He has not had access to his psychiatrist or counselor from the [facility] for the past 5-6 months. He would like to re establish these supports. Gaps in Resources Identified: housing Advance Directive on File: No, will address as possible future goal Prioritized Patient Identified Goals: (needs to include one self-management goal) 1. Carmelo would like to re establish with a counselor and psychiatrist. He will reach out to [facility] to determine if they are a resource. He will do so in the next month. 2. Carmelo would like to find an income source in the next 4 months. He will connect with [employer] and work with them to outline a plan for employment or application for SSDI. 3. 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 He will work with [employer] in the next 6 months to outline a plan for this. Assessment/Clinical Summary and Plan: (Address any positive screens, Barriers identified to meetinggoals and follow up plan for communication) \ Carmelo shared that he would like to get his life and health back on track. At this time he is focused on mental health and housing support. He is open to addressing other health concerns as he shoresup support. He shared that he is in a precarious situation at the detention. It is a difficult place to focus on the positives and move forward. He shared that he will manage there for now. He is open to other options if the come available. He will be starting online college soon. He is restarting his relationship with is daughter, and for the first time he is building a supportnetwork in this county. These are all positives that Carmelo will build on. Patient's access to their plan of care: Patient/family will access electronically through [email or web address] CM will follow-up in 7 days CYNDY ALCANTARA 01/05/2024 11:22 documented in this encounter Plan of Treatment Not on file documented as of this encounter Visit Diagnoses Not on filedocumented in this encounter Care Teams Lasting Room Machine Operator Relationship Specialty Start Date End Date Yumiko Land MD PCP - General Internal Medicine - Primary Care 08/28/23 06/03/24 Ramila Pagan LICSW [address] [place] [address] Manager Visual 12/19/23 documented as of this encounter
--- OUTSIDE RECORDS SUMMARY | 2024-08-14 17:34 | XMS_ITS | Encounter Summary ---
Author Organization [facility] Address [address] [place] [address] Care Team Providers Care Change Management Expert Name Role Phone Yumiko Land MD Primary Care Provider [phone] Reason for Visit * Reason Comments New Patient Visit S/p ED visit. Hx of cardiac issues with stents summer Encounter Details Date Type Department Care Team (Late st Contact Info) Description 09/01/2023 13:30 EDT Office Visit [facility] - [address] [id number] Yumiko Land MD [address] [place], [place] [address] Establishing care with new doctor, encounter for (Primary Dx); Diabetes mellitus type 2 in nonobese (HCC-CMS); Familial hypercholesterolemia; NSTEMI (non-ST elevated myocardial infarction) ([facility]) ([facility]); Generalized anxiety disorder Social History Tobacco Use Types Packs/Day Years [...] Sign Reading Time Taken Comments Blood Pressure 138/86 09/01/2023 1315 EDT Pulse 66 09/01/2023 1315 EDT Temperature - - Respiratory Rate - - Oxygen Saturation 98% 09/01/2023 1315 EDT Inhaled Oxygen Concentration - - Weight 77.6 kg (171 lb 1.6 oz) 09/01/2023 1315 E DT Height 167.6 cm (5' 6) 09/01/2023 1315 EDT reop rted Body Mass Index 27.62 09/01/2023 1315 EDT documented in this encounter [...] End Da te gabapentin (NEURONTIN) 300 mg capsuleIndications:Generaliz ed anxiety disorder Take 1 Capsule by mouth 3 times daily. 90 Capsule 2 09/01/2023 12/15/2023 venlafaxine (EFFEXOR-XR) 150 mg XR capsuleIndications:Generaliz ed anxiety disorder Take 1 Capsule by mouth daily. 90 Capsule 3 09/01/2023 12/16/2023 metoprolol SUCCinate (TOPROL-XL) 100 mg tabletIndications:NSTEMI (non-ST elevated myocardial infarction) ([facility]) Take 1 Tablet by mouth daily. 90 Tablet 3 09/01/2023 12/16/2023 metFORMIN (GLUCOPHAGE) 1,000 mg tabletIndications:Diabetes mellitus type 2 in nonobese ([facility]) Take 1 Tablet by mouth 2 times daily. 180 Tablet 3 09/01/2023 12/16/2023 glimepiride (AMARYL) 1 mg tabletIndications:Diabetes mellitus type 2 in nonobese ([facility]) Take 1 Tablet by mouth daily. 90 Tablet 3 09/01/2023 12/15/2023 clopidogreL (PLAVIX) 75 mg tabletIndications:NSTEMI (non-ST elevated myocardial infarction) ([facility]) Take 1 Tablet by mouth daily. 90 Tablet 3 09/01/2023 12/16/2023 atorvastatin (LIPITOR) 80 mg tabletIndications:Familial hypercholesterolemia Take 1 Tablet by mouth at bedtime. 90 Tablet 3 09/01/2023 12/16/2023 venlafaxine (EFFEXOR-XR) 150 mg XR capsule Take 1 Capsule by mouth daily. 90 Capsule 3 09/01/2023 09/01/2023 metoprolol SUCCinate (TOPROL-XL) 100 mg tablet Take 1 Tablet by mouth daily. 90 Tablet 3 09/01/2023 09/01/2023 metFORMIN (GLUCOPHAGE) 1,000 mg tablet Take 1 Tablet by mouth 2 times daily. 180 Tablet 3 09/01/2023 09/01/2023 glimepiride (AMARYL) 1 mg tablet Take 1 Tablet by mouth daily. 90 Tablet 3 09/01/2023 09/01/2023 atorvastatin (LIPITOR) 80 mg tablet Take 1 Tablet by mouth at bedtime. 90 Tablet 3 09/01/2023 09/01/2023 clopidogreL (PLAVIX) 75 mg tablet Take 1 Tablet by mouth daily. 90 Tablet 3 09/01/2023 09/01/2023 documented in this encounter Progress Notes * Yumiko Land - 09/01/[address] [facility] Primary Care Chief Complaint: New patient visit History of Present Illness: Rizwan Solano is a 47 y.o.male with history of CAD status post PCI and stenting, uncontrolled type 2 diabetes, tobacco abuse, hyperlipidemia on Suboxone for chronic pain, essential hypertension,anxiety and depression who presents to [facility]. He was seen in the emergency department at [facility] on 08/08/2023 due to severe left- sided chest pain. Work-up for ACS was negative. He was found to be dehydrated with elevated lactic acid level. CT angiogram was negative for PE. He received hydration and lactic acid trended down. He admitted to [facility] and was discharged with conservative management. Currently patient resides in [place] for the last year. He is originally from [place]. He lives in a homeless detention. Unclear whether heis compliant with medications. Today patient's main complaint is anxiety. He continues on Effexor 150 mg daily. He was on clonazepam in the past but no longer has it. He was also on gabapentin in the past and would like a refill. He is thinking of returning to [place] and reestablishing his care with his previous primary care physician. Review Of Systems: Negative except as in HPI Past Medical History: Past Medical History: Diagnosis Date ??? CAD (coronary artery disease) stents placed in 2007 ??? Diabetes ([facility]) ??? HLD (hyperlipidemia) ??? Hypertension ??? Psychiatric problem anxiety and depression Past Surgical History: Procedure Laterality Date ??? CARDIAC CATHERIZATION 03/2008 ??? FEMUR FRACTURE SURGERY ??? FINGER TRIGGER RELEASE No family history on file. Problem List Patient Active Problem List Diagnosis ??? Myocardial infarction ([facility]) ??? Anxiety disorder ??? Smoking ??? Hypertensive disorder ??? Hyperlipidemia ??? NSTEMI (non-ST elevated myocardial infarction) ([facility]) ([facility]) ??? Type 2 diabetes mellitus Current Medications: Current Outpatient Medications: ??? acetaminophen (TYLENOL) 325 mg tablet, Take 2 Tablets by mouth every 4 hours as needed for Pain., Disp: 100 Tablet, Rfl: 2 ??? atorvastatin (LIPITOR) 80 mg tablet, Take 1 Tablet by mouth at bedtime., Disp: 90 Tablet, Rfl: 3 ??? buprenorphine-naloxone (SUBOXONE) 8-2 mg tablet, sublingual, , Disp: , Rfl: ??? clopidogreL (PLAVIX) 75 mg tablet, Take 1 Tablet by mouth daily., Disp: 90 Tablet, Rfl: 3 ??? gabapentin (NEURONTIN) 300 mg capsule, Take 1 Capsule by mouth 3 times daily., Disp: 90 Capsule, Rfl: 2 ??? glimepiride (AMARYL) 1 mg tablet, Take 1 Tablet by mouth daily., Disp: 90 Tablet, Rfl: 3 ??? metFORMIN (GLUCOPHAGE) 1,000 mg tablet, Take 1 Tablet by mouth 2 times daily., Disp: 180 Tablet, Rfl: 3 ??? metoprolol SUCCinate (TOPROL-XL) 100 mg tablet, Take 1 Tablet by mouth daily., Disp: 90 Tablet,Rfl: 3 ??? nitroGLYCERIN (NITROSTAT) 0.4 mg SL tablet, Place 1 Tab under the tongue every 5 minutes as needed for Chest Pain. (Patient not taking: Reported on 04/22/2023), Disp: 25 Tab, Rfl: 1 ??? penicillin v potassium (VEETID) 500 mg tablet, Take 1 Tablet by mouth 4 times daily for 10 days., Disp: 40 Tablet, Rfl: 0 ??? venlafaxine (EFFEXOR-XR) 150 mg XR capsule, Take 1 Capsule by mouth daily., Disp: 90 Capsule, Rfl: 3 Allergies: No Known Allergies Objective: Physical Exam: BP 138/86 (BP Cuff Location: Right arm, BP Patient Position: Sitting, BP Cuff Sizes: Adult, regular) Pulse 66 Ht 167.6 cm (66) Comment: reoprted Wt 77.6 kg (171 lb 1.6 oz) SpO2 98% BMI 27.62 kg/m?? General: Patient is no acute distres Chest/Breast: No lesion or deformity, non-tender to palpation, Respiratory: No respiratory distress, clear to auscultation without wheezes, rales, rhonchi or crackles, Cardiac: Regular rate and rhythm, normal S1 & S2, no murmurs, Neurologic: Oriented x 4 Psychiatric: Answers questions appropriately Laboratory: Reviewed Assessment & Plan by Problems: 1. Establishing care with new doctor, encounter for 2. Diabetes mellitus type 2 in nonobese ([facility]) Uncontrolled. Unclear whether he is compliant with medications. I will send 1 year refill and I asked to return in 3 months for recheck hemoglobin A1c. - glimepiride (AMARYL) 1 mg tablet; Take 1 Tablet by mouth daily. Dispense: 90 Tablet; Refill: 3 - metFORMIN (GLUCOPHAGE) 1,000 mg tablet; Take 1 Tablet by mouth 2 times daily. Dispense: 180 Tablet; Refill: 3 - POCT HEMOGLOBIN A1C 3. Familial hypercholesterolemia Strongly encouraged him to comply with atorvastatin due to heart disease. - atorvastatin (LIPITOR) 80 mg tablet; Take 1 Tablet by mouth at bedtime. Dispense: 90 Tablet; Refill: 3 4. NSTEMI (non-ST elevated myocardial infarction) ([facility]) ([facility]) Denies any symptoms today. - clopidogreL (PLAVIX) 75 mg tablet; Take 1 Tablet by mouth daily. Dispense: 90 Tablet; Refill: 3 - metoprolol SUCCinate (TOPROL-XL) 100 mg tablet; Take 1 Tablet by mouth daily. Dispense: 90 Tablet; Refill: 3 5. Generalized anxiety disorder - venlafaxine (EFFEXOR-XR) 150 mg XR capsule; Take 1 Capsule by mouth daily. Dispense: 90 Capsule; Refill: 3 - gabapentin (NEURONTIN) 300 mg capsule; Take 1 Capsule by mouth 3 times daily. Dispense: 90 Capsule; Refill: 2 Follow-up in 3 months for diabetes check Yumiko Land. , PhD documented in this encounter Plan of Treatment Not on file documented as of this encounter Procedures Procedure Name Priority Date/Time Associated Diagnosis Comments POCT HEMOGLOBIN A1C Routine 09/01/2023 Diabetes mellitus type 2 in nonobese ([facility]) documented in this encounter Results * (ABNORMAL) POCT HEMOGLOBIN A1C (09/01/2023) [facility] Hemoglobin A1c, POC 10.8(A) 5.7 % [facility] POINT OF CARE Blood CAPILLARY BLOOD / Unknown 09/01/2023 Yumiko Land MD POINT OF CARE TEST O RDERABLES [facility] POINT OF CARE documented in this encounter Visit Diagnoses Diagnosis Establishing care with new doctor, encounter for- Primary Other reasons for seeking consultation Diabetes mellitus type 2 in nonobese ([facility]) Type II or unspecified type diabetes mellitus without mention of complication, not stated as uncontrolled Familial hypercholesterolemia Pure hypercholesterolemia NSTEMI (non-ST elevated myocardial infarction) ([facility]) ([facility]) Acute myocardial infarction, subendocardial infarction, episode of care unspecified Generalized anxiety disorder documented in this encounter Discontinued Medications Medication Sig Discontinue Reason Start Date End Da te aspirin 81 mg EC tablet Take 1 Tablet by mouth daily. Abstraction 04/25/2023 09/01/2023 clopidogreL (PLAVIX) 75 mg tablet Take 1 Tablet by mouth daily for 30 days. Reorder 08/09/2023 09/01/2023 clopidogreL (PLAVIX) 75 mg tablet Take 1 Tablet by mouth daily. Abstraction 04/25/2023 09/01/2023 atorvastatin (LIPITOR) 80 mg tablet Take 1 Tablet by mouth at bedtime. Reorder 04/24/2023 09/01/2023 metFORMIN (GLUCOPHAGE) 1,000 mg tablet 2 times daily. Reorder 07/28/2023 09/01/2023 glimepiride (AMARYL) 2 mg tablet Reorder 07/28/2023 09/01/2023 metoprolol SUCCinate (TOPROL-XL) 100 mg tablet Take 1 Tablet by mouth daily for 30 days. Reorder 08/09/2023 09/01/2023 metoprolol XL (TOPROL-XL) 100 mg tablet Take 1 Tab by mouth daily. Abstraction 03/18/2014 09/01/2023 venlafaxine (EFFEXOR-XR) 150 mg XR capsule Reorder 07/28/2023 09/01/2023 clopidogreL (PLAVIX) 75 mg tablet Take 1 Tablet by mouth daily. Reorder 09/01/2023 09/01/2023 atorvastatin (LIPITOR) 80 mg tablet Take 1 Tablet by mouth at bedtime. Reorder 09/01/2023 09/01/2023 glimepiride (AMARYL) 1 mg tablet Take 1 Tablet by mouth daily. Reorder 09/01/2023 09/01/2023 metFORMIN (GLUCOPHAGE) 1,000 mg tablet Take 1 Tablet by mouth 2 times daily. Reorder 09/01/2023 09/01/2023 metoprolol SUCCinate (TOPROL-XL) 100 mg tablet Take 1 Tablet by mouth daily. Reorder 09/01/2023 09/01/2023 venlafaxine (EFFEXOR-XR) 150 mg XR capsule Take 1 Capsule by mouth daily. Reorder 09/01/2023 09/01/2023 documented as of this encounter Care Teams Change Management Expert Relationship Specialty Start Date End Date Yumiko Land MD PCP - General Internal Medicine - Primary Care 08/28/23 06/03/24 documented as of this encounter
--- OUTSIDE RECORDS SUMMARY | 2024-08-14 17:34 | XMS_ITS | Encounter Summary ---
Author Organization [facility] Address [address] [place] [address] Care Team Providers Care Electro Optics Engineer Name Role Phone None, Provider Primary Care Provider Unavailabl e Reason for Visit * Reason Comments Chest Pain PT arrives via EMS w ith complaints of chest pain that has been ongoing for the past several days, but is significantly worse. Left sided pressure with occasional radiation to left arm. Nausea, shortness of breath. PT with significant cardiac history including past GA and stent placement. Has been moving between different shelters and has not had his medications in over a week. Encounter Details Date Type Department Care Team (Late st Contact Info) Description 08/08/2023 20:54 EDT - 08/09/2023 6:49 EDT Emergency [facility] Department [address] [place] [address] Timo Mak MD [address] [place] [phone] David Diez MD [address] [place] [address] Dehydration (Primary Dx); Elevated serum lactate dehydrogenase Discharge Disposition: Home or Self Care Social [...] Sign Reading Time Taken Comments Blood Pressure 169/101 08/09/2023 0601 EDT Pulse 127 08/08/20232116 EDT Temperature 37 ??C (98.6 ??F) 08/08/20232116 EDT Respiratory Rate 22 08/08/20232116 EDT Oxygen Saturation 96% 08/09/2023600 EDT Inhaled Oxygen Concentration - - Weight 77.1 kg (170 lb) 08/08/20232116 EDT Height 167.6 cm (5' 6) 08/08/20232116 EDT Body Mass Index 27.44 08/08/20232116 EDT documented in this encounter Functional Status [...] this encounter Discharge Instructions * Discharge Instructions* David Diez MD - 08/09/2023 6:32 EDT Follow-up with a PCP as soon as possible. Take your Plavix and metoprolol as prescribed. A career discovery teacher should be in touch with you to assist you with obtaining a primary care physician. Return for chest pain, difficulty breathing, worsening symptoms or any other concerns. documented in this encounter Medications at Time [...] at bedtime. 90 Tablet 3 04/24/2023 09/01/2023 clopidogreL (PLAVIX) 75 mg tablet Take 1 Tablet by mouth daily for 30 days. 30 Tablet 08/09/2023 09/01/2023 clopidogreL (PLAVIX) 75 mg tablet Take 1 Tablet by mouth daily. 90 Tablet 3 04/25/2023 09/01/2023 glimepiride (AMARYL) 2 mg tablet 07/28/2023 09/01/2023 metFORMIN (GLUCOPHAGE) 1,000 mg tablet 2 times daily. 07/28/2023 09/01/2023 metoprolol SUCCinate (TOPROL-XL) 100 mg tablet Take 1 Tablet by mouth daily for 30 days. 30 Tablet 08/09/2023 09/01/2023 metoprolol XL (TOPROL-XL) 100 mg tablet Take 1 Tab by mouth daily. 30 Tab 0 03/18/2014 09/01/2023 venlafaxine (EFFEXOR-XR) 150 mg XR capsule 07/28/2023 09/01/2023 VYVANSE 70 mg capsule 05/08/20232023 documented as of this encounter Ordered Prescriptions Prescription Sig Dispensed Refills Start Date End Da te metoprolol SUCCinate (TOPROL-XL) 100 mg tablet Take 1 Tablet by mouth daily for 30 days. 30 Tablet 08/09/2023 09/01/2023 clopidogreL (PLAVIX) 75 mg tablet Take 1 Tablet by mouth daily for 30 days. 30 Tablet 08/09/2023 09/01/2023 documented in this encounter Discharge Disposition Disposition Code Departure Means Destination Comment s Home or Self Alf Discharged home in stable condition. Instructions reviewed, stated understanding.. documented in this encounter ED Notes * David Diez MD - 08/09/2023 0421 EDT I assumed care of patient from Dr. Mak. I reviewed and agree with note. Carmelo Solano is a 47 y.o.male with a PMH which includes coronary disease, type 2 diabetes, hypertension and hyperlipidemia. The patient presented with complaint of severe left-sided chest pain.. Evaluation and management prior to transfer of care included labs, chest x-ray and chest CTA. The plan for further management includes repeat troponin, repeat lactate and reevaluation. Patient noted to have an elevated lactate of 4.1 as well as tachycardic in the 120s. Patient given 2 L of IV fluids. Repeat heart rate in the upper 90s. Patient alcohol level of 49. Patient denies daily alcohol use and states he is not withdrawing from alcohol. Urine tox positive forbenzodiazepine and buprenorphine. Repeat troponin is within normal limits. Patient was able to rest comfortably in the emergency department. Patient did drink 4 [place] marjan[employer]. Patient did have an elevated WBC however his CRP is within normal limits. Patient is afebrile. Patient has no complaints. Blood cultures are pending. Chest x-ray was negative for any acute pathology. CTA was negative for pneumonia as well as pulmonary embolism. Repeat lactate of 2.5. Additional liter of IV fluids given. No hypoxia. Vital stable. Additional dose of metoprolol and Plavix provided to patient as well as a prescription. Consult to care management already made by Dr. Mak. Patient discharged home. Return precautions provided. * Yessi Howe RN - 08/09/2023 0354 EDT Yessi Hawkins RN, notified Rg on 08/09/2023 at 3:54 of the following critical value: lactic 2.5 * Criss Momin RN - 08/09/2023 0043 EDT Blood drawn via butterfly needle per protocol, cultures tube(s) sent to lab per order. * Timo Mak MD - 08/08/2023 2118 EDT Emergency Department Visit Medical Decision Making 47-year-old male with known coronary artery disease, type 2 diabetes, hypertension, tobacco abuse, and hyperlipidemia presenting tonight with severe left-sided chest pain. Patient is currently homeless and out of all of his medications. He states he does not have a PCP. He also reports very high levels of anxiety. In reviewing his record I see that he had a cardiac cath on 04/24/2023. At that timehe was found to have severe two-vessel coronary artery disease with a stent restenosis in the RCA. He received 2 additional stents. Patient is quite anxious on arrival. He is notably tachycardic to the 130s and hypertensive with systolics in the 190s. EKG demonstrates a sinus tachycardia with a rate of 129. Normal axis and intervals. No acute ischemia. Labs including troponin, D-dimer, CBC, metabolic panel, and lipase were obtained. While waiting forthese labs returned patient be treated with IV fluid, ketorolac, nitroglycerin, and lorazepam. Labs have returned with an elevated D dimer of 822. Initial troponin is negative. White blood cell count is 18.85 although CRP is less than 5. He is not anemic his hemoglobin is 14.7. Sodium is 133 chloride 95 bicarb 19 glucose 294 BUN of 4 with a creatinine 0.47. CT angiogram was obtained which reveals no acute intrathoracic process such as PE or aortic pathology. No pneumonia. No pneumothorax. On reevaluation patient states he is feeling a little better although still looks ill. He still mildly diaphoretic. He is tachycardic into the 120s. He is still hypertensive. I am concerned that there is still an underlying pathology that I have not yet found. I have a repeat troponin ordered for midnight. Have also added on a lactate level as he now has leukocytosis with tachycardia. In addition to infection differential continues to include hypertensive emergency and unstable angina. I have ordered an additional liter of fluid as well as some of the patient's home meds including metoprolol and Plavix. I have sent a chat message to the care management team to try and help facilitate PCP follow-up for the outpatient setting. Care be turned over to Dr. Diez. Laboratory data was reviewed. [facility] Final diagnoses: None Disposition: No disposition on file Chief complaint: Chest pain HPI Carmelo Solano is a 47 y.o. male with history of coronary artery disease, anxiety, type 2 diabetes, hypertension, tobacco abuse, homelessness and hyperlipidemia who presents to the ED for evaluation of left-sided chest pain. Patient states has been having episodic chest pain for last 2 or 3 days and has been gradually getting worse. Nikita's episode began prior to arrival and is much worse. He states in general he is in a bad place in his life. He was living at the correction but for the lastweek has been sleeping in the [place] in a sleeping bag. He describes some difficulties at the correction. He is out of all of his medications. He states his anxiety is edward high. He describes an intenseaching pain in the left side of his chest similar to prior GA. He notes he had an GA at the beginning of the summer and had to have stents placed. He believes this was done at [facility]. He is not entirelysure what medications he supposed to be on butsupposed to be taking medicines to protect his heart and he does not have them currently. He has had some associated shortness of breath as well as nausea . He feels that his heart is racing. Patient reports that he smokes a few cigarettes a day. He denies any recent alcohol or illicit druguse. He has a smoker's cough but denies any other URI type symptoms. No fevers or chills. No vomiting or diarrhea. History was provided by: Patient Records reviewed include: Snapshot, discharge summary from cardiology admission to [facility] on 04/24/2023 Patient's pertinent PMH, FH, SH were reviewed and edited as necessary. Nursing notes reviewed. A medical screening exam was performed. Physical Exam BP (!) 192/116 (BP Cuff Location: Left arm, BP Patient Position: Semi fowlers) Pulse (!) 127 Temp 37 ??C (98.6 ??F) (Oral) Resp 22 Ht 167.6 cm (66) Wt 77.1 kg (170 lb) SpO2 96% BMI 27.44 kg/m?? Physical Exam Nursing notes and vital signs were reviewed. Constitutional: Somewhat ill and anxious appearing. He is moderately diaphoretic. Head: atraumatic. Normocephalic. Eyes: Pupils equal and reactive to light, no scleral icterus ENT: Moist oral mucosa without apparent lesions.external ears unremarkable. Neck: supple with Full ROM, no cervical LAD Heart: Regular tachycardic rhythm without MRG Lungs: No respiratory distress. Clear to auscultation bilaterally. Abdomen: Soft NT/ND. Normal Bowel sounds. No hepato-splenomegally. Back: no CVA tenderness Skin: No overt rashes on exposed skin Upper Extremities: Moving spontaneously, warm and well perfused. Lower Extremities: moving spontaneously. No LE edema. No calf tenderness Neuro: Alert and Oriented. normal speech. Grossly normal strength. No facial droop. Psych: Anxious Procedures Procedures documented in this encounter Plan of Treatment Not on file documented as of this encounter Procedures Procedure Name Priority Date/Time Associated Diagnosis Comments ECG REPORT - SCANNED 08/11/2023 15:55 EDT ZZLACTIC ACID STAT 08/09/2023 3:38 EDT UA SEDIMENT (CULTURE IF POS) STAT 08/09/2023 0:41 EDT UA WITH REFLEX SEDIMENT (CULTURE IF POS) STAT 08/09/2023 0:41 EDT DRUG SCREEN 12, URINE STAT 08/09/2023 0:41 EDT BACTERIAL CULTURE, BLOOD STAT 08/09/2023 0:41 EDT BACTERIAL CULTURE, BLOOD STAT 08/09/2023 0:41 EDT TROPONIN I STAT 08/09/2023 0:41 EDT LACTIC ACID WITH REFLEX - USE FOR INITIAL SEPSIS EVALUATION STAT 08/08/2023 23:[address] ANGIO CHEST PE PROTOCOL STAT 08/08/2023 22:39 EDT XR CHEST PORTABLE 1 VIEW STAT 08/08/2023 21:39 EDT TROPONIN I STAT 08/08/2023 21:21 EDT D-DIMER STAT 08/08/2023 21:21 EDT COMPLETE BLOOD COUNT AND DIFFERENTIAL STAT 08/08/2023 21:21 EDT C REACTIVE PROTEIN STAT 08/08/2023 21 :21 EDT MAGNESIUM STAT 08/08/2023 21:21 EDT LIPASE STAT 08/08/2023 21:21 EDT ETHANOL, BLOOD STAT Add-on 08/08/2023 21:21 EDT COMPREHENSIVE METABOLIC PANEL (CMP) STAT 08/08/2023 21:21 EDT EKG 12-LEAD Routine 08/08/2023 20:57 EDT documented in this encounter Results * ECG REPORT - SCANNED (08/11/2023 15:55 EDT) 08/11/2023 15:5 5 EDT Scan 2 [employer] PROCEDURE/MINOR FELIX GICAL ORDERABLES * (ABNORMAL) LACTIC ACID (08/09/2023 3:38 EDT) [facility] Lactic Acid 2.5(HH) <=2.0 mmol/L 08/09/2023 3:55 EDT [facility] Blood VENOUS BLOOD / Unknown Venipuncture / Unknown 08/09/2023 3:38 EDT 08/09/2023 3:39 EDT Timo Mak MD CHEMISTRY & BLOOD GAS ORDERABLES [facility] [address] [place] [address] * (ABNORMAL) UA SEDIMENT (CULTURE IF POS) (08/09/2023 0:41 EDT) Urine RBC Count, Manual 0 - 2 0 - 2, None Seen Cells/HPF 08/09/2023 1:09 EDT [facility] Urine WBC Count None Seen 0 - 3, None Seen Cells/HPF 08/09/2023 1:09 EDT [facility] Urine Squamous Count, Manual Few(A) None Seen Cells/HPF 08/09/2023 1:09 EDT [facility] Urine Bacteria Count, Manual None Seen None Seen Bacteria/H PF 08/09/2023 1:09 EDT [facility] Urine URINE SPECIMEN OBTAINED BY CLEAN CATCH PROCEDURE / Unknown Urine Collect / Unknown 08/09/2023 0:41 EDT 08/09/2023 0:46 EDT Narrative [facility] - 08/09/2023 1:09 EDT Urine Sediment Analysis results are unreliable on urines that are unrefrigerated for >2 hrs or refrigerated >8 hrs. David Diez MD URINALYSIS ORD ERABLES Performing Organization Address City/[facility] Co de Phone Number [facility] [address] [place] [address] * BACTERIAL CULTURE, BLOOD (08/09/2023 0:41 EDT) Organism ID No Growth at 5 days VITEK SUSCEPTIBILITY 08/14/2023 0:46 EDT [facility] Blood VENOUS BLOOD / Unknown Venipuncture / Unknown 08/09/2023 0:41 EDT 08/09/2023 0:45 EDT David Diez MD MICROBIOLOGY - GENERAL ORDERABLES [facility] [address] [place] [address] * BACTERIAL CULTURE, BLOOD (08/09/2023 0:41 EDT) Organism ID No Growth at 5 days VITEK SUSCEPTIBILITY 08/14/2023 0:46 EDT [facility] Blood VENOUS BLOOD / Unknown Venipuncture / Unknown 08/09/2023 0:41 EDT 08/09/2023 0:45 EDT David Diez MD MICROBIOLOGY - GENERAL ORDERABLES [facility] [address] [place] [address] * (ABNORMAL) UA WITH REFLEX SEDIMENT (CULTURE IF POS) (08/09/2023 0:41 EDT) Color UA Yellow Colorless to Dark Yellow 08/09/2023 0:56 EDT [facility] Clarity UA Clear Clear 08/09/2023 0:56 EDT [facility] Glucose UA 3+(A) Negative mg/dL 08/09/2023 0:56 EDT [facility] Bilirubin UA Negative Negative 08/09/2023 0:56 EDT [facility] Ketones UA Negative Negative 08/09/2023 0:56 T [facility] Specific Vida, Urine <=1.005 1.001 - 1.035 08/09/2023 0:56 EDT [facility] Blood UA Trace(A) Negative 08/09/2023 0:56 EDT [facility] pH, UA 6.5 4.6 - 8.0 08/09/2023 0:56 EDT [facility] Protein UA Negative Negative mg/dL 08/09/2023 0:56 T [facility] Urobilinogen UA 0.2 0.2 , 1.0, Normal mg/dL 08/09/2023 0:56 [facility] Nitrite UA Negative Negative 08/09/2023 0:56 EDT [facility] Leukocyte Esterase UA Negative Negative 08/09/2023 0:56 EDT [facility] Urine URINE SPECIMEN OBTAINED BY CLEAN CATCH PROCEDURE / Unknown Urine Collect / Unknown 08/09/2023 0:41 EDT 08/09/2023 0:46 EDT David Diez MD URINALYSIS ORD ERABLES [facility] [address] [place] [address] * (ABNORMAL) DRUG SCREEN 12, URINE (08/09/2023 0:41 EDT) Pathologist [facility] Amphetamine Screen, Ur Negative Negative, Negative Screen 08/09/2023 1:39 [facility] Barbiturates Screen, Ur Negative Negative, Negative Screen 08/09/2023 1:39 [facility] Benzodiazepine Screen, Ur Presumptive Positive, interpret with caution.(A) Negative, Negative Screen 08/09/2023 1:39 [facility] Cocaine Metabolites Screen, Ur Negative Negative, Negative Screen 08/09/2023 1:39 [facility] Methamphetamine Screen, Ur Negative Negative, Negative Screen 08/09/2023 1:39 [facility] Methadone Screen, Ur Negative Negative, Negative Screen 08/09/2023 1:39 [facility] Opiates Screen, Ur Negative Negative, Negative Screen 08/09/2023 1:39 [facility] Oxycodone Screen, Ur Negative Negative, Negative Screen 08/09/2023 1:39 [facility] Phencyclidine Screen, Ur Negative Negative Screen, Negative 08/09/2023 1:39 [facility] Cannabinoids Screen, Ur Negative Negative, Negative Screen 08/09/2023 1:39 [facility] Buprenorphine and Metabolites Screen, Ur Presumptive Positive, interpret with caution.(A) Negative, Negative Screen 08/09/2023 1:39 [facility] Tricyclics Screen, Ur Negative Negative Screen, Negative 08/09/2023 1:39 [facility] Urine URINE / Unknown Urine Collect / Unknown 08/09/2023 0:41 EDT 08/09/2023 0:46 [facility] - 08/09/2023 1:39 [facility] Drug Class Cutoff Concentrations: Amphetamines - 500 ng/mL Barbiturates - 200 ng/mL Benzodiazepines - 150 ng/mL Cocaine - 150 ng/mL Methamphetamine - 500 ng/mL Methadone - 200 ng/mL Opiates - 100 ng/mL Oxycodone - 100 ng/mL Phencyclidine (PCP) - 25 ng/mL Tetrahydrocannabinol (THC) - 50 ng/mL Propoxyphene - 300 ng/mL Buprenorphine and Metabolites - 10 ng/mL Tricyclic Antidepressants - 300 ng/mL This is a screening assay only, intended for use in clinical monitoring or management of patients. False positive or false negative results can occur. ??If confirmation testing is needed, please place order as Add-On order in [facility]. ??Specimens are retained in the laboratory for 7 days. David Diez MD GEN LAB UNIT C OLLECT ORDERABLES Performing Organization Address [facility] de Phone Number [facility] [address] [place] [address] * TROPONIN I (08/09/2023 0:41 EDT) Troponin I (ng/mL) <0.034 <0.034 ng/mL 08/09/2023 1:15 EDT [facility] Blood VENOUS BLOOD / Unknown Venipuncture / Unknown 08/09/2023 0:41 EDT 08/09/2023 0:46 EDT Narrative [facility] - 08/09/2023 1:15 EDT The results of this assay can be falsely lowered due to the consumption of Biotin. Timo Mak MD CHEMISTRY & BLOOD GAS ORDERABLES Performing Organization Address [facility] de Phone Number [facility] [address] [place] [address] * (ABNORMAL) LACTIC ACID WITH REFLEX - USE FOR INITIAL SEPSIS EVALUATION (08/08/2023 23:06 EDT) Lactic Acid 4.1(HH) <=2.0 mmol/L 08/08/2023 23:28 EDT [facility] Blood VENOUS BLOOD / Unknown Venipuncture / Unknown 08/08/2023 23:06 EDT 08/08/2023 23:10 EDT Timo Mak MD CHEMISTRY & BLOOD GAS ORDERABLES Performing Organization Address City/[facility]/ZIP Co de Phone Number [facility] [address] [place] [address] * CT ANGIO CHEST PE PROTOCOL (08/08/2023 22:39 EDT) Anatomical Region Laterality Modality Chest Computed Tomogra phy 08/08/2023 22:2 0 EDT Impressions 08/08/2023 22:44 EDT No pulmonary emboli are seen. No focal pathology seen in the thorax. THIS DOCUMENT HAS BEEN ELECTRONICALLY SIGNED BY CECILIA RHODES MD FOR ANY QUESTIONS OR CONCERNS REGARDING THIS REPORT PLEASE CALL [facility] AT [phone] Narrative 08/08/2023 22:44 EDT PROCEDURE INFORMATION: Exam: CTA Chest With Contrast Exam date and time: 08/08/2023 10:20 PM Age: 47 years old Clinical indication: Other: L sided cp, tachycardia, positive d-dimer TECHNIQUE: Imaging protocol: Computed tomographic angiography of the chest with contrast. Exam focused on the arteries. 3D rendering (Not supervised by radiologist): MIP and/or 3D reconstructed images were created by the technologist. Radiation optimization: All CT scans at this facility use at least one of these dose optimization techniques: automated exposure control; mA and/or kV adjustment per patient size (includes targeted exams where dose is matched to clinical indication); or iterative reconstruction. Contrast material: OMNIPAQUE; Contrast volume: 100 ml; Contrast route: INTRAVENOUS (IV); ?? REPORTING DATA: Count of CT and Cardiac NM exams in prior 12 months: This patient has received 0 known CTs and 0 known cardiac nuclear medicine studies in the 12 months prior to the current study. COMPARISON: CR XR CHEST PORTABLE 1 VIEW 08/08/2023 9:34 PM FINDINGS: Pulmonary arteries: No pulmonary emboli. Aorta: No aortic aneurysm. No aortic dissection. Lungs: No consolidation. No masses. Pleural spaces: No pneumothorax. No pleural effusion. Heart: No cardiomegaly. No pericardial effusion. Lymph nodes: No enlarged lymph nodes. Bones/joints: No acute fracture or subluxation. No significant degenerative changes are seen. Soft tissues: No suspicious lesions. ?? Procedure Note Cecilia Rhodes MD - 08/08/2023 PROCEDURE INFORMATION: Exam: CTA Chest With Contrast Exam date and time: 08/08/2023 10:20 PM Age: 47 years old Clinical indication: Other: L sided cp, tachycardia, positive d-dimer TECHNIQUE: Imaging protocol: Computed tomographic angiography of the chest with contrast. Exam focused on the arteries. 3D rendering (Not supervised by radiologist): MIP and/or 3D reconstructed images were created by the technologist. Radiation optimization: All CT scans at this facility use at least one of these dose optimization techniques: automated exposure control; mA and/or kV adjustment per patient size (includes targeted exams where dose is matched to clinical indication); or iterative reconstruction. Contrast material: OMNIPAQUE; Contrast volume: 100 ml; Contrast route: INTRAVENOUS (IV); REPORTING DATA: Count of CT and Cardiac NM exams in prior 12 months: This patient has received 0 known CTs and 0 known cardiac nuclear medicine studies in the 12 months prior to the current study. COMPARISON: CR XR CHEST PORTABLE 1 VIEW 08/08/2023 9:34 PM FINDINGS: Pulmonary arteries: No pulmonary emboli. Aorta: No aortic aneurysm. No aortic dissection. Lungs: No consolidation. No masses. Pleural spaces: No pneumothorax. No pleural effusion. Heart: No cardiomegaly. No pericardial effusion. Lymph nodes: No enlarged lymph nodes. Bones/joints: No acute fracture or subluxation. No significant degenerative changes are seen. Soft tissues: No suspicious lesions. IMPRESSION No pulmonary emboli are seen. No focal pathology seen in the thorax. THIS DOCUMENT HAS BEEN ELECTRONICALLY SIGNED BY CECILIA RHODES MD FOR ANY QUESTIONS OR CONCERNS REGARDING THIS REPORT PLEASE CALL [facility] [phone] Timo Mak MD IMG CT ORDERABLES * XR CHEST PORTABLE 1 VIEW (08/08/2023 21:39 EDT) Anatomical Region Laterality Modality Computed Radiogr aphy 08/08/2023 21:3 4 EDT Impressions 08/08/2023 22:02 EDT Negative portable chest. THIS DOCUMENT HAS BEEN ELECTRONICALLY SIGNED BY CECILIA RHODES MD FOR ANY QUESTIONS OR CONCERNS REGARDING THIS REPORT PLEASE CALL [facility] AT [phone] Narrative 08/08/2023 22:02 EDT PROCEDURE INFORMATION: Exam: XR Chest Exam date and time: 08/08/2023 9:34 PM Age: 47 years old Clinical indication: Other: Cp TECHNIQUE: Imaging protocol: Radiologic exam of the chest. Views: 1 view. COMPARISON: CR XR CHEST PORTABLE 1 VIEW 04/22/2023 9:08 PM FINDINGS: Lungs: No consolidation. Pleural spaces: No pleural effusion. No pneumothorax. Heart/Mediastinum: No cardiomegaly. Bones/joints: No acute fracture. ?? Procedure Note Cecilia Rhodes MD - 08/08/2023 PROCEDURE INFORMATION: Exam: XR Chest Exam date and time: 08/08/2023 9:34 PM Age: 47 years old Clinical indication: Other: Cp TECHNIQUE: Imaging protocol: Radiologic exam of the chest. Views: 1 view. COMPARISON: CR XR CHEST PORTABLE 1 VIEW 04/22/2023 9:08 PM FINDINGS: Lungs: No consolidation. Pleural spaces: No pleural effusion. No pneumothorax. Heart/Mediastinum: No cardiomegaly. Bones/joints: No acute fracture. IMPRESSION Negative portable chest. THIS DOCUMENT HAS BEEN ELECTRONICALLY SIGNED BY CECILIA RHODES MD FOR ANY QUESTIONS OR CONCERNS REGARDING THIS REPORT PLEASE CALL [facility] [phone] Timo Mak MD IMG DIAGNOSTIC IM AGING ORDERABLES * (ABNORMAL) ETHANOL, BLOOD (08/08/2023 21:21 EDT) Ethanol, Blood 49(H) <10 mg/dL mg/dL 08/08/2023 23:38 EDT [facility] Comment:Healthy, non-drinkin g individuals will have an ethanol concentration of <10 mg/dL. Blood VENOUS BLOOD / Unknown Venipuncture / Unknown 08/08/2023 21:21 EDT 08/08/2023 21:23 EDT Narrative [facility] - 08/08/2023 23:38 EDT [place] legal blood alcohol limit = 80 mg/dl (0.08%) Timo Mak MD CHEMISTRY & BLOOD GAS ORDERABLES [facility] [address] [place] [address] * (ABNORMAL) D-DIMER (08/08/2023 21:21 EDT) [facility] D-Dimer 822(H) <=230 ng/mL DDU 08/08/2023 21:58 EDT [facility] Blood VENOUS BLOOD / Unknown Venipuncture / Unknown 08/08/2023 21:21 EDT 08/08/2023 21:23 EDT Narrative [facility] - 08/08/2023 21:58 EDT Cutoff value for the exclusion of DVT and PE: 230 ng/mL D-dimer units. Any use of the age-adjusted cutoff value is a post-analytic modification of this FDA-approved test and is considered off-label use of the test result. Timo Mak MD HEMATOLOGY & PF4 ORDERABLES Performing Organization Address City/[facility]/ZIP Co de Phone Number [facility] [address] [place] [address] * TROPONIN I (08/08/2023 21:21 EDT) [facility] Troponin I (ng/mL) <0.034 <0.034 ng/mL 08/08/2023 21:58 EDT [facility] Blood VENOUS BLOOD / Unknown Venipuncture / Unknown 08/08/2023 21:21 EDT 08/08/2023 21:23 EDT Narrative [facility] - 08/08/2023 21:58 EDT The results of this assay can be falsely lowered due to the consumption of Biotin. Timo Mak MD CHEMISTRY & BLOOD GAS ORDERABLES Performing Organization Address City/[facility]/ZIP Co de Phone Number [facility] [address] [place] [address] * MAGNESIUM (08/08/2023 21:21 EDT) [facility] Magnesium 1.8 1.7 - 2.8 mg/dL 08/08/2023 21:48 EDT [facility] Blood VENOUS BLOOD / Unknown Venipuncture / Unknown 08/08/2023 21:21 EDT 08/08/2023 21:23 EDT Timo Mak MD CHEMISTRY & BLOOD GAS ORDERABLES Performing Organization Address [facility]/ZIP Co de Phone Number [facility] [address] [place] [address] * LIPASE (08/08/2023 21:21 EDT) Lipase 122 <251 U/L 08/08/2023 21:48 EDT [facility] Blood VENOUS BLOOD / Unknown Venipuncture / Unknown 08/08/2023 21:21 EDT 08/08/2023 21:23 EDT Timo Mak MD CHEMISTRY & BLOOD GAS ORDERABLES Performing Organization Address [facility] Co de Phone Number [facility] [address] [place] [address] * C REACTIVE PROTEIN (08/08/2023 21:21 EDT) C-Reactive Protein <5.0 <10.0 mg/L 08/08/2023 21:48 EDT [facility] Blood VENOUS BLOOD / Unknown Venipuncture / Unknown 08/08/2023 21:21 EDT 08/08/2023 21:23 EDT Timo Mak MD CHEMISTRY & BLOOD GAS ORDERABLES Performing Organization Address [facility]/ZIP Co de Phone Number [facility] [address] [place] [address] * (ABNORMAL) COMPREHENSIVE METABOLIC PANEL (CMP) (08/08/2023 21:21 EDT) Sodium 133(L) 136 - 145 mmol/L 08/08/2023 21:48 EDT [facility] Potassium 3.9 3.5 - 5.0 mmol/L 08/08/2023 21:48 EDT [facility] Chloride 95(L) 96 - 110 mmol/L 08/08/2023 21:48 EDT [facility] CO2 Total 19(L) 22 - 32 mmol/L 08/08/2023 21:48 [facility] Glucose 294(H) 70 - 99 mg/dl 08/08/2023 21:48 [facility] BUN 4(L) 10 - 26 mg/dL 08/08/2023 21:48 [facility] Creatinine 0.47(L) 0.66 - 1.25 mg/dL 08/08/2023 21:48 [facility] eGFR 127 >60 mL/min/1.7 3m2 08/08/2023 21:48 [facility] Total Protein 8.9(H) 6.3 - 8.2 g/dL 08/08/2023 21:48 [facility] Albumin 4.8 3.4 - 4.9 g/dL 08/08/2023 21:48 [facility] Alkaline Phosphatase 152(H) 38 - 126 U/L 08/08/2023 21:48 [facility] AST 30 15 - 46 U/L 08/08/2023 21:48 [facility] ALT 25 <50 U/L 08/08/2023 21:48 [facility] Bilirubin, Total 0.5 <1.4 mg/dL 08/08/20 21:48 [facility] Calcium 9.4 8.5 - 10.5 mg/dL 08/08/2023 21:48 [facility] Albumin/Globulin Ratio 1.2 1.0 - 2.5 g/dL 08/08/2023 21:48 [facility] Anion Gap 19(H) 5 - 14 mmol/L 08/08/2023 21:48 [facility] Blood VENOUS BLOOD / Unknown Venipuncture / Unknown 08/08/2023 21:21 EDT 08/08/2023 21:23 EDT Timo Mak MD CHEMISTRY & BLOOD GAS ORDERABLES [facility] [address] [place] [address] * (ABNORMAL) COMPLETE BLOOD COUNT AND DIFFERENTIAL (08/08/2023 21:21 ED) WBC 18.85(H) 4.00 - 10.40 K/cmm 08/08/2023 21:26 [facility] RBC 5.47 4.36 - 5.78 M/cmm 08/08/2023 21:26 [facility] Hemoglobin 14.7 13.8 - 17.3 g/dL 08/08/2023 21:26 [facility] HCT 43.9 39.5 - 50.2 % 08/08/2023 21:26 [facility] MCV 80(L) 81 - 95 fL 08/08/2023 21:26 [facility] MCH 26.9(L) 27.6 - 33.0 pg 08/08/2023 21:26 [facility] MCHC 33.5 32.8 - 36.4 g/dL 08/08/2023 21:26 [facility] RDW-CV 14.6(H) <14.2 % 08/08/2023 21:26 [facility] RDW-SD 42.6 <46.0 fl 08/08/2023 21:26 [facility] PLT 416(H) 141 - 377 K/cmm 08/08/2023 21:26 [facility] MPV 10.1 9.5 - 12.7 fL 08/08/2023 21:26 [facility] % Neutrophils 70.0 % 08/08/2023 21:26 [facility] % Lymphocytes 21.8 % 08/08/2023 21:26 [facility] % Monocytes 6.7 % 08/08/2023 21:26 [facility] % Eosinophils 0.2 % 08/08/2023 21:26 [facility] % Basophils 0.7 % 08/08/2023 21:26 [facility] % Immature Grans 0.6 % 08/08/20 21:26 [facility] Absolute Neutrophils 13.21(H) 2.20 - 8.85 K/cmm 08/08/2023 21:26 EDT [facility] Absolute Lymphocytes 4.10(H) 1.09 - 3.30 K/cmm 08/08/2023 21:26 EDT [facility] Absolute Monocytes 1.26(H) 0.10 - 0.80 K/cmm 08/08/2023 21:26 EDT [facility] Absolute Eosinophils 0.03 0.03 - 0.61 K/cmm 08/08/2023 21:26 EDT [facility] ABS Basophils 0.13(H) 0.01 - 0.11 K/cmm 08/08/2023 21:26 EDT [facility] Absolute Immature Grans 0.12(H) 0.00 - 0.06 K/cmm 08/08/2023 21:26 EDT [facility] Type of Differential: Auto 08/08/2023 21:26 EDT [facility] Blood VENOUS BLOOD / Unknown Venipuncture / Unknown 08/08/2023 21:21 EDT 08/08/2023 21:23 EDT Timo Mak MD PACKAGES & DNA MT OBE ORDERABLES Performing Organization Address [facility]/State/[facility] Co de Phone Number [facility] [address] [place] [address] * EKG 12-LEAD (08/08/2023 20:57 EDT) 08/08/2023 20:5 7 EDT Narrative [facility] - 08/11/2023 15:39 EDT ? [facility] ? Test Date: ?2023-08-08 Pat Name: ? CARMELO SOLANO ? Department: ? Room: ? C04 Gender: ? Male ? 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 AB : ?1975 ? Requested By: FELI Nolan Order Number: [id number] ? Reading MD: ?? KARLO RODRIGUEZ MD ? Measurements Intervals ?[place] ? Rate: ? 129 ?P: ?63 MT: ? 136 ?QRS: ?55 QRSD: ? 82 ? T: ?33 QT: ? 316 ? QTc: ?462 ? Interpretive Statements Sinus tachycardia Compared to ECG 04/24/2023 13:11:36 Sinus tachycardia now present I reviewed the tracing and have either agreed or edited the findings in this report. Electronically Signed On 08-11-2023 15:39:35 EDT by KARLO RODRIGUEZ MD. Procedure Note Karlo Rodriguez MD - 08/11/2023 [facility] Test Date: 2023-08-08 Pat Name: CARMELO SOLANO Department: Room: C04 Gender: Male Glass Sander: : 1975 Requested By: FELI Nolan Order Number: [id number] Reading MD: KARLO RODRIGUEZ MD Measurements Intervals [place] Rate: 129 P: 63 MT: 136 QRS: 55 QRSD: 82 T: 33 QT: 316 QTc: 462 Interpretive Statements Sinus tachycardia Compared to ECG 04/24/2023 13:11:36 Sinus tachycardia now present I reviewed the tracing and have either agreed or edited the findings inthis report. Electronically Signed On 08-11-2023 15:39:35 EDT by KARLO PETERSON. Timo Mak MD CARDIAC ECG ORDER [facility] documented in this encounter Visit Diagnoses Diagnosis Dehydration- Primary Elevated serum lactate dehydrogenase Nonspecific elevation of levels of transaminase or lactic acid dehydrogenase (LDH) documented in this encounter Administered Medications Inactive Administered Medications - up to 3 most recent administrations Medication Order MAR Action Action Date Dose Rate Site clopidogreL (PLAVIX) tablet 75 mg 75 mg, oral, NOW X1, 1 dose, On 08/08/23 at 2345, STAT Given 08/08/2023 23:34 EDT 75 mg clopidogreL (PLAVIX) tablet 75 mg 75 mg, oral, DAILY, First dose on 08/09/23 at 0645, Until Discontinued, STAT Given 08/09/2023 6:39 EDT 75 mg iohexoL (OMNIPAQUE 350) solution 100 mL 100 mL, intravenous, Once in imaging, 1 dose, Starting on 08/08/23 at 2239, Until Fri08/08/23 at 2239, Routine Given 08/08/2023 22:39 EDT 100 mL ketOROLAC (TORADOL) injection 15 mg 15 mg, intravenous, NOW X1, 1 dose, On Fri08/08/23 at 2145, STAT Given 08/08/2023 21:35 EDT 15 mg lactated ringers BOLUS 1,000 mL 1,000 mL, intravenous, NOW X1, 1 dose, On 08/09/23 at 0445, STAT New Bag 08/09/2023 4:50 EDT 1,000 mL LORazepam (ATIVAN) injection 1 mg 1 mg, intravenous, NOW X1, 1 dose, On Fri08/08/23 at 2145, STAT Given 08/08/2023 21:36 EDT 1 mg LORazepam (ATIVAN) injection 1 mg 1 mg, intravenous, NOW X1, 1 dose, On Fri08/08/23 at 2315, STAT Given 08/08/2023 23:08 EDT 1 mg metoprolol SUCCinate (TOPROL-XL) tablet 100 mg 100 mg, oral, NOW X1, 1 dose, On Fri08/08/23 at 2345, Routine Given 08/08/2023 23:34 EDT 100 mg metoprolol SUCCinate (TOPROL-XL) tablet 100 mg 100 mg, oral, NOW X1, 1 dose, On 08/09/23 at 0700, STAT Given 08/09/2023 6:39 EDT 100 mg nitroglycerin (NITROSTAT) SL tablet 0.4 mg 0.4 mg, sublingual, EVERY 5 MIN PRN, Starting on Fri08/08/23 at 2124, Until 08/09/23 at 0849, Chest Pain, STAT Given 08/08/2023 21:45 EDT 0.4 mg Given 08/08/2023 21:36 EDT 0.4 mg sodium chloride 0.9 % BOLUS 1,000 mL 1,000 mL, intravenous, NOW X1, 1 dose, On Fri08/08/23 at 2145, STAT New Bag 08/08/2023 21:36 EDT 1,000 mL sodium chloride 0.9 % BOLUS 1,000 mL 1,000 mL, intravenous, NOW X1, 1 dose, On Fri08/08/23 at 2345, STAT New Bag 08/09/2023 0:36 EDT 1,000 mL sodium chloride 0.9 % BOLUS 1,000 mL 1,000 mL, intravenous, NOW X1, 1 dose, On 08/09/23 at 0200, STAT New Bag 08/09/2023 1:52 EDT 1,000 mL documented in this encounter Active and Recently Administered Medications Times are shown in EDT. Scheduled Medication Order 08/07/2023 08/08/2023 08/09/2023 clopidogreL (PLAVIX) tablet 75 mg (COMPLETED) 75 mg, oral, NOW X1, 1 dose, On Fri08/08/23 at 2345, STAT 2334 (Given - Provider: Criss Momin, SARAH) clopidogreL (PLAVIX) tablet 75 mg 75 mg, oral, DAILY, First dose on 08/09/23 at 0645, Until Discontinued, STAT 0639 (Given - Provid er: Criss Momin RN) iohexoL (OMNIPAQUE 350) solution 100 mL (COMPLETED) 100 mL, intravenous, Once in imaging, 1 dose, Starting on Fri08/08/23 at 2239, Until Fri08/08/23 at 2239, Routine 2239 (Given - Provider: Bruno Salcido) ketOROLAC (TORADOL) injection 15 mg (COMPLETED) 15 mg, intravenous, NOW X1, 1 dose, On Fri08/08/23 at 2145, STAT 2135 (Given - Provider: Criss Momin, SARAH) lactated ringers BOLUS 1,000 mL (COMPLETED) 1,000 mL, intravenous, NOW X1, 1 dose, On 08/09/23 at 0445, STAT 0450 (New Bag - Provider: Criss Momin, SARAH)0608 (Completed - Provider: Criss Momin, SARAH) LORazepam (ATIVAN) injection 1 mg (COMPLETED) 1 mg, intravenous, NOW X1, 1 dose, On Fri08/08/23 at 2145, STAT 2136 (Given - Provider: Criss Momin, SARAH) LORazepam (ATIVAN) injection 1 mg (COMPLETED) 1 mg, intravenous, NOW X1, 1 dose, On Fri08/08/23 at 2315, STAT 2308 (Given - Provider: Criss Momin, SARAH) metoprolol SUCCinate (TOPROL-XL) tablet 100 mg (COMPLETED) 100 mg, oral, NOW X1, 1 dose, On Fri08/08/23 at 2345, Routine 2334 (Given - Provider: Criss Momin RN) metoprolol SUCCinate (TOPROL-XL) tablet 100 mg (COMPLETED) 100 mg, oral, NOW X1, 1 dose, On 08/09/23 at 0700, STAT 0639 (Given - Provid er: Criss Momin RN) sodium chloride 0.9 % BOLUS 1,000 mL (COMPLETED) 1,000 mL, intravenous, NOW X1, 1 dose, On Fri08/08/23 at 2145, STAT 2136 (New Bag - Provider: Criss Momin RN) 0036 (Completed - Provider: Criss Momin RN) sodium chloride 0.9 % BOLUS 1,000 mL (COMPLETED) 1,000 mL, intravenous, NOW X1, 1 dose, On Fri08/08/23 at 2345, STAT 0036 (New Bag - Provider: Criss Momin RN)0139 (Completed - Provider: Criss Momin, RN) sodium chloride 0.9 % BOLUS 1,000 mL (COMPLETED) 1,000 mL, intravenous, NOW X1, 1 dose, On 08/09/23 at 0200, STAT 0152 (New Bag - Provider: Criss Momin, SARAH)0302 (Completed - Provider: Criss Momin, SARAH) PRN Medication Order 08/07/2023 08/08/2023 08/09/2023 nitroglycerin (NITROSTAT) SL tablet 0.4 mg 0.4 mg, sublingual, EVERY 5 MIN PRN, Starting on Fri08/08/23 at 2124, Until 08/09/23 at 0849, Chest Pain, STAT 2136 (Given - Provider: Juan Santoro RN)2145 (Given - Provider: Criss Momin, SARAH) documented in this encounter Orders Medications Ordered That Lester ht Not Have Been Administered Count Last Ordered Date First Ordered Date metoprolol SUCCinate (TOPROL -XL) tablet 100 mg 1 08/09/2023 documented in this encounter Care Teams Electro Optics Engineer Relationship Specialty Start Date End Date None, Provider PCP - General 08/08/23 08/27/23 documented as of this encounter
--- OUTSIDE RECORDS SUMMARY | 2024-08-14 17:34 | XMS_ITS | Encounter Summary ---
Author Organization [facility] Address [address] [place] [address] Care Team Providers Care Media Relations Specialist Name Role Phone Yumiko Land MD Primary Care Provider [phone] Ramila Pagan B2B SALES REPRESENTATIVE Unavailable [phone] Encounter Details Date Type Department Care Team (Late st Contact Info) Description 01/05/2024 Patient Outreach [facility] [place] - [place] [address] [place] [address] Ramila Pagan LICSW [address] [place] [address] Social History Tobacco Use Types Packs/Day Years Used Date Smoking Tobacco: Every Day Cigarettes Smokeless Tobacco: Former Chew Alcohol Use Standard Drinks/Week Comments Not Currently 0 (1 standard drink = 0.6 oz pur e alcohol) seldom [facility] Utilities Answer Date Recorded In the past 12 months has Un[employer], gas, oil, or water [employer] threatened to shut off services in your [...] Progress Notes * Ramila Pagan LICSW - 01/05/2024 1421 EST [facility] Director Food And Beverage Care Coordination Director Food And Beverage spoke with Rizwan to complete the assessment. PLAN: Rizwan will call [facility] to see if they can provide support needed. He will also call [employer] to enroll in their services. CYNDY ALCANTARA 01/06/2024 10:52 documented in this encounter Plan of Treatment Not on file documented as of this encounter Visit Diagnoses Not on filedocumented in this encounter Care Teams Media Relations Specialist Relationship Specialty Start Date End Date Yumiko Land MD PCP - General Internal Medicine - Primary Care 08/28/23 06/03/24 Ramila Pagan LICSW [address] [place] [address] Director Food And Beverage 12/19/23 documented as of this encounter
--- OUTSIDE RECORDS SUMMARY | 2024-08-14 17:34 | XMS_ITS | Encounter Summary ---
Author Organization [facility] Address [address] [place] [address] Care Team Providers Care Costumer Assistant Name Role Phone Yumiko Land MD Primary Care Provider [phone] Ramila Pagan CALL CIRCUIT WORKER Unavailable [phone] Encounter Details Date Type Department Care Team (Late st Contact Info) Description 12/25/2023 Patient Outreach [facility] [place] Adult Primary Care - [place] [address] [place], [place] [id number] Ramila Pagan CALL CIRCUIT WORKER [address] [place] [address] Social History Tobacco Use Types Packs/Day Years [...] Progress Notes * Ramila Pagan LICSW - 12/25/2023 0221 EST [facility] Project Director Care Coordination Project Director spoke with Rizwan. Shared that the referral for a psychiatry consult was denied and [facility] shared he did not show for appointments so they are sending him to . Rizwan shared that he didnot know of any scheduled appointments. He does use [facility] for his suboxone. He shared that this was for pain management not for TAM. He is willing to stop this if he can get his other medications back on board. He shared that he was doing well with all of his medications for 6 years at this home. He never hadan issue. The custodial told him he had to leave his providers in the [facility] and use [facility]. He expressed he is doing as he is told and no one seems to want to help him. Spoke with . She will address this at the visit next week. Call to [facility]. They did not receive the fax for his records. Resentthe fax. Rizwan will see us at his appt Friday. CYNDY ALCANTARA 12/26/2023 16:00 documented in this encounter Plan of Treatment Not on file documented as of this encounter Visit Diagnoses Not on filedocumented in this encounter Care Teams Costumer Assistant Relationship Specialty Start Date End Date Yumiko Land MD PCP - General Internal Medicine - Primary Care 08/28/23 06/03/24 Ramila Pagan LICSW [address] [place] [address] Project Director 12/19/23 documented as of this encounter
--- OUTSIDE RECORDS SUMMARY | 2024-08-14 17:34 | XMS_ITS | Encounter Summary ---
Author Organization [facility] Address [address] [place] [address] Care Team Providers Care Brake Engineer Name Role Phone Yumiko Land MD Primary Care Provider [phone] Ramila Pagan STEWARD/STEWARDESS LOUNGE Unavailable [phone] Yana De La Cruz MD Primary Care Provider + Encounter Details Date Type Department Care Team (Late st Contact Info) Description 12/16/2023 Telephone [facility] Adult Primary Care - [address] [address] Yumiko Land MD [address], [place] [id number] Social History Tobacco Use Types Packs/Day Years [...] Start Date End Da te venlafaxine (EFFEXOR-XR) 150 mg XR capsuleIndications:Generaliz ed anxiety disorder Take 1 Capsule by mouth daily. 90 Capsule 3 12/16/2023 metoprolol SUCCinate (TOPROL-XL) 100 mg tabletIndications:NSTEMI (non-ST elevated myocardial infarction) ([facility]) Take 1 Tablet by mouth daily. 90 Tablet 3 12/16/2023 metFORMIN (GLUCOPHAGE) 1,000 mg tabletIndications:Diabetes mellitus type 2 in nonobese ([facility]) Take 1 Tablet by mouth 2 times daily. 180 Tablet 3 12/16/2023 empagliflozin (JARDIANCE) 10 mg tabletIndications:Type 2 diabetes mellitus with hyperglycemia, unspecified whether rat exterminator insulin use ([facility]) Take 1 Tablet by mouth daily. 90 Tablet 3 12/16/2023 clopidogreL (PLAVIX) 75 mg tabletIndications:NSTEMI (non-ST elevated myocardial infarction) ([facility]) Take 1 Tablet by mouth daily. 90 Tablet 3 12/16/2023 atorvastatin (LIPITOR) 80 mg tabletIndications:Familial hypercholesterolemia Take 1 Tablet by mouth at bedtime. 90 Tablet 3 12/16/2023 venlafaxine (EFFEXOR-XR) 75 mg XR capsuleIndications:Generaliz ed anxiety disorder Take 1 Capsule by mouth daily for 21 days. Take 75 mg plus 150 mg (other prescription) for a total of 225 mg per day in the morning 21 Capsule 12/16/2023 01/06/2024 mirtazapine (REMERON) 15 mg tabletIndications:Generalize d anxiety disorder Take 1 Tablet by mouth at bedtime for 21 days. 21 Tablet 12/16/2023 01/06/2024 losartan (COZAAR) 50 mg tabletIndications:Primary hypertension Take 1 Tablet by mouth daily. 90 Tablet 3 12/16/2023 02/17/2024 glimepiride (AMARYL) 2 mg tabletIndications:Type 2 diabetes mellitus with hyperglycemia, unspecified whether half-way insulin use ([facility]) Take 1 Tablet by mouth daily. 90 Tablet 3 12/16/2023 03/25/2024 gabapentin (NEURONTIN) 600 mg tabletIndications:Neuropathy Take 1 Tablet by mouth 3 times daily. 90 Tablet 3 12/16/2023 04/02/2024 documented in this encounter Miscellaneous Notes * Telephone Encounter - Beatrice Tsang MD - 12/16/2023 1226 EST Will send all meds to new pharmacy. Specified in pharmacy notes which medication are new and need immediate fill and which are transfer of medication only and may not need fill right now. Beatrice Tsang MD * Telephone Encounter - Verenice Hubbard MA - 12/16/2023 1106 EST Pt needs all RX's to be sent to [facility] from now on. Can you change the ones you sent inyesterday during his visit? They were sent to [facility] and he is not able to get there for sheepskin pickler documented in this encounter Plan of Treatment Not on file documented as of this encounter Visit Diagnoses Diagnosis Familial hypercholesterolemia Pure hypercholesterolemia NSTEMI (non-ST elevated myocardial infarction) ([facility]) ([facility]) Acute myocardial infarction, subendocardial infarction, episode of care unspecified Type 2 diabetes mellitus with hyperglycemia, unspecified whether rat exterminator insulin use ([facility]) Neuropathy Mononeuritis of unspecified site Primary hypertension Unspecified essential hypertension Diabetes mellitus type 2 in nonobese ([facility]) Type II or unspecified type diabetes mellitus without mention of complication, not stated as uncontrolled Generalized anxiety disorder documented in this encounter Discontinued Medications Medication Sig Discontinue Reason Start Date End Da te atorvastatin (LIPITOR) 80 mg tabletIndications:Familial hypercholesterolemia Take 1 Tablet by mouth at bedtime. Order modification 09/01/2023 12/16/2023 clopidogreL (PLAVIX) 75 mg tabletIndications:NSTEMI (non-ST elevated myocardial infarction) ([facility]) Take 1 Tablet by mouth daily. Order modification 09/01/2023 12/16/2023 metFORMIN (GLUCOPHAGE) 1,000 mg tabletIndications:Diabetes mellitus type 2 in nonobese ([facility]) Take 1 Tablet by mouth 2 times daily. Order modification 09/01/2023 12/16/2023 metoprolol SUCCinate (TOPROL-XL) 100 mg tabletIndications:NSTEMI (non-ST elevated myocardial infarction) ([facility]) Take 1 Tablet by mouth daily. Order modification 09/01/2023 12/16/2023 venlafaxine (EFFEXOR-XR) 150 mg XR capsuleIndications:Generalize d anxiety disorder Take 1 Capsule by mouth daily. Order modification 09/01/2023 12/16/2023 mirtazapine (REMERON) 15 mg tablet Take 1 Tablet by mouth at bedtime for 21 days. Order modification 12/04/2023 12/16/2023 venlafaxine (EFFEXOR-XR) 75 mg XR capsule Take 1 Capsule by mouth daily for 21 days. Take 75 mg plus 150 mg (other prescription) for a total of 225 mg per day in the morning Order modification 12/04/2023 12/16/2023 losartan (COZAAR) 50 mg tabletIndications:Primary hypertension Take 1 Tablet by mouth daily. Order modification 12/15/2023 12/16/2023 gabapentin (NEURONTIN) 600 mg tabletIndications:Neuropathy Take 1 Tablet by mouth 3 times daily. Order modification 12/15/2023 12/16/2023 empagliflozin (JARDIANCE) 10 mg tabletIndications:Type 2 diabetes mellitus with hyperglycemia, unspecified whether rat exterminator insulin use ([facility]) Take 1 Tablet by mouth daily. Order modification 12/15/2023 12/16/2023 glimepiride (AMARYL) 2 mg tabletIndications:Type 2 diabetes mellitus with hyperglycemia, unspecified whether rat exterminator insulin use ([facility]) Take 1 Tablet by mouth daily. Order modification 12/15/2023 12/16/2023 documented as of this encounter Care Teams Brake Engineer Relationship Specialty Start Date End Date Yumiko Land MD PCP - General Internal Medicine - Primary Care 08/28/23 06/03/24 Yana De La Cruz MD [address] [place] [address] [phone] PCP - General 06/04/24 Ramila Pagan LICSW [address] [place] [phone] Combination Worker 12/19/23 documented as of this encounter
--- OUTSIDE RECORDS SUMMARY | 2024-08-14 17:34 | XMS_ITS | Encounter Summary ---
Author Organization [facility] Address [address] [place] [address] Care Team Providers Care Washing Machine Striper Name Role Phone None, Provider Primary Care Provider Unavailabl e Reason for Visit * Reason Onset Date Comments Coordination Of Care 08/27/2023 Encounter Details Date Type Department Care Team (Late st Contact Info) Description 08/27/2023 Telephone [facility] Case Management [address] [place] [address] CARE MANAGEMENT [phone] Ramona Montero, ALEX Coordination Of Care Social [...] Telephone Encounter - Ramona Montero LMSW - 08/27/2023 1418 EDT CHELE for Ismael/Summer Pocket Stitcher to discuss primary care for Pt. documented in this encounter Plan of Treatment Not on file documented as of this encounter Visit Diagnoses Not on filedocumented in this encounter Care Teams Washing Machine Striper Relationship Specialty Start Date End Date None, Provider PCP - General 08/08/23 08/27/23 documented as of this encounter
--- OUTSIDE RECORDS SUMMARY | 2024-08-14 17:34 | XMS_ITS | Encounter Summary ---
Author Organization [facility] Address [address] [place] [address] Care Team Providers Care Clinical Quality Rn Name Role Phone Yumiko Land MD Primary Care Provider [phone] Ramila Pagan [facility] Unavailable [phone] Reason for Visit * Reason Onset Date Comments No Show 01/21/2024 Encounter Details Date Type Department Care Team (Late st Contact Info) Description 01/21/2024 Telephone [facility] [place] [address] [place] [address] Dottie Steen, SARAH [address] [place] [address] No Show Social History Tobacco Use Types Packs/Day Years Used Date Smoking Tobacco: Every Day Cigarettes Smokeless Tobacco: Former Chew Alcohol Use Standard Drinks/Week Comments Not Currently 0 (1 standard drink = 0.6 oz pur e alcohol) seldom [facility] Utilities Answer Date Recorded In the past 12 months has Wi[employer], gas, oil, or water [employer] threatened to shut off services in your [...] * Telephone Encounter - Kristie Chatterjee - 01/21/2024 0917 EDT Called patient to reschedule missed dm new pt, a1c 14 education appointment with [facility]. Unable to leave voicemail, mailbox is full. Unable to reach letter sent documented in this encounter Plan of Treatment Not on file documented as of this encounter Visit Diagnoses Not on filedocumented in this encounter Care Teams Clinical Quality Rn Relationship Specialty Start Date End Date Yumiko Land MD PCP - General Internal Medicine - Primary Care 08/28/23 06/03/24 Ramila Pagan PHYSICIAN REPRESENTATIVE [address] [place] [id number] Production Recovery Operator 12/19/23 documented as of this encounter
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
--- OUTSIDE RECORDS SUMMARY | 2024-08-14 17:34 | XMS_ITS | Encounter Summary ---
Author Organization [facility] Address [address] [place] [address] Care Team Providers Care Hospital Receptionist Name Role Phone Yumiko Land MD Primary Care Provider [phone] Ramila Pagan CLINICAL QUALITY ASSURANCE ASSOCIATE Unavailable [phone] Reason for Visit * Reason Comments Medication Management Encounter Details Date Type Department Care Team (Latest Contact Info) Description 01/13/2024 14:30 EDT Office Visit [facility] Adult Primary Care - [address] [id number] Beatrice Tsang MD [address] [place] [phone] Generalized anxiety disorder (Primary Dx); Attention deficit hyperactivity disorder (ADHD), combined type; Primary hypertension Social History Tobacco Use Types Packs/Day Years Used Date Smoking Tobacco: Every Day Cigarettes Smokeless Tobacco: Former Chew Alcohol Use Standard Drinks/Week Comments Not Currently 0 (1 standard drink = 0.6 oz pur e alcohol) seldom [facility] Utilities Answer Date Recorded In the past 12 months has [employer], gas, oil, or water [employer] threatened to shut off services in your [...] Sign Reading Time Taken Comments Blood Pressure 138/94 01/13/2024 1435 EDT Pulse 93 01/13/2024 1435 EDT Temperature - - Respiratory Rate - - Oxygen Saturation - - Inhaled Oxygen Concentration - - Weight 79.3 kg (174 lb 12.8 oz) 01/13/2024 1435 EDT Height - - Body Mass Index 28.21 09/01/2023 1315 EDT documented in this encounter [...] Max: 2 mg 56 Tablet 01/20/2024 02/12/2024 lisdexamfetamine (VYVANSE) 30 mg capsuleIndications:Atten tion deficit hyperactivity disorder (ADHD), combined type Take 1 Capsule by mouth every morning. Daily Max: 30 mg 28 Capsule 01/13/2024 02/12/2024 documented in this encounter Progress Notes * Beatrice Tsang MD - 01/13/2024 1430 EDT Adult Primary Care Office Visit Assessment & Plan Rizwan was seen today for medication management. Diagnoses and all orders for this visit: Generalized anxiety disorder Good, albeit partial response to starting dose of clonazepam 0.5mg BID. As previously discussed, will plan to up titrate to 1mg BID. He may use his current supply to increase then have his next refill in 1 week. Anticipate that 1mg BID is an appropriate maintenance dose for him. - clonazePAM (KLONOPIN) 1 mg tablet; Take 1 Tablet by mouth 2 times daily. Daily Max: 2 mg Attention deficit hyperactivity disorder (ADHD), combined type As previously reviewed, plan for a restart of prior vyvanse which was a long- term maintenance medication for ADHD. His prior maintenance dose was 70mg. Reviewed that since he has been off for severalmonths, will begin starting dose and titrate no more frequently than monthly for dose adjustments. - lisdexamfetamine (VYVANSE) 30 mg capsule; Take 1 Capsule by mouth every morning. Daily Max: 30 mg Primary hypertension Improving control today, no changes, however continue to monitor closely. 1m follow up for medication changes, BP monitoring. A1c next due early March. Beatrice Tsang MD Subjective HPI Rizwan Solano is a 48 y.o. male presenting with Medication Management Anxiety On effexor 225mg, mirtazapine 15mg, last visit restarted clonazepam 0.5mg BID Still having substantial anxiety, has night terrors, terrors and panic through the day Has previously tried night terror medication which didn't work so well. ADHD Prior maintenance dose 70mg daily HTN On losartan 50mg T2DM On glimepiride 2mg daily, jardiance 10mg, metformin 1000mg BID Objective BP (!) 138/94 (BP Cuff Location: Right arm, BP Patient Position: Sitting, BP Cuff Sizes: Adult, regular) Pulse 93 Wt 79.3 kg (174 lb 12.8 oz) BMI 28.21 kg/m?? Wt Readings from Last 3 Encounters: 01/13/24 79.3 kg (174 lb 12.8 oz) 12/30/23 78.5 kg (173 lb) 12/15/23 78.7 kg (173 lb 8 oz) Physical Exam Constitutional: General: He is not in acute distress. Appearance: He is well-developed and well-nourished. Comments: Constant fidgeting of legs, otherwise normal appearance today Eyes: General: No scleral icterus. Conjunctiva/sclera: Conjunctivae [...] Visit Diagnoses Diagnosis Generalized anxiety disorder- Primary Attention deficit hyperactivity disorder (ADHD), combined type Primary hypertension Unspecified essential hypertension documented in this encounter Discontinued Medications Medication Sig Discontinue Reason Start Date End Da te VYVANSE 70 mg capsule 05/08/2023 01/13/2024 clonazePAM (KLONOPIN) 0.5 mg tabletIndications:Anxiety disorder, unspecified type Take 1 Tablet by mouth 2 times daily. Daily Max: 1 mg 12/30/2023 01/13/2024 documented as of this encounter Care Teams Hospital Receptionist Relationship Specialty Start Date End Date Yumiko Land MD PCP - General Internal Medicine - Primary Care 08/28/23 06/03/24 Ramila Pagan, [facility] [address] [place] [id number] Sports Physiotherapist 12/19/23 documented as of this encounter
--- OUTSIDE RECORDS SUMMARY | 2024-08-14 17:34 | XMS_ITS | Encounter Summary ---
Author Organization [facility] Address [address] [place] [address] Care Team Providers Care Information Assurance Analyst Name Role Phone None, Provider Primary Care Provider Unavailabl e Reason for Visit * Reason Comments Dental Problem Encounter Details Date Type Department Care Team (Late st Contact Info) Description 08/23/2023 15:45 EDT [facility] - [facility] [address], [place] [id number] Diana Carson PADieudonne [address] [facility] [address] [place], [place] [phone] Dental infection (Primary Dx) Social History Tobacco Use Types [...] Sign Reading Time Taken Comments Blood Pressure 141/90 08/23/2023 1552 EDT Pulse 101 08/23/2023 1552 EDT Temperature 36.9 ??C (98.5 ??F) 08/23/2023 1552 EDT Respiratory Rate 16 08/23/2023 1552 EDT Oxygen Saturation 96% 08/23/2023 1552 EDT Inhaled Oxygen Concentration - - Weight [...] this encounter Patient Instructions * Patient Instructions* Diana Carson PA-C - 08/23/2023 15:45 EDT Rizwan portillo were seen today for an infected tooth/gums. Antibiotics were sent to the pharmacy for you as well as tylenol. I see that on August 12 our child care coordinator called you to try to set up a primary care provider for you but she was unable to leave a message or maybe had the wrong phone number. I will send her a message and ask her to call you again. Please take antibiotics as advised; tylenol is the safest medication for you for pain. I don't think that your insurance covers this as it is an over the counter medication. But I did try to send it along. It is not safe for your heart for you to take ibuprofen. documented in this encounter Ordered Prescriptions Prescription Sig Dispensed Refills Start Date End Da te acetaminophen (TYLENOL) 325 mg tablet Take 2 Tablets by mouth every 4 hours as needed for Pain. 100 Tablet 2 08/23/2023 penicillin v potassium (VEETID) 500 mg tabletIndications:Dental infection Take 1 Tablet by mouth 4 times daily for 10 days. 40 Tablet 08/23/2023 09/02/2023 documented in this encounter Progress Notes * Shantell Alvarado MA - 08/23/2023 1545 EDT CC/HPI: Pt c/o toothache of two front teeth, gum edema, headache, Sx started yesterday Covid Screening: In the last 72 hours, has the patient had: New or unusual cough, shortness of breath, new nasal congestion, sore throat, fever, chills, body aches, or new loss of taste or smell without a reasonable alternative diagnosis*? (If yes, assign to AR[facility]) NO In the past 10 days, has the patient had a positive Covid test OR a confirmed close Covid exposure (<6ft for > 15mins in 24hr period)? (if yes, assign to ARC, regardless of vaccination status) NO *may be determined by RN or in discussion with available provider (INFORMATION ASSURANCE ANALYST's and CCA's can defer to Charge Nurse to complete triage when appropriate) PCP: Provider None * Diana Carson PA-C - 08/23/2023 4116 EDT [facility] [place] [facility] Chief Complaint(s): Chief Complaint Patient presents with ??? Dental Problem Assessment & Plan: Rizwan was seen today for dental problem. Diagnoses and all orders for this visit: Dental infection - penicillin v potassium (VEETID) 500 mg tablet; Take 1 Tablet by mouth 4 times daily for 10 days. Other orders - acetaminophen (TYLENOL) 325 mg tablet; Take 2 Tablets by mouth every 4 hours as needed for Pain. Rizwan Solano is a pleasant 47 y.o. male who presents with chief complaint of dental pain, swelling, upper teeth. Will cover for infection, needs a dentist! Needs pcp, new number given to coordinator Zulay Salmeron for this. Pt to f/u up here prn for any med refills prior to that. Wait listed at [facility] as well. An appropriate medical screening examination was performed. The patient was assessed prior to discharge and deemed stable for discharge home. I printed material and reviewed home management and follow up in detail with patient, see patient instructions below. Patient is advised in use of [employer] to access any lab results or other pertinentvisit information. All questions are answered. Patient is advised to follow up for urgent reassessment for any new/worsening signs and symptoms here at [facility] or with the ER. Otherwise, follow up with PCP or [facility] is advised for symptoms that persist past current course of treatment or expected resolution as discussed. Patient verbalizes understanding and agreement with this plan of care. HPI: Pt here cc front teeth bothering a few days now, feels swollen inside/roof of mouth/gums here. Notes many issues with teeth, if loose will pull them out himself. This time headache and mild not feeling well as well. Pt is currently residing in local homeless senior living in [place] x 2 years. Has yet to find PCP, mental health clinician. Was in [facility] prior. Has medicaid. ROS: ROS See HPI for details Objective: Vitals and nursing notes reviewed Examination: BP 141/90 Pulse 101 Temp 36.9 ??C (98.5 ??F) (Oral) Resp 16 SpO2 96% Physical Exam Constitutional: General: He is not in acute distress. Appearance: Normal appearance. HENT: Mouth/Throat: Comments: Partially edentulous; upper incisors/canines still present; moderate swelling base incisors, posteriorly; no appreciable drainage; may other teeth partially broken off/dentin/decay visible Skin: General: Skin is warm and dry. Findings: No rash. Neurological: Mental Status: He is alert and oriented to person, place, and time. Data reviewed with patient (past results): PMHx/pertinent labs/DI and pertinent recent OV's This note may be in part documented using Everbridge dictation software. Please forgive any errors, omissions or typos that may result from use of dictation. documented in this encounter Plan of Treatment Not on file documented as of this encounter Visit Diagnoses Diagnosis Dental infection- Primary Acute apical periodontitis of pulpal origin documented in this encounter Historical Medications * This list may reflect changes made after this encounter. Medication Sig Dispensed Refills Start Date End Date buprenorphine-naloxone (SUBOXONE) 8-2 mg tablet, sublingual 08/21/2023 glimepiride (AMARYL) 2 mg tablet 07/28/2023 09/01/2023 venlafaxine (EFFEXOR-XR) 150 mg XR capsule 07/28/2023 09/01/2023 metFORMIN (GLUCOPHAGE) 1,000 mg tablet 2 times daily. 07/28/2023 09/01/2023 added in this encounter Care Teams Information Assurance Analyst Relationship Specialty Start Date End Date None, Provider PCP - General 08/08/23 08/27/23 documented as of this encounter
--- OUTSIDE RECORDS SUMMARY | 2024-08-14 17:35 | XMS_ITS | Encounter Summary ---
Author Organization [facility] Address [address] [place] [address] Care Team Providers Care Research Center Director Name Role Phone Ranjan Denise RPA Primary Care Provider [phone] None, Provider Primary Care Provider UnavailYumiko Gallego MD Primary Care Provider [phone] Ramila Pagan NIGHT SHIFT SUPERVISOR Unavailable [phone] Yana De La Cruz MD Primary Care Provider + Encounter Details Date Type Department Care Team (Late st Contact Info) Description 04/28/2023 Orders Only [facility] Emergency Department [address] [place], [place] [address] Jessica Messer, ELISA Chest pain Social History Tobacco Use Types Packs/Day Years Used Date Smoking Tobacco: Every Day Cigarettes Smokeless Tobacco: Current Chew Alcohol Use Standard Drinks/Week Comments Not Currently 0 (1 standard drink = 0.6 oz pur e alcohol) seldom Sex and Gender Information Value Date Recorded Sex Assigned at Not on file Gender Identity Male 08/08/2023 21:13 EDT Sexual Orientation Not on file COVID-19 Exposure Response Date Recorded In the last 10 days, have yo u been in contact with someone who was confirmed or suspected to have Coronavirus/COVID-19? Unable to assess 04/22/2023 23:07 EDT documented as of this encounter Functional Status [...] Associated Diagnosis Comments ECG REPORT - SCANNED 04/28/2023 19:55 EDT EKG 12-LEAD Routine 04/22/2023 20:34 EDT Chest pain documented in this encounter Results * ECG REPORT - SCANNED (04/28/2023 19:55 EDT) 04/28/2023 19:5 5 EDT Scan 2 Fashion Design Professor PROCEDURE/MINOR FELIX GICAL ORDERABLES * EKG 12-LEAD (04/22/2023 20:34 EDT) 04/22/2023 20:3 4 EDT Narrative [facility] - 04/28/2023 19:51 EDT ? [facility] ? Test Date: ?2023-04-22 Pat Name: ? CARMELO COHEN ? Department: ? Room: ? Gender: ? Male ? Longwall Shearer Operator: ?? LMM : ?1975 ? Requested By: CARYN FRANK Order Number: [id number] ? Reading MD: ?? KARLO RODRIGUEZ MD ? Measurements Intervals ?[place] ? Rate: ? 84 ? P: ?48 IA: ? 144 ?QRS: ?42 QRSD: ? 80 ? T: ?4 QT: ? 376 ? QTc: ?444 ? Interpretive Statements Normal sinus rhythm Compared to ECG 12/17/2022 17:44:54 Sinus tachycardia no longer present I reviewed the tracing and have either agreed or edited the findings in this report. Electronically Signed On 04-28-2023 19:51:01 EDT by KARLO RODRIGUEZ MD. Procedure Note Karlo Rodriguez MD - 04/28/2023 [facility] [place]: 2023-04-[place] Pat Name: CARMELO COHEN Department: Room: Gender: Male Longwall Shearer Operator: BRITT : 1975 Requested By: CARYN FRANK Order Number: [id number] Reading MD: KARLO RODRIGUEZ MD Measurements Intervals [place] Rate: 84 P: 48 IA: 144 QRS: 42 QRSD: 80 T: 4 QT: 376 QTc: 444 Interpretive Statements Normal sinus rhythm Compared to ECG 12/17/2022 17:44:54 Sinus tachycardia no longer present I reviewed the tracing and have either agreed or edited the findings inthis report. Electronically Signed On 04-28-2023 19:51:01 EDT by KARLO PETERSON. [employer] DO CARDIAC ECG ORDERABL ES [facility] documented in this encounter Visit Diagnoses Diagnosis Chest pain Chest pain, unspecified documented in this encounter Care Teams Research Center Director Relationship Specialty Start Date End Date Ranjan Denise RPA [address] [place] [id number] PCP - General Family Medicine - Primary Care 12/17/22 08/07/23 None, Provider PCP - General 08/08/23 08/27/23 Yumiko Land MD PCP - General Internal Medicine - Primary Care 08/28/23 06/03/24 Yana De La Cruz MD [address] [place] [address] [phone] PCP - General 06/04/24 Ramila Pagan, CYNDY [address] [place] [id number] Yarn Sizer 12/19/23 documented as of this encounter
--- OUTSIDE RECORDS SUMMARY | 2024-08-14 17:35 | XMS_ITS | Encounter Summary ---
Author Organization [facility] Address [address] [place] [address] Care Team Providers Care Java Developer With Security Clearance Name Role Phone Roman Tirado MD Primary Care Provider Reason for Referral * (Routine) - Closed Specialty Diagnoses / Procedures Referred By Contac t Referred To Contact Candi Benites NP [address] [place] [phone] Referral ID Status Reason Start Date Expiration Date V isits Requested Visits Authorized [id number] Closed Specialty Services Required 03/18/2014 1 1 Comments We expect that the Cardiac Rehabilitation Program at [facility] will contact you directly regarding a visit to the program. If you do not hear from hear from them within two weeks you should contact your physician's office regarding a referral. We will contact your hospital to let them and your primary care physician know that you are a good candidate for outpatient cardiac rehabilitation. * (Routine) - Closed Specialty Diagnoses / Procedures Referred By Contac t Referred To Contact Cadni Benites NP [address] [place] [id number] Referral ID Status Reason Start Date Expiration Date V isits Requested Visits Authorized [id number] Closed Specialty Services Required 03/18/2014 1 1 Question Answer Reason for recommendation: Discharge follow-up Comments Follow up with Dr Ruby Garrido in our [facility] cardiology clinic. Office phone number for questions or concerns:[phone]. * (Routine) - Closed Specialty Diagnoses / Procedures Referred By Contac t Referred To Contact Candi Benites NP [address] [place] [id number] Referral ID Status Reason Start Date Expiration Date V isits Requested Visits Authorized [id number] Closed Specialty Services Required 03/18/2014 1 1 Question Answer Reason for recommendation: Discharge follow up Encounter Details Date Type Department Care Team (Late st Contact Info) Description 03/17/2014 11:00 EDT - 03/18/2014 20:57 EDT Hospital Encounter [facility] Cardiac/Telemetry Unit [address] [place] [address] [phone] Maya Valdes MD [address] [place] [phone] Hermilo Hook MD [address] [place] [phone] NSTEMI (non-ST elevated myocardial infarction) ([facility]) (Primary Dx); HTN (hypertension); Hyperlipidemia Discharge Disposition: Home or Self Care Social History Tobacco Use Types Packs/Day Years Used Date Smoking Tobacco: Every Day Cigarettes Tobacco Cessation:Ready to Q uit: No; Counseling Given: Yes Alcohol Use Standard Drinks/Week Comments Yes 0 (1 standard drink = 0.6 oz pur e alcohol) seldom Sex and Gender Information Value Date Recorded Sex Assigned at Not on file Gender Identity Male 08/08/2023 21:13 EDT Sexual Orientation Not on file documented as of this encounter Last Filed Vital Signs Vital Sign Reading Time Taken Comments Blood Pressure 144/82 03/18/2014 1906 EDT Pulse 99 03/18/2014 1906 EDT Temperature 36.6 ??C (97.9 ??F) 03/18/2014 1653 EDT Respiratory Rate 17 03/18/2014 0611 EDT Oxygen Saturation 96% 03/18/2014 1652 EDT Inhaled Oxygen Concentration - - Weight 76 kg (167 lb 9.6 oz) 03/18/2014 0425 EDT Height 167.6 cm (5' 6) 03/17/2014 1124 EDT Body Mass Index 27.05 03/17/2014 1124 EDT documented in this encounter Functional Status Functional Status Response Date of Assess ment Are you deaf or do you have serious difficulty h earing? No 03/17/2014 Are you blind or do you have serious difficulty seeing, even when wearing glasses? No 03/17/2014 Do you have serious difficul ty walking or climbing stairs? (5 years old or older) No 03/17/2014 Do you have difficulty dress ing or bathing? (5 years old or older) No 03/17/2014 Because of a physical, menta l, or emotional condition, do you have difficulty doing errands alone such as visiting a doctor's office or shopping? (15 years old or older) No 03/17/2014 Cognitive Status Response Date of Assessm ent Because of a physical, menta l, or emotional condition, do you have serious difficulty concentrating, remembering, or making decisions? (5 years old or older) Yes 03/17/2014 documented as of this encounter Discharge Summaries * Carlos Ly MD - 03/18/2014 1134 EDT Discharge Summary Discharge Date: 03/18/2014 Chief Complaint/Reason for Admission: Chest Pain Principal/Final Diagnosis: NSTEMI Principal Procedure: Cardiac Catheterization Date: 03/18/2014 Condition at Discharge: Good Assessment at Discharge: BP 139/102 Pulse 94 Temp(Src) 36.8 ??C (98.2 ??F) (Tympanic) Resp 17 Ht 167.6 cm (66) Wt76.023 kg (167 lb 9.6 oz) BMI 27.06 kg/m2 SpO2 97% Gen: NAD, AAO X 3 Pul: clear bilaterally, no c/w/r CV/Vascular: regular S1 S2, no keely/tachycardia, no m/g/r. Abd: soft, +bs, NT/no rebound or guarding, ND, no hepatomegaly Skin/Sacrum: R groin hematoma Hospital Course: Carmelo Solano is a 38 year old man with history of CAD (s/p PCI to RCA in 2007), DM2, HLD, HTN, anxiety, depression and smoking who presented with 3 day history of chest pain. He had been without his medications for 3 days as he was released from senior living without new prescriptions. [facility]. ECG was normal. He was given nitro paste which failed to alleviate his symptoms but caused a headache. He was subsequently transferred to [facility] where he had a left heart cath and subsequent JOSE to the RCA. He will require clopidogrel a minimum of 3 months and preferably 1 year. He will follow up with Dr Garrido in 2 weeks and attend cardiac rehab as well. Additionally he was encouraged to stop smoking. His hospital course was complicated by bleeding from the right groin, which was controlled with pressure and lidocaine/epinephrine injections. I t has stopped at the time of discharge. Diagnostic Studies: LHC: Left main: normal Left anterior descending: mild irregs Left circumflex: Mild irregs Right coronary artery: distal segment of prior stent 70% and 80% ISR, mild irregs distal vessel Relevant Studies at Discharge: Echocardiogram: Left ventricle: The cavity size was normal. Wall thickness was normal. Systolic function was normal. The estimated ejection fraction was 60- 65%. Wall motion was normal; there were no regional wall motion abnormalities. Left ventricular diastolic function parameters were normal. Last Lab Results at Discharge: BUN: Lab Results Component Value Date BUN 17 03/18/2014 Creatinine: Lab Results Component Value Date CREATININE 0.63* 03/18/2014 CBC: Lab Results Component Value Date WBC 9.17 03/18/2014 RBC 4.83 03/18/2014 HGB 13.0* 03/18/2014 HCT 40.6 03/18/2014 MCV 84 03/18/2014 MCH 27.0* 03/18/2014 MCHC 32.1* 03/18/2014 PLT 289 03/18/2014 DIFFTYPE Automated 11/09/2010 Electrolytes: Lab Results Component Value Date NA 139 03/18/2014 K 4.4 03/18/2014 CL 101 03/18/2014 CO2 28 03/18/2014 Lipid Profile: Lab Results Component Value Date CHOL 159 03/18/2014 TRIG 143 03/18/2014 HDL 38 03/18/2014 LDLBASE 92 03/18/2014 CHOLHDL 4.2 03/18/2014 Lab Results Component Value Date HGBA1C 7.4 03/17/2014 Meds at Discharge: Medication List START taking these medications atorvastatin 80 mg tablet Commonly known as: LIPITOR Take 1 Tab by mouth at bedtime. Replaces: rosuvastatin 10 mg tablet clopidogrel 75 mg tablet Commonly known as: PLAVIX Take 1 Tab by mouth daily for 30 days. nitroGLYCERIN 0.4 mg SL tablet Commonly known as: NITROSTAT Place 1 Tab under the tongue every 5 minutes as needed for Chest Pain. CHANGE how you take these medications metoprolol XL 100 mg tablet Commonly known as: TOPROL-XL Take 1 Tab by mouth daily. What changed: medication strength CONTINUE taking these medications aspirin 81 mg EC tablet Take 81 mg by mouth daily. clonazePAM 1 mg tablet Commonly known as: KLONOPIN Take 1 Tab by mouth 2 times daily for 30 days. DULoxetine 60 mg capsule Commonly known as: CYMBALTA Take 1 Cap by mouth daily for 30 days. metFORMIN 500 mg tablet Commonly known as: GLUCOPHAGE Take 1 Tab by mouth 2 times daily for 30 days. STOP taking these medications amLODIPine 5 mg tablet Commonly known as: NORVASC rosuvastatin 10 mg tablet Commonly known as: CRESTOR Replaced by: atorvastatin 80 mg tablet documented in this encounter Medications at Time of Discharge Medication Sig Dispensed Refills Start Date End Date nitroGLYCERIN (NITROSTAT) 0.[address] 1 Tab under the tongue every 5 minutes as needed for Chest Pain. 25 Tab 1 03/18/2014 aspirin 81 mg EC tablet Take 81 mg by mouth daily. 04/24/2023 atorvastatin (LIPITOR) 80 mg tablet Take 1 Tab by mouth at bedtime. 30 Tab 11 03/18/2014 04/24/2023 clonazePAM (KLONOPIN) 1 mg tablet Take 1 Tab by mouth 2 times daily for 30 days. 60 Tab 0 03/18/2014 04/17/2014 clopidogrel (PLAVIX) 75 mg tablet Take 1 Tab by mouth daily for 30 days. 30 Tab 11 03/18/2014 04/17/2014 DULoxetine (CYMBALTA) 60 mg capsule Take 1 Cap by mouth daily for 30 days. 30 Cap 0 03/18/2014 04/17/2014 metFORMIN (GLUCOPHAGE) 500 mg tablet Take 1 Tab by mouth 2 times daily for 30 days. 60 Tab 0 03/18/2014 04/17/2014 metoprolol XL (TOPROL-XL) 100 mg tablet Take 1 Tab by mouth daily. 30 Tab 0 03/18/2014 09/01/2023 documented as of this encounter Ordered Prescriptions Prescription Sig Dispensed Refills Start Date End Da te nitroGLYCERIN (NITROSTAT) 0.[address] 1 Tab under the tongue every 5 minutes as needed for Chest Pain. 25 Tab 1 03/18/2014 DULoxetine (CYMBALTA) 60 mg capsule Take 1 Cap by mouth daily for 30 days. 30 Cap 0 03/18/2014 04/17/2014 clonazePAM (KLONOPIN) 1 mg tablet Take 1 Tab by mouth 2 times daily for 30 days. 60 Tab 0 03/18/2014 04/17/2014 atorvastatin (LIPITOR) 80 mg tablet Take 1 Tab by mouth at bedtime. 30 Tab 11 03/18/2014 04/24/2023 metoprolol XL (TOPROL-XL) 100 mg tablet Take 1 Tab by mouth daily. 30 Tab 0 03/18/2014 09/01/2023 metFORMIN (GLUCOPHAGE) 500 mg tablet Take 1 Tab by mouth 2 times daily for 30 days. 60 Tab 0 03/18/2014 04/17/2014 clopidogrel (PLAVIX) 75 mg tablet Take 1 Tab by mouth daily for 30 days. 30 Tab 11 03/18/2014 04/17/2014 documented in this encounter Discharge Disposition Disposition Code Departure Means Destination Home or Self Care documented in this encounter Progress Notes * Paulette Valles, SARAH - 03/21/2014 0710 EDT Discharge Note: D/C home on 03/18/2014 without home health services. Nick Valles RN #[id number] * Candi Benites NP - 03/18/2014 1412 EDT CTSP for persistent bleeding right femoral access site. Manual pressure held x 15 min, 6 ml xylocaine with epi injected around the site and pressure dressing applied. Plavix daily without interruption x 1 year and Aspirin 81 mg daily lifetime reviewed with patient and the patient verbalizes understanding.Cardiac rehab reviewed with patient and the patient is willing to attend at [facility]. Referral sent and written material given to patient.Follow up has been requested with Dr Garrido in [facility]. * Deidre Lowry - 03/18/2014 1344 EDT Social Work 03/18/14: Received referral from Paulette ADAMES re: housing & community services for pt. Met with pt & he stated that he does not have a place to stay upon discharge. His friend Donna was visiting & informed him that their friend Ingrid said that he can stay with her upon discharge. I asked Donna to contact Ingrid which she did & Ingrid has offered for pt to stay with her upon discharge. Her address is: Donna Rivera, [address] [place] [address], [phone]. Pt stated that he will be staying with her upon discharge. I contacted [facility] ( homeless long term) in [place] & was informed that they do not have any male beds available. They did state that they do not accept people who have been in nursing home forcertain crimes. She did say that pt could go in for an intake interview to see if he would be eligible for their CM program. I gave pt the names & numbers for [facility] in [place] & [facility] & encouraged him to follow up with these programs as they can work with him on housing, job & services in the community for him. He stated that he will follow up. Spoke with Paulette ADAMES & informed her of above. She will speak with the MD re: JANET follow-up. Deidre Lowry TERMINAL SUPERINTENDENT #[id number] * Ruby Garrido MD - 03/18/2014 1240 EDT March 17, 2014 Roman Tirado MD [address] [place] [address], [address] [place] [address] Dear Roman: I want to bring you up to date on the results of the further cardiac evaluation and coronary stent placement in your patient, Carmelo Solano. This gentleman had prior 2 stents placed in his right coronary artery approximately 6 years ago. He does have issues with medical compliance and has recently been incarcerated. Most recently, he has not been taking medicines and he came to the emergency room with a non-ST elevation ME that was small. An echocardiogram acutely showed normal LV function. Due to ongoing chest pain, he was brought urgently to the school laboratory technician. In the school laboratory technician, we found that the left system was widely patent. The culprit was the right coronary artery, which contained a 70% and 80% area of in-stent restenosis in the prior stents in the mid right coronary. This can only affectively be treated with placement of drug-eluting stent overlappingthis area, which was done. I placed a single drug-eluting Resolute stent with an excellent result and no residual stenosis as well as yazdanism of normal flow. Mr Solano promises me that he will be compliant with Plavix taking at least 3 months, although Ihope to keep him on this for 1 year. He will be discharged on long-term aspirin as well as Toprol, Lipitor and restarting his prior metformin. I will make arrangements to see him in followup in my [place] clinic and he will also follow up in your office. Thank you again for allowing me to participate in the care of your patient. Sincerely, Ruby Garrido MD 06 51 PM / Ruby Garrido MD mn Confirmation: [id number] Dictation ID: [id number] cc:Roman Tirado MD * Carlos Akers MD - 03/18/2014 1115 EDT Inpatient Internal Medicine Progress Note Patient Name: Carmelo Solano [facility] day: LOS: 1 day Admission date: 03/17/2014 CC: Chest Pain Interval history/Subjective: S/p RCA stent. Developed a hematoma at his right groin site and required several injections of lidocaine/epi, however continues to bleed. Complains of severe pain at the site and right hip. Denies f/ns/c, n/v, ESPINOSA, chest pain, SOB, abdominal pain. Review of systems: see subjective otherwise 10 point ROS otherwise negative Past Medical History: Reviewed in EMR Allergies: Reviewed in EMR Objective: BP 139/102 Pulse 94 Temp(Src) 36.8 ??C (98.2 ??F) (Tympanic) Resp 17 Ht 167.6 cm (66) Wt76.023 kg (167 lb 9.6 oz) BMI 27.06 kg/m2 SpO2 97% Gen: NAD, AAO X 3 Pul: clear bilaterally, no c/w/r CV/Vascular: regular S1 S2, no keely/tachycardia, no m/g/r. Abd: soft, +bs, NT/no rebound or guarding, ND, no hepatomegaly Skin/Sacrum: R groin hematoma, continues to bleed Labs: Recent Labs 03/17/14 1142 03/18/14 0519 WBC 9.29 9.17 HGB 12.8* 13.0* HCT 38.8* 40.6 MCV 83 84 PLT 275 289 NA 139 139 K 4.5 4.4 CL 104 101 CO2 26 28 BUN 15 17 CREATININE 0.60* 0.63* Imaging/Procedures: LHC: Left main: normal Left anterior descending: mild irregs Left circumflex: Mild irregs Right coronary artery: distal segment of prior stent 70% and 80% ISR, mild irregs distal vessel Impression/Plan: 38 year old man with history of CAD (s/p PCI to RCA in 2007), DM2, HLD, HTN, anxiety, depression and smoking who presents with 3 day history of chest pain, slight troponin elevation and normal ECG, s/p PCI to RCA. His right groin continues to bleed despite pressure and multiple injections. NSTEMI: s/p PCI to RCA --plavix, asa, metoprolol, statin Hyperlipidemia: -lipitor 80mg daily Diabetes, type 2: --SSI --hold home metformin Hypertension: --amlodipine 10 daily -metoprolol 25mg BID Depression/Anxiety: -clonazepam 1mg TID -Duloxetine 60mg daily Dispo: Home today if bleeding controlled Carlos Aekrs MD 03/18/2014 11:16 Current Facility-Administered Medications Medication Route Frequency ??? acetaminophen (TYLENOL) tablet 650 mg oral Q4H PRN ??? amLODIPine (NORVASC) tablet 10 mg oral DAILY ??? aspirin EC tablet 81 mg oral DAILY ??? atorvastatin (LIPITOR) tablet 80 mg oral QHS ??? clonazePAM (KLONOPIN) tablet 1 mg oral TID ??? clopidogrel (PLAVIX) tablet 75 mg oral DAILY ??? dextrose 50 % solution 12.5 g intravenous PRN ??? DULoxetine (CYMBALTA) capsule 60 mg oral DAILY ??? glucagon (human recombinant) injection 1 mg intramuscular PRN ??? insulin aspart (NOVOLOG FLEXPEN) injection subcutaneous TID WC ??? insulin aspart (NOVOLOG FLEXPEN) injection subcutaneous QHS ??? lidocaine-EPINEPHrine 1 %-1:100,000 injection 10 mL other Now ??? metoprolol (LOPRESSOR) tablet 25 mg oral BID ??? morphine injection 2-5 mg intravenous Q4H PRN ??? nicotine (NICOTROL) 10 mg inhaler 1 Inhaler inhalation Q2H PRN ??? nicotine inhaler (delivery device) inhalation PRN ??? nitroGLYCERIN (NITROSTAT) SL tablet 0.4 mg sublingual Q5 MINUTES PRN ??? oxyCODONE-acetaminophen (PERCOCET) 5-325 mg per tablet 1-2 Tab oral Q4H PRN * Paulette Valles RN - 03/18/2014 1002 EDT Brief Case Management Assessment & Initial Discharge Plan Reason for Hospitalization: 38 year old man with history of CAD (s/p PCI to RCA in 2007), DM2, HLD, HTN, anxiety, depression and smoking who presents with 3 day history of chest pain, slight troponin elevation and normal ECG. Will admit for further workup of NSTEMI. Current Living Arrangements: Patient currently homeless. He was living in [place] prior to being incarcerated, but cannot return to that home. He cannot stay at a homeless long term 2/2 to felony charge. Current Social, Health Care and Community Supports: Ingrid Miguel, friend, Identified Case Management/Social Work Needs and Issues (housing, care, financial, transportation, cultural, spiritual, emotional, legal, etc.): Patient recently incarcerated. Since being released he's been homeless and can't find a job. He cannot stay at a homeless long term and no family in the area. He works at the [employer] in [place] where he gets all the food he can eat plus $25/week. He has Medicaid and uses [facility] in [place]. He's been taking his currently prescribed meds but is concerned about affording his new medications.He states Ingrid may be able to help him pay for meds. His PCP is Delmy Rubin PA-C at [facility] in [place]. He states he has been thinking about applying for disability 2/2 mental health issues and chronic pain Case Management Actions (completed and planned): Met with patient and explained role. Encouraged him to apply for SS Disability. Social Work will see this admission to assist with outpatient social work follow up for housing and medication compliance. CM will follow throughout hospitalization. Paulette Valles RN AC #[id number] * Paulette Valles RN - 03/18/2014 0910 EDT 03/18: Referred to Social Work. Will see for medication compliance. Paulette Valles RN [facility] #[id number] * Ruby Garrido MD - 03/18/2014 0744 EDT Interventional Attending I have seen and examined and reviewed data and findings with Dr. Crisostomo on rounds this morning. I agree with evaluation and plan as as outlined. Doing well post JOSE X1 to RCA restenosis No anginal CP Wants to leave floor to smoke Vitals and telemetry fine Resolved femoral ooze, no hematoma Major issue is social placement, housing and med compliance Understands critical importance of asa plus plavix Would simplify other meds and keep once daily - toprol, lipitor, metformin Needs social work review prior to D/C. I will see in [facility] 25 minutes spent on counseling and coordination of care Jame Garrido MD * Candi Benites NP - 03/18/2014 0634 EDT Follow up has been requested with Dr Garrido in [facility]. * Shakeel Ramos MD - 03/18/2014 0220 EDT Called by RN: ongoing oozing from Right Groin cath site Patient has been moving leg a lot and moving around in bed. RN noted that dressing was saturated. He held pressure for 10-15 minutes and replaced dressing however new dressing was saturated. Blood pressure 125/84, temperature 36.7 ??C (98.1 ??F), temperature source Tympanic, resp. rate 16,height 167.6 cm (66), weight 79.379 kg (175 lb), SpO2 98.00%. Gen: NAD R groin: dressing saturated with blood. no palpable hematoma. Ongoing oozing from site when dressing removed Ext: RLE warm, well perfused. Palpable DP. A&P - ongoing arterial ooze from LHC - injected 2% lidocaine with epinephrine circumferentially around the wound - Again counseled patient to not bend or move around leg. - d/w Dr. Baron Jaime * Ruby Garrido MD - 03/18/2014 0009 EDT Patient is stable post PCI. No complaints of chest pain or shortness of breath. Access site is without hematoma and distal pulses are at baseline. Skin ooze resolved post injection Plan continue post PCI care as outlined. Ruby Garrido MD Attending Cardiology * Shakeel Ramos MD - 03/17/20142025 EDT Cardiology Post Procedure Note S/p Left Heart cardiac catheterization + PCI of RCA (in area of in-stent restenosis) S: Called by RN patient with ongoing ooze from catheterization site despite holding pressure x 15 minutes. Pt resting comfortably. Denies chest pain, dyspnea, palpitations, lightheadedness, numbness or weakness. O:Blood pressure 100/69, temperature 37 ??C (98.6 ??F), temperature source Tympanic, resp. rate 16,height 167.6 cm (66), weight 79.379 kg (175 lb), SpO2 97.00%. Gen: NAD Chest: CTAB anteriorly, no w/r/r CV: RRR, no m/r/g Extr: R groin cath site with minimal hematoma but with ongoing ooze. Pulse: RLE with palpable DP Neuro: sensation intact to LT, moves extremity antigravity A/P: 38 y.o.male s/p cardiac catheterization. - injected 2% lidocaine with epinephrine circumferentially around the wound / oozing site and applied gauze dressing with tegaderm. -- cont plan as per morning note * Ruby Garrido MD - 03/17/2014 1746 EDT Interventional Attending I have seen and examined and reviewed data and findings with and Monster who request urgent LHC this evening based on ongoing anginal quality CP in the setting of known CAD and current NSTEMI. The patients significant issues with medical compliance are noted. Jame Garrido MD Patient promises me he will take at least 3 months of daily plavix and try and take fpc asa. He also promises to stay in hospital tonight for recovery following procedure. documented in this encounter H&P Notes * Hermilo Hook MD - 03/17/2014 1143 EDT Cardiology Admitting H+P Admite Date: 03/17/2014 Date of Service: 03/17/2014 LOS: 0 days Chief Complaint: Chest Pain HPI: Carmelo Solano is a 38 year old man with history of CAD (s/p PCI to RCA in 2007), DM2, HLD, HTN, anxiety, depression and smoking who presents with 3 day history of chest pain. He was recently incarcerated and subsequently released 3 days ago on Friday, but without any of his medications that he had been taking in senior living. On Friday he developed constant, sharp left sided chest pain without radiation, diaphoresis, or shortness of breath. He states that this pain is different in nature from hisMI in 2008 (yoana sweats & left arm radiation). He went to [facility] where troponin was slightly elevated to 0.054. ECG was normal. He was given nitro paste which failed to alleviate his symptoms but caused a headache. He also complains of anxiety, which he thinks is worsening his chest pain. He has never before had chest pain associated with anxiety. Review Of Systems: Constitutional: No fevers. No sweats. No chills. Cardiovascular: chest pain. No palpitations. Respiratory: No cough. No wheezing. No shortness of breath. Gastrointestinal: No abdominal pain. No nausea. No vomiting. No diarrhea. No constipation. Skin: No rashes. Musculoskeletal: No myalgias, weakness Eyes: No pain. No visual changes. ENT/mouth: Hearing normal. No swallowing problems. No oral complaints. Neurological: Occasional dizziness when standing Psychiatric: Positive for depression and anxiety PMH PSH Past Medical History Diagnosis Date ??? Hypertension ??? Psychiatric problem anxiety and depression ??? CAD (coronary artery disease) stents placed in 2007 ??? HLD (hyperlipidemia) Past Surgical History Procedure Laterality Date ??? Femur fracture surgery ??? Cardiac catherization 03/2008 ??? Finger trigger release Social History Family History History Substance Use Topics ??? Smoking status: Current Every Day Smoker -- 1.00 packs/day ??? Smokeless tobacco: Not on file ??? Alcohol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 left coronary vessel ostium under fluoroscopic guidance. Contrast was ?? injected by hand. Images were obtained in multiple projections. 6. Selective right coronary angiography. A 6F Runway AR1 catheter was advanced ?? into the right coronary vessel ostium under fluoroscopic guidance. Contrast ?? was injected by hand. Images were obtained in multiple projections. 7. Right femoral artery hemostasis. 6 FR StarClose SE was used at the access ?? site. 1st lesion intervention: Percutaneous intervention on the 80% restenosis in the mid right coronary. 1. Vessel setup was performed. A 6F Runway AR1 guiding catheter was advanced ?? into the vessel. 2. Vessel setup was performed. A .014/185 Kinetix wire was used to cross the ?? lesion. 3. Stent placement. A 3mm (D) x 30mm (L), Resolute stent was advanced across the ?? lesion and deployed with a single inflation and a maximum pressure of 14atm. ?? The resulting stenosis was 0%. 4. Balloon angioplasty. A 3mm (D) x 15mm (L), NC TREK balloon was positioned ?? across the lesion and given three inflations with a maximum inflation ?? pressure of 14atm. STUDY COMPLETION: The estimated blood loss was 10ml. All catheters inserted during the procedure were removed. The patient tolerated the procedure well and was discharged from the lab. There were no complications. ??Administered medications: ?? Ondansetron (Zofran), 4mg. ??Heparin, 2,000units. ??Cefazolin (Ancef, Kefzol), 1g. Bivalirudin BOLUS, 0.75mg/kg. ??Bivalirudin DRIP, infusion rate of 1.75mg/kg/hr. Nitroglycerin, 50mcg, into the coronary artery. ??Midazolam, for a total dose of 4mg. ??Fentanyl, for a total dose of 100mcg. ??Contrast: ?? Isovue 370 160ml (total dose). ??Fluoroscopy time: ??4.5min. ??Fluoroscopy dose: ??55.3cGy. CORONARY ARTERIES: The coronary circulation is right dominant. Left main: ??Normal. LAD: ??Minor luminal irregularities. Left circumflex: ??Minor luminal irregularities. Right coronary: Prior intervention: stent in the proximal RCA. The stented segment is patent. ??Mid-vessel lesion: There is an 80% restenosis in tyhe distal portion oif the prior RCA stent. The distal vessel supplies a large vascular territory. The lesion is a likely culprit for the patient's clinical presentation. The lesion was stented (see 1st lesion intervention). Following intervention, there is a residual 0% stenosis with an excellent angiographic appearance and SHUKRI grade 3 flow (brisk flow). There were no site complications. HEMODYNAMICS: End diastolic pressure in the left ventricle is elevated. Pressure measurements across the aortic valve show no evidence of stenosis. + + + Stage description ? Condition1:Condition 1 - + + + LV pressure s/ed ? 118/20 ? + + + Arterial pressure s/d (m) 117/79 (98) ? + + + * Electronically signed by Ruby Garrido 2014-03-23 11:24 Procedure Note 03/23/[address] [place] [id number] Catheterization Laboratory Study Patient: Carmelo Solano Study Date:03/17/2014 : 1975 Referring Physician: Roman Tirado Diagnostic Attending: Ruby Garrido Interventional Attending: Ruby Garrido Diagnostic Fellow: Lisa Crowley MD Interventional Fellow: Lisa Crowley MD ATTESTATION: Dr. Ruby Garrido was present and supervising for the entire procedure,I Dr. Lisa Crowley was the initial author of this report. I, Dr. Glover have reviewed and agree with the findings of this report. PROCEDURE PLAN: Based on the diagnostic study percutaneous coronary intervention isindicated. RESEARCH STUDY: Patient is not enrolled in any research studies. IMPRESSIONS: 1. Severe single vessel coronary artery disease. 2. Non ST-elevated myocardial infarction (NSTEMI). The culprit lesion was identified and reperfusion was successfully achieved. SUMMARY: 1. HPI and indications: Goz-GQ-lafrinvy myocardial infarction. 2. Adverse outcomes: There were no complications. 3. End diastolic pressure in the left ventricle is elevated. 4. Right coronary: Mid-vessel lesion: There is an 80% restenosis in tyhedistal portion oif the prior RCA stent. The distal vessel supplies a largevascular territory. The lesion is a likely culprit for the patient's clinical presentation. The lesion was stented (see 1st lesion intervention).Following intervention, there is a residual 0% stenosis with an excellentangiographic appearance and SHUKRI grade 3 flow (brisk flow). RECOMMENDATIONS: 1. Continue aspirin, at 81mgPOdaily, indefinitely. 2. Add clopidogrel (Plavix), 75mgPOdaily, for 12mon. HISTORY: Eab-MV-konpoldc myocardial infarction. PMH: Myocardial infarction. Functional status: CCS class IV (angina at rest or with any physical activity). Risk factors: Family history of coronary artery disease.Current tobacco use. Hypertension. Diabetes mellitus; on therapy with insulin. Dyslipidemia. Medications: Beta blockers. Calcium channel blockers. Anti-anginal therapy. Aspirin. Clopidogrel (Plavix). Allergies: Noknown allergies. LABS, PRIOR TESTS, PROCEDURES AND SURGERY: Serum creatinine (current admission) of 0.6 mg/dl. Hematocrit of 38.8 %. Platelet count of 275 th/ul. Serum potassium (K) of 4.5 mEq/l. Bloodurea nitrogen of 15 mg/dl. Hemoglobin (pre-procedure) of 12.8 g/dl.Catheterization with coronary intervention (November 03, 2007). STUDY DATA: Study status: Cardiac cath: urgent. Percutaneous coronary intervention:urgent. Location: Catheterization laboratory. Sex: male. Patient is 38yr old.Height: 167.6cm. Weight: 79.3kg. BSA: 1.94m^2. Procedures performed: Right femoral artery access. Right commonfemoral angiography. Left coronary angiography. Right coronary angiography. Lesion intervention: Percutaneous intervention on the 80% restenosisin the mid right coronary. Stent placement. Balloon angioplasty. PROCEDURE: 1. Initial setup. The patient was brought to the laboratory in the fasting state. A baseline ECG was recorded. Surface ECG leads, automatic cuffblood pressure measurements, and pulse oximetric signals were monitored. 2. Skin preparation. The planned puncture sites were prepped withchlorhexidine and draped in the usual sterile manner. 3. Right femoral artery access. A 6F [place] ACT Ultimum sheath wasadvanced into the vessel. 4. Selective right common femoral angiography, under fluoroscopicguidance. A catheter was advanced into the right common femoral artery. Contrastwas injected by hand. Images were obtained. 5. Selective left coronary angiography. A 6F FL4 catheter was advancedinto the left coronary vessel ostium under fluoroscopic guidance. Contrast was injected by hand. Images were obtained in multiple projections. 6. Selective right coronary angiography. A 6F Runway AR1 catheter wasadvanced into the right coronary vessel ostium under fluoroscopic guidance.Contrast was injected by hand. Images were obtained in multiple projections. 7. Right femoral artery hemostasis. 6 FR StarClose SE was used at theaccess site. 1st lesion intervention: Percutaneous intervention on the 80% restenosis in the mid right coronary. 1. Vessel setup was performed. A 6F Runway AR1 guiding catheter wasadvanced into the vessel. 2. Vessel setup was performed. A .014/185 Kinetix wire was used to crossthe lesion. 3. Stent placement. A 3mm (D) x 30mm (L), Resolute stent was advancedacross the lesion and deployed with a single inflation and a maximum pressure [id number]. The resulting stenosis was 0%. 4. Balloon angioplasty. A 3mm (D) x 15mm (L), NC TREK balloon waspositioned across the lesion and given three inflations with a maximum inflation pressure of 14atm. STUDY COMPLETION: The estimated blood loss was 10ml. All catheters inserted during theprocedure were removed. The patient tolerated the procedure well and was dischargedfrom the lab. There were no complications. Administered medications:Ondansetron (Zofran), 4mg. Heparin, 2,000units. Cefazolin (Ancef, Kefzol), 1g. Bivalirudin BOLUS, 0.75mg/kg. Bivalirudin DRIP, infusion rate of1.75mg/kg/hr. Nitroglycerin, 50mcg, into the coronary artery. Midazolam, for a totaldose of 4mg. Fentanyl, for a total dose of 100mcg. Contrast: Isovue 370 160ml(total dose). Fluoroscopy time: 4.5min. Fluoroscopy dose: 55.3cGy. CORONARY ARTERIES: The coronary circulation is right dominant. Left main: Normal. LAD: Minor luminal irregularities. Left circumflex: Minor luminal irregularities. Right coronary: Prior intervention: stent in the proximal RCA. The stented segment is patent. Mid-vessel lesion: There is an 80% restenosis in tyhedistal portion oif the prior RCA stent. The distal vessel supplies a largevascular territory. The lesion is a likely culprit for the patient's clinical presentation. The lesion was stented (see 1st lesion intervention).Following intervention, there is a residual 0% stenosis with an excellentangiographic appearance and SHUKRI grade 3 flow (brisk flow). There were no sitecomplications. HEMODYNAMICS: End diastolic pressure in the left ventricle is elevated. Pressuremeasurements across the aortic valve show no evidence of stenosis. + + + Stage description Condition1:Condition 1 - + + + LV pressure s/ed 118/20 + + + Arterial pressure s/d (m) 117/79 (98) + + + * Electronically signed by Ruby Garrido 2014-03-23 11:24 Viji Rivera MD CARDIAC CATH ORDERAB LES * (ABNORMAL) TROPONIN I (03/17/2014 18:54 EDT) Troponin I (ng/mL) 0.039(H) <0.034 ng/ml [facility] Blood specimen (specimen) 03/17/2014 18:54 EDT 03/17/2014 19:25 EDT Carlos Akers MD CHEMISTRY & BLOOD GA S ORDERABLES Performing Organization Address [facility] Co de Phone Number [facility] [address] [place] [address] * (ABNORMAL) CK MB WITH TOTAL CK (03/17/2014 18:54 EDT) CK 329(H) 0 - 250 U/L [facility] MB 1.41 <4.21 ng/ml [facility] Blood specimen (specimen) 03/17/2014 18:54 EDT 03/17/2014 19:25 EDT Carlos Akers MD CHEMISTRY & BLOOD GA S ORDERABLES Performing Organization Address [facility] Co de Phone Number [facility] [address] [place] [address] * (ABNORMAL) GLUCOSE, GLUCOMETER (03/17/2014 17:14 EDT) Glucose, Fingerstick 137(H) 70 - 100 mg/dl [facility] Powder Expert ID [id number] [facility] Comment:Test Performed by [facility] [employer] 03/17/2014 17:1 4 EDT 03/17/2014 17:15 EDT Hermilo Hook MD CHEMISTRY & BLOOD G ORDERABLES [facility] [address] [place] [address] * ECHOCARDIOGRAM LIMITED (03/17/2014 13:50 EDT) Anatomical Region Laterality Modality Other 03/17/2014 13:5 0 EDT Narrative 03/17/2014 14:24 EDT *Interpreting Group:* *[facility]* [address] [place] [address] *STUDY CONCLUSIONS* Summary: ?? Left ventricle: The cavity size was normal. Wall thickness was normal. Systolic function was normal. The estimated ejection fraction was 60-65%. Wall motion was normal; there were no regional wall motion abnormalities. Left ventricular diastolic function parameters were normal. ?? *PATIENT PRESENTATION* Height: ? 167.6cm (66in ) S/D Pressure: 135 / 88 Weight: ? 79.4kg (174.6lb ) BSA: ?1.94m^2 Test start time: ??01:04 PM. Test stop time: ??01:25 PM. ATTENDING ?Maya Valdes MD ADMITTING ?Hermilo Hook MD REFERRING ?Roman Tirado COAL CONVEYOR OPERATOR ??[facility] ORDERING ? Carlos Akers *PROCEDURE DATA* Procedure information: ??This study was interpreted by [facility] at [facility]. ??Study status: ??Routine. Transthoracic echocardiography. ??M-mode, limited 2D, limited spectral Doppler, and color Doppler. A Transthoracic Echocardiogram was performed. Scanning was performed from the parasternal, apical, and subcostal acoustic windows. Images were obtained using a Carl IE33 3 cardiac ultrasound machine. Image quality was adequate. ??Study completion: ??The patient tolerated the procedure well. *INDICATIONS AND HISTORY* Indications: ?? Unspecified Chest Pain (786.5). ??ME - nontransmural - acute 410.71. Labs, prior tests, procedures, and surgery: Transthoracic echocardiography (June 26, 2009). *CARDIAC ANATOMY* Left ventricle: ??The cavity size was normal. Wall thickness was normal. Systolic function was normal. The estimated ejection fraction was 60-65%. Wall motion was normal; there were no regional wall motion abnormalities. Left ventricular diastolic function parameters were normal. Aortic valve: ?? Trileaflet. ??Doppler: ?? There was no stenosis. ?No significant regurgitation. ?Peak gradient: 8mm Hg (S). Mitral valve: ?? Doppler: ? Peak gradient: 2.1mm Hg (D). Left atrium: ??The atrium was normal in size. Right ventricle: ??Systolic function was normal. Pericardium: ??There was no pericardial effusion. Systemic veins: Inferior vena cava: The vessel was normal in size. *MEASUREMENT TABLES* 2D measurements ? Normal Left ventricle Area, ED, A4C ? 33.3 cm^2 ?? 17.7-47.3 Area, ES, A4C ? 18.1 cm^2 ?? 7.9-31.5 Fractional area change, A4C ? 46 % ?--------- Area, ED, A2C ? 28.3 cm^2 ?? --------- Area, ES, A2C ? 14.4 cm^2 ?? 8.9-28.1 Fractional area change, A2C ? 49 % ?33.7-69 Volume, ED, MOD, 1-plane ? 107 ml ? --------- Volume, ES, MOD, 1-plane ?41 ml ? --------- Ejection fraction, MOD, 1-plane ? 62 % ?--------- Stroke volume, MOD, 1-plane ? 66 ml ? --------- Volume index, ED, MOD, 1-plane ?55 ml/m^2 --------- Volume index, ES, MOD, 1-plane ?21 ml/m^2 --------- Stroke index, MOD, 1-plane ?34 ml/m^2 --------- Volume, ED, MOD, 2-plane ? 100 ml ? 62-170 Volume, ES, MOD, 2-plane ?37 ml ? --------- Ejection fraction, MOD, 2-plane ? 63 % ?--------- Stroke volume, MOD, 2-plane ? 63 ml ? --------- Volume index, ED, MOD, 2-plane ?51 ml/m^2 --------- Volume index, ES, MOD, 2-plane ?19 ml/m^2 --------- Stroke index, MOD, 2-plane ?32.4 ml/m^2 --------- LVOT Diameter, S ? 20 mm ? --------- Area ? 3.1 cm^2 ?? --------- Aortic valve Leaflet separation ?22 mm ? 15-26 Aorta Root diameter, ED ? 29 mm ? --------- Left atrium Anterior-posterior dimension ?35 mm ? --------- Anterior-posterior dimension index ? 1.8 cm/m^2 <2.2 Superior-inferior dimension, A4C ?35 mm ? 29-53 ?? M-mode measurements ? Normal Left ventricle LV internal dimension, ED ? 56 mm ? 37-56 LV internal dimension, ES ? 36 mm ? --------- Fractional shortening ? 36 % ?29-45 LV posterior wall, ED ? 11 mm ? 6-11 Septal/posterior wall ratio, ED ?0.9 ?--------- Relative wall thickness, ED ?0.4 ?<0.45 Volume, ED, Teichholz ?154 ml ? --------- Volume, ES, Teichholz ? 54.4 ml ? --------- Ejection fraction, Teichholz ?64.7 % ?64-83 Volume index, ED, Teichholz ? 79 ml/m^2 --------- Volume index, ES, Teichholz ? 28 ml/m^2 --------- Wall mass ?234.3 g ?--------- Wall mass index ?120.6 g/m^2 ??--------- Mass/height ?1.4 g/cm ?? --------- Ventricular septum Septal thickness, ED ?10 mm ? --------- Aortic valve Leaflet separation ?22 mm ? 15-26 Aorta Root diameter, ED ? 33 mm ? 20-37 Left atrium Anterior-posterior dimension, ES ?39 mm ? 19-40 Anterior-posterior dimension index, ES ??2.01 cm/m^2 <2.2 LA/aortic root ratio ?1.18 ?--------- ?? Doppler measurements ?Normal Aortic valve Peak velocity, S ? 140 cm/s ?? --------- Peak gradient, S ? 8 mm Hg ??--------- Mitral valve Peak E-wave velocity ?71.6 cm/s ?? --------- Peak A-wave velocity ?50.8 cm/s ?? --------- Deceleration time ? *257 ms ? 150-230 Peak gradient, D ? 2.1 mm Hg ??--------- Peak E/A ratio ? 1.4 ?--------- Legend: Mean values are shown as u=mean value. Asterisk (*) sprague values outside specified normal range. Electronically signed by Maya Valdes MD 03/17/2014 14:24 Procedure Note 03/17/2014 *Interpreting Group:* *[facility]* [address] [place] [address] *STUDY CONCLUSIONS* Summary: Left ventricle: The cavity size was normal. Wall thickness was normal. Systolic function was normal. The estimated ejection fraction was 60-65%. Wall motion was normal; there were no regional wall motion abnormalities. Left ventricular diastolic function parameters were normal. *PATIENT PRESENTATION* Height: 167.6cm (66in ) S/D Pressure: 135 / 88 Weight: 79.4kg (174.6lb ) BSA: 1.94m^2 Test start time: 01:04 PM. Test stop time: 01:25 PM. ATTENDING Maya Valdes MD ADMITTING Hermilo Hook MD REFERRING Roman Tirado COAL CONVEYOR OPERATOR [facility] ORDERING Carlos Akers *PROCEDURE DATA* Procedure information: [facility]. Study status: Routine.Transthoracic echocardiography. M-mode, limited 2D, limited spectral Doppler, and color Doppler. A Transthoracic Echocardiogram was performed. Scanning wasperformed from the parasternal, apical, and subcostal acoustic windows. Images were obtained using a Carl IE33 3 cardiac ultrasound machine. Image qualitywas adequate. Study completion: The patient tolerated the procedure well. *INDICATIONS AND HISTORY* Indications: Unspecified Chest Pain (786.5). ME - nontransmural - acute 410.71. Labs, prior tests, procedures, and surgery: Transthoracic echocardiography (June 26, 2009). *CARDIAC ANATOMY* Left ventricle: The cavity size was normal. Wall thickness was normal.Systolic function was normal. The estimated ejection fraction was 60-65%. Wallmotion was normal; there were no regional wall motion abnormalities. Left ventricular diastolic function parameters were normal. Aortic valve: Trileaflet. Doppler: There was no stenosis. Nosignificant regurgitation. Peak gradient: 8mm Hg (S). Mitral valve: Doppler: Peak gradient: 2.1mm Hg (D). Left atrium: The atrium was normal in size. Right ventricle: Systolic function was normal. Pericardium: There was no pericardial effusion. Systemic veins: Inferior vena cava: The vessel was normal in size. *MEASUREMENT TABLES* 2D measurements Normal Left ventricle Area, ED, A4C 33.3 cm^2 17.7-47.3 Area, ES, A4C 18.1 cm^2 7.9-31.5 Fractional area change, A4C 46 % --------- Area, ED, A2C 28.3 cm^2 --------- Area, ES, A2C 14.4 cm^2 8.9-28.1 Fractional area change, A2C 49 % 33.7-69 Volume, ED, MOD, 1-plane 107 ml --------- Volume, ES, MOD, 1-plane 41 ml --------- Ejection fraction, MOD, 1-plane 62 % --------- Stroke volume, MOD, 1-plane 66 ml --------- Volume index, ED, MOD, 1-plane 55 ml/m^2 --------- Volume index, ES, MOD, 1-plane 21 ml/m^2 --------- Stroke index, MOD, 1-plane 34 ml/m^2 --------- Volume, ED, MOD, 2-plane 100 ml 62-170 Volume, ES, MOD, 2-plane 37 ml --------- Ejection fraction, MOD, 2-plane 63 % --------- Stroke volume, MOD, 2-plane 63 ml --------- Volume index, ED, MOD, 2-plane 51 ml/m^2 --------- Volume index, ES, MOD, 2-plane 19 ml/m^2 --------- Stroke index, MOD, 2-plane 32.4 ml/m^2 --------- LVOT Diameter, S 20 mm --------- Area 3.1 cm^2 --------- Aortic valve Leaflet separation 22 mm 15-26 Aorta Root diameter, ED 29 mm --------- Left atrium Anterior-posterior dimension 35 mm --------- Anterior-posterior dimension index 1.8 cm/m^2 <2.2 Superior-inferior dimension, A4C 35 mm 29-53 M-mode measurements Normal Left ventricle LV internal dimension, ED 56 mm 37-56 LV internal dimension, ES 36 mm --------- Fractional shortening 36 % 29-45 LV posterior wall, ED 11 mm 6-11 Septal/posterior wall ratio, ED 0.9 --------- Relative wall thickness, ED 0.4 <0.45 Volume, ED, Teichholz 154 ml --------- Volume, ES, Teichholz 54.4 ml --------- Ejection fraction, Teichholz 64.7 % 64-83 Volume index, ED, Teichholz 79 ml/m^2 --------- Volume index, ES, Teichholz 28 ml/m^2 --------- Wall mass 234.3 g --------- Wall mass index 120.6 g/m^2 --------- Mass/height 1.4 g/cm --------- Ventricular septum Septal thickness, ED 10 mm --------- Aortic valve Leaflet separation 22 mm 15-26 Aorta Root diameter, ED 33 mm 20-37 Left atrium Anterior-posterior dimension, ES 39 mm 19-40 Anterior-posterior dimension index, ES 2.01 cm/m^2 <2.2 LA/aortic root ratio 1.18 --------- Doppler measurements Normal Aortic valve Peak velocity, S 140 cm/s --------- Peak gradient, S 8 mm Hg --------- Mitral valve Peak E-wave velocity 71.6 cm/s --------- Peak A-wave velocity 50.8 cm/s --------- Deceleration time *257 ms 150-230 Peak gradient, D 2.1 mm Hg --------- Peak E/A ratio 1.4 --------- Legend: Mean values are shown as u=mean value. Asterisk (*) sprague values outside specified normal range. Electronically signed by Maya Valdes MD 03/17/2014 14:24 Carlos Akers MD CARDIAC ECHO ORDERAB LES * (ABNORMAL) GLUCOSE, GLUCOMETER (03/17/2014 12:37 EDT) Glucose, Fingerstick 174(H) 70 - 100 mg/dl [facility] Powder Expert ID [id number] [facility] Comment:Test Performed by [facility] 03/17/2014 12:3 7 EDT 03/17/2014 12:38 EDT Hermilo Hook MD CHEMISTRY & BLOOD G ORDERABLES [facility] [address] [place] [address] * HEMOGLOBIN A1C (03/17/2014 12:28 EDT) [facility] Signature Hemoglobin A1C 7.4 % OLLIE LEACH Comment: Reference Range: <5.7% Normal 5.7-6.4% Increased risk for diabetes =>6.5% Diagnostic for diabetes (if confirmed) The A1c goal for non adults in general is <7%. The A1c goal for selected patients may be significantly lower than 7% if this can be achieved without significant hypoglycemia or other adverse effects of treatment. Est Avg Glucose 166 mg/dl XANDER LEACH Comment: eAG represents the A1c result expressed as average glucose in mg/dl. Blood specimen (specimen) 03/17/2014 12:28 EDT 03/17/2014 12:47 EDT Carlos Akers MD CHEMISTRY & BLOOD GA S ORDERABLES [facility] [address] [place] [address] * EKG 12-LEAD (03/17/2014 12:04 EDT) 03/17/2014 12:0 4 EDT Narrative [facility] EKG - 03/17/2014 16:47 EDT ?[facility] ? Test Date: ?2014-03-17 Pat Name: ? CARMELO VICKI ? Department: ?? [facility] ? Room: ? ME520 Gender: ? 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 Requested By: CARLOS AKERS MD Order Number: [id number] ? Reading MD: ?? RUBY GARRIDO MD ? Measurements Intervals ?[place] ? Rate: ? 70 ? P: ?50 IL: ? 147 ?QRS: ?70 QRSD: ? 88 ? T: ?13 QT: ? 389 ? QTc: ?422 ? Interpretive Statements SINUS RHYTHM Cannot exclude prior inferiopr ME Compared to ECG 03/09/2008 09:19:22 No significant changes I have reviewed the tracing and have either agreed or edited the findings in this report. Electronically Signed On 03-17-14 16:47:51 EDT by RUBY GARRIDO MD. 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 Electronically Signed On 03-17-14 16:47:51 EDT by RUBY GARRIDO MD. Carlos Akers MD CARDIAC ECG ORDERABL ES Performing Organization Address City/[facility]/ZIP Co de Phone Number [facility] EKG * (ABNORMAL) CREATININE (03/17/2014 11:42 EDT) Creatinine 0.60(L) 0.66 - 1.25 mg/dl [facility] GFR, Calculated >60 >60 ml/min/1.7 3m2 [facility] Blood specimen (specimen) 03/17/2014 11:42 EDT 03/17/2014 11:58 EDT Carlos Akers MD CHEMISTRY & BLOOD GA S ORDERABLES Performing Organization Address City/[facility] Co de Phone Number [facility] [address] [place] [address] * BUN (03/17/2014 11:42 EDT) BUN 15 10 - 26 mg/dl [facility] Blood specimen (specimen) 03/17/2014 11:42 EDT 03/17/2014 11:58 EDT Carlos Akers MD CHEMISTRY & BLOOD GA S ORDERABLES Performing Organization Address [facility] Co de Phone Number [facility] [address] [place] [address] * ELECTROLYTES (03/17/2014 11:42 EDT) Sodium 139 136 - 145 mEq/L [facility] Potassium 4.5 3.5 - 5.0 mEq/L [facility] Chloride 104 96 - 110 mEq/L [facility] CO2 26 24 - 32 mEq/L [facility] Blood specimen (specimen) 03/17/2014 11:42 EDT 03/17/2014 11:58 EDT Carlos Akers MD CHEMISTRY & BLOOD GA S ORDERABLES Performing Organization Address [facility] Co de Phone Number [facility] [address] [place] [address] * (ABNORMAL) HEMAGRAM (03/17/2014 11:42 EDT) WBC 9.29 4.0 - 10.4 K/cmm [facility] RBC 4.66 4.36 - 5.78 M/cmm [facility] Hemoglobin 12.8(L) 13.8 - 17.3 gm/dl [facility] HCT 38.8(L) 39.5 - 50.2 % [facility] MCV 83 81 - 95 fl [facility] MCH 27.5(L) 27.6 - 33.0 pg [facility] MCHC 33.0 32.8 - 36.4 gm/dl [facility] PLT 275 141 - 320 K/cmm [facility] RDW-CV 14.8(H) 11.8 - 14.1 % [facility] Blood specimen (specimen) 03/17/2014 11:42 EDT 03/17/2014 11:58 EDT Carlos Akers MD HEMATOLOGY & PF4 ORD ERABLES Performing Organization Address [facility] Co de Phone Number [facility] [address] [place] [address] * (ABNORMAL) TROPONIN I (03/17/2014 11:42 EDT) Troponin I (ng/mL) 0.038(H) <0.034 ng/ml [facility] Blood specimen (specimen) 03/17/2014 11:42 EDT 03/17/2014 11:58 EDT Carlos Akers MD CHEMISTRY & BLOOD GA S ORDERABLES Performing Organization Address [facility] de Phone Number [facility] [address] [place] [address] * (ABNORMAL) CK MB WITH TOTAL CK (03/17/2014 11:42 EDT) CK 450(H) 0 - 250 U/L [facility] MB 1.62 <4.21 ng/ml [facility] Blood specimen (specimen) 03/17/2014 11:42 EDT 03/17/2014 11:58 EDT Carlos Akers MD CHEMISTRY & BLOOD GA S ORDERABLES Performing Organization Address [facility] de Phone Number [facility] [address] [place] [address] documented in this encounter Visit Diagnoses Diagnosis NSTEMI (non-ST elevated myocardial infarction) (FORM[facility])- Primary Acute myocardial infarction, subendocardial infarction, episode of care unspecified NSTEMI (non-ST elevated myocardial infarction) (HCC-CMS) Acute myocardial infarction, subendocardial infarction, episode of care unspecified HTN (hypertension) Unspecified essential hypertension Hyperlipidemia Other and unspecified hyperlipidemia documented in this encounter Administered Medications Inactive Administered Medications - up to 3 most recent administrations Medication Order MAR Action Action Date Dose Rate Site amLODIPine (NORVASC) tablet 10 mg 10 mg, oral, DAILY, First dose on Avani 03/17/14 at 1145, Until Discontinued, Routine Given 03/18/2014 8:48 EDT 10 mg Given 03/17/2014 13:58 EDT 10 mg aspirin EC tablet 81 mg 81 mg, oral, DAILY, First dose on Fri03/18/14 at 0900, Until Discontinued, Routine Given 03/18/2014 8:48 EDT 81 mg atorvastatin (LIPITOR) tablet 80 mg 80 mg, oral, AT BEDTIME, First dose on Fri03/17/14 at 2100, Until Discontinued, Routine Given 03/18/2014 19:09 EDT 8 0 mg Given 03/17/2014 20:14 EDT 80 mg clonazePAM (KLONOPIN) tablet 1 mg 1 mg, oral, 3 TIMES DAILY, First dose (after last modification) on Fri03/18/14 at 0645, Until Discontinued, Routine Given 03/18/2014 14:11 EDT 1 mg Given 03/18/2014 6:24 EDT 1 mg clonazePAM (KLONOPIN) tablet 1 mg 1 mg, oral, 2 TIMES DAILY, First dose on Fri03/17/14 at 1145, Until Discontinued, Routine Given 03/17/2014 20:14 EDT 1 mg Given 03/17/2014 11:45 EDT 1 mg clopidogrel (PLAVIX) 300 mg tablet 1 dose, Starting on Fri03/17/14 at 1351, Until Fri03/17/14 at 1357 clopidogrel (PLAVIX) tablet 600 mg 600 mg, oral, NOW X1, 1 dose, On Fri03/17/14 at 1400, STAT Given 03/17/2014 13:57 EDT 600 mg clopidogrel (PLAVIX) tablet 75 mg 75 mg, oral, DAILY, First dose on Fri03/18/14 at 0900, Until Discontinued, Routine Given 03/18/2014 8:48 EDT 75 mg DULoxetine (CYMBALTA) capsule 60 mg 60 mg, oral, DAILY, First dose on Fri03/17/14 at 1145, Until Discontinued, Routine Given 03/18/2014 8:48 EDT 60 mg Given 03/17/2014 13:58 EDT 60 mg insulin aspart (NOVOLOG FLEXPEN) injection subcutaneous, 3 TIMES DAILY WITH MEALS, First dose on Fri03/18/14 at 0800, Until Discontinued, Routine Given 03/18/2014 14:57 EDT 2 Units Given 03/18/2014 10:36 EDT 2 Units lidocaine-EPINEPHrine 1 %-1:100,000 injection 10 mL 10 mL, other, NOW X1, 1 dose, On Fri03/17/14 at 2015, Routine Given by Other 03/17/2014 20:35 EDT 10 mL lidocaine-EPINEPHrine 1 %-1:100,000 injection 10 mL 10 mL, other, NOW X1, 1 dose, On Fri03/18/14 at 1115, Routine Given 03/18/2014 11:22 EDT 6 mL lidocaine-EPINEPHrine 2 %-1:100,000 injection 5-10 mL 5-10 mL, intradermal, PRN, 1 dose, Starting on Fri03/17/14 at 1837, Until Fri03/18/14 at 0210, Other, to control bleeding , Routine Given 03/18/2014 2:10 EDT 10 mL LORazepam (ATIVAN) tablet 1 mg 1 mg, oral, NOW X1, 1 dose, On Fri03/18/14 at 1145, Routine Given 03/18/2014 11:43 EDT 1 mg metoprolol (LOPRESSOR) tablet 25 mg 25 mg, oral, 2 TIMES DAILY, First dose on Fri03/17/14 at 1145, Until Discontinued, Routine Given 03/18/2014 19:10 EDT 25 mg Given 03/18/2014 8:48 EDT 25 mg Given 03/17/2014 20:14 EDT 25 mg morphine injection 2-5 mg 2-5 mg, intravenous, EVERY 4 HOURS PRN, Starting on Fri03/17/14 at 1156, Until Fri03/18/14 at 2259, Pain, Routine Given 03/18/2014 11:42 EDT 4 mg Given 03/18/2014 8:35 EDT 5 mg Given 03/17/2014 16:35 EDT 5 mg nicotine (NICOTROL) 10 mg inhaler 1 Inhaler 1 Inhaler, inhalation, EVERY 2 HOURS PRN, Starting on Fri03/17/14 at 1422, Until Fri03/18/14 at 2259, Smoking Cessation, Routine Given 03/18/2014 5:16 EDT 1 Inhaler Given 03/17/2014 16:43 EDT 1 Inhaler nicotine inhaler (delivery device) 1 Each, inhalation, PRN, Starting on Fri03/17/14 at 1422, Until Fri03/18/14 at 2259, Smoking Cessation Given 03/18/2014 14:19 EDT 1 Each Given 03/18/2014 11:47 EDT 1 Each Given 03/17/2014 16:44 EDT 1 Each nitroGLYCERIN (NITROSTAT) SL tablet 0.4 mg 0.4 mg, sublingual, EVERY 5 MIN PRN, Starting on Avani 03/17/14 at 1121, Until Fri03/18/14 at 2259, Chest Pain, Routine Given 03/17/2014 11:45 EDT 0.4 mg oxyCODONE-acetaminophen (PERCOCET) 5-325 mg per tablet 1-2 Tab 1-2 Tablet, oral, EVERY 4 HOURS PRN, Starting on Avani 03/17/14 at 2012, Until Fri03/18/14 at 2259, Pain, Routine Given 03/18/2014 16:57 EDT 2 Tablets Given 03/18/2014 10:52 EDT 2 Tablets Given 03/18/2014 4:02 EDT 2 Tablets sodium chloride 0.9 % (NS) infusion at 75 mL/hr, intravenous, CONTINUOUS, Starting on Avani 03/17/14 at 1900, Until Fri03/17/14 at 2059, Routine Rate Documented 03/17/2014 18:55 EDT 75 mL/hr documented in this encounter Discontinued Medications Medication Sig Discontinue Reason Start Date End Da te atenolol (TENORMIN) 100 mg tablet Take 100 mg by mouth daily. 03/17/2014 simvastatin (ZOCOR) 20 mg tablet Take 20 mg by mouth at bedtime. 03/17/2014 niacin (NIASPAN) 500 mg ER tablet Take 500 mg by mouth at bedtime. 03/17/2014 rosuvastatin (CRESTOR) 10 mg tablet Take 40 mg by mouth daily. 03/18/2014 METOPROLOL SUCCINATE ORAL Take 100 mg by mouth daily. 03/18/2014 metFORMIN (GLUCOPHAGE) 500 mg tablet Take 500 mg by mouth 2 times daily. 03/18/2014 clonazePAM (KLONOPIN) 1 mg tablet Take 1 mg by mouth 2 times daily. 03/18/2014 amLODIPine (NORVASC) 5 mg tablet Take 10 mg by mouth daily. 03/18/2014 duloxetine (CYMBALTA) 60 mg capsule Take 60 mg by mouth daily. 03/18/2014 documented as of this encounter Historical Medications * This list may reflect changes made after this encounter. Medication Sig Dispensed Refills Start Date End Date rosuvastatin (CRESTOR) 10 mg tablet Take 40 mg by mouth daily. 03/18/2014 METOPROLOL SUCCINATE ORAL Take 100 mg by mouth daily. 03/18/2014 metFORMIN (GLUCOPHAGE) 500 mg tablet Take 500 mg by mouth 2 times daily. 03/18/2014 clonazePAM (KLONOPIN) 1 mg tablet Take 1 mg by mouth 2 times daily. 03/18/2014 amLODIPine (NORVASC) 5 mg tablet Take 10 mg by mouth daily. 03/18/2014 added in this encounter Active and Recently Administered Medications Times are shown in EDT. Scheduled Medication Order 03/16/2014 03/17/2014 03/18/2014 amLODIPine (NORVASC) tablet 10 mg (CANCELED) 10 mg, oral, DAILY, First dose on Avani 03/17/14 at 1145, Until Discontinued, Routine 1358 (Given - Provider: Tobi Enciso, SARAH) 0848 (Given - Provider: Franny Melchor) aspirin EC tablet 81 mg (CANCELED) 81 mg, oral, DAILY, First dose on Fri03/18/14 at 0900, Until Discontinued, Routine 0848 (Given - Provid er: Franny Melchor) atorvastatin (LIPITOR) tablet 80 mg 80 mg, oral, AT BEDTIME, First dose on Fri03/17/14 at 2100, Until Discontinued, Routine 2013 (Given - Provider: Vanessa Zepeda RN) 1909 (Given - Provider: Franny Melchor - Comment: gave early for pt d/c ramya navarro) clonazePAM (KLONOPIN) tablet 1 mg (CANCELED) 1 mg, oral, 3 TIMES DAILY, First dose (after last modification) on Fri03/18/14 at 0645, Until Discontinued, Routine 0624 (Given - Provid er: Wilner Romero RN)1411 (Given - Provider: Franny Melchor) clonazePAM (KLONOPIN) tablet 1 mg (CANCELED) 1 mg, oral, 2 TIMES DAILY, First dose on Avani 03/17/14 at 1145, Until Discontinued, Routine 1145 (Given - Provider: Tobi Enciso, SARAH)2013 (Given - Provider: Vanessa Zepeda RN) clopidogrel (PLAVIX) tablet 600 mg (COMPLETED) 600 mg, oral, NOW X1, 1 dose, On Avani 03/17/14 at 1400, STAT 1357 (Given - Provider: Tobi Enciso, SARAH) clopidogrel (PLAVIX) tablet 75 mg 75 mg, oral, DAILY, First dose on Fri03/18/14 at 0900, Until Discontinued, Routine 0848 (Given - Provid er: Franny Melchor) DULoxetine (CYMBALTA) capsule 60 mg (CANCELED) 60 mg, oral, DAILY, First dose on Fri03/17/14 at 1145, Until Discontinued, Routine 1358 (Given - Provider: Tobi Enciso, RN) 0848 (Given - Provider: Franny Melchor) insulin aspart (NOVOLOG FLEXPEN) injection (CANCELED) subcutaneous, 3 TIMES DAILY WITH MEALS, First dose on Fri03/18/14 at 0800, Until Discontinued, Routine 1036 (Given - Provid er: Franny Melchor)1457 (Given - Provider: Franny Melchor)1811 (Not Given - Provider: Franny Melchor - Reason: Order parameters not met) lidocaine-EPINEPHrine 1 %-1:100,000 injection 10 mL (COMPLETED) 10 mL, other, NOW X1, 1 dose, On Fri03/17/14 at 2015, Routine 2034 (Given by Other - Provider: Lauren Alva RN - Comment: Dr. Jaime) lidocaine-EPINEPHrine 1 %-1:100,000 injection 10 mL (COMPLETED) 10 mL, other, NOW X1, 1 dose, On Fri03/18/14 at 1115, Routine 1122 (Given - Provid er: Franny Melchor) LORazepam (ATIVAN) tablet 1 mg (COMPLETED) 1 mg, oral, NOW X1, 1 dose, On Fri03/18/14 at 1145, Routine 1143 (Given - Provid er: Franny Melchor) metoprolol (LOPRESSOR) tablet 25 mg (CANCELED) 25 mg, oral, 2 TIMES DAILY, First dose on Fri03/17/14 at 1145, Until Discontinued, Routine 1145 (Given - Provider: Tobi Enciso, SARAH)2013 (Given - Provider: Vanessa Zepeda RN) 0848 (Given - Provider: Franny Melchor)1910 (Given - Provider: Franny Melchor) Continuous Medication Order 03/16/2014 03/17/2014 03/18/2014 sodium chloride 0.9 % (NS) infusion at 75 mL/hr, intravenous, CONTINUOUS, Starting on Fri03/17/14 at 1900, Until Fri03/17/14 at 2059, Routine 1855 (Rate Documented - Provider: Tobi Enciso, SARAH) PRN Medication Order 03/16/2014 03/17/2014 03/18/2014 lidocaine-EPINEPHrine 2 %-1:100,000 injection 5-10 mL (COMPLETED) 5-10 mL, intradermal, PRN, 1 dose, Starting on Avani 03/17/14 at 1837, Until Fri03/18/14 at 0210, Other, to control bleeding , Routine 0210 (Given - Provid er: Wilner Romero RN) morphine injection 2-5 mg (CANCELED) 2-5 mg, intravenous, EVERY 4 HOURS PRN, Starting on Avani 03/17/14 at 1156, Until Fri03/18/14 at 2259, Pain, Routine 1205 (Given - Provider: Tobi Enciso, SARAH)1635 (Given - Provider: Tobi Enciso, SARAH) 0835 (Given - Provider: Franny Melchor)1142 (Given - Provider: Franny Melchor) nicotine (NICOTROL) 10 mg inhaler 1 Inhaler (CANCELED) 1 Inhaler, inhalation, EVERY 2 HOURS PRN, Starting on Avani 03/17/14 at 1422, Until Fri03/18/14 at 2259, Smoking Cessation, Routine 1643 (Given - Provider: Tobi Enciso, SARAH) 0516 (Given - Provider: Wilner Romero RN) nicotine inhaler (delivery device) (CANCELED) 1 Each, inhalation, PRN, Starting on Avani 03/17/14 at 1422, Until Fri03/18/14 at 2259, Smoking Cessation 1644 (Given - Provider: Tobi Enciso RN) 1147 (Given - Provider: Franny Melchor)1419 (Given - Provider: Franny Melchor) nitroGLYCERIN (NITROSTAT) SL tablet 0.4 mg 0.4 mg, sublingual, EVERY 5 MIN PRN, Starting on Avani 03/17/14 at 1121, Until Fri03/18/14 at 2259, Chest Pain, Routine 1145 (Given - Provider: Tobi Enciso, SARAH) oxyCODONE-acetaminophen (PERCOCET) 5-325 mg per tablet 1-2 Tab (CANCELED) 1-2 Tablet, oral, EVERY 4 HOURS PRN, Starting on Avani 03/17/14 at 2012, Until 03/18/14 at 2259, Pain, Routine 2034 (Given - Provider: Lauren Alva RN) 0022 (Given - Provider: Wilner Romero, SARAH)0402 (Given - Provider: Wilner Romero RN)1052 (Given - Provider: Franny Melchor)1657 (Given - Provider: Franny Melchor) documented in this encounter Orders Medications Ordered That Lester ht Not Have Been Administered Count Last Ordered Date First Ordered Date insulin aspart (NOVOLOG FLEXPEN) injection 2 03/18/2014 03/17/2014 acetaminophen (TYLENOL) tablet 650 mg 1 dextrose 50 % solution 12.5 g 1 03/17/2014 glucagon (human recombinant) injection 1 mg 1 03/17/2014 Diet Count Last Ordered Date First Orde red Date DISCHARGE DIET 2 03/18/2014 Nursing Count Last Ordered Date First Orde red Date ACTIVITY INSTRUCTIONS 3 03/18/2014 BATHING INSTRUCTIONS 1 03/18/2014 WOUND CARE INSTRUCTIONS 2 03/18/2014 PATIENT AT LOW RISK FOR VTE: RISK OF MECHANICAL PROPHYLAXIS OUTWEIGHS 1 03/17/2014 PATIENT AT LOW RISK FOR VTE: RISK OF PHARMACOLOGIC PROPHYLAXIS OUTWEIG 1 03/17/2014 VTE PHARMACOLOGIC PROPHYLAXI S CURRENTLY ORDERED OR ON ALTERNATIVE THER 2 03/17/2014 Consult Count Last Ordered Date First Orde red Date CONSULT CASE MANAGEMENT 1 03/17/2014 IV Count Last Ordered Date First Orde red Date IV REQUEST 1 03/17/2014 Admission Count Last Ordered Date First Orde red Date STATUS: OUTPATIENT OBSERVATION SERVICES 1 0 03/17/2014 Transfer Count Last Ordered Date First Orde red Date NOTIFY PPS OF DISCHARGE COMPLETE 1 03/18/20 14 Discharge Count Last Ordered Date First Orde red Date DISCHARGE PATIENT 1 03/18/2014 Legal Count Last Ordered Date First Orde red Date MISCELLANEOUS DISCHARGE INSTRUCTIONS 6 03/03 documented in this encounter 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
--- OUTSIDE RECORDS SUMMARY | 2024-08-14 17:35 | XMS_ITS | Encounter Summary ---
Author Organization [facility] Address [address] [place] [address] Care Team Providers Care Coding Specialist Name Role Phone Ranjan Denise [facility] Primary Care Provider [phone] Reason for Referral * (Routine/Next Available) Specialty Diagnoses / Procedures Referred By Devendra alonzo Referred To Contact Alexandria Velasco NP [address] [phone] Referral ID Status Reason Start Date Expiration Date V isits Requested Visits Authorized Specialty Services Required Comments Your local cardiac rehab program will contact you and/or your septic tank servicer to discuss. * Consult (Routine/Next Available) - Authorization Not Required Specialty Diagnoses / Procedures Referred By Devendra alonzo Referred To Contact Cardiac Rehabilitation Diagnoses NSTEMI (non-ST elevated myocardial infarction) ([facility]) Alexandria Velasco NP [address] [phone] [facility] [address] [place] [address] Referral ID Status Reason Start Date Expiration Date Visits Requested Visits Authorized [id number] Authorization Not Required Specialty Services Required 3 1 1 Question Answer Reason for Request: s/p PCI * Follow Up (Routine/Next Available) - New Request Specialty Diagnoses / Procedures Referred By Contac t Referred To Contact Diagnoses NSTEMI (non-ST elevated myocardial infarction) ([facility] Alexandria Velasco NP 62 [facility] [address] [place] [phone] Ranjan Denise, RPA [address] [facility] [address] [place] [address] Referral ID Status Reason Start Date Expiration Date Visits Requested Visits Authorized [id number] New Request Continuity of Care 04/24/2023 1 1 Question Answer Reason for Request: s/p PCI * Follow Up (Routine/Next Available) - Authorization Not Required Specialty Diagnoses / Procedures Referred By Contac t Referred To Contact Cardiology Diagnoses NSTEMI (non-ST elevated myocardial infarction) ([facility]) Alexandria Velasco NP 62 [facility] [address] [place] [phone] [facility] [address] [place] [address] Referral ID Status Reason Start Date Expiration Date Visits Requested Visits Authorized [id number] Authorization Not Required Specialty Services Required 3 1 1 Question Answer Reason for Request: s/p PCI Reason for Visit * Auth/Cert (Routine) Specialty Diagnoses / Procedures Referred By Contac t Referred To Contact Diagnoses NSTEMI Referral ID Status Reason Start Date Expiration Date Visits Re quested Visits Authorized [id number] 1 1 Encounter Details Date Type Department Care Team (Late st Contact Info) Description 04/23/2023 17:47 EDT - 04/24/2023 16:38 EDT Hospital Encounter [facility] Card[facility] [address] [place] [id number] Akila Rivas MD [address] [phone] Maya Valdes MD [address] [place] [address] [address] [place] [address] NSTEMI (non-ST elevated myocardial infarction) ([facility]) (Primary Dx) Discharge Disposition: Elopement w/o Notifying Staff Social History Tobacco Use Types Packs/Day Years [...] 23:07 EDT documented as of this encounter Last Filed Vital Signs Vital Sign Reading Time Taken Comments Blood Pressure 108/67 04/24/2023 1545 EDT Pulse - - Temperature 36.8 ??C (98.2 ??F) 04/24/2023 1543 EDT Respiratory Rate 18 04/24/2023 1543 EDT Oxygen Saturation 97% 04/24/2023 1543 EDT Inhaled Oxygen Concentration - - Weight 78 kg (171 lb 15.3 oz) 04/23/2023 1800 ED T Height 167.6 cm (5' 6) 04/23/2023 1800 EDT Body Mass Index 27.75 04/23/2023 1800 EDT documented in this encounter Functional Status [...] 04/23/2023 documented as of this encounter Discharge Summaries * Alexandria Gastelum NP - 04/24/2023 1222 EDT Cardiology Discharge Summary Patient eloped without notifying staff against medical advice, found by security, IV removed by patient himself. Primary Care Provider: Ranjan Denise Attending Physician: Maya Valdes* Admit Date: 04/23/2023 Discharge Date: 04/24/2023 Disposition: Against medical advice Problems and Procedures Admitting Diagnosis: NSTEMI (non-ST elevated myocardial infarction) (HCC-CMS) ([facility]) Final Hospital Diagnosis: coronary artery disease Additional Problems Managed in the Hospital Active Hospital Problems Diagnosis Date Noted ??? *NSTEMI (non-ST elevated myocardial infarction) (HCC-CMS) ([facility]) 03/17/2014 ??? Type 2 diabetes mellitus 04/23/2023 Resolved Hospital Problems No resolved problems to display. Principal Procedure: Heart cath and Percutaneous coronary intervention Date: 04/23/2023 Access: Right radial artery ?? Procedure: He was brought to [facility] for the procedure: Diagnostic coronary/graft angiography, Coronary intervention (PCI) and Intravascular ultrasound. ?? Closure: TR Band ?? Post-Procedure Condition: The condition of the patient was Good. ?? Complications: None. ?? IV Contrast Total: 90 mL ?? X-ray Dose: 323 mGy ?? Estimated Blood Loss: Minimal. Unless otherwise noted,there were no specimens removed, cultures obtained, or drains retained. ?? Research Study: Patient is not enrolled in a research study. ?? Diagnostic Cardiac Study Results Left main: normal Left anterior descending: mild irregs Left circumflex: Distal 70%, small territory at risk Right coronary artery: proximal diffuse 50% stent restenosis and mid to distal 90% ? Left Ventriculography and Hemodynamic Results None ?? Endovascular Study Results None ?? Post-Procedure Diagnostic Conclusion: Severe 2 vessel CAD with RCA culprit stent restenosis in the setting of HbA1C 9.0, LDL over 160, medical non-compliance and follow up issues. PCI is indicated. ?? Interventional Procedure: Using standard technique, the proximal to mid RCA vessel was stented using a 3.5 x 38 Promus JOSE (within the prior bare metal 3.0 stent and 3.0 JOSE distally). Based on IVUS guidance, we upsized the proximal stent portion to 4.0 mm diameter with a good result and no complications. Med Rx for distal Cx. ?? Plan: See post-procedure orders. Continue prior medications. Aspirin 81mg PO daily. Clopidogrel 75 mg PO daily. Beta-linus PO. High intensity statin therapy PO daily. Evaluation for cardiac rehab program. If SBP over 160, start amlodipine 5 mg qd. No narcotics--substance use disorder on suboxome. [place] [facility] with drug abuse social worker Secondary Procedures: Left Ventricle The left ventricular cavity was normal in size. Left ventricular systolic function was normal with an ejection fraction of 60-65%. The left ventricular estimated ejection fraction by biplane Mulligan's method was 63%. Left ventricular diastolic parameters were normal. Left ventricularwall thickness was normal. Left ventricular wall motion was normal; there were no regional wall motion abnormalities. Right Ventricle The right ventricular cavity was normal in size. Right ventricular systolic function was normal. Right ventricular wall thickness was normal. Left Atrium The left atrium was normal in size. Right Atrium The right atrium was normal in size. Aortic Valve The aortic valve structure was trileaflet. The aortic leaflets were not thickened. There was no aortic valve stenosis. There was trace aortic valve regurgitation. AV Peak Velocity: 1.3 m/s. AV Mean Gradient: 4 mmHg. AV Area VTI: 2.5 cm2. Mitral Valve Mitral valve structure was normal. There was no significant mitral valve stenosis or regurgitation. Tricuspid Valve The tricuspid valve was not well visualized. There was trace tricuspid valve regurgitation. There was no tricuspid valve stenosis. Pulmonic Valve The pulmonic valve was not well visualized. There was trace pulmonic valve regurgitation. There was no pulmonic valve stenosis. Pulmonic Artery Unable to assess PA pressure. Ascending Aorta The aortic root was normal in size. The ascending aorta was normal in size. Pericardium There was no pericardial effusion. IVC/SVC The inferior vena cava was not well visualized. Hospital Course Carmelo Solano is a 47 y.o. male with a past history of STEMI with s/p PCI to RCA (2007), NSTEMI (stent re-stenosis, s/p PCI 2013), HTN, HLD, T2DM (not on medication, last A1c 9.0), homelessness,opioid use disorder (currently on suboxone), and anxiety (on benzodiazepines) who presented as [place] [facility] [place]. Patient had heart cath and stenting as above. Echo done, EF 60-65%, no acute RWMA. Unable to start any GDMT due to patient leaving AMA, found by security. Patient passed orthostatic vitals prior to leaving, A site CDI, educated on post procedure precautions and considerations. Patient will be discharged on aspirin 81 mg daily indefinitely and clopidogrel 75 mg daily uninterrupted for 1 year. Follow up was requested with PCP and cardiology. Pt was also referred for cardiac rehab evaluation [place] [facility] Smoking cessation education provided and patient was offered nicotine replacement therapies. Educated patient on using [employer] and other community resources, patient declined. Of note, HgbA1C found to 9 on this admission, recommend follow up with endocrinology/PCP outpatientto trend this further. Again unable to discuss this further due to patient leaving AMA. Allergies and Immunizations No Known Allergies Immunization History Administered Date(s) Administered ??? Covid-19 Ad26 Vaccine ([employer] COVID-19) PF 0.5 ml IM (18 yrs+) 03/22/2021 ??? Covid-19 mRNA Vaccine ([employer] COVID-19) PF 0.3 ml IM (12 yrs+) 10/24/2021 Transition of Care Plans Condition at Discharge Improved Assessment at Discharge Vitals: 04/24/23 1400 04/24/23 1430 04/24/23 1543 04/24/23 1545 BP: 120/72 116/82 116/81 108/67 BP Cuff Location: Left arm BP Patient Position: Sitting Resp: 18 Temp: 36.8 ??C (98.2 ??F) TempSrc: Oral SpO2: 97% Weight: Height: Is the patient being discharged with a diagnosis of Systolic Heart Failure? No Coumadin Management N/A Non-Cardiac Studies at Time of Discharge none Results Pending at Discharge Test results still pending from this admission None Last Lab Results at Discharge BUN: Lab Results Component Value Date BUN 14 04/24/2023 Creatinine: Lab Results Component Value Date CREATININE 0.58 (L) 04/24/2023 CBC: Lab Results Component Value Date WBC 6.71 04/24/2023 RBC 4.74 04/24/2023 HGB 13.1 (L) 04/24/2023 HCT 38.9 (L) 04/24/2023 MCV 82 04/24/2023 MCH 27.6 04/24/2023 MCHC 33.7 04/24/2023 PLT 239 04/24/2023 DIFFTYPE Auto 04/22/2023 Electrolytes: Lab Results Component Value Date NA 137 04/24/2023 K 4.0 04/24/2023 CL 102 04/24/2023 CO2 26 04/24/2023 Lipid Profile: Lab Results Component Value Date CHOL 230 (H) 04/22/2023 TRIG 162 (H) 04/22/2023 HDL 36 (L) 04/22/2023 LDLBASE 162 (H) 04/22/2023 CHOLHDL 6.4 04/22/2023 Lab Results Component Value Date HGBA1C 9.0 (H) 04/22/2023 Discharge Follow Up Appointments Scheduled with [facility] Appointments Outside of [facility] We Will Schedule Follow-up appointments and procedures [facility] Cardiac Rehabilitation Referral Your local cardiac rehab program will contact you and/or your septic tank servicer to discuss. Authorizing Provider: Alexandria Gastelum NP Amb Consult/Follow Up Cardiac Rehabilitation Reason for Request: s/p PCI Authorizing Provider: Alexandria Gastelum NP Amb Consult/Follow Up Primary Care Physician Outside of Network Reason for Request: s/p PCI Authorizing Provider: Alexandria Gastelum NP Amb Consult/Follow Up Cardiology Reason for Request: s/p PCI Authorizing Provider: Alexandria Gastelum NP Studies We Will Schedule Medication List START taking these medications clopidogreL 75 mg tablet Commonly known as: PLAVIX Take 1 Tablet by mouth daily. Start taking on: April 25, 2023 CONTINUE taking these medications aspirin 81 mg EC tablet Take 1 Tablet by mouth daily. Start taking on: April 25, 2023 atorvastatin 80 mg tablet Commonly known as: LIPITOR Take 1 Tablet by mouth at bedtime. ASK your doctor about these medications metoprolol SUCCinate 100 mg tablet Commonly known as: TOPROL-XL Take 1 Tab by mouth daily. nitroglycerin 0.4 mg SL tablet Commonly known as: NITROSTAT Place 1 Tab under the tongue every 5 minutes as needed for Chest Pain. Where to Get Your Medications These medications were sent to [facility] ([facility]) - [address] [address] ?? aspirin 81 mg EC tablet ?? atorvastatin 80 mg tablet ?? clopidogreL [address] Preciado is the attending today at time of service, was on site, present for the examination of the patient and participated in planning care as well as available for questions at all times. I spent a total of 5 minutes on the date of this encounter meeting with the patient and reviewing documentation/coordinating care as described in the above note. Associated attestation - Zeus Preciado MD - 04/25/2023 0756 EDT I have reviewed the ISSAC note, exam and plans as written above. I agree with the findings, history and plan as outlined in the note. In addition, I note: patient strongly advised not to leave and to comply with DAPT, BP meds and lipid lowering. Risk of ongoing adverse cardiovascular events is high with lack of medications and appropriate follow up. Patient made decision to leave AMA 4 hours after successful RCA PCI. Zeus Preciado MD Attending, Interventional Cardiology documented in this encounter Medications at Time [...] Dispensed Refills Start Date End Da te atorvastatin (LIPITOR) 80 mg tablet Take 1 Tablet by mouth at bedtime. 90 Tablet 3 04/24/2023 09/01/2023 clopidogreL (PLAVIX) 75 mg tablet Take 1 Tablet by mouth daily. 90 Tablet 3 04/25/2023 09/01/2023 aspirin 81 mg EC tablet Take 1 Tablet by mouth daily. 90 Tablet 3 04/25/2023 09/01/2023 documented in this encounter Discharge Disposition Disposition Code Departure Means Destination Comment s Elopement w/o Notifying Staff Home documented in this encounter Progress Notes * Zelda Wahl - 04/24/2023 1638 EDT CMSW response to a page from the [facility] information desk - pt stating he needs ride to [place] - chart review - pt was scheduled to leave tomorrow but has chosen to leave early. Confirmed address of [address] in [place] with patient as destination. Round trip set up - [place] [employer] to bring pt. Zelda Wahl * Zeus Preciado MD - 04/24/2023 1049 EDT April 24, 2023 Maya Valdes MD [facility] - Cardiology [address] [place] [id number] Valdes: I had the pleasure of performing coronary stenting once again on Carmelo Solano. As you know, he is a 47-year-old gentleman who presented with a STEMI in 2007. At that time, he had a critical rightcoronary artery lesion that I placed a single bare metal stent of 3.0 and then a second stent of 3.5 mm caliber. We used bare metal stents at that time as he has a history of substance use disorder and difficulty with followup and compliance and we were using a shorter duration of Plavix. He has hypertension, hyperlipidemia and diabetes and has a hemoglobin A1c of 9.0 on this admission and he is not currently taking any medications. I note that he did have an episode of stent restenosis in 2014and at that time received a 3.0 Resolute drug-eluting stent in the distal portion of the right coronary with a good result. He now presents with recurrent chest pain, shortness of breath with exertion and a low level troponin elevation consistent with a non-STEMI. He is referred to the golf course laborer forfurther evaluation. Cardiac catheterization via the right wrist reveals that the left main is normal. The LAD has mild irregularities. The circumflex has a distal smooth 70% lesion and this supplies a fairly small territory at risk. The right coronary is the culprit. He has 50% eccentric restenotic area in the proximal portion and then a 90% focal restenotic area in the mid to distal territory. We performed PCI of the RCA with 3.5 x 38 Promus drug-eluting stent and then based on IVUS guidance, upsized the proximalvessel to 4.0 mm diameter and did high pressure inflation distally with a 3.5 mm balloon. This yielded an excellent result and no complications. I intend to treat him with baby aspirin indefinitely and Plavix 75 mg daily x3 months. Risk factor modification would be important in him including control of his diabetes and smoking cessation and referral to cardiac rehabilitation. We will be working with drug abuse social worker, as he has significant hypertension and we would like to be able to start him on Lipitor 80 mg daily as well as amlodipine 5 mg a day and a beta linus, but his ability to comply with this medical regimen is unclear at this time. I thank you for allowing me to participate in his care. Please do not hesitate to call with furtherquestions. Sincerely, Zeus Preciado MD / Confirmation: [id number] Dictation ID: [id number] cc: Maya Valdes MD, [facility] - Cardiology, [address] [place], [place] [id number] * Tayla Hernández - 04/24/2023 1011 EDT Case Management Progress Note Level of Care: acute Discharge plan/estimated date: [place] TBD - plan for return to the [facility] [address] [facility] Medicaid Status: n/a community Medicaid only Barriers to d/c: Ongoing assessment as patient allows. He will likely need a taxi back to [place]. Support Network: None on file, pt declined listing anyone during initial assessment Next Steps: [place] transferred [place] [facility] and CM Rach Hamilton's assessment reviewed and appreciated. CM attempted to meet with pt who was asleep, informed during morning huddle that pt has been yelling at staff and requesting to leave. Current dc plan is for pt to return to the [facility] on dc. CM will remain available in the event pt is unable to take the bus or arrange his own ride home - CM aware that pt has flagged this as a potential barrier to dc. Update: Met with pt, scheduled a taxi for 9:30 AM lemon picker, spoke to [facility] and will need dc med orders by 8AM (IDR at 8:30AM). CM will follow. * Nitesh Garduno MD - 04/24/2023 0723 EDT Images from the original note were not included. Cardiology Progress note Service Date: 04/24/2023 Admit Date: 04/23/2023 17:47 Reason for Admission: NSTEMI Events/Procedures in the last 24 Hours: Pt continued to complain of chest pain, did not believe morphine was helping much. Received x1 of dilaudid Pt wanted to leave AMA d/t frustration waiting for LHC. Overnight resident discussed with pt who agreed to stay so he could get LHC today. Subjective Carmelo reported that it was frustrating to have to wait for his LHC, but was agreeable to staying and getting treatment. We discussed how the hep gtt is helping treat his OR and he was understanding at this time. We also discussed additional nicotine replacements with gum and lozenges to help curb those cravings. He continues to endorse burning chest pain and SOB that has not improved since last night. *Full 12 point ROS obtained, pertinent findings noted above.* Objective Vital Signs Most Recent Range Blood Pressure MAP BP Readings from Last 1 Encounters: 04/24/23 114/87 BP: (114-136)/(78-102) BP MAP: [96 mm Hg-111 mm Hg] Heart Rate Pulse Readings from Last 1 Encounters: 04/22/23 94 Heart Rate: [76 BPM-114 BPM] SpO2 96 SpO2: [96 %-98 %] O2 Device RA Temp Temp Readings from Last 1 Encounters: 04/23/23 36.7 ??C (98 ??F) (Oral) Temp: [36.7 ??C (98 ??F)-36.9 ??C (98.4 ??F)] RR Resp Readings from Last 1 Encounters: 04/24/23 15 Resp: [12-15] Last 5 Weights Filed This Admission 04/23/23 1800 Weight: 78 kg (171 lb 15.3 oz) Intake/Output Summary (Last 24 hours) at 04/24/2023 0724 Last data filed at 04/23/2023 2300 Gross per 24 hour Intake 960 ml Output -- Net 960 ml Tele: RRR, no events EC04/23/2023 Cardiac Studies: TTE 04/23/2023 ??? Left??Ventricle: Left ventricular systolic function was normal with an ejection fraction of 60-65%. The left ventricular estimated ejection fraction by biplane Mulligan's method was 63%. Left ventricular diastolic parameters were normal. Left ventricular wall thickness was normal. ??? Right??Ventricle: The right ventricular cavity was normal in size. Right ventricular systolic function was normal. Physical Exam General: Appears uncomfortable, but in no acute distress, engages in conversation and responds normally HEENT: Head atraumatic and normocephalic. Sclera/conjunctiva and oropharynx clear. Moist mucous membranes. CV: RRR; Normal S1 and S2, No murmurs, rubs or gallops appreciated. Respiratory: CTAB, No crackles or wheezing, short of breath when taking deep breaths during exam Abdomen: Soft, non-tender to palpation, no masses, no distension, no rebound/guarding. Extremities: Pulses 2+ bilaterally, no LE edema. Area of linear erythema near the posterior popliteal fossa roughly 6 to 8 cm in length which is tender to palpation, as is the posterior calf. Neuro: Alert and oriented x 3. No facial droop, no dysarthria, EOMI, moves all extremities. Psych: Appropriate mood and affect, tearful when discussing his multiple recent hardships Skin: No rashes, lesions, or excoriations. Labs CBC: Recent Labs 04/22/23212404/23/2345404/24/23 0607 WBC 11.73* 8.59 6.71 HGB 15.6 13.2* 13.1* HCT 46.1 40.1 38.9* MCV 84 84 82 PLT 351 268 239 BMP: Recent Labs 04/22/23212404/23/2345304/24/23 0607 CREATININE 1.01 0.63* 0.58* BUN 21 18 14 NA 136 138 137 K 4.3 3.5 4.0 CL 97 100 102 CO2 27 28 26 CALCIUM 9.8 8.7 9.0 MG -- -- 1.6* Coags: No results for input(s): PROTIME, INR, PTT in the last 72 hours. LFTs: Recent Labs 04/22/23212404/24/23 0607 ALT 70* 48 AST 62* 34 ALKPHOS 110 101 TBIL 0.6 <0.5 Cardiac Biomarkers: Recent Labs 04/22/23212404/23/23453 TROPONINI 0.158* 0.117* Lipids: Recent Labs 04/22/232124 CHOL 230* TRIG 162* HDL 36* LDLBASE 162* CHOLHDL 6.4 Imaging: US LOWER VENOUS DUPLEX Result Date: 04/24/2023 No sonographic evidence of deep venous thrombosis in the left lower extremity. XR CHEST PORTABLE 1 VIEW Result Date: 04/22/2023 No acute cardiopulmonary disease process appreciated. THIS DOCUMENT HAS BEEN ELECTRONICALLY SIGNED BY ROXANN ELMORE MD FOR ANY QUESTIONS OR CONCERNS REGARDING THIS REPORT PLEASE CALL [facility] AT [phone] Assessment Carmelo Solano is a 47 y.o. male with a past history of STEMI with s/p PCI to RCA (2007), NSTEMI (stent re-stenosis, s/p PCI 2013), HTN, HLD, T2DM (not on medication, last A1c 9.0), homelessness,opioid use disorder (currently on suboxone), and anxiety (on benzodiazepines) who presents as transfer from [facility] [place]. Plan for [facility]. Plan #NSTEMI #HTN Symptomatic, pt's troponin peaked at 0.158 - [facility] today - s/p ASA 325mg x 1 - ASA 81mg daily - heparin gtt per protocol - nitro gives pt headache so will avoid for now - morphine 2 mg IV q4h prn for chest pain. - supplemental O2 if needed - atorvastatin 80mg daily - Amlodipine 5 mg daily for antianginal and hypertension - Increased metoprolol tartrate to TICKET PULLER regimen of 100 mg BID - NPO for [facility] -Telemetry monitoring - replete if Mg <2 or K <4 - Goal SBP <140 and HR <70 ?? #Hyperlipidemia/CAD Lipid panel at [facility] showing total cholesterol 230, LDL 162. -Atorvastatin 80 mg daily ?? #Type 2 Diabetes: A1c 9.0 at [facility] -Cardiac diet - POCT Glc before meals and qhs - aspart SSI for 24 hours, then reevaluate and potentially give basal bolus regimen ?? #Tobacco dependence Currently uses roughly 5 cigarettes/day. -Tobacco cessation resources - Nicotine replacement therapy while inpatient -Patch, lozenges, gum ?? #Anxiety Formerly followed with psychiatry, has not seen provider in some time due to difficulties facilitating arrived to his prior provider. -TICKET PULLER clonazepam 2 mg twice daily (VPMS verified) ?? #Opioid Use Disorder -TICKET PULLER Suboxone 16-4 daily (two 8-2 films) (VPMS Verified) Diet: NPO VTE Prophylaxis Hep gtt Discharge Plan CM; likely back to jail Consults None Nitesh Garduno MD Cardiology PGY1 Secure Chat Preferred; Pager #[phone] via PAS 04/24/23 7:24 Some of this note was transcribed with [employer] dictating software. While it was proofread, please forgive any unnoticed grammatical or word errors that occurred due to incorrect transcribing. documented in this encounter H&P Notes * Nitesh Garduno MD - 04/23/2023 1801 EDT Cardiology History and Physical Service Date: 04/23/2023 Admit Date: 04/23/2023 17:47 Primary Care Provider: Ranjan Denise Chief Complaint: NSTEMI HPI Carmelo Solano is a 47 y.o. male with a past history of STEMI with s/p PCI to RCA (2007), NSTEMI (stent re-stenosis, s/p PCI 2013), HTN, HLD, T2DM (not on medication, last A1c 9.0), homelessness,opioid use disorder (currently on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 (05/08/2023 8:51 EDT) 05/08/2023 8:51 EDT Scan 2 Logistics Project Manager PROCEDURE/MINOR FELIX GICAL ORDERABLES * ECG REPORT - SCANNED (04/30/2023 19:30 EDT) 04/30/2023 19:3 0 EDT Scan 2 Logistics Project Manager PROCEDURE/MINOR FELIX GICAL ORDERABLES * ECG REPORT - SCANNED (04/28/2023 13:43 EDT) 04/28/2023 13:4 3 EDT Scan 2 Logistics Project Manager PROCEDURE/MINOR FELIX GICAL ORDERABLES * ECG REPORT - SCANNED (04/24/2023 19:54 EDT) 04/24/2023 19:5 4 EDT Scan 2 Logistics Project Manager PROCEDURE/MINOR FELIX GICAL ORDERABLES * HEPARIN LEVEL - UNFRACTIONATED HEPARIN (04/24/2023 15:20 EDT) Heparin Level-UFH 0.18 Therapeutic Range: 0.30 - 0.70 IU/mL 04/24/2023 15:57 EDT [facility] Comment:Unfractionated hepar in therapeutic range = 0.3-0.7 IU/ml - This test is not intended for monitoring direct Xa inhibitors, direct thrombin inhibitors, or fondaparinux.- Exogenous ATIII is NOT supplied in this assay. For unexpected or persistently low levels, consider measuring patient's ATIII level. Results will be overestimated in the presence of direct Xa inhibitors (rivaroxaban, apixaban, edoxaban). Blood VENOUS BLOOD / Unknown Venipuncture / Unknown 04/24/2023 15:20 EDT 04/24/2023 15:27 EDT Blaise Basilio MD HEMATOLOGY & PF4 ORD ERABLES [facility] [address] [place] [address] * (ABNORMAL) POCT GLUCOSE, INTERFACED (04/24/2023 13:16 EDT) Glucose, POC 140(H) 70 - 100 mg/dL 04/24/2023 13:17 EDT [facility] HN LAB POC COMMENT (GLUCOSE) Test Performed by Nursing Services 04/24/2023 13:17 EDT [facility] Blood CAPILLARY BLOOD / Unknown 04/24/2023 13:16 EDT 04/24/2023 13:17 EDT Nitesh Garduno MD POINT OF CARE TEST O RDERABLES [facility] [address] [place] [address] * EKG 12-LEAD (04/24/2023 13:11 EDT) 04/24/2023 13:1 1 EDT Narrative [facility] EKG - 04/30/2023 16:10 EDT ? [facility] ? Test Date: ?2023-04-24 Pat Name: ? CARMELO SOLANO ? Department: ?? [facility] ? Room: ? XS4488 Gender: ? Male ? 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 [id number] : ?1975 ? Requested By: KATTY SWANSON Order Number: [id number] ? Toby MARIA: ?? ERNIE PANCHAL MD ? Measurements Intervals ?[place] ? Rate: ? 77 ? P: ?34 MT: ? 178 ?QRS: ?58 QRSD: ? 88 ? T: ?-13 QT: ? 355 ? QTc: ?404 ? Interpretive Statements SINUS RHYTHM ABNORMAL QRS-T ANGLE Automated Interpretation. ??Provider Interpretation to follow. Compared to ECG 04/23/2023 18:11:08 T-wave abnormality no longer present I reviewed the tracing and have either agreed or edited the findings in this report. Electronically Signed On 04-30-2023 16:10:29 EDT by ERNIE PANCHAL MD. Procedure Note Ernie Panchal MD - 04/30/2023 [facility] Test Date: 2023-04-24 Pat Name: CARMELO SOLANO Department: [place] [address] Room: [facility] Gender: Male Continuous Drier Helper: [id number] : 1975 Requested By: KATTY SWANSON Order Number: [id number] Reading MD: ERNIE PANCHAL MD Measurements Intervals [place] Rate: 77 P: 34 MT: 178 QRS: 58 QRSD: 88 T: -13 QT: 355 QTc: 404 Interpretive Statements SINUS RHYTHM ABNORMAL QRS-T ANGLE Automated Interpretation. Provider Interpretation to follow. Compared to ECG 04/23/2023 18:11:08 T-wave abnormality no longer present I reviewed the tracing and have either agreed or edited the findings inthis report. Electronically Signed On 04-30-2023 16:10:29 EDT by ERNIE TARIQ. Zeus Preciado MD CARDIAC ECG ORDER JACKIE [facility] EKG * IVUS (04/24/2023 12:01 EDT) Anatomical Region Laterality Modality Micropaleontologist Narrative 04/24/2023 12:01 EDT Refer to the primary case's report for the procedure summary. Nitesh Garduno MD CARDIAC CATH ORDERAB LES * LEFT HEART CATH, PERCUTANEOUS CORONARY INTERVENTION (04/24/2023 12:01 EDT) Anatomical Region Laterality Modality Micropaleontologist 04/24/2023 11:1 0 EDT Narrative 04/25/2023 8:27 EDT [address]iology [address] [place] [address] Catheterization Laboratory Study Patient: Carmelo Solano R ?Study Date: ?04/24/2023 ?Accession #: ? [id number] : ? 1975 Referring: Grupo Conway D Bent, Ethan Diagnostic Attending: ??Zeus Preciado Interventional Attending: ?? Zeus Preciado ATTESTATION: I, Dr. Nacho Pastrana was the initial author of this report. Dr. Zeus Preciado was present and supervising for the entire procedure. I, Dr. Zeus Preciado performed the entire procedure and have reviewed and agreed with the findings of this report. I, Dr. Zeus Preciado have reviewed and agreed with the findings of this report. PROCEDURE PLAN: Based on the diagnostic study percutaneous coronary intervention is indicated. RESEARCH STUDY: Patient is not enrolled in any research studies. IMPRESSIONS: 1. Severe double vessel coronary artery disease. 2. Non ST-elevated myocardial infarction (NSTEMI). The culprit lesion ?? was identified and reperfusion was successfully achieved. 3. Medical therapy recommended for mid Cx stenosis. The culprit is the ?? RCA with late stent restenosis or thrombus present. In both bare ?? metal and JOSE segments. SUMMARY: 1. HPI and indications: Exertional dyspnea. Coronary artery disease. 2. Left circumflex: Distal vessel lesion: There is a 70% stenosis. 3. Right coronary: Mid-vessel lesion: There is a 90% stenosis. This ?? lesion is concentric, complex, and without evidence of thrombus. The ?? distal vessel supplies a large vascular territory. The lesion is a ?? likely culprit for the patient's clinical presentation and an ACC/AHA ?? type C high risk lesion for intervention. The lesion was stented ?? (see 1st lesion intervention), with balloon angioplasty, jailing the ?? first RV marginal. Following intervention, the lesion has a residual ?? stenosis of 0%, an excellent angiographic appearance, and SHUKRI grade ?? 3 flow (brisk flow). Proximal vessel lesion: There is a diffuse, 50% ?? in-stent restenosis. 4. Successful IVUS guided PCI of the mid RCA with a good result and no ?? complications. The prior 3.0 mm stents are upsized to 4.0 mm ?? diameter. RECOMMENDATIONS: 1. Continue prior medications. ?? Aspirin 81mg PO daily. ?? Clopidogrel 75 mg PO daily. ?? Beta-linus PO. ?? High intensity statin therapy PO daily. ?? Evaluation for cardiac rehab program. ?? If SBP over 160, start amlodipine 5 mg qd. No narcotics--substance ?? use disorder on suboxome. [place] [facility] ?? services. 2. ACC recommendation: PCI w/o planned CABG. HISTORY: Exertional dyspnea. ??Coronary artery disease. ??PMH: ?? Myocardial infarction. ??Risk factors: ??Family history of coronary artery disease. Current tobacco use. Hypertension. Diabetes mellitus; on therapy with insulin. Dyslipidemia. ??Allergies: ??No known allergies. LABS, PRIOR TESTS, PROCEDURES AND SURGERY: Serum creatinine (current admission) of 0.58 mg/dl. ??Hematocrit of 38.9 %. ??Hemoglobin (pre-procedure) of 13.1 g/dl. ??Catheterization with coronary intervention. STUDY DATA: Study status: ??Cardiac cath: urgent. Percutaneous coronary intervention: urgent. ??Location: ??Catheterization laboratory. Sex: male. Patient is 47yr old. Height: 167.6cm. Weight: 78kg. BSA: 1.92m^2. Procedures performed: ?Right radial artery access. ?Left coronary angiography. ?Right coronary angiography. ?Lesion intervention: ?? Percutaneous intervention on the 90% stenosis in the mid right coronary. ?Balloon angioplasty. ?Stent placement. ?Balloon angioplasty. ?Interventional IVUS examination. ?Balloon angioplasty. ?? Balloon angioplasty. ANESTHESIA: Conscious sedation by cardiology staff. PROCEDURE: 1. Initial setup. The patient was brought to the laboratory in the ?? fasting state. A baseline ECG was recorded. Surface ECG leads, ?? automatic cuff blood pressure measurements, and pulse oximetric ?? signals were monitored. 2. Skin preparation. The planned puncture sites were prepped with ?? chlorhexidine and draped in the usual sterile manner. 3. Local anesthesia. Using 2% Lidocaine, local anesthetic was ?? administered to the access site(s). 4. Right radial artery access. A 6FR/.021 Warthen Sheath Slender sheath ?? was advanced into the vessel. 5. Selective left coronary angiography. A 5 Fr Tig Catheter 4.0 catheter ?? was advanced into the left coronary vessel ostium under fluoroscopic ?? guidance. Contrast was injected. Images were obtained in multiple ?? projections. 6. Selective right coronary angiography. A 5 Fr Tig Catheter 4.0 ?? catheter was advanced into the right coronary vessel ostium under ?? fluoroscopic guidance. Contrast was injected. Images were obtained in ?? multiple projections. 7. Right radial artery hemostasis. Mechanical compression was applied. 1st lesion intervention: Percutaneous intervention on the 90% stenosis in the mid right coronary. 1. Guider placement. A 6fr JR4 SH guiding catheter was placed. 2. Wire placement. A 190cm Minamo wire was placed across the lesion. 3. Balloon angioplasty. A 2.5/12 Euphora balloon was employed. The ?? balloon was placed across the lesion and given four inflations with a ?? maximum inflation pressure of 16atm. 4. Stent placement. A 3.5/38 Promus Elite stent was advanced across the ?? lesion and deployed with two inflations and a maximum pressure of ?? 16atm. 5. Balloon angioplasty. A 3.5mm (D) x 15mm (L), NC EMERGE balloon was ?? employed. The balloon was placed across the lesion and given a single ?? inflation with a maximum inflation pressure of 19atm. 6. Intravascular ultrasound evaluation, using a .014/150cm Qagan [place] Eye ?? Cachil Dehe IVUS catheter. Findings: calcification; no thrombus. Based ?? on the results of this study, the stent was judged to be ?? underexpanded, and additional balloon inflations were performed. 7. Balloon angioplasty. A 4mm (D) x 15mm (L), NC EMERGE balloon was ?? employed. The balloon was placed across the lesion and given three ?? inflations with a maximum inflation pressure of 19atm. 8. Balloon angioplasty. A 3.5mm (D) x 12mm (L), Emerge RX balloon was ?? employed. The balloon was placed across the lesion and given three ?? inflations with a maximum inflation pressure of 20atm. STUDY COMPLETION: The estimated blood loss was 10ml. All catheters inserted during the procedure were removed. The patient tolerated the procedure well and was discharged from the lab. There were no complications. ??Contrast: Isovue 90ml (total dose). ??Isovue 110ml (wasted). ??Fluoroscopy time: 15.1min. ??Fluoroscopy dose: ??32.3cGy. CORONARY ARTERIES: The coronary circulation is right dominant. Left main: ??Normal. LAD: ??Minor luminal irregularities. Left circumflex: ??Distal vessel lesion: There is a 70% stenosis. Right coronary: Prior intervention: stent in the proximal RCA. The stented segment is patent. ??Mid-vessel lesion: There is a 90% stenosis. This lesion is concentric, complex, and without evidence of thrombus. The distal vessel supplies a large vascular territory. The lesion is a likely culprit for the patient's clinical presentation and an ACC/AHA type C high risk lesion for intervention. The lesion was stented (see 1st lesion intervention), with balloon angioplasty, jailing the first RV marginal. Following intervention, the lesion has a residual stenosis of 0%, an excellent angiographic appearance, and SHUKRI grade 3 flow (brisk flow). There were no site complications. ??Proximal vessel lesion: There is a diffuse, 50% in-stent restenosis. HEMODYNAMICS: + + + Stage description ? Condition1:Condition 1 - + + + Arterial pressure s/d (m) 121/67 (96) ? + + + * Electronically signed by Zeus Preciado MD 2023-04-25 08:27 Procedure Note Zeus Preciado MD - 04/25/[address] [place] [id number] Catheterization Laboratory Study Patient: Carmelo Solano R Study Date: 04/24/2023 : 1975 Referring: Grupo Conway D Bent, Ethan Diagnostic Attending: Zeus Preciado Interventional Attending: Zeus Preciado ATTESTATION: Dr. Nacho Hawkins was the initial author of this report. Dr. Zeus Preciado was present and supervising for the entire procedure. Dr. Zeus Hawkins performed the entire procedure and have reviewed and agreed with the findings of this report. Dr. Zeus Hawkins have reviewed and agreed with the findings of this report. PROCEDURE PLAN: Based on the diagnostic study percutaneous coronary intervention is indicated. RESEARCH STUDY: Patient is not enrolled in any research studies. IMPRESSIONS: 1. Severe double vessel coronary artery disease. 2. Non ST-elevated myocardial infarction (NSTEMI). The culprit lesion was identified and reperfusion was successfully achieved. 3. Medical therapy recommended for mid Cx stenosis. The culprit is the RCA with late stent restenosis or thrombus present. In both bare metal and JOSE segments. SUMMARY: 1. HPI and indications: Exertional dyspnea. Coronary artery disease. 2. Left circumflex: Distal vessel lesion: There is a 70% stenosis. 3. Right coronary: Mid-vessel lesion: There is a 90% stenosis. This lesion is concentric, complex, and without evidence of thrombus. The distal vessel supplies a large vascular territory. The lesion is a likely culprit for the patient's clinical presentation and anACC/AHA type C high risk lesion for intervention. The lesion was stented (see 1st lesion intervention), with balloon angioplasty, jailing the first RV marginal. Following intervention, the lesion has a residual stenosis of 0%, an excellent angiographic appearance, and SHUKRI grade 3 flow (brisk flow). Proximal vessel lesion: There is a diffuse, 50% in-stent restenosis. 4. Successful IVUS guided PCI of the mid RCA with a good result and no complications. The prior 3.0 mm stents are upsized to 4.0 mm diameter. RECOMMENDATIONS: 1. Continue prior medications. Aspirin 81mg PO daily. Clopidogrel 75 mg PO daily. Beta-linus PO. High intensity statin therapy PO daily. Evaluation for cardiac rehab program. If SBP over 160, start amlodipine 5 mg qd. No narcotics--substance use disorder on suboxome. [place] [facility] [place] social worker. 2. ACC recommendation: PCI w/o planned CABG. HISTORY: Exertional dyspnea. Coronary artery disease. PMH: Myocardial infarction. Risk factors: Family history of coronary artery disease. Current tobacco use. Hypertension. Diabetes mellitus; on therapy with insulin. Dyslipidemia. Allergies: No known allergies. LABS, PRIOR TESTS, PROCEDURES AND SURGERY: Serum creatinine (current admission) of 0.58 mg/dl. Hematocrit of 38.9 %. Hemoglobin (pre-procedure) of 13.1 g/dl. Catheterization with coronary intervention. STUDY DATA: Study status: Cardiac cath: urgent. Percutaneous coronary intervention: urgent. Location: Catheterization laboratory. Sex: male. Patient is 47yr old. Height: 167.6cm. Weight: 78kg. BSA: 1.92m^2. Procedures performed: Right radial artery access. Left coronary angiography. Right coronary angiography. Lesion intervention: Percutaneous intervention on the 90% stenosis in the mid right coronary. Balloon angioplasty. Stent placement. Balloon angioplasty. Interventional IVUS examination. Balloon angioplasty. Balloon angioplasty. ANESTHESIA: Conscious sedation by cardiology staff. PROCEDURE: 1. Initial setup. The patient was brought to the laboratory in the fasting state. A baseline ECG was recorded. Surface ECG leads, automatic cuff blood pressure measurements, and pulse oximetric signals were monitored. 2. Skin preparation. The planned puncture sites were prepped with chlorhexidine and draped in the usual sterile manner. 3. Local anesthesia. Using 2% Lidocaine, local anesthetic was administered to the access site(s). 4. Right radial artery access. A 6FR/.021 Warthen Sheath Slender sheath was advanced into the vessel. 5. Selective left coronary angiography. A 5 Fr Tig Catheter 4.0 catheter was advanced into the left coronary vessel ostium under fluoroscopic guidance. Contrast was injected. Images were obtained in multiple projections. 6. Selective right coronary angiography. A 5 Fr Tig Catheter 4.0 catheter was advanced into the right coronary vessel ostium under fluoroscopic guidance. Contrast was injected. Images were obtained in multiple projections. 7. Right radial artery hemostasis. Mechanical compression was applied. 1st lesion intervention: Percutaneous intervention on the 90% stenosis in the mid right coronary. 1. Guider placement. A 6fr JR4 SH guiding catheter was placed. 2. Wire placement. A 190cm Minamo wire was placed across the lesion. 3. Balloon angioplasty. A 2.5/12 Euphora balloon was employed. The balloon was placed across the lesion and given four inflations with a maximum inflation pressure of 16atm. 4. Stent placement. A 3.5/38 Promus Elite stent was advanced across the lesion and deployed with two inflations and a maximum pressure of 16atm. 5. Balloon angioplasty. A 3.5mm (D) x 15mm (L), NC EMERGE balloon was employed. The balloon was placed across the lesion and given a single inflation with a maximum inflation pressure of 19atm. 6. Intravascular ultrasound evaluation, using a .014/150cm Qagan [place]in Eye Cachil Dehe IVUS catheter. Findings: calcification; no thrombus. Based on the results of this study, the stent was judged to be underexpanded, and additional balloon inflations were performed. 7. Balloon angioplasty. A 4mm (D) x 15mm (L), NC EMERGE balloon was employed. The balloon was placed across the lesion and given three inflations with a maximum inflation pressure of 19atm. 8. Balloon angioplasty. A 3.5mm (D) x 12mm (L), Emerge RX balloon was employed. The balloon was placed across the lesion and given three inflations with a maximum inflation pressure of 20atm. STUDY COMPLETION: The estimated blood loss was 10ml. All catheters inserted during the procedure were removed. The patient tolerated the procedure well and was discharged from the lab. There were no complications. Contrast: Isovue 90ml (total dose). Isovue 110ml (wasted). Fluoroscopy time: 15.1min. Fluoroscopy dose: 32.3cGy. CORONARY ARTERIES: The coronary circulation is right dominant. Left main: Normal. LAD: Minor luminal irregularities. Left circumflex: Distal vessel lesion: There is a 70% stenosis. Right coronary: Prior intervention: stent in the proximal RCA. The stented segment is patent. Mid-vessel lesion: There is a 90% stenosis. This lesion is concentric, complex, and without evidence of thrombus. The distal vessel supplies a large vascular territory. The lesion is a likely culprit for the patient's clinical presentation and anACC/AHA type C high risk lesion for intervention. The lesion was stented (see 1st lesion intervention), with balloon angioplasty, jailing the first RV marginal. Following intervention, the lesion has a residual stenosis of 0%, an excellent angiographic appearance, and SHUKRI grade 3 flow (brisk flow). There were no site complications. Proximal vessel lesion: There is a diffuse, 50% in-stent restenosis. HEMODYNAMICS: + + + Stage description Condition1:Condition 1 - + + + Arterial pressure s/d (m) 121/67 (96) + + + * Electronically signed by Zeus Preciado MD 2023-04-25 08:27 Nitesh Garduno MD CARDIAC CATH ORDERAB LES * (ABNORMAL) POCT GLUCOSE, INTERFACED (04/24/2023 8:50 EDT) [facility] Signature Glucose, POC 168(H) 70 - 100 mg/dL 04/24/2023 8:51 EDT [facility] HN LAB POC COMMENT (GLUCOSE) Test Performed by Nursing Services 04/24/2023 8:51 EDT [facility] Blood CAPILLARY BLOOD / Unknown 04/24/2023 8:50 EDT 04/24/2023 8:51 EDT Maya Valdes MD POINT OF CARE TEST ORDERABLES Performing Organization Address [facility]/ZIP Co de Phone Number [facility] [address] [place] [address] * HEPARIN LEVEL - UNFRACTIONATED HEPARIN (04/24/2023 7:41 EDT) [facility] Heparin Level-UFH 0.14 Therapeutic Range: 0.30 - 0.70 IU/mL 04/24/2023 8:36 EDT [facility] Comment:Unfractionated hepar in therapeutic range = 0.3-0.7 IU/ml - This test is not intended for monitoring direct Xa inhibitors, direct thrombin inhibitors, or fondaparinux.- Exogenous ATIII is NOT supplied in this assay. For unexpected or persistently low levels, consider measuring patient's ATIII level. Results will be overestimated in the presence of direct Xa inhibitors (rivaroxaban, apixaban, edoxaban). Blood VENOUS BLOOD / Unknown Venipuncture / Unknown 04/24/2023 7:41 EDT 04/24/2023 8:07 EDT Narrative [facility] - 04/24/2023 8:36 EDT Sample retested, result confirmed Blaise Basilio MD HEMATOLOGY & PF4 ORD ERABLES Performing Organization Address City/[facility]/ZIP Co de Phone Number [facility] [address] [place] [address] * (ABNORMAL) COMPREHENSIVE METABOLIC PANEL (CMP) (04/24/2023 6:07 EDT) Pathologist [facility] Sodium 137 136 - 145 mmol/L 04/24/2023 6:59 EDT [facility] Potassium 4.0 3.5 - 5.0 mmol/L 04/24/2023 6:59 EDT [facility] Chloride 102 96 - 110 mmol/L 04/24/2023 6:59 EDT [facility] CO2 Total 26 22 - 32 mmol/L 04/24/2023 6:59 EDT [facility] Glucose 175(H) 70 - 100 mg/dl 04/24/2023 6:59 EDT [facility] BUN 14 10 - 26 mg/dL 04/24/2023 6:59 [facility] Creatinine 0.58(L) 0.66 - 1.25 mg/dL 04/24/2023 6:59 [facility] eGFR 120 >60 mL/min/1.7 3m2 04/24/2023 6:59 [facility] Total Protein 6.8 6.3 - 8.2 g/dL 04/24/2023 6:59 [facility] Albumin 3.8 3.4 - 4.9 g/dL 04/24/2023 6:59 [facility] Alkaline Phosphatase 101 38 - 126 U/L 04/24/2023 6:59 [facility] AST 34 15 - 46 U/L 04/24/2023 6:59 [facility] ALT 48 <50 U/L 04/24/2023 6:59 [facility] Bilirubin, Total <0.5 <1.4 mg/dL 04/24/20 6:59 [facility] Calcium 9.0 8.5 - 10.5 mg/dL 04/24/2023 6:59 [facility] Albumin/Globulin Ratio 1.3 1.0 - 2.5 04/24/2023 6:59 [facility] Anion Gap 9 5 - 14 mmol/L 04/24/2023 6:59 [facility] Blood VENOUS BLOOD / Unknown Venipuncture / Unknown 04/24/2023 6:07 EDT 04/24/2023 6:29 EDT Nitesh Garduno MD CHEMISTRY & BLOOD GA S ORDERABLES [facility] [address] [place] [address] * (ABNORMAL) MAGNESIUM (04/24/2023 6:07 EDT) Magnesium 1.6(L) 1.7 - 2.8 mg/dL 04/24/2023 6:59 EDT [facility] Blood VENOUS BLOOD / Unknown Venipuncture / Unknown 04/24/2023 6:07 EDT 04/24/2023 6:29 EDT Nitesh Garduno MD CHEMISTRY & BLOOD GA S ORDERABLES [facility] [address] [place] [address] * (ABNORMAL) COMPLETE BLOOD COUNT (04/24/2023 6:07 EDT) WBC 6.71 4.00 - 10.40 K/cmm 04/24/2023 6:31 EDT [facility] RBC 4.74 4.36 - 5.78 M/cmm 04/24/2023 6:31 [facility] Hemoglobin 13.1(L) 13.8 - 17.3 g/dL 04/24/2023 6:31 [facility] HCT 38.9(L) 39.5 - 50.2 % 04/24/2023 6:31 [facility] MCV 82 81 - 95 fL 04/24/2023 6:31 [facility] MCH 27.6 27.6 - 33.0 pg 04/24/2023 6:31 [facility] MCHC 33.7 32.8 - 36.4 g/dL 04/24/2023 6:31 [facility] RDW-CV 13.2 <14.2 % 04/24/2023 6:31 [facility] RDW-SD 39.6 <46.0 fl 04/24/2023 6:31 [facility] PLT 239 141 - 377 K/cmm 04/24/2023 6:31 [facility] MPV 11.0 9.5 - 12.7 fL 04/24/2023 6:31 [facility] Blood VENOUS BLOOD / Unknown Venipuncture / Unknown 04/24/2023 6:07 EDT 04/24/2023 6:20 EDT Nitesh Garduno MD HEMATOLOGY & PF4 ORD ERABLES Performing Organization Address [facility] Co de Phone Number [facility] [address] [place] [address] * HEPARIN LEVEL - UNFRACTIONATED HEPARIN (04/24/2023 6:07 EDT) Heparin Level-UFH 0.13 Therapeutic Range: 0.30 - 0.70 IU/mL 04/24/2023 7:11 EDT [facility] Comment:Unfractionated hepar in therapeutic range = 0.3-0.7 IU/ml - This test is not intended for monitoring direct Xa inhibitors, direct thrombin inhibitors, or fondaparinux.- Exogenous ATIII is NOT supplied in this assay. For unexpected or persistently low levels, consider measuring patient's ATIII level. Results will be overestimated in the presence of direct Xa inhibitors (rivaroxaban, apixaban, edoxaban). Blood VENOUS BLOOD / Unknown Venipuncture / Unknown 04/24/2023 6:07 EDT 04/24/2023 6:20 EDT Narrative [facility] - 04/24/2023 7:11 EDT Sample retested, result confirmed Nitesh Garduno MD HEMATOLOGY & PF4 ORD ERABLES Performing Organization Address [facility] Co de Phone Number [facility] [address] [place] [address] * (ABNORMAL) POCT GLUCOSE, INTERFACED (04/24/2023 6:05 EDT) Glucose, POC 188(H) 70 - 100 mg/dL 04/24/2023 6:07 EDT [facility] HN LAB POC COMMENT (GLUCOSE) Test Performed by Nursing Services 04/24/2023 6:07 EDT [facility] Blood CAPILLARY BLOOD / Unknown 04/24/2023 6:05 EDT 04/24/2023 6:07 EDT Nitesh Garduno MD POINT OF CARE TEST O RDERABLES [facility] [address] [place] [address] * US LOWER VENOUS DUPLEX (DVT) LEFT (04/24/2023 2:44 EDT) Anatomical Region Laterality Modality Vascular Ultrasound 04/24/2023 9:48 EDT Impressions 04/24/2023 9:48 EDT No sonographic evidence of deep venous thrombosis in the left lower extremity. I have personally reviewed the images and the above interpretation and agree with the findings. Narrative 04/24/2023 9:48 EDT US LOWER VENOUS DUPLEX (DVT) LEFT ??04/24/2023 8:00 AM SIGNS AND SYMPTOMS/COMMENTS: ??LLE redness, swelling COMPARISON: None TECHNIQUE: Grayscale, cine, color Doppler, and spectral tracing images were obtained of the deep venous system of the left lower extremity. FINDINGS: Deep veins above the knee: ? Common Femoral Vein: Normal compression. Normal color Doppler flow. ? Deep Femoral Vein: Normal compression. Normal color Doppler flow. ? Proximal Femoral Vein: Normal compression. Normal color Doppler flow. ? Mid Femoral Vein: Normal compression. Normal color Doppler flow. ? Distal Femoral Vein: Normal compression. Normal color Doppler flow. ? Popliteal Vein: Normal compression. Normal color Doppler flow. ?? Deep veins below the knee: ? Imaged Posterior Tibial Vein(s): Normal compression. Normal color Doppler flow. ? Imaged Peroneal Vein(s): Normal compression. Normal color Doppler flow. ?? Superficial veins: ? Imaged Great Saphenous Vein: Normal compression. Normal color Doppler flow. Spectral Doppler: Normal respiratory phasicity and augmentation. Other: No additional finding. Procedure Note Familia Lion MD - 04/24/2023 US LOWER VENOUS DUPLEX (DVT) LEFT 04/24/2023 8:00 AM SIGNS AND SYMPTOMS/COMMENTS: LLE redness, swelling COMPARISON: None TECHNIQUE: Grayscale, cine, color Doppler, and spectral tracing imageswere obtained of the deep venous system of the left lower extremity. FINDINGS: Deep veins above the knee: Common Femoral Vein: Normal compression. Normal color Doppler flow. Deep Femoral Vein: Normal compression. Normal color Doppler flow. Proximal Femoral Vein: Normal compression. Normal color Doppler flow. Mid Femoral Vein: Normal compression. Normal color Doppler flow. Distal Femoral Vein: Normal compression. Normal color Doppler flow. Popliteal Vein: Normal compression. Normal color Doppler flow. Deep veins below the knee: Imaged Posterior Tibial Vein(s): Normal compression. Normal colorDoppler flow. Imaged Peroneal Vein(s): Normal compression. Normal color Dopplerflow. Superficial veins: Imaged Great Saphenous Vein: Normal compression. Normal color Dopplerflow. Spectral Doppler: Normal respiratory phasicity and augmentation. Other: No additional finding. IMPRESSION No sonographic evidence of deep venous thrombosis in the left lowerextremity. I have personally reviewed the images and the above interpretation andagree with the findings. Nitesh Garduno MD IMG US VASCULAR ORDE KEVINNAVI * (ABNORMAL) POCT GLUCOSE, INTERFACED (04/24/2023 1:11 EDT) Glucose, POC 276(H) 70 - 100 mg/dL 04/24/2023 1:17 EDT [facility] HN LAB POC COMMENT (GLUCOSE) Test Performed by Nursing Services 04/24/2023 1:17 EDT [facility] Blood CAPILLARY BLOOD / Unknown 04/24/2023 1:11 EDT 04/24/2023 1:17 EDT Maya Valdes MD POINT OF CARE TEST ORDERABLES [facility] [address] [place] [id number] * (ABNORMAL) POCT GLUCOSE, INTERFACED (04/23/2023 20:52 EDT) Glucose, POC 176(H) 70 - 100 mg/dL 04/23/2023 20:55 EDT [facility] HN LAB POC COMMENT (GLUCOSE) Test Performed by Nursing Services 04/23/2023 20:55 EDT [facility] Blood CAPILLARY BLOOD / Unknown 04/23/2023 20:52 EDT 04/23/2023 20:55 EDT Nitesh Garduno MD POINT OF CARE TEST O RDERABLES [facility] [address] [place] [id number] * EKG 12-LEAD (04/23/2023 18:11 EDT) 04/23/2023 18:1 1 EDT Narrative [facility] EKG - 04/24/2023 13:47 EDT ? [facility] ? Test Date: ?2023-04-23 Pat Name: ? CARMELO SOLANO ? Department: ?? [facility] ? Room: ? VG0472 Gender: ? Male ? 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 [id number] : ?1975 ? Requested By: SHREYAS BONILLA Order Number: [id number] ? Toby MARIA: ?? HECTOR BRANDT MD ? Measurements Intervals ?[place] ? Rate: ? 87 ? P: ?40 MT: ? 153 ?QRS: ?48 QRSD: ? 90 ? T: ?-13 QT: ? 349 ? QTc: ?421 ? Interpretive Statements SINUS RHYTHM NONSPECIFIC T-WAVE ABNORMALITY I reviewed the tracing and have either agreed or edited the findings in this report. Electronically Signed On 04-24-2023 13:47:30 EDT by HECTOR BRANDT MD. Procedure Note Hector Brandt MD - 04/24/2023 [facility] Test Date: 2023-04-23 Pat Name: CARMELO SOLANO Department: [place] [address] Room: [id number] Gender: Male Continuous Drier Helper: [id number] : 1975 Requested By: SHREYAS BONILLA Order Number: [id number] Reading MD: HECTOR BRANDT MD Measurements Intervals [place] Rate: 87 P: 40 MT: 153 QRS: 48 QRSD: 90 T: -13 QT: 349 QTc: 421 Interpretive Statements SINUS RHYTHM NONSPECIFIC T-WAVE ABNORMALITY I reviewed the tracing and have either agreed or edited the findings inthis report. Electronically Signed On 04-24-2023 13:47:30 EDT by HECTOR HAWKINS. Nitesh Garduno MD CARDIAC ECG ORDERABL ES [facility] EKG documented in this encounter Visit Diagnoses Diagnosis NSTEMI (non-ST elevated myocardial infarction) (HCC-CMS) ([facility])- Primary Acute myocardial infarction, subendocardial infarction, episode of care unspecified NSTEMI (non-ST elevated myocardial infarction) (HCC-CMS) Acute myocardial infarction, subendocardial infarction, episode of care unspecified Type 2 diabetes mellitus Type II or unspecified type diabetes mellitus without mention of complication, not stated as uncontrolled NSTEMI (non-ST elevated myocardial infarction) (HCC-CMS) Acute myocardial infarction, subendocardial infarction, episode of care unspecified documented in this encounter Admitting Diagnoses Diagnosis NSTEMI (non-ST elevated myocardial infarction) (HCC-CMS) Acute myocardial infarction, subendocardial infarction, episode of care unspecified documented in this encounter Administered Medications Inactive Administered Medications - up to 3 most recent administrations Medication Order MAR Action Action Date Dose Rate Site acetaminophen (TYLENOL) tablet 650 mg 650 mg, oral, EVERY 4 HOURS PRN, Starting on Fri04/24/23 at 1155, Until Fri04/24/23 at 1838, Pain, Routine, Release Given 04/24/2023 14:00 EDT 650 mg amLODIPine (NORVASC) tablet 5 mg 5 mg, oral, DAILY, First dose on Fri04/23/23 at 2000, Until Discontinued, Routine Given 04/24/2023 8:10 EDT 5 mg Given 04/23/2023 20:49 EDT 5 mg aspirin EC tablet 81 mg 81 mg, oral, DAILY, First dose on Fri04/24/23 at 0900, Until Discontinued, Routine Given 04/24/2023 8:10 EDT 81 mg atorvastatin (LIPITOR) tablet 80 mg 80 mg, oral, AT BEDTIME, First dose on Fri04/23/23 at 2100, Until Discontinued, Routine Given 04/23/2023 20:49 EDT 8 0 mg buprenorphine-naloxone (SUBOXONE) 8-2 mg sublingual film 2 Film 2 Film, sublingual, DAILY, First dose (after last modification) on Fri04/24/23 at 0900, Until Discontinued, Routine Given 04/24/2023 8:46 EDT 2 Film clonazePAM (KLONOPIN) tablet 2 mg 2 mg, oral, 2 TIMES DAILY, First dose (after last modification) on Fri04/23/23 at 2100, Until Discontinued, Routine Given 04/24/2023 8:10 EDT 2 mg Given 04/23/2023 22:03 EDT 2 mg clopidogreL (PLAVIX) 300 mg tablet 1 dose, Starting on Fri04/24/23 at 1036, Until Fri04/24/23 at 1838 clopidogreL (PLAVIX) tablet 75 mg 75 mg, oral, DAILY, First dose on Fri04/25/23 at 0900, Until Discontinued, Routine dextrose 50 % solution 12.5 g 12.5 g (25 mL), intravenous, PRN, Starting on Fri04/23/23 at 1842, Until Fri04/24/23 at 1838, Low Blood Sugar, Routine gabapentin (NEURONTIN) capsule 800 mg 800 mg, oral, 3 TIMES DAILY, First dose (after last modification) on Fri04/23/23 at 2100, Until Discontinued, Routine Given 04/24/2023 14:00 EDT 800 mg Given 04/24/2023 8:10 EDT 800 mg Given 04/23/2023 20:49 EDT 800 mg glucagon injection 1 mg 1 mg, intramuscular, PRN, Starting on Fri04/23/23 at 1842, Until Fri04/24/23 at 1838, Other, Low blood sugar, Routine heparin 1,000 unit/mL injection 4,900 Units 4,900 Units (rounded from 4,858 Units = 70 Units/kg ? 69.4 kg Adjusted weight), intravenous, PRN, Starting on Fri04/23/23 at 1800, Until Fri04/24/23 at 1205, Other, Per Heparin Protocol, Routine Given 04/24/2023 8:49 EDT 4,900 Units heparin 1,000 unit/mL injection 1 dose, Starting on Fri04/24/23 at 1356, Until Fri04/24/23 at 1838 heparin in 1/2 NS 25,000 unit/250 mL infusion 19 Units/kg/hr ? 69.4 kg Adjusted weight (13.186 mL/hr, rounded to 13 mL/hr), intravenous, CONTINUOUS, Starting on Fri04/23/23 at 1830, Until Fri04/24/23 at 1205, STAT Rate Change 04/24/2023 8:54 EDT 19 Units/kg/hr 13 mL/hr New Bag 04/23/2023 18:12 EDT 15 Units/kg/hr 10.5 mL/hr insulin aspart U-100 (NOVOLOG FLEXPEN) injection subcutaneous, EVERY 6 HOURS, First dose on Fri04/23/23 at 1900, Until Discontinued, Routine, Indications: SUPPLEMENTAL INSULIN Given 04/24/2023 1:11 EDT 7 Units Given 04/23/2023 20:52 EDT 2 Units magnesium sulfate 2 g in water 50 mL 2 g, intravenous, Administer over 60 Minutes, NOW X1, 1 dose, On Fri04/24/23 at 0800, Routine New Bag 04/24/2023 8:11 EDT 2 g metoprolol TARtrate (LOPRESSOR) tablet 100 mg 100 mg, oral, 2 TIMES DAILY, First dose on Fri04/24/23 at 2100, Until Discontinued, Routine metoprolol TARtrate (LOPRESSOR) tablet 50 mg 50 mg, oral, 2 TIMES DAILY, First dose on Fri04/23/23 at 2100, Until Discontinued, Routine Given 04/24/2023 8:10 EDT 50 mg Given 04/23/2023 20:49 EDT 50 mg metoprolol TARtrate (LOPRESSOR) tablet 50 mg 50 mg, oral, NOW X1, 1 dose, On Fri04/24/23 at 0915, Routine Given 04/24/2023 8:57 EDT 50 mg morphine injection 2 mg 2 mg, intravenous, EVERY 4 HOURS PRN, Starting on Fri04/23/23 at 1914, Until Fri04/24/23 at 1433, Pain, Chest pain, severe, Routine Given 04/24/2023 8:25 EDT 2 mg Given 04/24/2023 1:13 EDT 2 mg Given 04/23/2023 21:00 EDT 2 mg nicotine (NICODERM CQ) 21 mg/24 hr patch 1 Patch 1 Patch, transdermal, EVERY 24 HOURS, First dose (after last modification) on Fri04/24/23 at 0830, Until Discontinued, Routine Patch Applied 04/24/2023 6:40 EDT 1 Patch Left Shoulder nicotine polacrilex (COMMIT) 2 mg lozenge 2 mg 2 mg, oral, EVERY 1 HOUR PRN, Starting on Fri04/24/23 at 0730, Until Fri04/24/23 at 1838, Smoking Cessation, Routine nicotine polacrilex (NICORETTE) gum 4 mg 4 mg, oral, EVERY 2 HOURS PRN, Starting on Fri04/24/23 at 0731, Until Fri04/24/23 at 1838, Smoking Cessation, Routine Given 04/24/2023 8:24 EDT 4 mg sodium chloride 0.9 % (flush) flush 5 mL 5 mL, intravenous, EVERY 8 HOURS, First dose on Fri04/23/23 at 1815, Until Discontinued, Routine, Release Given 04/24/2023 8:11 EDT 5 mL Given 04/23/2023 18:17 EDT 5 mL documented in this encounter Discontinued Medications Medication Sig Discontinue Reason Start Date End Da te atorvastatin (LIPITOR) 80 mg tablet Take 1 Tab by mouth at bedtime. Reorder 03/18/2014 04/24/2023 aspirin 81 mg EC tablet Take 81 mg by mouth daily. 04/24/2023 documented as of this encounter Active and Recently Administered Medications Times are shown in EDT. Scheduled Medication Order 04/22/2023 04/23/2023 04/24/2023 amLODIPine (NORVASC) tablet 5 mg 5 mg, oral, DAILY, First dose on Fri04/23/23 at 2000, Until Discontinued, Routine 2048 (Given - Provider: Tracy Doty RN) 0810 (Given - Provider: Lili Castellanos RN)1012 (JAN Hold - Provider: Automatic Transfer Provider Hn - Reason: Patient off unit)1208 ([facility] Unhold - Provider: Automatic Transfer Provider Hn) aspirin EC tablet 81 mg 81 mg, oral, DAILY, First dose on Fri04/24/23 at 0900, Until Discontinued, Routine 0810 (Given - Provid er: Lili Castellanos RN)1012 (JAN Hold - Provider: Automatic Transfer Provider Hn - Reason: Patient off unit)1208 ([facility] Unhold - Provider: Automatic Transfer Provider Hn) atorvastatin (LIPITOR) tablet 80 mg 80 mg, oral, AT BEDTIME, First dose on Fri04/23/23 at 2100, Until Discontinued, Routine 2048 (Given - Provider: Tracy Doty RN) 1012 ([facility] Hold - Provider: Automatic Transfer Provider Hn - Reason: Patient off unit)1208 (JAN Unhold - Provider: Automatic Transfer Provider Hn) buprenorphine-naloxone (SUBOXONE) 8-2 mg sublingual film 2 Film 2 Film, sublingual, DAILY, First dose (after last modification) on Fri04/24/23 at 0900, Until Discontinued, Routine 0846 (Given - Provid er: Lili Castellanos RN)1012 ([facility] Hold - Provider: Automatic Transfer Provider Hn - Reason: Patient off unit)1208 ([facility] Unhold - Provider: Automatic Transfer Provider Hn) clonazePAM (KLONOPIN) tablet 2 mg 2 mg, oral, 2 TIMES DAILY, First dose (after last modification) on Fri04/23/23 at 2100, Until Discontinued, Routine 220 (Given - Provider: Tracy Doty, SARAH) 0810 (Given - Provider: Lili Castellanos RN)1012 ([facility] Hold - Provider: Automatic Transfer Provider Hn - Reason: Patient off unit)1208 ([facility] Unhold - Provider: Automatic Transfer Provider Hn) clopidogreL (PLAVIX) tablet 75 mg 75 mg, oral, DAILY, First dose on Fri04/25/23 at 0900, Until Discontinued, Routine gabapentin (NEURONTIN) capsule 800 mg 800 mg, oral, 3 TIMES DAILY, First dose (after last modification) on Fri04/23/23 at 2100, Until Discontinued, Routine 204 (Given - Provider: Tracy Doty, SARAH) 0810 (Given - Provider: Lili Castellanos RN)1012 ([facility] Hold - Provider: Automatic Transfer Provider Hn - Reason: Patient off unit)1208 ([facility] Unhold - Provider: Automatic Transfer Provider Hn)1400 (Given - Provider: Lili Castellanos RN) insulin aspart U-100 (NOVOLOG FLEXPEN) injection subcutaneous, EVERY 6 HOURS, First dose on Fri04/23/23 at 1900, Until Discontinued, Routine, Indications: SUPPLEMENTAL INSULIN 2051 (Given - Provider: Tracy Doty, SARAH) 0111 (Given - Provider: Tracy Doty, RN)0615 (Not Given - Provider: Tracy Doty RN - Reason: Patient/family refused - Comment: patient refused insulin admin, educated)1012 ([facility] Hold - Provider: Automatic Transfer Provider Hn - Reason: Patient off unit)1200 (Automatically Held - Provider: Automatic Transfer Provider Hn)1208 ([facility] Unhold - Provider: Automatic Transfer Provider Hn)1800 (Canceled Entry - Provider: Batch Job User Admin - Comment: Automatically canceled at discontinue of medication order) magnesium sulfate 2 g in water 50 mL (COMPLETED) 2 g, intravenous, Administer over 60 Minutes, NOW X1, 1 dose, On Fri04/24/23 at 0800, Routine 0811 (New Bag - Prov ider: Lili Castellanos RN) metoprolol TARtrate (LOPRESSOR) tablet 100 mg 100 mg, oral, 2 TIMES DAILY, First dose on Fri04/24/23 at 2100, Until Discontinued, Routine 1012 (JAN Hold - Pro vider: Automatic Transfer Provider Hn - Reason: Patient off unit)1208 ([facility] Unhold - Provider: Automatic Transfer Provider Hn) metoprolol TARtrate (LOPRESSOR) tablet 50 mg (CANCELED) 50 mg, oral, 2 TIMES DAILY, First dose on Fri04/23/23 at 2100, Until Discontinued, Routine 2049 (Given - Provider: Tracy Doty RN) 0810 (Given - Provider: Lili Castellanos RN) metoprolol TARtrate (LOPRESSOR) tablet 50 mg (COMPLETED) 50 mg, oral, NOW X1, 1 dose, On Fri04/24/23 at 0915, Routine 0857 (Given - Provid er: Lili Castellanos RN) nicotine (NICODERM CQ) 21 mg/24 hr patch 1 Patch 1 Patch, transdermal, EVERY 24 HOURS, First dose (after last modification) on Fri04/24/23 at 0830, Until Discontinued, Routine 0640 (Patch Applied - Provider: Tracy Doty RN)1012 (JAN Hold - Provider: Automatic Transfer Provider Hn - Reason: Patient off unit)1208 ([facility] Unhold - Provider: Automatic Transfer Provider Hn)1638 (Due: Patch Removed - Provider: Batch Job User Admin - Comment: Time automatically adjusted from order being discontinued) sodium chloride 0.9 % (flush) flush 5 mL 5 mL, intravenous, EVERY 8 HOURS, First dose on Fri04/23/23 at 1815, Until Discontinued, Routine, Release 1816 (Given - Provider: Ingrid Armstrong RN)2314 (Not Given - Provider: Tracy Doty RN - Reason: Order parameters not met) 0811 (Given - Provider: Lili Castellanos RN)1012 (JAN Hold - Provider: Automatic Transfer Provider Hn - Reason: Patient off unit)1208 ([facility] Unhold - Provider: Automatic Transfer Provider Hn)1600 (Canceled Entry - Provider: Batch Job User Admin - Comment: Automatically canceled at discontinue of medication order) Continuous Medication Order 04/22/2023 04/23/2023 04/24/2023 heparin in 1/2 NS 25,000 unit/250 mL infusion (CANCELED) 19 Units/kg/hr ? 69.4 kg Adjusted weight (13.186 mL/hr, rounded to 13 mL/hr), intravenous, CONTINUOUS, Starting on Fri04/23/23 at 1830, Until Avani 04/24/23 at 1205, STAT 1812 (New Bag - Provider: Ingrid Armstrong, SARAH) 0854 (Rate Change - Provider: Lili Castellanos RN)1020 (Paused - Provider: Sravanthi Neely, SARAH) PRN Medication Order 04/22/2023 04/23/2023 04/24/2023 acetaminophen (TYLENOL) tablet 650 mg 650 mg, oral, EVERY 4 HOURS PRN, Starting on Avani 04/24/23 at 1155, Until Avani 04/24/23 at 1838, Pain, Routine, Release 1400 (Given - Provid er: Lili Castellanos RN) clopidogreL (PLAVIX) tablet (CANCELED) PRN, Starting on Avani 04/24/23 at 1040, Until Avani 04/24/23 at 1201, Routine, Intraprocedure 1040 (Given - Provid er: Sravanthi Neely RN) dextrose 50 % solution 12.5 g 12.5 g (25 mL), intravenous, PRN, Starting on Fri04/23/23 at 1842, Until Avani 04/24/23 at 1838, Low Blood Sugar, Routine 1012 (JAN Hold - Provider: Automatic Transfer Provider Hn - Reason: Patient off unit)1208 ([facility] Unhold - Provider: Automatic Transfer Provider Hn) glucagon injection 1 mg 1 mg, intramuscular, PRN, Starting on Fri04/23/23 at 1842, Until Avani 04/24/23 at 1838, Other, Low blood sugar, Routine 1012 (JAN Hold - Provider: Automatic Transfer Provider Hn - Reason: Patient off unit)1208 ([facility] Unhold - Provider: Automatic Transfer Provider Hn) heparin 1,000 unit/mL injection 4,900 Units (CANCELED)(Linked Group 1) 4,900 Units (rounded from 4,858 Units = 70 Units/kg ? 69.4 kg Adjusted weight), intravenous, PRN, Starting on Fri04/23/23 at 1800, Until Avani 04/24/23 at 1205, Other, Per Heparin Protocol, Routine 0849 (Given - Provid er: Lili Castellanos RN)1012 (JAN Hold - Provider: Automatic Transfer Provider Hn - Reason: Patient off unit)1205 (JAN Unhold - Provider: Nacho Pace) heparin 1,000 unit/mL injection (CANCELED) PRN, Starting on Avani 04/24/23 at 1121, Until Avani 04/24/23 at 1201, Routine, Intraprocedure 1121 (Given - Provid er: Farhan Stewart RN) iopamidoL (ISOVUE-370) injection (CANCELED) PRN, Starting on Avani 04/24/23 at 1155, Until Avani 04/24/23 at 1201, Routine, Intraprocedure 1155 (Given - Provid er: Zeus Preciado MD) midazolam (PF) (VERSED) injection (CANCELED) PRN, Starting on Avani 04/24/23 at 1059, Until Avani 04/24/23 at 1201, Routine, Intraprocedure 1059 (Given - Provid er: Narcisa Marino RN)1103 (Given - Provider: Narcisa Marino RN) morphine injection 2 mg (CANCELED) 2 mg, intravenous, EVERY 4 HOURS PRN, Starting on Fri04/23/23 at 1914, Until Avani 04/24/23 at 1433, Pain, Chest pain, severe, Routine 2100 (Given - Provider: Tracy Doty, SARAH) 0113 (Given - Provider: Tracy Doty RN)0825 (Given - Provider: Lili Castellanos RN)1012 (JAN Hold - Provider: Automatic Transfer Provider Hn - Reason: Patient off unit)1208 (JAN Unhold - Provider: Automatic Transfer Provider Hn) nicotine polacrilex (COMMIT) 2 mg lozenge 2 mg 2 mg, oral, EVERY 1 HOUR PRN, Starting on Avani 04/24/23 at 0730, Until Avani 04/24/23 at 1838, Smoking Cessation, Routine 1012 (JAN Hold - Provider: Automatic Transfer Provider Hn - Reason: Patient off unit)1208 (JAN Unhold - Provider: Automatic Transfer Provider Hn) nicotine polacrilex (NICORETTE) gum 4 mg 4 mg, oral, EVERY 2 HOURS PRN, Starting on Avani 04/24/23 at 0731, Until Avani 04/24/23 at 1838, Smoking Cessation, Routine 0824 (Given - Provid er: Lili Castellanos RN)1012 (JAN Hold - Provider: Automatic Transfer Provider Hn - Reason: Patient off unit)1208 ([facility] Unhold - Provider: Automatic Transfer Provider Hn) nitroglycerin (NITROSTAT) SL tablet 0.4 mg 0.4 mg, sublingual, EVERY 5 MIN PRN, Starting on Fri04/23/23 at 1759, Until Avani 04/24/23 at 1838, Chest Pain, Routine 1012 ([facility] Hold - Provider: Automatic Transfer Provider Hn - Reason: Patient off unit)1208 ([facility] Unhold - Provider: Automatic Transfer Provider Hn) sodium chloride 0.9 % (NS) infusion (COMPLETED) FA IP EQF CONTINUOUS PRN FOR ONE STEP MEDS, Starting on Avani 04/24/23 at 1020, Until Avani 04/24/23 at 1201, Routine, Intraprocedure 1020 (New Bag - Provider: Sravanthi Neely RN) No Frequency Medication Order 04/22/2023 04/23/2023 04/24/2023 clopidogreL (PLAVIX) 300 mg tablet 1 dose, Starting on Avani 04/24/23 at 1036, Until Avani 04/24/23 at 1838 heparin 1,000 unit/mL injection 1 dose, Starting on Avani 04/24/23 at 1356, Until Avani 04/24/23 at 1838 Linked Groups Order Group 1: heparin 1,000 unit/mL injection 4,900 Units (CANCELED)Jump to med 4,900 Units (rounded from 4,858 Units = 70 Units/kg ? 69.4 kg Adjusted weight), intravenous, PRN, Starting on Fri04/23/23 at 1800, Until Avani 04/24/23 at 1205, Other, Per Heparin Protocol, Routine Or heparin 1,000 unit/mL injection 2,400 Units (CANCELED) 2,400 Units (rounded from 2,429 Units = 35 Units/kg ? 69.4 kg Adjusted weight), intravenous, PRN, Starting on Fri04/23/23 at 1800, Until Avani 04/24/23 at 1205, Other, Per Heparin Protocol, Routine documented in this encounter Orders Medications Ordered That Lester ht Not Have Been Administered Count Last Ordered Date First Ordered Date clopidogreL (PLAVIX) 300 mg tablet 1 2022 clopidogreL (PLAVIX) tablet 1 04/24/2023 clopidogreL (PLAVIX) tablet 75 mg 1 023 fentaNYL citrate (PF) 50 mcg/mL injection 1 04/24/2023 heparin 1,000 unit/mL injection 3 HYDROmorphone (PF) (DILAUDID ) 0.5 mg/0.5 mL syringe 0.25 mg 1 04/24/2023 iopamidoL (ISOVUE-370) injection 1 04/24/20 23 lidocaine (PF) 20 mg/mL (2 %) injection 1 0 04/24/2023 lidocaine-EPINEPHrine 2 %-1: 100,000 injection 5-10 mL 1 04/24/2023 metoprolol TARtrate (LOPRESS OR) tablet 100 mg 1 04/24/2023 midazolam (PF) (VERSED) 1 mg/mL injection 1 04/24/2023 midazolam (PF) (VERSED) injection 1 023 nicotine polacrilex (COMMIT) 2 mg lozenge 2 mg 1 04/24/2023 sodium chloride 0.9 % (NS) infusion 1 04/24 verapamil (ISOPTIN) 2.5 mg/mL injection 1 0 04/24/2023 dextrose 50 % solution 12.5 g 1 04/23/2023 glucagon injection 1 mg 1 04/23/2023 heparin 1,000 unit/mL inject ion 2,400 Units 1 04/23/2023 metoprolol SUCCinate (TOPROL -XL) tablet 100 mg 1 04/23/2023 nitroglycerin (NITROSTAT) SL tablet 0.4 mg 1 04/23/2023 Diet Count Last Ordered Date First Orde red Date DISCHARGE DIET 3 04/24/2023 Nursing Count Last Ordered Date First Orde red Date ACTIVITY INSTRUCTIONS 3 04/24/2023 BATHING INSTRUCTIONS 3 04/24/2023 PATIENT AT LOW RISK FOR VTE: RISK OF MECHANICAL PROPHYLAXIS OUTWEIGHS 1 04/24/2023 PATIENT AT LOW RISK FOR VTE: RISK OF PHARMACOLOGIC PROPHYLAXIS OUTWEIG 1 04/24/2023 WOUND CARE INSTRUCTIONS 2 04/24/2023 Admission Count Last Ordered Date First Orde red Date ADMIT TO INPATIENT 1 04/23/2023 Discharge Count Last Ordered Date First Orde red Date DISCHARGE PATIENT 1 04/24/2023 Legal Count Last Ordered Date First Orde red Date MISCELLANEOUS DISCHARGE INSTRUCTIONS 6 04/04 Case Request Count Last Ordered Date First Orde red Date 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
--- OUTSIDE RECORDS SUMMARY | 2024-08-14 17:35 | XMS_ITS | Encounter Summary ---
Author Organization [facility] Address [address] [place] [address] Care Team Providers Care Cargo And Container Inspector Name Role Phone Lei Yancey PA-C Primary Care Provider [phone] Reason for Visit * Reason Comments Chest Pain brought directly to ED exam room by triage. pt c/o CP with bilateral arm numbness. Encounter Details Date Type Department Care Team (Late st Contact Info) Description 10/30/2021 15:34 EST - 10/30/2021 16:41 EST Emergency [facility] Emergency Department [address], [place] [id number] Avelino Norton MD [address] [place] [address] Chest pain, unspecified type (Primary Dx) Discharge Disposition: Home or Self Care Social History Tobacco Use Types Packs/Day Years Used Date Smoking Tobacco: Every Day Cigarettes Smokeless Tobacco: Current Chew Alcohol Use Standard Drinks/Week Comments Yes 0 (1 standard drink = 0.6 oz pur e alcohol) seldom Sex and Gender Information Value Date Recorded Sex Assigned at Not on file Gender Identity Male 08/08/2023 21:13 EDT Sexual Orientation Not on file documented as of this encounter Last Filed Vital Signs Vital Sign Reading Time Taken Comments Blood Pressure 124/83 10/30/2021 1630 EST Pulse 59 10/30/2021 1630 EST Temperature 36.7 ??C (98.1 ??F) 10/30/2021 1545 EST Respiratory Rate 18 10/30/2021 1630 EST Oxygen Saturation 99% 10/30/2021 1630 EST Inhaled Oxygen Concentration - - Weight [...] 03/17/2014 documented as of this encounter Discharge Instructions * Discharge Instructions* Avelino Norton MD - 10/30/2021 16:28 EST You were seen in the ED for chest pain. Your test results did not show any sign of heart attack or other concerning findings. Please follow-up with your PCP as soon as possible. Return to the emergency department for any worsening symptoms. documented in this encounter Medications at Time [...] 03/18/2014 09/01/2023 documented as of this encounter Discharge Disposition Disposition Code Departure Means Destination Home or Self Long Term documented in this encounter ED Notes * Kenyatta Quiñonez - 10/30/2021 1620 EST 12 Lead EKG Performed by Kenyatta Quiñonez and shown to Avelino Norton MD. * Avelino Norton MD - 10/30/2021 3275 EST Emergency Department Visit Assessment and ED Course 46 y.o. male with CAD (PCI to RCA in both 2007 and 2013), diabetes, hypertension, hyperlipidemia and anxiety who presents to the ED for chest pain that has been intermittent for 3 to 4 days, more severe since about noon today. In the ED he is quite anxious, mildly hypertensive but vitals otherwise normal. His EKG is without ischemic changes and troponin is negative. Although I think a single troponin is sufficient after at least 3 days of intermittent symptoms, we did discuss a repeat troponin in the ED, which the patient declines as he would like to go home. His symptoms improved with a milligram of lorazepam. Very low suspicion this is cardiac chest pain. More likely related to anxiety. PERC negative, doubt PE. Chest x-ray without acute findings. Doubt dissection. Emphasized the importance of adherence to his Plavix. Patient will follow up with PCP. Final diagnoses: Chest pain, unspecified type Disposition: Discharged Chief complaint: Chest pain NICKI Cohen is a 46 y.o. male with CAD (PCI to RCA in both 2007 and 2013), diabetes, hypertension, hyperlipidemia and anxiety who presents to the ED for chest pain. Has been having intermittent chest pain for the last 3 to 4 days. Comes and goes without specific exacerbating or alleviating factors. Today the pain is worse than it has been and radiates down both of his arms. He feels a little bit short of breath. Denies nausea, vomiting or diaphoresis. Admits he has been under a lot of stress, currently homeless. Lost his Plavix for a few days but took a dose today. Does not take aspirin because it gives him nosebleeds. Nitroglycerin gives him a bad headache. History was provided by: Patient Patient's pertinent PMH, FH, SH were reviewed and edited as necessary. Review of Systems Constitutional: Negative for chills and fever. HENT: Negative for congestion. Eyes: Negative for redness. Respiratory: Positive for shortness of breath. Cardiovascular: Positive for chest pain. Gastrointestinal: Negative for abdominal pain, nausea and vomiting. Genitourinary: Negative for dysuria. Musculoskeletal: Negative for neck pain. Skin: Negative for rash. Neurological: Negative for speech change. Psychiatric/Behavioral: Negative for hallucinations. Physical Exam BP (!) 138/98 Temp 36.7 ??C (98.1 ??F) Resp 12 SpO2 99% A medical screening exam was performed. Physical Exam Vitals and nursing note reviewed. Constitutional: Appearance: He is well-developed and well-nourished. Comments: Anxious HENT: Nose: Nose normal. No nasal discharge. Mouth/Throat: Mouth: Mucous membranes are moist. Pharynx: Oropharynx is clear. Eyes: Extraocular Movements: EOM normal. Conjunctiva/sclera: Conjunctivae normal. Pupils: Pupils are equal, round, and reactive to light. Cardiovascular: Rate and Rhythm: Normal rate and regular rhythm. Heart sounds: Normal heart sounds. Pulmonary: Effort: Pulmonary effort is normal. No respiratory distress. Breath sounds: Normal breath sounds. Abdominal: General: Bowel sounds are normal. Palpations: Abdomen is soft. Tenderness: There is no abdominal tenderness. Musculoskeletal: General: Normal range of motion. Cervical back: Normal range of motion and neck supple. Skin: General: Skin is warm and dry. Neurological: Mental Status: He is alert and oriented to person, place, and time. Cranial Nerves: No cranial nerve deficit. Psychiatric: Mood and Affect: Mood and affect normal. An EKG was obtained and independently interpreted. Normal sinus rhythm with rate of 65, normal axis, normal intervals, no acute ischemic changes Imaging obtained was reviewed and independently interpreted. Laboratory results independently reviewed. Procedures Procedures documented in this encounter Plan of Treatment Scheduled Orders Name Type Priority Associated Diagnoses Orde r Schedule EKG 12-LEAD ECG STAT One Time for 1 Occurrences starting 10/30/2021 until 10/30/2021 documented as of this encounter Procedures Procedure Name Priority Date/Time Associated Diagnosis Comments ECG REPORT - SCANNED 10/30/2021 17:47 EST XR CHEST PORTABLE 1 VIEW STAT 10/30/2021 15:59 EST EKG 12-LEAD STAT 10/30/2021 15:39 EST HOLD BLUE TOP STAT 10/30/2021 15:36 EST TROPONIN I STAT 10/30/2021 15:36 EST COMPLETE BLOOD COUNT AND DIFFERENTIAL STAT 10/30/2021 15:36 EST MAGNESIUM STAT 10/30/2021 15:36 EST COMPREHENSIVE METABOLIC PANEL (CMP) STAT 10/30/2021 15:36 EST documented in this encounter Results * ECG REPORT - SCANNED (10/30/2021 17:47 EST) 10/30/2021 17:4 7 EST Scan 2 Bridge Toll [employer]or PROCEDURE/MINOR FELIX GICAL ORDERABLES * XR CHEST PORTABLE 1 VIEW (10/30/2021 15:59 EST) Anatomical Region Laterality Modality Computed Radiogr aphy 10/30/2021 15:5 0 EST Impressions 10/30/2021 16:32 EST No acute findings. THIS DOCUMENT HAS BEEN ELECTRONICALLY SIGNED BY ESPERANZA VEGA MD FOR ANY QUESTIONS OR CONCERNS REGARDING THIS REPORT PLEASE CALL [facility] AT [phone] Narrative 10/30/2021 16:32 EST PROCEDURE INFORMATION: Exam: XR Chest Exam date and time: 10/30/2021 3:50 PM Age: 46 years old Clinical indication: Pain; Chest pressure; Additional info: Chest pain TECHNIQUE: Imaging protocol: XR of the chest. Views: 1 view. COMPARISON: No relevant prior studies available. FINDINGS: Lungs: Unremarkable. No consolidation. Pleural spaces: Unremarkable. No pleural effusion. No pneumothorax. Heart/Mediastinum: Unremarkable. No cardiomegaly. Bones/joints: Unremarkable. Procedure Note Esperanza Vega MD - 10/30/2021 PROCEDURE INFORMATION: Exam: XR Chest Exam date and time: 10/30/2021 3:50 PM Age: 46 years old Clinical indication: Pain; Chest pressure; Additional info: Chest pain TECHNIQUE: Imaging protocol: XR of the chest. Views: 1 view. COMPARISON: No relevant prior studies available. FINDINGS: Lungs: Unremarkable. No consolidation. Pleural spaces: Unremarkable. No pleural effusion. No pneumothorax. Heart/Mediastinum: Unremarkable. No cardiomegaly. Bones/joints: Unremarkable. IMPRESSION No acute findings. THIS DOCUMENT HAS BEEN ELECTRONICALLY SIGNED BY ESPERANZA VEGA MD FOR ANY QUESTIONS OR CONCERNS REGARDING THIS REPORT PLEASE CALL [facility] [phone] Avelino Norton MD IMG DIAGNOSTIC IMAGI NG ORDERABLES * EKG 12-LEAD (10/30/2021 15:39 EST) 10/30/2021 15:3 9 EST Narrative [facility] - 10/30/2021 17:41 EST ? [facility] ? Test Date: ?2021-10-30 Pat Name: ? CARMELO COHEN ? Department: ? Room: ? A02 Gender: ? Male ? Cargo Services Coordinator: ?? THEODORA : ?1975 ? Requested By: JACQUELYN JOSEPH Order Number: [id number] ? Toby MARIA: ?? KARLO RODRIGUEZ MD ? Measurements Intervals ?[place] ? Rate: ? 65 ? P: ?38 CT: ? 142 ?QRS: ?71 QRSD: ? 92 ? T: ?42 QT: ? 398 ? QTc: ?413 ? Interpretive Statements Normal sinus rhythm with sinus arrhythmia Compared to ECG 03/17/2014 19:11:38 No significant changes I reviewed the tracing and have either agreed or edited the findings in this report. Electronically Signed On 10-30-2021 17:41:34 EST by KARLO RODRIGUEZ MD. Procedure Note Karlo Rodriguez MD - 10/30/2021 [facility] [place] Test Date: 2021-10-30 Pat Name: CARMELO COHEN Department: Room: A02 Gender: Male Cargo Services Coordinator: THEODORA : 1975 Requested By: JACQUELYN JOSEPH Order Number: [id number] Toby MD: KARLO RODRIGUEZ MD Measurements Intervals [place] Rate: 65 P: 38 CT: 142 QRS: 71 QRSD: 92 T: 42 QT: 398 QTc: 413 Interpretive Statements Normal sinus rhythm with sinus arrhythmia Compared to ECG 03/17/2014 19:11:38 No significant changes I reviewed the tracing and have either agreed or edited the findings inthis report. Electronically Signed On 10-30-2021 17:41:34 EST by KARLO PETERSON. Avelino Norton MD CARDIAC ECG ORDERABL ES Performing Organization Address City/[facility]/ZIP Co de Phone Number [facility] * HOLD BLUE TOP (10/30/2021 15:36 EST) Hold 10/30/2021 16:37 EST [facility] Blood VENOUS BLOOD / Unknown Venipuncture / Unknown 10/30/2021 15:36 EST 10/30/2021 15:46 EST Avelino Norton MD LAB INFO SERVICE AND SUPPORT & PHONE RESULT Performing Organization Address [facility] Co de Phone Number [facility] [address] [place] [address] * TROPONIN I (10/30/2021 15:36 EST) Pathologist [facility] Troponin I (ng/mL) <0.034 <0.034 ng/mL 10/30/2021 16:16 EST [facility] Blood VENOUS BLOOD / Unknown Venipuncture / Unknown 10/30/2021 15:36 EST 10/30/2021 15:45 EST Narrative [facility] - 10/30/2021 16:16 EST The results of this assay can be falsely lowered due to the consumption of Biotin. Avelino Norton MD CHEMISTRY & BLOOD GA S ORDERABLES Performing Organization Address [facility] Co de Phone Number [facility] [address] [place] [address] * (ABNORMAL) MAGNESIUM (10/30/2021 15:36 EST) Pathologist [facility] Magnesium 1.5(L) 1.7 - 2.8 mg/dL 10/30/2021 16:20 EST [facility] Comment:Slight hemolysis kaz ntified, interpret with caution as results may be affected due to hemolysis. Blood VENOUS BLOOD / Unknown Venipuncture / Unknown 10/30/2021 15:36 EST 10/30/2021 15:46 EST Avelino Norton MD CHEMISTRY & BLOOD GA S ORDERABLES [facility] [address] [place] [address] * (ABNORMAL) COMPREHENSIVE METABOLIC PANEL (CMP) (10/30/2021 15:36 EST) Sodium 140 136 - 145 mmol/L 10/30/2021 16:21 [facility] Potassium 4.6 3.5 - 5.0 mmol/L 10/30/2021 16:21 [facility] Comment:Slight hemolysis kaz ntified, interpret with caution as hemolysis will elevate potassium result. Chloride 100 96 - 110 mmol/L 10/30/2021 16:21 [facility] CO2 Total 28 22 - 32 mmol/L 10/30/2021 16:21 [facility] Glucose 261(H) 70 - 100 mg/dL 10/30/2021 16:21 [facility] BUN 7(L) 10 - 26 mg/dL 10/30/2021 16:21 [facility] Comment: Slight hemolysis identified, interpret with caution as results may be affected due to hemolysis. Creatinine 0.73 0.66 - 1.25 mg/dL 10/30/2021 16:21 [facility] eGFR 110 >60 mL/min/1.7 3m2 10/30/2021 16:21 [facility] Total Protein 8.0 6.3 - 8.2 g/dL 10/30/2021 16:21 [facility] Comment:Slight hemolysis kaz ntified, interpret with caution as results may be affected due to hemolysis. Albumin 4.4 3.4 - 4.9 g/dL 10/30/2021 16:21 [facility] Comment:Slight hemolysis kaz ntified, interpret with caution as results may be affected due to hemolysis. Alkaline Phosphatase 116 38 - 126 U/L 10/30/2021 16:21 [facility] Comment:Slight hemolysis kaz ntified, hemolysis will decrease ALKP result. Interpret with caution as results may be affected due to hemolysis. AST 80(H) 15 - 46 U/L 10/30/2021 16:21 [facility] Comment:Slight hemolysis kaz ntified, interpret with caution as results may be affected due to hemolysis. ALT 80(H) <50 U/L 10/30/2021 16:21 [facility] Bilirubin, Total 0.5 <1.4 mg/dL 10/30/20 16:21 [facility] Calcium 9.3 8.5 - 10.5 mg/dL 10/30/2021 16:21 [facility] Albumin/Globulin Ratio 1.2 1.0 - 2.5 10/30/2021 16:21 [facility] Anion Gap 12 8 - 16 10/30/2021 16:21 [facility] Blood VENOUS BLOOD / Unknown Venipuncture / Unknown 10/30/2021 15:36 EST 10/30/2021 15:46 EST Avelino Norton MD CHEMISTRY & BLOOD GA S ORDERABLES Performing Organization Address City/State/[facility] Co de Phone Number [facility] [address] [place] [address] * COMPLETE BLOOD COUNT AND DIFFERENTIAL (10/30/2021 15:36 EST) WBC 7.21 4.00 - 10.40 K/cmm 10/30/2021 15:49 [facility] RBC 5.69 4.36 - 5.78 M/cmm 10/30/2021 15:49 [facility] Hemoglobin 16.3 13.8 - 17.3 gm/dL 10/30/2021 15:49 [facility] HCT 49.3 39.5 - 50.2 % 10/30/2021 15:49 [facility] MCV 87 81 - 95 fl 10/30/2021 15:49 [facility] MCH 28.6 27.6 - 33.0 pg 10/30/2021 15:49 [facility] MCHC 33.1 32.8 - 36.4 gm/dL 10/30/2021 15:49 [facility] RDW-CV 13.4 <14.2 % 10/30/2021 15:49 [facility] RDW-SD 42.6 <46.0 fl 10/30/2021 15:49 [facility] PLT 318 141 - 377 K/cmm 10/30/2021 15:49 [facility] MPV 10.0 9.5 - 12.7 fl 10/30/2021 15:49 [facility] % Neutrophils 59.9 % 10/30/2021 15:49 [facility] % Lymphocytes 28.7 % 10/30/2021 15:49 [facility] % Monocytes 9.4 % 10/30/2021 15:49 [facility] % Eosinophils 0.7 % 10/30/2021 15:49 [facility] % Basophils 1.0 % 10/30/2021 15:49 [facility] % Immature Grans 0.3 % 10/30/20 15:49 [facility] Absolute Neutrophils 4.32 2.20 - 8.85 K/cmm 10/30/2021 15:49 [facility] Absolute Lymphocytes 2.07 1.09 - 3.30 K/cmm 10/30/2021 15:49 [facility] Absolute Monocytes 0.68 0.10 - 0.80 K/cmm 10/30/2021 15:49 [facility] Absolute Eosinophils 0.05 0.03 - 0.61 K/cmm 10/30/2021 15:49 [facility] ABS Basophils 0.07 0.01 - 0.11 K/cmm 10/30/2021 15:49 [facility] Absolute Immature Grans 0.02 0.00 - 0.06 K/cmm 10/30/2021 15:49 [facility] Type of Differential: Auto 10/30/2021 15:49 [facility] Blood VENOUS BLOOD / Unknown Venipuncture / Unknown 10/30/2021 15:36 EST 10/30/2021 15:46 EST Avelino Norton MD PACKAGES & DNA PROBE ORDERABLES [facility] [address] [place] [address] documented in this encounter Visit Diagnoses Diagnosis Chest pain, unspecified type- Primary documented in this encounter Administered Medications Inactive Administered Medications - up to 3 most recent administrations Medication Order MAR Action Action Date Dose Rate Site aspirin chewable tablet 324 mg 324 mg, oral, NOW X1, 1 dose, On Fri10/30/21 at 1630, STAT Given 10/30/2021 16:01 EST 324 mg LORazepam (ATIVAN) injection 1 mg 1 mg, intravenous, NOW X1, 1 dose, On Fri10/30/21 at 1600, STAT Given 10/30/2021 15:54 EST 1 mg IV documented in this encounter Active and Recently Administered Medications Times are shown in EST. Scheduled Medication Order 10/28/2021 10/29/2021 10/30/2021 aspirin chewable tablet 324 mg (COMPLETED) 324 mg, oral, NOW X1, 1 dose, On Fri10/30/21 at 1630, STAT 1601 (Given - Provid er: Jordyn Baltazar RN) LORazepam (ATIVAN) injection 1 mg (COMPLETED) 1 mg, intravenous, NOW X1, 1 dose, On Fri10/30/21 at 1600, STAT 1554 (Given - Provid er: Jordyn Baltazar RN) documented in this encounter Care Teams Cargo And Container Inspector Relationship Specialty Start Date End Date Lei Yancey PA-C [address] [place] [id number] PCP - General 03/09/15 12/16/22 documented as of this encounter
--- OUTSIDE RECORDS SUMMARY | 2024-08-14 17:35 | XMS_ITS | Encounter Summary ---
Author Organization [facility] Address [address] [place] [address] Care Team Providers Care Tubing Tester Name Role Phone Ranjan Denise Lukas [facility] Primary Care Provider [phone] Reason for Referral * Cardiology (Routine/Next Available) - Receiving Office to Obtain Authorization Specialty Diagnoses / Procedures Referred By Devendra alonzo Referred To Contact Diagnoses Chest pain Procedures EKG 12-LEAD Grupo Conway DO [address] [place] [address] Referral ID Status Reason Start Date Expiration Date Visits Requested Visits Authorized [id number] Receiving Office to Obtain Authorization 04/28/2023 1 1 Encounter Details Date Type Department Care Team (Latest Contact Info) Description 04/28/2023 Transcribe Orders [facility] Emergency Department [address] [place] [address] Grupo Conway DO [address] [place] [address] Chest pain (Primary Dx) Social History Tobacco Use Types [...] on file documented as of this encounter Results * EKG 12-LEAD (04/22/2023 20:34 EDT) 04/22/2023 20:3 4 EDT [facility] - 04/28/2023 19:51 EDT ? [facility] ? Test Date: ?2023-04-22 Pat Name: ? CARMELO COHEN ? Department: ? Room: ? Gender: ? Male ? Music Artist: ?? LMM : ?1975 ? Requested By: CARYN FRANK Order Number: [id number] ? Reading : ?? KARLO RODRIGUEZ MD ? Measurements Intervals ?[place] ? Rate: ? 84 ? P: ?48 SC: ? 144 ?QRS: ?42 QRSD: ? 80 [...] Procedure Note Karlo Rodriguez MD - 04/28/2023 [facility] Test Date: 2023-04-22 Pat Name: CARMELO COHEN Department: Room: Gender: Male Music Artist: BRITT : 1975 Requested By: CARYN FRANK Order Number: [id number] Reading MD: KARLO RODRIGUEZ MD Measurements Intervals [place] Rate: 84 P: 48 SC: 144 QRS: 42 QRSD: 80 T: 4 QT: 376 QTc: 444 Interpretive Statements Normal sinus rhythm Compared to ECG 12/17/2022 17:44:54 Sinus tachycardia no longer present I reviewed the tracing and have either agreed or edited the findings inthis report. Electronically Signed On 04-28-2023 19:51:01 EDT by KARLO PETERSON. Grupo Conway DO CARDIAC ECG ORDERABL ES [facility] documented in this encounter Visit Diagnoses Diagnosis Chest pain- Primary Chest pain, unspecified Chest pain Chest pain, unspecified documented in this encounter Care Teams Tubing Tester Relationship Specialty Start Date End Date Ranjan Denise RPA [address] [place] [id number] PCP - General Family Medicine - Primary Care 12/17/22 08/07/23 documented as of this encounter
--- OUTSIDE RECORDS SUMMARY | 2024-08-14 17:35 | XMS_ITS | Encounter Summary ---
Author Organization [facility] Address [address] [place] [address] Care Team Providers Care Etl Manager Name Role Phone Ranjan Denise [facility] Primary Care Provider [phone] Encounter Details Date Type Department Care Team (Latest Contact Info) Description 12/17/2022 Travel Social History Tobacco Use Types Packs/Day [...] was confirmed or suspected to have Coronavirus/COVID-19? No / Unsure 12/17/2022 15:45 EST documented as of this encounter Functional Status Functional Status Response Date of Assess ment Are you deaf or do you have serious difficulty h earing? No 12/17/2022 Are you blind or do you have [...] Yes 03/17/2014 documented as of this encounter Plan of Treatment Not on file documented as of this encounter Visit Diagnoses Not on filedocumented in this encounter Care Teams Etl Manager Relationship Specialty Start Date End Date Ranjan Denise RPA [address] [place] [id number] PCP - General Family Medicine - Primary Care 12/17/22 08/07/23 documented as of this encounter
--- OUTSIDE RECORDS SUMMARY | 2024-08-14 17:35 | XMS_ITS | Encounter Summary ---
Author Organization [facility] Address [address] [place] [address] Care Team Providers Care Rail Car Loader Name Role Phone Ranjan Denise [facility] Primary Care Provider [phone] Encounter Details Date Type Department Care Team (Latest Contact Info) Description 04/22/2023 Travel Social History Tobacco Use Types Packs/Day [...] on filedocumented in this encounter Care Teams Rail Car Loader Relationship Specialty Start Date End Date Ranjan Denise RPA [address] [place] [id number] PCP - General Family Medicine - Primary Care 12/17/22 08/07/23 documented as of this encounter
--- OUTSIDE RECORDS SUMMARY | 2024-08-14 17:35 | XMS_ITS | Encounter Summary ---
Author Organization [facility] Address [address] [place] [address] Care Team Providers Care Barrel Rifler Name Role Phone Ranjan Denise [facility] Primary Care Provider [phone] Reason for Visit * Reason Comments Chest Pain Pt arrives via EMS r eporting exertional chest pain for the last couple days, radiating to arms. Associated w/ chest tightness, shortness of breath. Pt has complaints about redness to skin behind L knee. * Auth/Cert (Routine) Specialty Diagnoses / Procedures Referred By Devendra alonzo Referred To Contact Diagnoses NSTEMI (non-ST elevated myocardial infarction) ([facility]) Referral ID Status Reason Start Date Expiration Date Visits Re quested Visits Authorized [id number] 1 1 Encounter Details Date Type Department Care Team (Late st Contact Info) Description 04/22/2023 20:21 EDT - 04/23/2023 16:52 EDT Hospital Encounter [facility] Medical / Surgical Department [address] [place] [address] Grupo Conway DO [address] [place] [id number] Xiao Kirk MD [address] [place] [address] Rosalia Hernandez DO [address] [place] [address] NSTEMI (non-ST elevated myocardial infarction) ([facility]) (Primary Dx) Discharge Disposition: Short Term Hospital Social History Tobacco Use Types Packs/Day Years [...] Sign Reading Time Taken Comments Blood Pressure 136/85 04/23/2023 1613 EDT Pulse 94 04/22/20232024 EDT Temperature 36.7 ??C (98 ??F) 04/23/2023 1613 EDT Respiratory Rate 12 04/23/2023 1613 EDT Oxygen Saturation 98% 04/23/2023 1613 EDT Inhaled Oxygen Concentration - - Weight 77.8 kg (171 lb 7.3 oz) 04/23/2023 0101 E DT Height 167.6 cm (5' 5.98) 04/23/2023 0101 EDT Body Mass Index 27.69 04/23/2023 0101 EDT documented in this encounter Functional Status [...] as of this encounter Discharge Summaries * Rosalia Hernandez, - 04/23/2023 0804 EDT DISCHARGE SUMMARY PATIENT NAME : Carmelo Solano : 1975 PRIMARY CARE PHYSICIAN : Ranjan Denise DATE OF ADMISSION : 04/22/2023 DATE OF DISCHARGE : 04/23/2023 FINAL DISCHARGE DIAGNOSES 1. Non-ST elevation microinfarction 2. Coronary artery disease 3. Hypertension 4. Type 2 diabetes mellitus, poorly controlled 5. Opioid use disorder 6. Chronic anxiety 7. Nicotine dependence 8. Hyperlipidemia 9. Mild transaminitis PROCEDURES AND STUDIES 1. Echocardiogram, read pending HISTORY AND REASON FOR ADMISSION Please see admission H&P for full admission details, but briefly this is a 47 y.o. male admitted to [facility] for chest pain. The patient has a history of coronary artery disease. HOSPITAL COURSE Patient presented to the emergency department with chest pain. He was noted to have troponin of 0.158 without any EKG changes. Patient states his pain feels different than his usual, somewhat chronicchest pain. He notes that he has been having crescendo chest pain symptoms. Patient was excepted for transfer to [facility]. He was started on a heparin infusion. Patient declined nitroglycerin as it gave him a headache. Chest pain was treated with morphine successfully. He remained on his home medicationregimen. Troponin was downtrending at the time of transfer. The patient had no new EKG changes. He was excepted to [facility] for cardiac catheterization. Of note the patient has an elevated hemoglobin A1c of 8.7 for his diet controlled type 2 diabetes mellitus. Patient should be started on diabetic management prior to his discharge from [facility]. FOLLOW UP FOR PRIMARY CARE PHYSICIAN 1. Please follow-up diabetes diagnosis DISCHARGE EXAM: Vital Signs: Temp: 36.5 ??C (97.7 ??F) BP: 104/78 Pulse: 94 Resp: 11 SpO2: 96 % on None (Room air) Temp Min: 36.5 ??C (97.7 ??F) Max: 36.5 ??C (97.7 ??F) Weight : 77.8 kg (171 lb 7.3 oz) PHYSICAL EXAM: Constitutional- Awake, NAD. EYES- Anicteric sclerae, pupils are equil, no lid lag. HENT- External ears and nose are atraumatic. Mouth with moist mucous membranes, normal soft and hard palate. Respiratory- CTAB. No respiratory distress or retractions. No use of accessory muscles. Cardiovacular- RRR, no m/g/r. No lower extremity peripheral edema. Pedal pulses present and equal. Gastrointestinal- Soft, NT/ND. Positive BS. No HSM. Musculoskeletal- Spine is straight, no gross joint deformities. Neck is supple. No cyanosis of nails. Neurologic- Nonfocal. Cranial nerves 2-12 grossly intact. Moves extrem symetrically. Skin- Warm, dry, well perfused, normal texture. Skin breakdown: None Psychiatric- Normal speech pattern and thought process. Appears euthymic. Insight intact. oriented to person, place, and time. Condition on Discharge: Good Disposition: Transfer to [facility] Follow up: Per [facility] discharge Current Discharge Medication List CONTINUE these medications which have NOT CHANGED Details aspirin 81 mg EC tablet Take 81 mg by mouth daily. atorvastatin (LIPITOR) 80 mg tablet Take 1 Tab by mouth at bedtime. Qty: 30 Tab, Refills: 11 metoprolol XL (TOPROL-XL) 100 mg tablet Take 1 Tab by mouth daily. Qty: 30 Tab, Refills: 0 nitroGLYCERIN (NITROSTAT) 0.[address] 1 Tab under the tongue every 5 minutes as needed for Chest Pain. Qty: 25 Tab, Refills: 1 ? ? LEVEL OF DISCHARGE: 2, greater than 35 minutes spent arranging this discharge with greater than 50%was spent in counseling and/or coordination of care ? . documented in this encounter Medications at Time of Discharge Medication Sig Dispensed Refills Start Date End Date nitroGLYCERIN (NITROSTAT) 0.[address] 1 Tab under the tongue every 5 minutes as needed for Chest Pain. 25 Tab 1 03/18/2014 aspirin 81 mg EC tablet Take 1 Tablet by mouth daily. 90 Tablet 3 04/25/2023 09/01/2023 aspirin 81 mg EC tablet Take 81 mg by mouth daily. 04/24/2023 atorvastatin (LIPITOR) 80 mg tablet Take 1 Tablet by mouth at bedtime. 90 Tablet 3 04/24/2023 09/01/2023 atorvastatin (LIPITOR) 80 mg tablet Take 1 Tab by mouth at bedtime. 30 Tab 11 03/18/2014 04/24/2023 clopidogreL (PLAVIX) 75 mg tablet Take 1 Tablet by mouth daily. 90 Tablet 3 04/25/2023 09/01/2023 metoprolol XL (TOPROL-XL) 100 mg tablet Take 1 Tab by mouth daily. 30 Tab 0 03/18/2014 09/01/2023 documented as of this encounter Discharge Disposition Disposition Code Departure Means Destination Comment s [facility] (Acute Care Facility) documented in this encounter Progress Notes * Yesenia Adhikari RN - 04/23/2023 1624 EDT Report called to Ingrid at [facility] at [phone] * Arvin Yun - 04/23/2023 0850 EDT Initial Case Management/Social Work Assessment and Discharge Plan/Readmission Risk Assessment REASON FOR ADMISSION: NSTEMI (non-ST elevated myocardial infarction) ([facility]) ([facility]) Patient understands reason for admission: Yes PATIENT INFO VERIFIED: PCP, Contact Info, Address Type of housing (single family, condo, apartment, usp, single room occupancy, [facility] funded hotel room, group custodial) - [employer]/ homeless Who does the patient live with? self Does the patient have access to their own bedroom/bathroom/kitchen - or is it shared with others? own Name of housing complex (ex [employer], [facility], etc)- n/a Housing Authority/Managing Organization - n/a Community Care Providers (protective services case worker, [facility] nurse, etc) name and contact information- n/a LIVING ARRANGEMENTS AND ACCESSIBILITY ISSUES: Living Arrangements: Homeless, Other (Comment) (motel) Levels: 1 Stairs to enter: 0 Handicap access: None Bathroom located on bedroom level?: Yes What in home social supports are available to the patient? None Is 24/7 care available? No ADVANCED DIRECTIVES, POA &/or COLST IN PLACE: Healthcare Directive: No, patient does not have advance directive for healthcare treatment Information Provided on Healthcare Directives: No Information on Healthcare Directives Requested: No DIRECTIVES FOR FINANCES: Directive For Finances: No TRANSPORTATION: Transportation: Ambulance Patient expects to be discharged to: [facility] CULTURAL, TENRIISM and/or LANGUAGE factors affecting health care/discharge planning: Spiritual/Cultural Requests: None Language/Literacy Needs Do you need us to provide any communication aids or devices?: No Insurance Information: Medical Insurance: Yes Type of insurance: Medicaid Medicaid Type: Community Referred to patient financial services: No Nutrition: DISCHARGE RISK ASSESSMENT: Lives at home with limited or no community support;Diagnosis of Diabetes;History of mental illness Total # selected above: Score of 2 - 4: This patient is at MODERATE RISK for re-hospitalization Tentative plan to address the risk of re-hospitalization for those at HIGH MODERATE RISK: Bring risk factors to attention of team to be addressed RAPT TOOL: Gender: Male Ambulation distance: 2 or more blocks (600ft) Gait device: None Community Services: Home health, MOW, SASH-none of one time a week Will you live with someone who will care for you?: No RAPT Tool Score: 7 Patient expects to be discharged to: [facility] SBIRT: FUNCTIONAL STATUS: Activities patient requires assistance: None Assistive Devices: None COMMUNITY RESOURCES/SUPPORTS: Primary Care Provider: Ranjan Denise PCP Verified: Specialists: Other (psych) Type of Home Health Services: None DME Provider: Pharmacy: [id number] - [place], [place] - [address] [address] Home Health: Other: POST HOSPITAL TRANSITION PLAN: Patient verifies demographics, PCP, and pharmacy as accurate. He has no one he wants to list as a contact. He does not have an advance directive on file and is not interested in one at this time. Patient is currently homeless and resides in the [facility] in [place]. Patient is largely uninterested in having a conversation with CM but nods to indicate that it is all one level, denies having stairs for entry. He indicates that he is independent at baseline and denies use of DME. He sees [facility] ([facility]) for psychiatric services--they send him medications directly. Patient is transferring to [facility] today via ambulance for heart cath. He is unsure how he will get home from there. Care management team at [facility] to take over care coordination and discharge planning. ARVIN YUN 04/23/2023 8:49 documented in this encounter H&P Notes * Robby Conrad PA-C - 04/22/2023 0191 EDT Medicine Admission History & Physical Exam Service Date: 04/22/2023 Admit Date: 04/22/2023 20:21 Primary Care Provider: Ranjan Denise Chief Complaint: Exertional chest pain Principle Problem: NSTEMI History of present illness: Carmelo Solano is a 47 y.o. male with homelessness, current cigarette smoking, CAD (status postPCI to RCA in 2007 and PCI to RCA in 2013), hypertension, hyperlipidemia, type 2 diabetes mellitus not on medication (HA1C 7.9% in 2013) and anxiety on benzodiazepines who has had exertional burning c hest pain that radiates down both arms for several days. In the ED, afebrile, heart rate 94, blood pressure 150/90, oxygen saturation 98% on room air. Labs notable for troponin 0.158, ALT 70 and AST 62. EKG without ischemic changes. CXR clear. The case wasdiscussed with [facility] and [facility] cardiology. He was excepted an urgent transfer to [facility] for left heart cath within 24 to 48 hours. His chest pain waxed and waned in the emergency department but he was not given any nitroglycerin. He was given aspirin 325 mg and a heparin bolus. He was started on a heparin drip. Cardiology recommended hold DAPT. He was given his home dose of clonazepam for anxiety whichhe had not taken for several days. He was admitted to the medicine floor. Patient endorses pain everywhere. At time of admission visit patient endorsed some moderate substernal discomfort with radiation to arms L>R. He also endorses some nausea and diaphoresis. He refused nitroglycerin because it had given him headaches with previous administration. He reports similar symptoms occurring with physical exertion over the last several weeks. Symptoms initially resolved quickly with rest. He has appreciated progressively worsening symptoms with lower levels of activity. He had fairly severe symptoms with significant crushing substernal chest pain yesterday. He had hoped to wait these out. Although symptoms did improve they have continued unresolved for over 24 hours prompting his visit today. he has not taken his medications for several days. Patient believes his last stent was in 2013. He has not had any anginal symptoms until the last fewweeks. He has noted some intermittent bilateral swelling in his lower extremities though this seemsto resolve when he puts his feet up. He is not having any orthopnea or paroxysmal nighttime awakening. Patient is a current smoker. He estimates he smokes 4 to 5 cigarettes a day and will vape nicotine-containing products 2-3 times per day. Patient is homeless and had been living in the [facility] until last week when he moved into the [facility]. Patient did not understand why he had to stay in the hospital overnight. He was hoping he can get an appointment at the [facility] tomorrow and have a friend dropped him off. Patient was amenable to staying after discussion of the importance of heparinization and cardiac monitoring. He notes an area of erythema in his left popliteal fossa. He is unaware of any trauma to the area. Other than generalized discomfort noted above the area was not painful or tender to palpation. Review of systems A 10 point review of systems was completed with pertinent positives and pertinent negative listed in the HPI, all other systems were negative. Medical history: homelessness, current cigarette smoking, CAD (status post PCI to RCA in 2007 and PCI to RCA in 2013), hypertension, hyperlipidemia, type 2 diabetes mellitus not on medication (HA1C 7.9% in 2014) and anxiety on benzodiazepines Surgical history: Cardiac catheterization in 2007 in 2014 Femur fracture surgery Finger trigger release surgery Social history: Patient is homeless, currently living at [facility], smokes equivalent of half pack per day, see HPI for further details. Family history: Patient was unaware of history of heart disease in first-degree relatives Current Facility-Administered Medications Medication Route Frequency ??? heparin in D5W 25,000 unit/250 mL(100 unit/mL) infusion intravenous CONTINUOUS ??? heparin injection 4,850 Units intravenous PRN Or ??? heparin injection 2,400 Units intravenous PRN Current Outpatient Medications Medication ??? aspirin 81 mg EC tablet ??? atorvastatin (LIPITOR) 80 mg tablet ??? metoprolol XL (TOPROL-XL) 100 mg tablet ??? nitroGLYCERIN (NITROSTAT) 0.4 mg SL tablet No Known Allergies Vitals Temp: --, Heart Rate: [94 BPM] , Pulse: [94] , Resp: [17] , BP: (150)/(90) , SpO2: [98 %] , Numeric Pain Level (Scale 1-10): 5 Body mass index is 27.4 kg/m??. Physical Exam General: Lying in bed, no acute distress Cardiac: Regular rate and rhythm, peripheral pulses symmetrical, no lower extremity edema appreciated Respiratory: Able speak in full sentences, no dyspnea or accessory muscle use appreciated, lungs CTA Abdominal: Normal bowel sounds in all 4 quadrants, nondistended, nontender Skin: Warm and dry. Violaceous area noted in left popliteal fossa. This was not hot and nontender to touch. Extremities: No cyanosis or edema, normal ROM Neuro: No grossly evident neurological deficits Psychiatric: Patient able to respond to questions appropriately, alert and oriented. Labs I have personally reviewed Recent Labs 04/22/232124 WBC 11.73* RBC 5.48 HGB 15.6 HCT 46.1 MCV 84 MCH 28.5 MCHC 33.8 PLT 351 NEUTROABS 6.08 Recent Labs 04/22/232124 NA 136 K 4.3 CL 97 CO2 27 BUN 21 CREATININE 1.01 CALCIUM 9.8 LABALBU 4.7 Recent Labs 04/22/232124 TROPONINI 0.158* Recent Labs 04/22/232124 TBIL 0.6 ALKPHOS 110 AST 62* ALT 70* Imaging: I have independently visualized images XR CHEST PORTABLE 1 VIEW Result Date: 04/22/2023 No acute cardiopulmonary disease process appreciated. Microbiology: None ASSESSMENT and PLAN Carmelo Solano is a 47 y.o. male with homelessness, current cigarette smoking, CAD (status postPCI to RCA in 2007 and PCI to RCA in 2013), hypertension, hyperlipidemia, type 2 diabetes mellitus not on medication (HA1C 7.9% in 2013) and anxiety on benzodiazepines He presents to [facility] with NSTEMI. NSTEMI/CAD/HLD: Minimally symptomatic. Had intermittent chest pain in the emergency department but has never required medications; refused nitroglycerin. Known coronary artery disease with stents to the RCA in 2079 in 2013. --Status post aspirin 325 mg, hep bolus and drip started per ACS protocol --Monitor on telemetry --Supplemental oxygen to maintain oxygen saturation greater than 92% if needed --Goal SBP less than 140 mmHg and heart rate less than 70 bpm --Repeat EKG if chest pain recurs --Trend troponins every 6 hours until peak --Aspirin 81 mg daily --Home atorvastatin 80mg HS --Hold clopidogrel/ticagrelor, consistent with the mold shifter recommendation --Heparin drip per ACS protocol --Nitroglycerin sublingual 0.4 mg every 5 minutes as needed for chest pain may repeat up to 3 times --Follow-up lipid profile and hemoglobin A1c --Treatment and counseling to reduce risk factors --Echocardiogram ordered --Excepted an urgent transfer to [facility] for left heart cath --N.p.o. at midnight except for meds for potential left heart cath HTN --Hold home metoprolol 100mg XL DMII --f/u HA1C --Daily serum glucose for now, 101 on admission Opioid use disorder -Patient did not mention history of buprenorphine nor did appear on his medication list however when querying VPMS he appears to have an active prescription, regularly filled for daily Suboxone 2 films per day. This was ordered. Confirm with patient tomorrow. Anxiety --Clonazepam 2 mg twice daily regularly dispensed confirmed on VPMS Elevated AST/ALT. 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 Check A1c as above. Consider viral hepatitis screening. Current cigarette smoking --Nicotine patch --Nicotine inhaler and gum as needed --Smoking cessation counseling A medicine reconciliation was NOT completed by the medicine reconciliation team, he has not taken his home m Diet: N.p.o. at midnight VTE Prophylaxis: Heparin drip Discharge Plan: Transfer to [facility] in 24 to 48 hours Consults: [facility] and [facility] cardiology Admission Status: Inpatient due to need for IV heparin and emergent transfer for catheterization inthe morning Reynold Oh PA-C 04/22/2023 23:06 documented in this encounter ED Notes * Kalani Palumbo, RN - 04/23/2023 0007 EDT Pt OOB to BR, ambulatory w/ steady gait. No assistance required. Safely able to manage IV pole to and from BR. * Yesenia Back RN - 04/22/20232200 EDT Yesenia Hawkins RN, notified Grupo Conway DO on 04/22/2023 at 22:01 of the following critical value: Troponin 0.158 * Amy Cobos RN - 04/22/20232129 EDT Please see provider assessment for details. Patient complaining of central and left sided chest pain radiating down into hands and pain is worse with inspiration * Grupo Conway DO - 04/22/20232056 EDT Emergency Department Visit Medical Decision Making 47-year-old male with known coronary artery disease presenting with 2-day history of chest pain. Suspect NSTEMI. See HPI Vital signs stable. Afebrile. Normal pulse ox Exam reassuring Lab profile notable for elevated troponin of 0.158, otherwise CBC and CMP unremarkable EKG showing sinus rhythm without ischemic ST-T changes Case discussed with Dr. El on-call for cardiology was excepted as transfer to [facility], advised starting heparin and aspirin, holding other antiplatelet therapy for now. Resting comfortably at time of reevaluation, reporting anxiety and requesting a dose of Klonopin which she usually takes daily Transfer center as called back, patient is on urgent transfer list in 24 to 48 hours. Will be admitted to [facility]. Relevant Data as of 04/22/232216Apr 22, 20232143 Chest x-ray: No acute disease [AF] 2155 WBC(!): 11.73 [AF] 2155 Hemoglobin: 15.6 [AF] 2155 HCT: 46.1 [AF] 2155 PLT: 351 [AF] 2155 BUN: 21 [AF] 2155 Creatinine: 1.01 [AF] 2155 Sodium: 136 [AF] 2155 Potassium: 4.3 [AF] 2156 Glucose, Serum(!): 101 [AF] 2200 Troponin I (ng/mL)(!!): 0.158 [AF] 2202 EKG: Sinus rhythm rate of 84. Normal axis. Normal WA, QRS, QT interval. No ischemic ST-T changes. [AF] Relevant Data User Index [AF] Grupo Conway DO Laboratory data was reviewed. [facility] Final diagnoses: None Disposition: No disposition on file Chief complaint: Chest pain HPI Carmelo Solano is a 47 y.o. male with history of coronary disease, [place], 3 stents who presents [facility] ED for chest pain. Onset 2 days ago. He describes a burning sensation in his upper chest radiating down both of his arms. No associated nausea, diaphoresis, dyspnea. Symptoms are unlike what he experienced with his [place] years ago. No cough, fevers, chills. He is not currently taking his beta-linus, statin or aspirin, is homeless, recently did displaced from his housing. History was provided by: Patient Patient's pertinent PMH, FH, SH were reviewed and edited as necessary. Nursing notes reviewed. A medical screening exam was performed. Physical Exam BP (!) 150/90 Pulse 94 Resp 17 Wt 77 kg (169 lb 12.1 oz) SpO2 98% BMI 27.40 kg/m?? Physical Exam Vitals and nursing note reviewed. Constitutional: General: He is not in acute distress. Appearance: Normal appearance. HENT: Head: Normocephalic and atraumatic. Right Ear: External ear normal. Left Ear: External ear normal. Nose: Nose normal. Mouth/Throat: Mouth: Mucous membranes [...] Normal range of motion and neck supple. Comments: Area of intertriginous олег behind his left knee Skin: General: Skin is warm and dry. Neurological: General: No focal deficit present. Mental Status: He is alert and oriented to person, place, and time. Psychiatric: Mood and Affect: Mood normal. Behavior: Behavior normal. Procedures Procedures documented in this encounter Miscellaneous Notes * Plan of Care - Yesenia Adhikari RN - 04/23/2023 1537 EDT Problem: High Fall Risk: Goal: Patient will Remain Free of Falls due to Med. Side Effects Outcome: Ongoing Problem: High Fall Risk: Goal: Patient Will Remain Free from Fall-Related Injury Outcome: Ongoing Problem: Pain: Goal: Pain level will decrease Outcome: Ongoing Problem: Cardiac: Goal: Ability to maintain clinical measurements within defined limits will improve Outcome: Ongoing Goal: Risk of venous thrombosis will decrease Outcome: Ongoing Problem: Daily Care Plan Goals Goal: Care Plan Documentation Outcome: Ongoing * Plan of Care - Patricia Hernandez RN - 04/23/2023 0626 EDT 47 years old male admitted for NSTEMI. Oriented X 4. Able to make wishes known. Four eyes skin assessment performed with SARAH Wiggins. Generalized tattoos present, bilateral groin redness, and left lower extremity posterior to left knee redness and mild swelling. Patient denies itching in the area at this time. NSR on tele monitor. Heparin drip infusing at 15 unit/kg/hour (10.5 ml/H). Order placed for next [facility] level at 0430 since infusion start time was 2234. Patient asked for food and water. Educated on NPO status for cardiac cath in AM at [facility] then patient requested to leave the hospital AMA. Program Engagement Director explained to patient that Heparin drip therapy is imperative at this time before procedure to come. Provider visited patient at bedside and reinforced teaching. Patient decided to be compliant. Continent of bowel and bladder. Urinal at bedside. Able to ambulated independently. Call light and belongings at reach. Bed to lowest position. 0330: C/O chest pain radiating on left shoulder and bilateral upper extremities. Refused Nitro It's gonna give me headache, I don't want it! Provider made aware. Refused Morphine and repeat EKG ordered by provider. No! I don't want to do anything. I'll be fine stated patient. Provider aware. 0500: Unrelieved chest pain. Patient agrees to take IV morphine. 0511: UFH 0.48 IU/ml - Within therapeutic level. No action taken. Next UFH level for next morning. 0530: Dr Kirk at bedside. Patient agreed to have EKG done. 0545: Critical Troponin level 0.117 Provider aware. 0553: Additional dose of Morphine given per provider. Problem: Cardiac: Goal: Risk of venous thrombosis will decrease Outcome: Ongoing Problem: Cardiac: Goal: Ability to maintain clinical measurements within defined limits will improve Outcome: Ongoing Problem: Pain: Goal: Pain level will decrease Outcome: Ongoing Problem: High Fall Risk: Goal: Patient Will Remain Free from Fall-Related Injury Outcome: Ongoing documented in this encounter Plan of Treatment Scheduled Orders Name Type Priority Associated Diagnoses Orde r Schedule EKG 12-LEAD ECG STAT One Time for 1 Occurrences starting 04/25/2023 until 04/25/2023 documented as of this encounter Procedures Procedure Name Priority Date/Time Associated Diagnosis Comments ECG REPORT - SCANNED 04/28/2023 13:16 EDT ECG REPORT - SCANNED 04/24/2023 12:11 EDT TRANSTHORACIC ECHO (TTE) COMPLETE Routine 04/23/2023 8:03 EDT EKG 12-LEAD STAT 04/23/2023 5:43 EDT HEPARIN LEVEL - UNFRACTIONATED HEPARIN STAT 04/23/2023 4:55 EDT COMPLETE BLOOD COUNT Routine 04/23/2023 4:55 EDT TROPONIN FOLLOW-UP Routine 04/23/2023 4: 54 EDT BASIC METABOLIC PANEL (BMP) Routine 04/23/2023 4:54 EDT DRY POWDERED OR METERED DOSE INHALER Routine 04/23/2023 0:36 EDT TROPONIN I STAT 04/22/2023 21:25 EDT COMPLETE BLOOD COUNT AND DIFFERENTIAL STAT 04/22/2023 21:25 EDT HEMOGLOBIN A1C Add-On 04/22/2023 21:25 EDT LIPID PROFILE (INCLUDES CHOLESTEROL, TRIGLYCERIDES, HDL, LDL) Add-On 04/22/2023 21:25 EDT COMPREHENSIVE METABOLIC PANEL (CMP) STAT 04/22/2023 21:25 EDT XR CHEST PORTABLE 1 VIEW STAT 04/22/2023 21:14 EDT documented in this encounter Results * ECG REPORT - SCANNED (04/28/2023 13:16 EDT) 04/28/2023 13:1 6 EDT Scan 2 Developer [employer] PROCEDURE/MINOR FELIX GICAL ORDERABLES * ECG REPORT - SCANNED (04/24/2023 12:11 EDT) 04/24/2023 12:1 1 EDT Scan 2 Developer [employer] PROCEDURE/MINOR FELIX GICAL ORDERABLES * TRANSTHORACIC ECHO (TTE) COMPLETE W/DOPPLER W/CF NO CONTRAST (04/23/2023 8:03 EDT) LA Atrial Length A2C 4.5 cm [facility] LA Atrial Area A4C 14.9 cm2 [facility] LA ID/bsa, A-P 1.6 cm/m2 [facility] Mitral valve area, PHT, DP 3.1 cm2 [facility] LV ID, ED, PLAX 4.5 3.5 - 6.0 cm [facility] LVIDD BY MMODE 4.5 cm [facility] LV ID, ES, PLAX 2.8 2.1 - 4.0 cm [facility] LA ID, A-P, ES 3.0 cm [facility] LV PW thickness, ED, PLAX 1.0 0.6 - 1.1 cm [facility] Aortic root ID 3.0 cm [facility] RA Atrial Length A4C 4.4 cm [facility] Aortic valve mean velocity, S 0.9 m/s [facility] RA Atrial Area A4C 12.2 cm2 [facility] LV ejection fraction, 1-p A4C 63 % [facility] LVOT mean gradient, S 2 mmHg [facility] Aortic valve area, peak velocity 2.7 cm2 [facility] RA Atrial Volume A4C 27.0 ml [facility] RA ESV Index A4C 15.0 ml/m2 [facility] Aortic mean gradient, S 4 mmHg [facility] AV LVOT peak gradient 5 mmHg [facility] PV peak gradient 4 mmHg [facility] LV e', lateral 0.12 m/s [facility] Mitral deceleration time 244 ms [facility] LVOT area 3.1 cm2 [facility] LVOT peak velocity, S 1.1 m/s [facility] LVOT VTI, S 21.3 cm [facility] Aortic valve peak velocity, S 1.3 m/s [facility] Aortic valve VTI, S 26.7 cm [facility] Stroke volume (SV), LVOT DP 67 ml [facility] Aortic peak gradient, S 7 mmHg [facility] LVOT mean velocity, S 0.7 m/s [facility] Mitral E-wave peak velocity 0.7 m/s [facility] TR Max Anthony 1.67 m/s [facility] Mitral pressure half-time 72 ms [facility] Mitral A-wave peak velocity 0.8 m/s [facility] LV Systolic Volume Index 12.0 mL/m2 [facility] LV Diastolic Volume Index 32.0 mL/m2 [facility] AV DOI 0.85 [facility] LA Atrial Length A4C 5.4 cm [facility] LVOT ID, S 2.0 cm [facility] Mitral deceleration slope 287 cm/s2 [facility] EF 63 % [facility] LA volume, ES, BP 32.0 ml [facility] LA volume/bsa, ES, A4C 17.0 ml/m2 [facility] LA volumes, ES, A4C 33.0 ml [facility] LA volume/bsa, ES, BP 17.0 ml/m2 [facility] LV Systolic Volume 23 mL [facility] LV Diastolic Volume 60 mL [facility] Stroke index (SV/bsa) LVOT DP 36.0 ml/m2 [facility] Aortic valve area VTI 2.5 cm2 [facility] Interventricular Septum to Posterior Wall Thickness Ratio 1 [facility] IVS thickness, ED, PLAX 1.0 cm [facility] LV e', medial 0.07 m/s [facility] AV dimensionless index (DI) 1.3 [facility] LV e', average 0.10 m/s [facility] Velocity ratio, mean, LVOT/AV 0.76 [facility] Aortic valve area 2.4 cm2 [facility] AVAI Pk Anthony 1.3 cm2/m2 [facility] Pulmonic valve mean velocity, S 1 cm/s [facility] Ascending aorta ID, a-p 2.9 cm [facility] LA Atrial Area A2C 14.9 cm2 [facility] LA/aortic root ratio 1 [facility] LV end diastolic volume 1-p A2C 57 ml [facility] LV ejection fraction, 1-p A2C 66 % [facility] LV E/e', lateral 6.0 [facility] LV E/e', medial 9.8 [facility] LV E/e', average 8 [facility] LV end-diastolic volume, 1-p A4C 63 ml [facility] Mitral E/A ratio, peak 0.90 [facility] Anatomical Region Laterality Modality Ultrasound Narrative 04/23/2023 16:25 EDT ?Left??Ventricle: Left ventricular systolic function was normal with an ejection fraction of 60-65%. The left ventricular estimated ejection fraction by biplane Mulligan's method was 63%. Left ventricular diastolic parameters were normal. Left ventricular wall thickness was normal. ?Right??Ventricle: The right ventricular cavity was normal in size. Right ventricular systolic function was normal. Left Ventricle The left ventricular cavity was normal in size. Left ventricular systolic function was normal with an ejection fraction of 60-65%. The left ventricular estimated ejection fraction by biplane Mulligan's method was 63%. Left ventricular diastolic parameters were normal. Left ventricular wall thickness was normal. Left ventricular wall motion was normal; there were no regional wall motion abnormalities. Right Ventricle The right ventricular cavity was normal in size. Right ventricular systolic function was normal. Right ventricular wall thickness was normal. Left Atrium The left atrium was normal in size. Right Atrium The right atrium was normal in size. IVC/SVC The inferior vena cava was not well visualized. Mitral Valve Mitral valve structure was normal. There was no significant mitral valve stenosis or regurgitation. Tricuspid Valve The tricuspid valve was not well visualized. There was trace tricuspid valve regurgitation. There was no tricuspid valve stenosis. Aortic Valve The aortic valve structure was trileaflet. The aortic leaflets were not thickened. There was no aortic valve stenosis. There was trace aortic valve regurgitation. AV Peak Velocity: 1.3 m/s. AV Mean Gradient: 4 mmHg. AV Area VTI: 2.5 cm2. Pulmonic Valve The pulmonic valve was not well visualized. There was trace pulmonic valve regurgitation. There was no pulmonic valve stenosis. Ascending Aorta The aortic root was normal in size. The ascending aorta was normal in size. Pericardium There was no pericardial effusion. Pulmonic Artery Unable to assess PA pressure. Study Details Study status: Routine. Transthoracic echocardiography. M-Mode, complete 2D, complete spectral Doppler, and color Doppler.Scanning was performed from the apical, parasternal, subcostal and suprasternal acoustic windows. Overall the study quality was adequate. Images were obtained using cardiac ultrasound machine [id number]. Xiao Kirk MD CARDIAC ECH O ORDERABLES * EKG 12-LEAD (04/23/2023 5:43 EDT) 04/23/2023 5:43 EDT [facility] - 04/25/2023 21:54 EDT ? [facility] ? Test Date: ?2023-04-23 Pat Name: ? CARMELO SOLANO ? Department: ? Room: ? 239 Gender: ? Male ? 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 THEODORA : ?1975 ? Requested By: KRISTY KIM Order Number: [id number] ? Toby MARIA: ?? HERNAN EL MD ? Measurements Intervals ?[place] ? Rate: ? 65 ? P: ?29 WA: ? 138 ?QRS: ?57 QRSD: ? 96 ? T: ?3 QT: ? 444 ? QTc: ?461 ? Interpretive Statements Normal sinus rhythm Compared to ECG 04/22/2023 20:34:45 No significant changes I reviewed the tracing and have either agreed or edited the findings in this report. Electronically Signed On 04-25-2023 21:54:14 EDT by HENRAN EL MD. 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 Electronically Signed On 04-25-2023 21:54:14 EDT by HERNAN EDOUARD. Xiao Kirk MD CARDIAC ECG ORDERABLES Performing Organization Address City/[facility]/ZIP Co de Phone Number [facility] * HEPARIN LEVEL - UNFRACTIONATED HEPARIN (04/23/2023 4:55 EDT) [facility] Heparin Level-UFH 0.48 Therapeutic Range: 0.30 - 0.70 IU/mL 04/23/2023 5:11 EDT [facility] Comment:Unfractionated hepar in therapeutic range = 0.3-0.7 [...] VENOUS BLOOD / Unknown Venipuncture / Unknown 04/23/2023 4:55 EDT 04/23/2023 5:04 EDT Xiao Kirk MD HEMATOLOGY & PF4 ORDERABLES [facility] [address] [place] [address] * (ABNORMAL) COMPLETE BLOOD COUNT (04/23/2023 4:55 EDT) [facility] WBC 8.59 4.00 - 10.40 K/cmm 04/23/2023 5:06 EDT [facility] RBC 4.78 4.36 - 5.78 M/cmm 04/23/2023 5:06 [facility] Hemoglobin 13.2(L) 13.8 - 17.3 g/dL 04/23/2023 5:06 [facility] HCT 40.1 39.5 - 50.2 % 04/23/2023 5:06 [facility] MCV 84 81 - 95 fL 04/23/2023 5:06 [facility] MCH 27.6 27.6 - 33.0 pg 04/23/2023 5:06 [facility] MCHC 32.9 32.8 - 36.4 g/dL 04/23/2023 5:06 T [facility] RDW-CV 13.4 <14.2 % 04/23/2023 5:06 [facility] RDW-SD 41.6 <46.0 fl 04/23/2023 5:06 [facility] PLT 268 141 - 377 K/cmm 04/23/2023 5:06 [facility] MPV 10.4 9.5 - 12.7 fL 04/23/2023 5:06 [facility] Blood VENOUS BLOOD / Unknown Venipuncture / Unknown 04/23/2023 4:55 EDT 04/23/2023 5:04 EDT Xiao Kirk MD HEMATOLOGY & PF4 ORDERABLES Performing Organization Address City/State/[facility] Co de Phone Number [facility] [address] [place] [address] * (ABNORMAL) BASIC METABOLIC PANEL (BMP) (04/23/2023 4:54 EDT) Sodium 138 136 - 145 mmol/L 04/23/2023 5:20 [facility] Potassium 3.5 3.5 - 5.0 mmol/L 04/23/2023 5:20 [facility] Chloride 100 96 - 110 mmol/L 04/23/2023 5:20 [facility] CO2 Total 28 22 - 32 mmol/L 04/23/2023 5:20 [facility] Anion Gap 10 5 - 14 mmol/L 04/23/2023 5:20 [facility] Glucose 119(H) 70 - 100 mg/dl 04/23/2023 5:20 [facility] Calcium 8.7 8.5 - 10.5 mg/dL 04/23/2023 5:20 [facility] BUN 18 10 - 26 mg/dL 04/23/2023 5:20 [facility] Creatinine 0.63(L) 0.66 - 1.25 mg/dL 04/23/2023 5:20 EDT [facility] eGFR 117 >60 mL/min/1.73 m2 04/23/2023 5:20 EDT [facility] Blood VENOUS BLOOD / Unknown Venipuncture / Unknown 04/23/2023 4:54 EDT 04/23/2023 5:04 EDT Xiao Kikr MD CHEMISTRY & BLOOD GAS ORDERABLES Performing Organization Address [facility] Co de Phone Number [facility] [address] [place] [address] * (ABNORMAL) TROPONIN FOLLOW-UP (04/23/2023 4:54 EDT) Troponin I (ng/mL) 0.117(HH) <0.034 ng/mL 04/23/2023 5:35 EDT [facility] Blood VENOUS BLOOD / Unknown Venipuncture / Unknown 04/23/2023 4:54 EDT 04/23/2023 5:04 EDT Xiao Kirk MD CHEMISTRY & BLOOD GAS ORDERABLES Performing Organization Address [facility] Phone Number [facility] [address] [place] [address] * (ABNORMAL) HEMOGLOBIN A1C (04/22/2023 21:25 EDT) Hemoglobin A1c 9.0(H) <5.7 % 04/23/2023 14:44 EDT [facility] Comment: Glycemic Status References: Normal: ??<5.7% Pre-Diabetes: ??5.7% - 6.4% Diagnostic of Diabetes: ??> or = 6.5% (if confirmed) Est Avg Glucose 212 mg/dL 14:44 EDT [facility] Comment:The eAG represents t he A1c result expressed as average glucose in mg/dL. Blood VENOUS BLOOD / Unknown Venipuncture / Unknown 04/22/2023 21:25 EDT 04/22/2023 21:28 EDT Xiao Kirk MD CHEMISTRY & BLOOD GAS ORDERABLES [facility] [address] [place] [address] * (ABNORMAL) LIPID PROFILE (INCLUDES CHOLESTEROL, TRIGLYCERIDES, HDL, LDL) (04/22/2023 21:25 EDT) Cholesterol 230(H) <200 mg/dL 04/22/2023 23:56 EDT [facility] Comment:Note that therapeuti c goals will differ between patients based on cardiac risk factors and current medical therapy. HDL 36(L) >=40 mg/dL 04/22/2023 23:56 [facility] Comment:Note that therapeuti c goals will differ between patients based on cardiac risk factors and current medical therapy. LDL, Calculated 162(H) <160 mg/dL 23:56 [facility] Comment:Note that therapeuti c goals will differ between patients based on cardiac risk factors and current medical therapy. Triglyceride 162(H) <=150 mg/dL 04/22/2023 23:56 [facility] Comment:Note that therapeuti c goals will differ between patients based on cardiac risk factors and current medical therapy. Chol/HDL Ratio 6.4 See Note 04/22/2023 23:56 [facility] Comment: NOTE: Desirable Ratio = <4.1 Patient At Risk Ratio = >5.0(Males) ?>6.0(Females) Non HDL Cholesterol 194(H) <160 mg/dL 04/22/2023 23:56 [facility] Comment:Note that therapeuti c goals will differ between patients based on cardiac risk factors and current medical therapy. Blood VENOUS BLOOD / Unknown Venipuncture / Unknown 04/22/2023 21:25 EDT 04/22/2023 21:28 EDT Xiao Kirk MD CHEMISTRY & BLOOD GAS ORDERABLES Performing Organization Address [facility]/ZIP Co de Phone Number [facility] [address] [place] [address] * (ABNORMAL) TROPONIN I (04/22/2023 21:25 EDT) [facility] Troponin I (ng/mL) 0.158(HH) <0.034 ng/mL 04/22/2023 22:00 EDT [facility] Blood VENOUS BLOOD / Unknown Venipuncture / Unknown 04/22/2023 21:25 EDT 04/22/2023 21:28 EDT Narrative [facility] - 04/22/2023 22:00 EDT The results of this assay can be falsely lowered due to the consumption of Biotin. Grupo Conway DO CHEMISTRY & BLOOD GA S ORDERABLES Performing Organization Address [facility] Co de Phone Number [facility] [address] [place] [address] * (ABNORMAL) COMPREHENSIVE METABOLIC PANEL (CMP) (04/22/2023 21:25 EDT) [facility] Sodium 136 136 - 145 mmol/L 04/22/2023 21:54 [facility] Potassium 4.3 3.5 - 5.0 mmol/L 04/22/2023 21:54 [facility] Comment:Slight hemolysis kaz ntified, interpret with caution as hemolysis will elevate potassium result. Chloride 97 96 - 110 mmol/L 04/22/2023 21:54 T [facility] CO2 Total 27 22 - 32 mmol/L 04/22/2023 21:54 [facility] Glucose 101(H) 70 - 100 mg/dl 04/22/2023 21:54 [facility] BUN 21 10 - 26 mg/dL 04/22/2023 21:54 [facility] Comment: Slight hemolysis identified, interpret with caution as results may be affected due to hemolysis. Creatinine 1.01 0.66 - 1.25 mg/dL 04/22/2023 21:54 EDT [facility] eGFR 91 >60 mL/min/1.7 3m2 04/22/2023 21:54 [facility] Total Protein 8.7(H) 6.3 - 8.2 g/dL 04/22/2023 21:54 [facility] Comment:Slight hemolysis akz ntified, interpret with caution as results may be affected due to hemolysis. Albumin 4.7 3.4 - 4.9 g/dL 04/22/2023 21:54 T [facility] Comment:Slight hemolysis kaz ntified, interpret with caution as results may be affected due to hemolysis. Alkaline Phosphatase 110 38 - 126 U/L 04/22/2023 21:54 [facility] Comment:Slight hemolysis kaz ntified, hemolysis will decrease ALKP result. Interpret with caution as results may be affected due to hemolysis. AST 62(H) 15 - 46 U/L 04/22/2023 21:54 [facility] Comment:Slight hemolysis kaz ntified, interpret with caution as results may be affected due to hemolysis. ALT 70(H) <50 U/L 04/22/2023 21:54 [facility] Bilirubin, Total 0.6 <1.4 mg/dL 04/22/20 21:54 [facility] Calcium 9.8 8.5 - 10.5 mg/dL 04/22/2023 21:54 [facility] Albumin/Globulin Ratio 1.2 1.0 - 2.5 04/22/2023 21:54 [facility] Anion Gap 12 5 - 14 mmol/L 04/22/2023 21:54 [facility] Blood VENOUS BLOOD / Unknown Venipuncture / Unknown 04/22/2023 21:25 EDT 04/22/2023 21:28 EDT Grupo Conway DO CHEMISTRY & BLOOD GA S ORDERABLES [facility] [address] [place] [address] * (ABNORMAL) COMPLETE BLOOD COUNT AND DIFFERENTIAL (04/22/2023 21:25 EDT) WBC 11.73(H) 4.00 - 10.40 K/cmm 04/22/2023 21:30 [facility] RBC 5.48 4.36 - 5.78 M/cmm 04/22/2023 21:30 [facility] Hemoglobin 15.6 13.8 - 17.3 g/dL 04/22/2023 21:30 [facility] HCT 46.1 39.5 - 50.2 % 04/22/2023 21:30 [facility] MCV 84 81 - 95 fL 04/22/2023 21:30 [facility] MCH 28.5 27.6 - 33.0 pg 04/22/2023 21:30 [facility] MCHC 33.8 32.8 - 36.4 g/dL 04/22/2023 21:30 [facility] RDW-CV 13.3 <14.2 % 04/22/2023 21:30 [facility] RDW-SD 41.5 <46.0 fl 04/22/2023 21:30 [facility] PLT 351 141 - 377 K/cmm 04/22/2023 21:30 [facility] MPV 11.0 9.5 - 12.7 fL 04/22/2023 21:30 [facility] % Neutrophils 51.7 % 04/22/2023 21:30 [facility] % Lymphocytes 35.0 % 04/22/2023 21:30 [facility] % Monocytes 10.1 % 04/22/2023 21:30 [facility] % Eosinophils 2.0 % 04/22/2023 21:30 [facility] % Basophils 0.9 % 04/22/2023 21:30 [facility] % Immature Grans 0.3 % 04/22/20 21:30 [facility] Absolute Neutrophils 6.08 2.20 - 8.85 K/cmm 04/22/2023 21:30 EDT [facility] Absolute Lymphocytes 4.10(H) 1.09 - 3.30 K/cmm 04/22/2023 21:30 EDT [facility] Absolute Monocytes 1.18(H) 0.10 - 0.80 K/cmm 04/22/2023 21:30 EDT [facility] Absolute Eosinophils 0.24 0.03 - 0.61 K/cmm 04/22/2023 21:30 EDT [facility] ABS Basophils 0.10 0.01 - 0.11 K/cmm 04/22/2023 21:30 [facility] Absolute Immature Grans 0.03 0.00 - 0.06 K/cmm 04/22/2023 21:30 EDT [facility] Type of Differential: Auto 04/22/2023 21:30 T [facility] Blood VENOUS BLOOD / Unknown Venipuncture / Unknown 04/22/2023 21:25 EDT 04/22/2023 21:28 EDT Grupo Conway DO PACKAGES & DNA PROBE ORDERABLES Performing Organization Address City/State/[facility] Co de Phone Number [facility] [address] [place] [address] * XR CHEST PORTABLE 1 VIEW (04/22/2023 21:14 EDT) Anatomical Region Laterality Modality Computed Radiogr aphy 04/22/2023 21:0 8 EDT Impressions 04/22/2023 21:40 EDT No acute cardiopulmonary disease process appreciated. THIS DOCUMENT HAS BEEN ELECTRONICALLY SIGNED BY ROXANN GAMA MD FOR ANY QUESTIONS OR CONCERNS REGARDING THIS REPORT PLEASE CALL [facility] AT [phone] Narrative 04/22/2023 21:40 EDT PROCEDURE INFORMATION: Exam: XR Chest Exam date and time: 04/22/2023 9:08 PM Age: 47 years old Clinical indication: Chest wall pain; Additional info: Chest pain TECHNIQUE: Imaging protocol: Radiologic exam of the chest. Views: 1 view. COMPARISON: CR XR CHEST PORTABLE 1 VIEW 10/30/2021 3:48 PM FINDINGS: Lungs: The lungs are symmetric, well expanded and clear. Pleural spaces: There are no pleural effusions. There is no pneumothorax. Heart/Mediastinum: The heart size is normal as are the mediastinal and hilar contours. The pulmonary vessels are normal. Bones/joints: No acute osseous pathology is identified. Procedure Note Roxann Gama MD - 04/22/2023 PROCEDURE INFORMATION: Exam: XR Chest Exam date and time: 04/22/2023 9:08 PM Age: 47 years old Clinical indication: Chest wall pain; Additional info: Chest pain TECHNIQUE: Imaging protocol: Radiologic exam of the chest. Views: 1 view. COMPARISON: CR XR CHEST PORTABLE 1 VIEW 10/30/2021 3:48 PM FINDINGS: Lungs: The lungs are symmetric, well expanded and clear. Pleural spaces: There are no pleural effusions. There is no pneumothorax. Heart/Mediastinum: The heart size is normal as are the mediastinal and hilar contours. The pulmonary vessels are normal. Bones/joints: No acute osseous pathology is identified. IMPRESSION No acute cardiopulmonary disease process appreciated. THIS DOCUMENT HAS BEEN ELECTRONICALLY SIGNED BY ROXANN GAMA MD FOR ANY QUESTIONS OR CONCERNS REGARDING THIS REPORT PLEASE CALL [facility] [phone] Grupo Conway DO [facility] DIAGNOSTIC IMAGI NG ORDERABLES documented in this encounter Visit Diagnoses Diagnosis NSTEMI (non-ST elevated myocardial infarction) ([facility])- Primary Acute myocardial infarction, subendocardial infarction, episode [...] mg, oral, NOW X1, 1 dose, On Fri04/22/23 at 2230, STAT Given 04/22/2023 22:18 EDT 324 mg aspirin EC tablet 81 mg 81 mg, oral, DAILY, First dose on Fri04/23/23 at 0900, Until Discontinued, Routine Given 04/23/2023 8:25 EDT 81 mg buprenorphine-naloxone (SUBOXONE) 8-2 mg sublingual film 2 Film 2 Film, sublingual, DAILY, First dose on Fri04/23/23 at 0900, Until Discontinued, Routine Given 04/23/2023 8:25 EDT 2 Film clonazePAM (KLONOPIN) tablet 2 mg 2 mg, oral, Once (Time Specified), 1 dose, On Fri04/22/23 at 2245, Routine Given 04/22/2023 22:34 EDT 2 mg clonazePAM (KLONOPIN) tablet 2 mg 2 mg, oral, 2 TIMES DAILY, First dose on Fri04/23/23 at 0900, Until Discontinued, Routine Given 04/23/2023 8:25 EDT 2 mg gabapentin (NEURONTIN) capsule 800 mg 800 mg, oral, 3 TIMES DAILY, First dose on Fri04/23/23 at 1400, Until Discontinued, Routine Given 04/23/2023 13:40 EDT 800 mg heparin in D5W 25,000 unit/250 mL(100 unit/mL) infusion 15 Units/kg/hr ? 69.1 kg Adjusted weight (10.365 mL/hr, rounded to 10.5 mL/hr), intravenous, CONTINUOUS, Starting on Fri04/22/23 at 2245, Until Fri04/23/23 at 1747, STAT New Bag 04/22/2023 22:35 EDT 15 Units/kg/hr 10.5 mL/hr heparin injection 2,400 Units 2,400 Units (rounded from 2,418.5 Units = 35 Units/kg ? 69.1 kg Adjusted weight), intravenous, PRN, Starting on Fri04/22/23 at 2216, Until Fri04/23/23 at 1747, Other, Per Heparin Protocol, Routine heparin injection 4,850 Units 4,850 Units (rounded from 4,837 Units = 70 Units/kg ? 69.1 kg Adjusted weight), intravenous, NOW X1, 1 dose, On Fri04/22/23 at 2245, STAT Given 04/22/2023 22:35 EDT 4,850 Units heparin injection 4,850 Units 4,850 Units (rounded from 4,837 Units = 70 Units/kg ? 69.1 kg Adjusted weight), intravenous, PRN, Starting on Fri04/22/23 at 2216, Until Fri04/23/23 at 1747, Other, Per Heparin Protocol, Routine morphine PF injection 2 mg 2 mg, intravenous, EVERY 4 HOURS PRN, Starting on Fri04/23/23 at 0326, Until Fri04/23/23 at 0539, Pain, Routine Given 04/23/2023 5:01 EDT 2 mg morphine PF injection 4 mg 4 mg, intravenous, EVERY 4 HOURS PRN, Starting on Fri04/23/23 at 0539, Until Fri04/23/23 at 1747, Pain, Routine Given 04/23/2023 13:40 EDT 4 mg Given 04/23/2023 9:37 EDT 4 mg Given 04/23/2023 5:53 EDT 4 mg nicotine (NICODERM CQ) 21 mg/24 hr patch 1 Patch 1 Patch, transdermal, EVERY 24 HOURS, First dose on Fri04/23/23 at 0900, Until Discontinued, Routine Patch Applied 04/23/2023 8:26 EDT 1 Patch Left Ar m ondansetron (PF) (ZOFRAN) injection 4 mg 4 mg, intravenous, EVERY 6 HOURS PRN, Starting on Fri04/23/23 at 0036, Until Fri04/23/23 at 1747, Nausea, Routine Given 04/23/2023 5:31 EDT 4 mg potassium chloride in water infusion 20 mEq 20 mEq, intravenous, at 50 mL/hr, EVERY 2 HOURS, 2 doses, First dose on Fri04/23/23 at 0600, Last dose on Fri04/23/23 at 0800, Routine Given 04/23/2023 6:16 EDT 20 mEq 50 mL/hr IV documented in this encounter Active and Recently Administered Medications Times are shown in EDT. Scheduled Medication Order 04/21/2023 04/22/2023 04/23/2023 aspirin chewable tablet 324 mg (COMPLETED) 324 mg, oral, NOW X1, 1 dose, On Fri04/22/23 at 2230, STAT 2218 (Given - Provider: Amy Cobos, SARAH) aspirin EC tablet 81 mg 81 mg, oral, DAILY, First dose on Fri04/23/23 at 0900, Until Discontinued, Routine 0825 (Given - Provid er: Yesenia Adhikari RN) atorvastatin (LIPITOR) tablet 80 mg 80 mg, oral, AT BEDTIME, First dose on Fri04/23/23 at 0100, Until Discontinued, Routine 0104 (Not Given - Provider: Patricia Hernandez RN - Reason: NPO) buprenorphine-naloxone (SUBOXONE) 8-2 mg sublingual film 2 Film 2 Film, sublingual, DAILY, First dose on Fri04/23/23 at 0900, Until Discontinued, Routine 0825 (Given - Provid er: Yesenia Adhikari RN) clonazePAM (KLONOPIN) tablet 2 mg (COMPLETED) 2 mg, oral, Once (Time Specified), 1 dose, On Fri04/22/23 at 2245, Routine 2234 (Given - Provider: Amy Cobos RN) clonazePAM (KLONOPIN) tablet 2 mg 2 mg, oral, 2 TIMES DAILY, First dose on Fri04/23/23 at 0900, Until Discontinued, Routine 0825 (Given - Provid er: Yesenia Adhikari RN) gabapentin (NEURONTIN) capsule 800 mg 800 mg, oral, 3 TIMES DAILY, First dose on Fri04/23/23 at 1400, Until Discontinued, Routine 1340 (Given - Provid er: Yesenia Adhikari RN) heparin injection 4,850 Units (COMPLETED) 4,850 Units (rounded from 4,837 Units = 70 Units/kg ? 69.1 kg Adjusted weight), intravenous, NOW X1, 1 dose, On Fri04/22/23 at 2245, STAT 2235 (Given - Provider: Amy Cobos RN) nicotine (NICODERM CQ) 21 mg/24 hr patch 1 Patch 1 Patch, transdermal, EVERY 24 HOURS, First dose on Fri04/23/23 at 0900, Until Discontinued, Routine 0826 (Patch Applied - Provider: Yesenia Adhikari RN)1652 (Due: Patch Removed - Provider: Batch Job User Admin - Comment: Time automatically adjusted from order being discontinued) potassium chloride in water infusion 20 mEq (CANCELED) 20 mEq, intravenous, at 50 mL/hr, EVERY 2 HOURS, 2 doses, First dose on Fri04/23/23 at 0600, Last dose on Fri04/23/23 at 0800, Routine 0616 (Given - Provid er: Yesenia Adhikari RN - Comment: Only partial dose given. Pt complaining of burning. Changed to 10 mEq per hour with 50 ml/hr of NS and he still wasn't tolerating. Stated he did not want to take it.)0842 (Not Given - Provider: Yesenia Adhikari RN - Reason: Patient/family refused) Continuous Medication Order 04/21/2023 04/22/2023 04/23/2023 heparin in D5W 25,000 unit/250 mL(100 unit/mL) infusion 15 Units/kg/hr ? 69.1 kg Adjusted weight (10.365 mL/hr, rounded to 10.5 mL/hr), intravenous, CONTINUOUS, Starting on Fri04/22/23 at 2245, Until Fri04/23/23 at 1747, STAT 2235 (New Bag - Provider: Amy Cobos RN) PRN Medication Order 04/21/2023 04/22/2023 04/23/2023 acetaminophen (TYLENOL) tablet 975 mg 975 mg, oral, EVERY 6 HOURS PRN, Starting on Fri04/23/23 at 0036, Until Fri04/23/23 at 1747, Pain, Fever, Routine calcium carbonate (TUMS) tablet 500 mg (200 mg elemental calcium) 1 Tablet 1 Tablet, oral, EVERY 6 HOURS PRN, Starting on Fri04/23/23 at 0036, Until Fri04/23/23 at 1747, Indigestion, Routine heparin injection 2,400 Units(Linked Group 1) 2,400 Units (rounded from 2,418.5 Units = 35 Units/kg ? 69.1 kg Adjusted weight), intravenous, PRN, Starting on Fri04/22/23 at 2216, Until Fri04/23/23 at 1747, Other, Per Heparin Protocol, Routine heparin injection 4,850 Units(Linked Group 1) 4,850 Units (rounded from 4,837 Units = 70 Units/kg ? 69.1 kg Adjusted weight), intravenous, PRN, Starting on Fri04/22/23 at 2216, Until Fri04/23/23 at 1747, Other, Per Heparin Protocol, Routine lidocaine (PF) 10 mg/mL (1 %) injection 2 mg 2 mg, intradermal, PRN, 4 doses, Starting on Fri04/23/23 at 0036, Until Fri04/23/23 at 1747, peripheral intravenous catheter placement, Routine morphine PF injection 2 mg (CANCELED) 2 mg, intravenous, EVERY 4 HOURS PRN, Starting on Fri04/23/23 at 0326, Until Fri04/23/23 at 0539, Pain, Routine 0501 (Given - Provid er: Debbie Onofre RN) morphine PF injection 4 mg 4 mg, intravenous, EVERY 4 HOURS PRN, Starting on Fri04/23/23 at 0539, Until Fri04/23/23 at 1747, Pain, Routine 0553 (Given - Provid er: Patricia Hernandez RN)0937 (Given - Provider: Yesenia Adhikari, SARAH)1340 (Given - Provider: Yesenia Adhikari RN) nicotine (NICOTROL) 10 mg inhaler 1 Inhaler 1 Inhaler, inhalation, EVERY 2 HOURS PRN, Starting on Fri04/23/23 at 0036, Until Fri04/23/23 at 1747, Smoking Cessation, Routine nicotine polacrilex (NICORETTE) gum 2 mg 2 mg, oral, EVERY 2 HOURS PRN, Starting on Fri04/23/23 at 0036, Until Fri04/23/23 at 1747, Smoking Cessation, Routine nitroglycerin (NITROSTAT) SL tablet 0.4 mg 0.4 mg, sublingual, EVERY 5 MIN PRN, Starting on Fri04/23/23 at 0036, Until Fri04/23/23 at 1747, Chest Pain, Routine ondansetron (PF) (ZOFRAN) injection 4 mg 4 mg, intravenous, EVERY 6 HOURS PRN, Starting on Fri04/23/23 at 0036, Until Fri04/23/23 at 1747, Nausea, Routine 0531 (Given - Provid er: Patricia Hernandez RN) polyethylene glycol 3350 (MIRALAX) packet 17 g 17 g, oral, DAILY PRN, Starting on Fri04/23/23 at 0036, Until Fri04/23/23 at 1747, Constipation, Routine ramelteon (ROZEREM) tablet 8 mg 8 mg, oral, AT BEDTIME PRN, Starting on Fri04/23/23 at 0036, Until Fri04/23/23 at 1747, Sleep, Routine senna (SENOKOT) tablet 2 Tablet 2 Tablet, oral, AT BEDTIME PRN, Starting on Fri04/23/23 at 0036, Until Fri04/23/23 at 1747, Constipation, Routine Linked Groups Order Group 1: heparin injection 4,850 UnitsJump to med 4,850 Units (rounded from 4,837 Units = 70 Units/kg ? 69.1 kg Adjusted weight), intravenous, PRN, Starting on Fri04/22/23 at 2216, Until Fri04/23/23 at 1747, Other, Per Heparin Protocol, Routine Or heparin injection 2,400 UnitsJump to med 2,400 Units (rounded from 2,418.5 Units = 35 Units/kg ? 69.1 kg Adjusted weight), intravenous, PRN, Starting on Fri04/22/23 at 2216, Until Fri04/23/23 at 1747, Other, Per Heparin Protocol, Routine documented in this encounter Orders Medications Ordered That Lester ht Not Have Been Administered Count Last Ordered Date First Ordered Date acetaminophen (TYLENOL) tablet 975 mg 1 atorvastatin (LIPITOR) tablet 80 mg 1 04/23 calcium carbonate (TUMS) tab let 500 mg (200 mg elemental calcium) 1 Tablet 1 04/23/2023 lidocaine (PF) 10 mg/mL (1 % ) injection 2 mg 1 04/23/2023 nicotine (NICOTROL) 10 mg in haler 1 Inhaler 1 04/23/2023 nicotine polacrilex (NICORETTE) gum 2 mg 1 04/23/2023 nitroglycerin (NITROSTAT) SL tablet 0.4 mg 1 04/23/2023 polyethylene glycol 3350 ([place] RALAX) packet 17 g 1 04/23/2023 ramelteon (ROZEREM) tablet 8 mg 1 3 senna (SENOKOT) tablet 2 Tablet 1 3 heparin injection 2,400 Units 1 04/22/2023 heparin injection 4,850 Units 1 04/22/2023 Nursing Count Last Ordered Date First Orde red Date VTE PHARMACOLOGIC PROPHYLAXI S CURRENTLY ORDERED OR ON ALTERNATIVE THER 1 04/23/2023 CALL PHYSICIAN SPECIALTY CONSULT 04/22/20 Respiratory Care Count Last Ordered Date First Ordered Date DRY POWDERED OR METERED DOSE INHALER 04/04 Admission Count Last Ordered Date First Orde red Date ADMIT TO INPATIENT 1 04/22/2023 Transfer Count Last Ordered Date First Orde red Date ED BED REQUEST 1 04/22/2023 Discharge Count Last Ordered Date First Orde red Date DISCHARGE PATIENT 1 04/23/2023 documented in this encounter Care Teams Barrel Rifler Relationship Specialty Start Date End Date Ranjan Denise RPA [address] [address] PCP - General Family Medicine - Primary Care 12/17/22 08/07/23 documented as of this encounter
--- OUTSIDE RECORDS SUMMARY | 2024-08-14 17:35 | XMS_ITS | Encounter Summary ---
Author Organization [facility] Address [address] [place] [address] Care Team Providers Care Rock Climbing Instructor Name Role Phone Lei Yancey PA-C Primary Care Provider [phone] Ranjan Denise RPA Primary Care Provider [phone] None, Provider Primary Care Provider Yumiko Araujo MD Primary Care Provider [phone] Ramila Pagan GOLD ASSAYER Unavailable [phone] Yana De La Cruz MD Primary Care Provider + Encounter Details Date Type Department Care Team (Late st Contact Info) Description 04/06/2022 Lab Requisition [facility] Pathology & Laboratory Medicine - [address] [address] Outr Resulting Lab, Provider Social History Tobacco Use Types Packs/Day Years Used Date Smoking Tobacco: Never Assessed Sex and Gender Information Value Date Recorded [...] Procedure Name Priority Date/Time Associated Diagnosis Comments HCV RNA DETECT QUANT Routine 04/05/2022 14:41 EDT documented in this encounter Results * (ABNORMAL) HCV RNA DETECT QUANT (04/05/2022 14:41 EDT) HCV RNA Qualitative Detected( A) Undetected 04/08/2022 14:37 EDT [facility] HCV RNA Quantitative 14,500,00 0(H) Undetected IU/mL 04/08/2022 14:37 EDT [facility] Blood VENOUS BLOOD / Unknown 04/05/2022 14:41 EDT 04/06/2022 21:41 EDT Narrative [facility] - 04/08/2022 14:37 EDT The quantification range of this assay is 15 IU/mL to 100,000,000 IU/mL. Testing was performed using the [employer] HCV test ([employer] with the dolores 6800 System. Provider Outr Resulting Lab CHEMISTRY & BLOOD GAS ORDERABLES Performing Organization Address City/State/[facility] Co de Phone Number [facility] [address] [place] [address] documented in this encounter Visit Diagnoses Not on filedocumented in this encounter Care Teams Rock Climbing Instructor Relationship Specialty Start Date End Date Lei Yancey PA-C [address] [place] [id number] PCP - General 03/09/15 12/16/22 Ranjan Denise RPA [address] [place] [id number] PCP - General Family Medicine - Primary Care 12/17/22 08/07/23 None, Provider PCP - General 08/08/23 08/27/23 Yumiko Land MD PCP - General Internal Medicine - Primary Care 08/28/23 06/03/24 Yana De La Cruz MD [address] [place] [phone] PCP - General 06/04/24 Ramila Pagan LICSW [address] [place] [address] [phone] Bullard Machine Operator 12/19/23 documented as of this encounter
--- OUTSIDE RECORDS SUMMARY | 2024-08-14 17:35 | XMS_ITS | Encounter Summary ---
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 12/16/2022 12/17/2022 amLODIPine (NORVASC) tablet 10 mg (COMPLETED) 10 mg, oral, NOW X1, 1 dose, On Fri12/17/22 at 1715, STAT 171 (Given - Provid er: Lissett Moreno RN) atorvastatin (LIPITOR) tablet 80 mg (COMPLETED) 80 mg, oral, NOW X1, 1 dose, On Fri12/17/22 at 1715, Routine 171 (Given - Provid er: Lissett Moreno RN) clonazePAM (KLONOPIN) tablet 2 mg (COMPLETED) 2 mg, oral, NOW X1, 1 dose, On Fri12/17/22 at 1630, Routine 1613 (Given - Provid er: Allison Calderon RN) clonazePAM (KLONOPIN) tablet 6 mg (COMPLETED) 6 mg, oral, NOW X1, 1 dose, On Fri12/17/22 at 1815, Routine 1804 (Given - Provid er: Lissett Moreno RN) clopidogreL (PLAVIX) tablet 150 mg (COMPLETED) 150 mg, oral, NOW X1, 1 dose, On Fri12/17/22 at 1815, STAT 1805 (Given - Provid er: Lissett Moreno RN) clopidogreL (PLAVIX) tablet 75 mg (COMPLETED) 75 mg, oral, NOW X1, 1 dose, On Fri12/17/22 at 1715, STAT 1713 (Given - Provid er: Lissett Moreno RN) dextroamphetamine-amphetamine (ADDERALL) tablet 20 mg (COMPLETED) 20 mg, oral, NOW X1, 1 dose, On Fri12/17/22 at 1715, STAT 1713 (Given - Provid er: Lissett Moreno RN) dextroamphetamine-amphetamine (ADDERALL) tablet 40 mg 40 mg, oral, NOW X1, 1 dose, On Fri12/17/22 at 1815, STAT 1823 (Not Given - Pr ovider: Lissett Moreno RN - Reason: Medication not available) gabapentin (NEURONTIN) capsule 800 mg (COMPLETED) 800 mg, oral, NOW X1, 1 dose, On Fri12/17/22 at 1715, Routine 1713 (Given - Provid er: Lissett Moreno RN) glimepiride (AMARYL) tablet 2 mg 2 mg, oral, DAILY WITH BREAKFAST, First dose on Fri12/18/22 at 0800, Until Discontinued, Routine magnesium oxide (MAG-OX) tablet 400 mg (COMPLETED) 400 mg, oral, NOW X1, 1 dose, On Fri12/17/22 at 1645, Routine 1644 (Given - Provid er: Lissett Moreno RN) metFORMIN (GLUCOPHAGE) tablet 1,000 mg 1,000 mg, oral, NOW X1, 1 dose, On Fri12/17/22 at 1715, Routine 1714 (Not Given - Pr ovider: Lissett Moreno RN - Reason: Medication not available) metFORMIN (GLUCOPHAGE) tablet 3,000 mg 3,000 mg, oral, NOW X1, 1 dose, On Fri12/17/22 at 1815, Routine 1823 (Not Given - Pr ovider: Lissett Moreno RN - Reason: Medication not available) venlafaxine (EFFEXOR-XR) XR capsule 150 mg 150 mg, oral, DAILY, First dose on Fri12/18/22 at 0900, Until Discontinued, Routine documented in this encounter Orders Medications Ordered That Lester ht Not Have Been Administered Count Last Ordered Date First Ordered Date dextroamphetamine-amphetamin e (ADDERALL) tablet 40 mg 1 12/17/2022 glimepiride (AMARYL) tablet 2 mg 1 12/17/19 metFORMIN (GLUCOPHAGE) tablet 1,000 mg 1 metFORMIN (GLUCOPHAGE) tablet 3,000 mg 1 venlafaxine (EFFEXOR-XR) XR capsule 150 mg 1 12/17/2022 documented in this encounter Care Teams [employer] Relationship Specialty Start Date End Date Ranjan Denise RPA [address] [place] [id number] PCP - General Family Medicine - Primary Care 12/17/22 08/07/23 documented as of this encounter
--- OUTSIDE RECORDS SUMMARY | 2024-08-14 17:35 | XMS_ITS | Encounter Summary ---
Author Organization [facility] Address [address] [place] [address] Care Team Providers Care Physical Therapy Aid Name Role Phone Ranjan Denise [facility] Primary Care Provider [phone] Reason for Visit * Auth/Cert (Routine) Specialty Diagnoses / Procedures Referred By Devendra alonzo Referred To Contact Diagnoses NSTEMI Referral ID Status Reason Start Date Expiration Date Visits Re quested Visits Authorized [id number] 1 1 Encounter Details Date Type Department Care Team (Late st Contact Info) Description 04/24/2023 10:49 EDT - 04/24/2023 11:49 EDT Surgery [facility] Invasive Cardiology Unit [address] [place] [address] Zeus Preciado MD [address] [facility], [facility] [address] [place] [address] Left Heart Cath Surgery Details Date/Time Status Location OR Service Patient Class Case Class Case Type Trauma Case? 04/24/23 1049 Posted [facility] [employer]ation [employer] Layout Craftsman [employer]ation And Layout Craftsman 2 Cardiovascular Inpatient Panel 1 Procedure LRB Anes Op Region Wound Class Comments Left Heart Cath Left Monitored Anesth esia Care Chest Percutaneous Coronary Intervention N/A None Chest IVUS N/A None Chest Surgeon Surgeon Role Service Panel Zeus Preciado MD Primary Cardiovascular 1 Nacho Pace Fellow Interventional Card iology 1 Chris Greco Fellow Cardiovascular 1 documented in this encounter Social History Tobacco Use Types Packs/Day Years [...] Sign Reading Time Taken Comments Blood Pressure 114/84 04/24/2023 1019 EDT Pulse - - Temperature 36.2 ??C (97.2 ??F) 04/24/2023 0800 EDT Respiratory Rate 16 04/24/2023 0800 EDT Oxygen Saturation 96% 04/24/2023 1019 EDT Inhaled Oxygen Concentration - - Weight [...] Admitting Diagnosis: NSTEMI (non-ST elevated myocardial infarction) ([facility]) ([facility]) Final Hospital Diagnosis: coronary artery disease Additional Problems Managed in the Hospital Active Hospital Problems Diagnosis Date Noted ??? *NSTEMI (non-ST elevated myocardial infarction) ([facility]) ([facility]) 03/17/2014 ??? Type 2 diabetes mellitus 04/23/2023 Resolved Hospital Problems No resolved problems to display. Principal Procedure: Heart cath and Percutaneous coronary intervention Date: 04/23/2023 Access: Right radial artery ?? Procedure: He was brought to [facility] for the [...] narcotics--substance use disorder on suboxome. Followup at [facility]--discuss with neonatal social worker Secondary Procedures: Left Ventricle The [...] (on benzodiazepines) who presented as transfer from [facility] for NSTEMI. Patient had heart cath and [...] also referred for cardiac rehab evaluation at [facility]. Smoking cessation education provided and patient was offered nicotine replacement therapies. Educated patient on using 802 quits and other community resources, patient declined. Of note, HgbA1C found to 9 on this admission, recommend follow up with endocrinology/PCP outpatientto trend this further. Again unable to discuss this further due to patient leaving AMA. Allergies and Immunizations No Known Allergies Immunization History Administered Date(s) Administered ??? Covid-19 Ad26 Vaccine ([employer] COVID-19) PF 0.5 ml IM (18 yrs+) 03/22/2021 ??? Covid-19 mRNA Vaccine ([employer] COVID-19) PF 0.3 ml IM (12 yrs+) [...] 04/22/2023 Discharge Follow Up Appointments Scheduled with [facility] Appointments Outside of [facility] We Will Schedule Follow-up appointments and procedures [facility] Cardiac Rehabilitation Referral Your local cardiac rehab program will contact you and/or your cytotechnologist/cytology supervisor to discuss. Authorizing Provider: Alexandria Gastelum NP [...] Your Medications These medications were sent to [facility] ([facility]) - [address] [address] ?? aspirin 81 mg EC tablet ?? [...] CMSW response to a page from the [facility] information desk - pt stating he needs ride to [place] - chart review - pt was scheduled to leave tomorrow but has chosen to leave early. Confirmed address of [address] in [place] with patient as destination. Round trip set up - [place] [employer] to bring pt. Zelda Wahl * Zeus Preciado MD - 04/24/2023 1049 EDT April 24, 2023 Maya Valdes MD [facility] - Cardiology [address] [place] [address] Valdes: I had the pleasure [...] a non-STEMI. He is referred to the slab miller operator forfurther evaluation. Cardiac catheterization via the right [...] cardiac rehabilitation. We will be working with neonatal social worker, as he has significant hypertension [...] furtherquestions. Sincerely, Zeus Preciado MD / Confirmation: [id number] Dictation ID: [id number] cc: Maya Valdes MD, [facility] - Cardiology, [address] [place] [address] * Tayla Hernández - 04/24/2023 1011 EDT Case Management Progress Note Level of Care: acute Discharge plan/estimated date: [place] TBD - plan for return to the [facility] [address] [facility] Medicaid Status: n/a community Medicaid only Barriers to d/c: Ongoing assessment as patient allows. He will likely need a taxi back to [place]. Support Network: None on file, pt declined listing anyone during initial assessment Next Steps: Pt transferred from [facility] and ZACARIAS Hamilton's assessment reviewed and appreciated. CM attempted [...] pt, scheduled a taxi for 9:30 AM moss picker, spoke to [facility] and will need dc med orders by 8AM (IDR at 8:30AM). CM will follow. * Chad Garduno MD - 04/24/2023 0723 EDT Images [...] the hep gtt is helping treat his AZ and he was understanding at this time. [...] lesions, or excoriations. Labs CBC: Recent Labs 04/22/23212404/23/23 0455 04/24/23 0607 WBC 11.73* 8.59 6.71 HGB 15.6 13.2* 13.1* HCT 46.1 40.1 38.9* MCV 84 84 82 PLT 351 268 239 BMP: Recent Labs 04/22/23212404/23/23 0454 04/24/23 0607 CREATININE 1.01 0.63* 0.58* BUN 21 [...] TBIL 0.6 <0.5 Cardiac Biomarkers: Recent Labs 04/22/23212404/23/23 0454 TROPONINI 0.158* 0.117* Lipids: Recent Labs 04/22/232124 [...] REGARDING THIS REPORT PLEASE CALL [facility] AT [phone] Assessment Carmelo Solano is a 47 y.o. male with a past history of STEMI with s/p PCI to RCA (2007), NSTEMI (stent re-stenosis, s/p PCI 2013), HTN, HLD, T2DM (not on medication, last A1c 9.0), homelessness,opioid use disorder (currently on suboxone), and anxiety (on benzodiazepines) who presents as transfer from [facility] for NSTEMI. Plan for [facility]. Plan #NSTEMI #HTN Symptomatic, pt's troponin peaked at 0.158 - [facility] today - s/p ASA 325mg x 1 - ASA 81mg daily - heparin gtt per protocol - nitro gives pt headache so will avoid for now - morphine 2 mg IV q4h prn for chest pain. - supplemental O2 if needed - atorvastatin 80mg daily - Amlodipine 5 mg daily for antianginal and hypertension - Increased metoprolol tartrate to CHAIN TENDER regimen of 100 mg BID - NPO for [facility] -Telemetry monitoring - replete if Mg <2 or K <4 - Goal SBP <140 and HR <70 ?? #Hyperlipidemia/CAD Lipid panel at [facility] showing total cholesterol 230, LDL 162. -Atorvastatin 80 mg daily ?? #Type 2 Diabetes: A1c 9.0 at [facility] -Cardiac diet - POCT Glc before meals [...] difficulties facilitating arrived to his prior provider. -CHAIN TENDER clonazepam 2 mg twice daily (VPMS verified) ?? #Opioid Use Disorder -CHAIN TENDER Suboxone 16-4 daily (two 8-2 films) (VPMS Verified) Diet: NPO VTE Prophylaxis Hep gtt Discharge Plan CM; likely back to care home Consults None Chad Garduno MD Cardiology PGY1 Secure Chat Preferred; Pager #[phone] via PAS 04/24/23 7:24 Some of this note was transcribed with BO.LT dictating software. While it was proofread, please forgive any unnoticed grammatical or word errors that occurred due to incorrect transcribing. documented in this encounter H&P Notes * Chad Garduno MD - 04/23/2023 1801 EDT Cardiology [...] (on benzodiazepines) who presents as transfer from [facility] for NSTEMI. Carmelo reports that over the past couple of months he has had increasing shortness of breath with exertion, and the morning of initial presentation experienced burning chest pain that radiates down both arms. Shortness of breath and sweating were also part of this, and as the pain was persistent and did not get better he presented to [facility]. [facility] Course Troponin peaked at 0.158 with normal [...] noted to be 9.0 Patient transferred to [facility] On our assessment today, Carmelo endorses the [...] as outlined below, EF normal in all. [facility]: 03/08/2008 --- SUMMARY OF RESULTS --- > [...] was performed without any significant complications. 03/17/2014 [facility] SUMMARY: 1. HPI and indications: Fon-PS-rwqticdm myocardial infarction. 2. Adverse outcomes: There were [...] lesions, or excoriations. Labs CBC: Recent Labs 04/22/23212404/23/23 0455 WBC 11.73* 8.59 NEUTROABS 6.08 -- HGB 15.6 13.2* MCV 84 84 PLT 351 268 Electrolytes: Recent Labs 04/22/23212404/23/23 0454 NA 136 138 K 4.3 3.5 CL [...] last 72 hours. Cardiac Markers: Recent Labs 04/22/23212404/23/23 0454 TROPONINI 0.158* 0.117* Lipids: Lab Results Component [...] REGARDING THIS REPORT PLEASE CALL [facility] AT [phone] Assessment Carmelo Solano is a 47 y.o. male with a past history of STEMI with s/p PCI to RCA (2007), NSTEMI (stent re-stenosis, s/p PCI 2013), HTN, HLD, T2DM (not on medication, last A1c 9.0), homelessness,opioid use disorder (currently on suboxone), and anxiety (on benzodiazepines) who presents as transfer from [facility] for NSTEMI. Plan for [facility] tomorrow. Plan #NSTEMI #HTN Symptomatic, pt's troponin [...] daily for antianginal and hypertension - Decreased CHAIN TENDER metoprolol to 50 mg tartrate BID (CHAIN TENDER regimen 100 mg BID) - NPO at midnight for potential intervention ([facility]) or other testing if needed -Telemetry monitoring - replete if Mg <2 or K <4 - Goal SBP <140 and HR <70 #Hyperlipidemia/CAD Lipid panel at [facility] showing total cholesterol 230, LDL 162. -Atorvastatin 80 mg daily #Type 2 Diabetes: A1c 9.0 at [facility] -Cardiac diet - POCT Glc before meals and qhs - aspart SSI for 24 hours, then reevaluate and potentially give basal bolus regimen Tobacco dependence Currently uses roughly 5 cigarettes/day. -Tobacco cessation resources - Nicotine replacement therapy while inpatient #Anxiety Formerly followed with psychiatry, has not seen provider in some time due to difficulties facilitating arrived to his prior provider. -CHAIN TENDER clonazepam 2 mg twice daily (VPMS verified) #Opioid Use Disorder -CHAIN TENDER Suboxone 16-4 daily (two 8-2 films) (VPMS Verified) Diet: cardiac diet, then NPO at [place] VTE Prophylaxis Hep gtt Code: Full Code Discharge Plan CM to assist with resources, likely back to care home Consults None Admission Status Admission status Inpatient admission due to anticipated duration of hospitalization is two midnights or greater due to NSTEMI. Chad Garduno MD Cardiology PGY1 Secure Chat Preferred; Pager #[phone] via PAS 04/23/23 19:49 Some of this note was transcribed with BO.LT dictating software. While it was proofread, please [...] prior RCA interventions now with NSTEMI. For [facility]. Maya Valdes MD documented in this encounter [...] artery Procedure: He was brought to [facility] for the [...] narcotics--substance use disorder on suboxome. Followup at [facility]--discuss with neonatal social worker At the completion of the [...] procedural complication required) Zeus Preciado MD PagerNumber: [phone] 04/24/2023 11:56 documented in this encounter Miscellaneous Notes * Plan of Care - Lili Castellanos RN - 04/24/2023 9215 EDT Problem: Daily Care Plan Goals Goal: Care Plan Documentation Flowsheets (Taken 04/24/2023 1245) Area of Focus: Communication Goal This Shift: pre/post procedure protocol Note: D: NPO with plan for C today. A: Reviewed pre/post cardiac cath protocol [...] them and just wants to go home. paged and arrived at bedside at 0430 [...] substance use contract today. Plan is for C today, NPO since MN, hep gtt infusing per JAN. * Plan of Care - Pierre Figueroa MD - 04/23/2023 6938 EDT Fellow Addendum to Admitting H&P Please [...] benzos. He is also homeless. Presented to [facility] with 2-3 months of crescendo exertional angina radiating to both arms and associated with dyspnea & diaphoresis. Escalated to severe pain after only walking 1/2 mile, prompting presentation. Reminiscent but more severe than his last AZ. Has very low-level discomfort currently.No presyncope or symptoms suggestive of CHF. Exam is unremarkable. Soft diastolic murmur. No stigmata of CHF. Side note - also has a erythematous and tender swelling of his left posterior knee with mild LLE edema>RLE edema. Unfortunate social history. Homeless, currently residing in a care home but previously was living in a single-person tent (over the winter) in the [facility]. When he moved to the care home near [facility], he was unable to find transportation [...] issue, just access to PCP. Course at [facility]: ??? Tn 0.158 ? 0.117, Cr 0.63, Hgb 15.6, PLT 351, LDL 162, A1c 9, CXR unremarkable ??? EKG with SR, ST-T flattening and subsequent development of TWI; new from most recent study in 12/2022 ??? TTE 04/23/2023 ([facility]): EF 60-65%, no rWMAs, trace AI, normal [...] discussed with Dr. Hernandez. PIERRE FIGUEROA MD Internal Control Analyst, PGY 5 PATIENT CONSENT TO CARDIOVASCULAR CATHETERIZATION [...] Routine/Next Available NSTEMI (non-ST elevated myocardial infarction) ([facility]) Expected: 05/08/2023 (Approximate), Expires: 04/24/2024 AMB CONS/FOLLOW UP PRIMARY CARE PHYSICIAN - EXTERNAL Outpatient Referral Routine/Next Available NSTEMI (non-ST elevated myocardial infarction) ([facility]) Expected: 05/01/2023 (Approximate), Expires: 04/24/2024 AMB CONS/FOLLOW UP CARDIAC REHABILITATION Outpatient Referral Routine/Next Available NSTEMI (non-ST elevated myocardial infarction) ([facility]) Expected: 05/01/2023 (Approximate), Expires: 04/24/2024 PROVIDER FOLLOW-UP [...] 12:01 EDT NSTEMI (non-ST elevated myocardial infarction) ([facility]) CARDIAC CATHETERIZATION Routine 04/24/20 12:01 EDT NSTEMI (non-ST elevated myocardial infarction) ([facility]) CARDIAC CATHETERIZATION Routine 04/24/20 12:01 EDT NSTEMI (non-ST elevated myocardial infarction) ([facility]) POCT GLUCOSE, INTERFACED Routine 04/24/2023 8:50 EDT [...] 8:51 EDT) 05/08/2023 8:51 EDT Scan 2 Restaurant Service Manager PROCEDURE/MINOR FELIX GICAL ORDERABLES * ECG REPORT - SCANNED (04/30/2023 19:30 EDT) 04/30/2023 19:3 0 EDT Scan 2 Restaurant Service Manager PROCEDURE/MINOR FELIX GICAL ORDERABLES * ECG REPORT - SCANNED (04/28/2023 13:43 EDT) 04/28/2023 13:4 3 EDT Scan 2 Restaurant Service Manager PROCEDURE/MINOR FELIX GICAL ORDERABLES * ECG REPORT - SCANNED (04/24/2023 19:54 EDT) 04/24/2023 19:5 4 EDT Scan 2 Restaurant Service Manager PROCEDURE/MINOR FELIX GICAL ORDERABLES * HEPARIN LEVEL - UNFRACTIONATED HEPARIN (04/24/2023 15:20 EDT) Heparin Level-UFH 0.18 Therapeutic Range: 0.30 - 0.70 IU/mL 04/24/2023 15:57 EDT [facility] Comment:Unfractionated hepar in therapeutic range [...] & PF4 ORD ERABLES Performing Organization Address City/[facility]/ZIP Co de Phone Number [facility] [address] [place] [address] * (ABNORMAL) POCT GLUCOSE, INTERFACED (04/24/2023 13:16 EDT) Glucose, POC 140(H) 70 - 100 mg/dL 04/24/2023 13:17 EDT [facility] HN LAB POC COMMENT (GLUCOSE) Test Performed by Nursing Services 04/24/2023 13:17 EDT [facility] Blood CAPILLARY BLOOD / Unknown 04/24/2023 13:16 EDT 04/24/2023 13:17 EDT Chad Garduno MD POINT OF CARE TEST O RDERABLES Performing Organization Address City/[facility]/ZIP Co de Phone Number [facility] [address] [place] [address] * EKG 12-LEAD (04/24/2023 13:11 EDT) 04/24/2023 13:1 1 EDT Narrative [facility] EKG - 04/30/2023 16:10 EDT ? [facility] ? Test Date: ?2023-04-24 Pat Name: ? CARMELO BETOURNAY ? Department: ?? [facility] ? Room: ? LF5014 Gender: ? Male ? Planner Scheduler: ?? [id number] : ?1975 ? Requested By: KATTY SWANSON Order Number: [id number] ? Reading MD: ?? ERNIE LOBEL MD ? Measurements Intervals ?[place] ? Rate: ? 77 ? P: ?34 [place]: ? 178 ?QRS: ?58 QRSD: ? 88 [...] Note Ernie Panchal MD - 04/30/2023 [facility] Test Date: 2023-04-24 Pat Name: CARMELO SOLANO Department: [place] [address] Room: [facility] Gender: Male Planner Scheduler: [id number] : 1975 Requested By: KATTY SWANSON Order Number: [id number] Reading MD: ERNIE PANCHAL MD Measurements Intervals [place] Rate: 77 P: 34 [place]: 178 QRS: 58 QRSD: 88 T: -13 [...] Zeus Preciado MD CARDIAC ECG ORDER JACKIE [facility] EKG * IVUS (04/24/2023 12:01 EDT) Anatomical Region Laterality Modality Fabrication And Layout Craftsman Narrative 04/24/2023 12:01 EDT Refer to the primary case's report for the procedure summary. Chad Garduno MD CARDIAC CATH ORDERAB LES * LEFT HEART CATH, PERCUTANEOUS CORONARY INTERVENTION (04/24/2023 12:01 EDT) Anatomical Region Laterality Modality Fabrication And Layout Craftsman 04/24/2023 11:1 0 EDT Narrative 04/25/2023 8:27 EDT [address] [place] [address] Catheterization Laboratory Study Patient: Carmelo Solano R ?Study Date: ?04/24/2023 ?Accession #: ? [id number] : ? 1975 Referring: Grupo Conway D Bent, Ethan Diagnostic Attending: ??Zeus Preciado Interventional Attending: ?? Zeus Preciado ATTESTATION: IDr. Nacho was the initial author of this report. Dr. Zeus Preciado was present and supervising for the entire procedure. IDr. Zeus performed the entire procedure and have reviewed and agreed with the findings of this report. IDr. Zeus have reviewed and agreed with the findings [...] of 0%, an excellent angiographic appearance, and HSUKRI grade ?? 3 flow (brisk flow). Proximal [...] use disorder on suboxome. Follow up at [facility]--discuss with social ?? services. 2. ACC recommendation: [...] 4. Right radial artery access. A 6FR/.021 [place] Slender sheath ?? was advanced into [...] 6. Intravascular ultrasound evaluation, using a .014/150cm [facility] ?? [place] IVUS catheter. Findings: calcification; no thrombus. Based [...] Note Zeus Preciado MD - 04/25/[address] [place] [address] Catheterization Laboratory Study Patient: Carmelo Solano R Study Date: 04/24/2023 : 1975 Referring: Grupo Conway D Bent, Ethan Diagnostic Attending: Zeus Preciado Interventional Attending: Zeus Preciado ATTESTATION: I, Dr. Nacho Pastrana [...] use disorder on suboxome. Follow up at [facility]--discuss with neonatal social worker. 2. ACC recommendation: PCI w/o [...] 4. Right radial artery access. A 6FR/.021 [place] Slender sheath was advanced into the [...] 6. Intravascular ultrasound evaluation, using a .014/150cm [facility] [place] IVUS catheter. Findings: calcification; no thrombus. Based [...] signed by Zeus Preciado MD 2023-04-25 08:27 Chad Garduno MD CARDIAC CATH ORDERAB LES * (ABNORMAL) POCT GLUCOSE, INTERFACED (04/24/2023 8:50 EDT) Glucose, POC 168(H) 70 - 100 mg/dL 04/24/2023 8:51 EDT [facility] HN LAB POC COMMENT (GLUCOSE) Test Performed by Nursing Services 04/24/2023 8:51 EDT [facility] Blood CAPILLARY BLOOD / Unknown 04/24/2023 8:50 EDT 04/24/2023 8:51 EDT Maya Valdes MD POINT OF CARE TEST ORDERABLES [facility] [address] [place] [address] * HEPARIN LEVEL - UNFRACTIONATED HEPARIN (04/24/2023 7:41 EDT) Heparin Level-UFH 0.14 Therapeutic Range: 0.30 - 0.70 IU/mL 04/24/2023 8:36 EDT [facility] Comment:Unfractionated hepar in therapeutic range [...] 04/24/2023 7:41 EDT 04/24/2023 8:07 EDT Narrative [facility] - 04/24/2023 8:36 EDT Sample retested, result confirmed Blaise Basilio MD HEMATOLOGY & PF4 ORD ERABLES [facility] [address] [place] [address] * (ABNORMAL) COMPREHENSIVE METABOLIC PANEL (CMP) (04/24/2023 6:07 EDT) Sodium 137 136 - 145 mmol/L 04/24/2023 6:59 [facility] Potassium 4.0 3.5 - 5.0 mmol/L 04/24/2023 6:59 [facility] Chloride 102 96 - 110 mmol/L 04/24/2023 6:59 [facility] CO2 Total 26 22 - 32 mmol/L 04/24/2023 6:59 [facility] Glucose 175(H) 70 - 100 mg/dl 04/24/2023 6:59 [facility] BUN 14 10 - 26 mg/dL 04/24/2023 6:59 [facility] Creatinine 0.58(L) 0.66 - 1.25 mg/dL 04/24/2023 6:59 [facility] eGFR 120 >60 mL/min/1.7 3m2 04/24/2023 6:59 [facility] Total Protein 6.8 6.3 - 8.2 g/dL 04/24/2023 6:59 [facility] Albumin 3.8 3.4 - 4.9 g/dL 04/24/2023 6:59 [facility] Alkaline Phosphatase 101 38 - 126 U/L 04/24/2023 6:59 [facility] AST 34 15 - 46 U/L 04/24/2023 6:59 EDT [facility] ALT 48 <50 U/L 04/24/2023 6:59 EDT [facility] Bilirubin, Total <0.5 <1.4 mg/dL 04/24/20 6:59 EDT [facility] Calcium 9.0 8.5 - 10.5 mg/dL 04/24/2023 6:59 EDT [facility] Albumin/Globulin Ratio 1.3 1.0 - 2.5 04/24/2023 6:59 EDT [facility] Anion Gap 9 5 - 14 mmol/L 04/24/2023 6:59 EDT [facility] Blood VENOUS BLOOD / Unknown Venipuncture / Unknown 04/24/2023 6:07 EDT 04/24/2023 6:29 EDT Chad Garduno MD CHEMISTRY & BLOOD GA S ORDERABLES Performing Organization Address City/[facility] Co de Phone Number [facility] [address] [place] [address] * (ABNORMAL) MAGNESIUM (04/24/2023 6:07 EDT) Magnesium 1.6(L) 1.7 - 2.8 mg/dL 04/24/2023 6:59 EDT [facility] Blood VENOUS BLOOD / Unknown Venipuncture / Unknown 04/24/2023 6:07 EDT 04/24/2023 6:29 EDT Chad Garduno MD CHEMISTRY & BLOOD GA S ORDERABLES Performing Organization Address City/[facility] Co de Phone Number [facility] [address] [place] [address] * (ABNORMAL) COMPLETE BLOOD COUNT (04/24/2023 6:07 EDT) WBC 6.71 4.00 - 10.40 K/cmm 04/24/2023 6:31 EDT [facility] RBC 4.74 4.36 - 5.78 M/cmm 04/24/2023 6:31 [facility] Hemoglobin 13.1(L) 13.8 - 17.3 g/dL 04/24/2023 6:31 [facility] HCT 38.9(L) 39.5 - 50.2 % 04/24/2023 6:31 [facility] MCV 82 81 - 95 fL 04/24/2023 6:31 [facility] MCH 27.6 27.6 - 33.0 pg 04/24/2023 6:31 [facility] MCHC 33.7 32.8 - 36.4 g/dL 04/24/2023 6:31 [facility] RDW-CV 13.2 <14.2 % 04/24/2023 6:31 [facility] RDW-SD 39.6 <46.0 fl 04/24/2023 6:31 [facility] PLT 239 141 - 377 K/cmm 04/24/2023 6:31 [facility] MPV 11.0 9.5 - 12.7 fL 04/24/2023 6:31 [facility] Blood VENOUS BLOOD / Unknown Venipuncture / Unknown 04/24/2023 6:07 EDT 04/24/2023 6:20 EDT Chad Garduno MD HEMATOLOGY & PF4 ORD ERABLES Performing Organization Address City/State/[facility] Co de Phone Number [facility] [address] [place] [phone] * HEPARIN LEVEL - UNFRACTIONATED HEPARIN (04/24/2023 6:07 EDT) Heparin Level-UFH 0.13 Therapeutic Range: 0.30 - 0.70 IU/mL 04/24/2023 7:11 [facility] Comment:Unfractionated hepar in therapeutic range [...] 04/24/2023 6:07 EDT 04/24/2023 6:20 EDT Narrative [facility] - 04/24/2023 7:11 EDT Sample retested, result confirmed Chad Garduno MD HEMATOLOGY & PF4 ORD ERABLES Performing Organization Address City/[facility] Co de Phone Number [facility] [address] [place] [address] * (ABNORMAL) POCT GLUCOSE, INTERFACED (04/24/2023 6:05 EDT) Glucose, POC 188(H) 70 - 100 mg/dL 04/24/2023 6:07 EDT [facility] HN LAB POC COMMENT (GLUCOSE) Test Performed by Nursing Services 04/24/2023 6:07 EDT [facility] Blood CAPILLARY BLOOD / Unknown 04/24/2023 6:05 EDT 04/24/2023 6:07 EDT Chad Garduno MD POINT OF CARE TEST O RDERABLES Performing Organization Address [facility] Co de Phone Number [facility] [address] [place] [address] * US LOWER VENOUS DUPLEX (DVT) LEFT [...] the above interpretation andagree with the findings. Chad Garduno MD IMG US VASCULAR ORDE RACHELLE * (ABNORMAL) POCT GLUCOSE, INTERFACED (04/24/2023 1:11 EDT) Glucose, POC 276(H) 70 - 100 mg/dL 04/24/2023 1:17 EDT [facility] HN LAB POC COMMENT (GLUCOSE) Test Performed by Nursing Services 04/24/2023 1:17 EDT [facility] Blood CAPILLARY BLOOD / Unknown 04/24/2023 1:11 EDT 04/24/2023 1:17 EDT Maya Valdes MD POINT OF CARE TEST ORDERABLES Performing Organization Address [facility] Co de Phone Number [facility] [address] [place] [address] * (ABNORMAL) POCT GLUCOSE, INTERFACED (04/23/2023 20:52 EDT) Glucose, POC 176(H) 70 - 100 mg/dL 04/23/2023 20:55 EDT [facility] HN LAB POC COMMENT (GLUCOSE) Test Performed by Nursing Services 04/23/2023 20:55 EDT [facility] Blood CAPILLARY BLOOD / Unknown 04/23/2023 20:52 EDT 04/23/2023 20:55 EDT Chad Garduno MD POINT OF CARE TEST O RDERABLES Performing Organization Address [facility] Co de Phone Number [facility] [address] [place] [address] * EKG 12-LEAD (04/23/2023 18:11 EDT) 04/23/2023 18:1 1 EDT Narrative [facility] EKG - 04/24/2023 13:47 EDT ? [facility] ? Test Date: ?2023-04-23 Pat Name: ? CARMELOSUNSHINE SOLANO ? Department: ?? [facility] ? Room: ? KQ4692 Gender: ? Male ? Planner Scheduler: ?? [id number] : ?1975 ? Requested By: BENT CHAD Order Number: [id number] ? Reading MD: ?? AHMED HARHASH MD ? Measurements Intervals ?[place] ? Rate: ? 87 ? P: ?40 [place]: ? 153 ?QRS: ?48 QRSD: ? 90 ? T: ?-13 QT: ? 349 ? QTc: ?421 ? Interpretive Statements SINUS RHYTHM NONSPECIFIC T-WAVE ABNORMALITY I reviewed the tracing and have either agreed or edited the findings in this report. Electronically Signed On 04-24-2023 13:47:30 EDT by HECTOR BRANDT MD. Procedure Note Hector Brandt MD - 04/24/2023 [facility] Test Date: 2023-04-23 Pat Name: CARMELO SOLANO Department: [place] [address] Room: [facility] Gender: Male Planner Scheduler: [id number] : 1975 Requested By: SHREYAS BONILLA Order Number: [id number] Toby MD: HECTOR BRANDT MD Measurements Intervals [place] Rate: 87 P: 40 [place]: 153 QRS: 48 QRSD: 90 T: -13 QT: 349 QTc: 421 Interpretive Statements SINUS RHYTHM NONSPECIFIC T-WAVE ABNORMALITY I reviewed the tracing and have either agreed or edited the findings inthis report. Electronically Signed On 04-24-2023 13:47:30 EDT by HECTOR HAWKINS. Chad Garduno MD CARDIAC ECG ORDERABL ES [facility] EKG documented in this encounter Visit Diagnoses Diagnosis NSTEMI (non-ST elevated myocardial infarction) ([facility])- Primary Acute myocardial infarction, subendocardial infarction, episode [...] Diagnoses Diagnosis NSTEMI (non-ST elevated myocardial infarction) ([facility]) Acute myocardial infarction, subendocardial infarction, episode of [...] on Fri04/25/23 at 0900, Until Discontinued, Routine clopidogreL (PLAVIX) tablet PRN, Starting on Fri04/24/23 at 1040, Until Fri04/24/23 at 1201, Routine, Intraprocedure Given 04/24/2023 10:40 EDT 600 m g dextrose 50 % solution 12.5 g 12.5 [...] blood sugar, Routine heparin 1,000 unit/mL injection PRN, Starting on Fri04/24/23 at 1121, Until Fri04/24/23 at 1201, Routine, Intraprocedure Given 04/24/2023 11:21 EDT 3,100 Units heparin 1,000 unit/mL injection 1 dose, Starting on Fri04/24/23 at 1356, Until Fri04/24/23 at 1838 insulin aspart U-100 (NOVOLOG FLEXPEN) injection subcutaneous, EVERY 6 HOURS, First dose on Fri04/23/23 at 1900, Until Discontinued, Routine, Indications: SUPPLEMENTAL INSULIN Given 04/24/2023 1:11 EDT 7 Un its Given 04/23/2023 20:52 EDT 2 Units iopamidoL (ISOVUE-370) injection PRN, Starting on Fri04/24/23 at 1155, Until Fri04/24/23 at 1201, Routine, Intraprocedure Given 04/24/2023 11:55 EDT 90 mL metoprolol TARtrate (LOPRESSOR) tablet 100 mg 100 mg, oral, 2 TIMES DAILY, First dose on Fri04/24/23 at 2100, Until Discontinued, Routine midazolam (PF) (VERSED) injection PRN, Starting on Fri04/24/23 at 1059, Until Fri04/24/23 at 1201, Routine, Intraprocedure Given 04/24/2023 11:03 EDT 1 mg Given 04/24/2023 10:59 EDT 1 mg nicotine (NICODERM CQ) 21 mg/24 hr [...] mL Given 04/23/2023 18:17 EDT 5 mL sodium chloride 0.9 % (NS) infusion FA IP EQF CONTINUOUS PRN FOR ONE STEP MEDS, Starting on Fri04/24/23 at 1020, Until Fri04/24/23 at 1201, Routine, Intraprocedure New Bag 04/24/2023 10:20 EDT 25 mL/hr 25 mL/hr documented in this encounter Discontinued Medications [...] 0810 (Given - Provider: Lili Castellanos RN)1012 ([facility] Hold - Provider: Automatic Transfer Provider Hn - Reason: Patient off unit)1208 ([facility] Unhold - Provider: Automatic Transfer Provider Hn) aspirin EC tablet 81 mg 81 mg, oral, DAILY, First dose on Fri04/24/23 at 0900, Until Discontinued, Routine 0810 (Given - Provid er: Lili Castellanos RN)1012 ([facility] Hold - Provider: Automatic Transfer Provider Hn - Reason: Patient off unit)1208 ([facility] Unhold - Provider: Automatic Transfer Provider Hn) atorvastatin (LIPITOR) tablet 80 mg 80 mg, oral, AT BEDTIME, First dose on Fri04/23/23 at 2100, Until Discontinued, Routine 2048 (Given - Provider: Tracy Doty RN) 1012 ([facility] Hold - Provider: Automatic Transfer Provider Hn - Reason: Patient off unit)1208 ([facility] Unhold - Provider: Automatic Transfer Provider Hn) buprenorphine-naloxone (SUBOXONE) 8-2 mg sublingual film 2 Film 2 Film, sublingual, DAILY, First dose (after last modification) on Fri04/24/23 at 0900, Until Discontinued, Routine 0846 (Given - Provid er: Lili Castellanos RN)1012 ([facility] Hold - Provider: Automatic Transfer Provider Hn - Reason: Patient off unit)1208 ([facility] Unhold - Provider: Automatic Transfer Provider Hn) clonazePAM (KLONOPIN) tablet 2 mg 2 mg, oral, 2 TIMES DAILY, First dose (after last modification) on Fri04/23/23 at 2100, Until Discontinued, Routine 2202 (Given - Provider: Tracy Doty RN) 0810 (Given - Provider: Lili Castellanos RN)1012 ([facility] Hold - Provider: Automatic Transfer Provider Hn - Reason: Patient off unit)1208 ([facility] Unhold - Provider: Automatic Transfer Provider Hn) clopidogreL (PLAVIX) tablet 75 mg 75 mg, oral, DAILY, First dose on Fri04/25/23 at 0900, Until Discontinued, Routine gabapentin (NEURONTIN) capsule 800 mg 800 mg, oral, 3 TIMES DAILY, First dose (after last modification) on Fri04/23/23 at 2100, Until Discontinued, Routine 204 (Given - Provider: Tracy Doty RN) 0810 (Given - Provider: Lili Castellanos RN)1012 ([facility] Hold - Provider: Automatic Transfer Provider Hn - Reason: Patient off unit)1208 ([facility] Unhold - Provider: Automatic Transfer Provider Hn)1400 (Given - Provider: Lili Castellanos RN) insulin aspart U-100 (NOVOLOG FLEXPEN) injection subcutaneous, EVERY 6 HOURS, First dose on Fri04/23/23 at 1900, Until Discontinued, Routine, Indications: SUPPLEMENTAL INSULIN 2051 (Given - Provider: Tracy Doty, SARAH) 011 (Given - Provider: Tracy Doty RN)0615 (Not Given - Provider: Tracy Doty RN - Reason: Patient/family refused - Comment: patient refused insulin admin, educated)1012 ([facility] Hold - Provider: Automatic Transfer Provider Hn - Reason: Patient off unit)1200 (Automatically Held - Provider: Automatic Transfer Provider Hn)1208 ([facility] Unhold - Provider: Automatic Transfer Provider Hn)1800 [...] Routine 0640 (Patch Applied - Provider: Tracy Doty, RN)1012 ([facility] Hold - Provider: Automatic Transfer [...] Fri04/23/23 at 1815, Until Discontinued, Routine, Release 1817 (Given - Provider: Ingrid Armstrong RN)2314 (Not [...] STAT 1812 (New Bag - Provider: Ingrid Armstrong RN) 0854 (Rate Change - Provider: Lili Castellanos RN)1020 (Paused - Provider: Sravanthi Neely RN) PRN Medication Order 04/22/2023 04/23/2023 04/24/2023 acetaminophen (TYLENOL) tablet 650 mg 650 mg, oral, EVERY 4 HOURS PRN, Starting on Fri04/24/23 at 1155, Until Fri04/24/23 at 1838, Pain, Routine, Release 1400 (Given - Provid er: Lili Castellanos RN) clopidogreL (PLAVIX) tablet (CANCELED) PRN, Starting on Fri04/24/23 at 1040, Until Fri04/24/23 at 1201, Routine, Intraprocedure 1040 (Given - Provid er: Sravanthi Neely RN) dextrose 50 % solution 12.5 g 12.5 g (25 mL), intravenous, PRN, Starting on Fri04/23/23 at 1842, Until Avani 04/24/23 at 1838, Low Blood Sugar, Routine 1012 ([facility] Hold - Provider: Automatic Transfer Provider Hn - Reason: Patient off unit)1208 ([facility] Unhold - Provider: Automatic Transfer Provider Hn) glucagon injection 1 mg 1 mg, intramuscular, PRN, Starting on Fri04/23/23 at 1842, Until Avani 04/24/23 at 1838, Other, Low blood sugar, Routine 1012 ([facility] Hold - Provider: Automatic Transfer Provider Hn - Reason: Patient off unit)1208 ([facility] Unhold - Provider: Automatic Transfer Provider Hn) heparin 1,000 unit/mL injection 4,900 Units (CANCELED)(Linked Group 1) 4,900 Units (rounded from 4,858 Units = 70 Units/kg ? 69.4 kg Adjusted weight), intravenous, PRN, Starting on Fri04/23/23 at 1800, Until Avani 04/24/23 at 1205, Other, Per Heparin Protocol, Routine 0849 (Given - Provid er: Lili Castellanos RN)1012 ([facility] Hold - Provider: Automatic Transfer Provider Hn - Reason: Patient off unit)1205 ([facility] Unhold - Provider: Nacho Pace) heparin 1,000 unit/mL injection (CANCELED) PRN, Starting on Avani 04/24/23 at 1121, Until Avani 04/24/23 at 1201, Routine, Intraprocedure 1121 (Given - Provid er: Farhan Stewart RN) iopamidoL (ISOVUE-370) injection (CANCELED) PRN, Starting on Fri04/24/23 at 1155, Until Avani 04/24/23 at 1201, Routine, Intraprocedure 1155 (Given - Provid er: Zeus Preciado MD) midazolam (PF) (VERSED) injection (CANCELED) PRN, Starting on Avani 04/24/23 at 1059, Until Avani 04/24/23 at 1201, Routine, Intraprocedure 1059 (Given - Provid er: Narcisa Marino, RN)1103 (Given - Provider: Narcisa Marino, RN) morphine injection 2 mg (CANCELED) 2 mg, intravenous, EVERY 4 HOURS PRN, Starting on Fri04/23/23 at 1914, Until Avani 04/24/23 at 1433, Pain, Chest pain, severe, Routine 2100 (Given - Provider: Tracy Doty, RN) 0113 (Given - Provider: Tracy Doty, RN)0825 (Given - Provider: Lili Castellanos RN)1012 ([facility] Hold - Provider: Automatic Transfer Provider Hn - Reason: Patient off unit)1208 ([facility] Unhold - Provider: Automatic Transfer Provider Hn) nicotine polacrilex (COMMIT) 2 mg lozenge 2 mg 2 mg, oral, EVERY 1 HOUR PRN, Starting on Avani 04/24/23 at 0730, Until Avani 04/24/23 at 1838, Smoking Cessation, Routine 1012 ([facility] Hold - Provider: Automatic Transfer Provider Hn - Reason: Patient off unit)1208 ([facility] Unhold - Provider: Automatic Transfer Provider Hn) nicotine polacrilex (NICORETTE) gum 4 mg 4 mg, oral, EVERY 2 HOURS PRN, Starting on Avani 04/24/23 at 0731, Until Avani 04/24/23 at 1838, Smoking Cessation, Routine 0824 (Given - Provid er: Lili Castellanos RN)1012 ([facility] Hold - Provider: Automatic Transfer Provider Hn - Reason: Patient off unit)1208 ([facility] Unhold - Provider: Automatic Transfer Provider Hn) nitroglycerin (NITROSTAT) SL tablet 0.4 mg 0.4 mg, sublingual, EVERY 5 MIN PRN, Starting on Fri04/23/23 at 1759, Until Avani 04/24/23 at 1838, Chest Pain, Routine 1012 ([facility] Hold - Provider: Automatic Transfer Provider Hn - Reason: Patient off unit)1208 ([facility] Unhold - Provider: Automatic Transfer Provider Hn) [...] Fri04/24/23 at 1036, Until Fri04/24/23 at 1838 heparin 1,000 unit/mL injection 1 dose, Starting on Fri04/24/23 at 1356, Until Avani 04/24/23 at 1838 [...] Date acetaminophen (TYLENOL) tablet 650 mg 1 clopidogreL (PLAVIX) 300 mg tablet 1 2022 clopidogreL (PLAVIX) tablet 75 mg 1 023 fentaNYL citrate (PF) 50 mcg/mL injection 1 04/24/2023 heparin 1,000 unit/mL injection 2 3 HYDROmorphone (PF) (DILAUDID ) 0.5 mg/0.5 mL syringe 0.25 mg 1 04/24/2023 lidocaine (PF) 20 mg/mL (2 %) injection 1 0 04/24/2023 lidocaine-EPINEPHrine 2 %-1: 100,000 injection 5-10 mL 1 04/24/2023 magnesium sulfate 2 g in water 50 mL 1 04/04 metoprolol TARtrate (LOPRESS OR) tablet 100 mg 1 04/24/2023 metoprolol TARtrate (LOPRESS OR) tablet 50 mg 2 04/24/2023 04/23/2023 midazolam (PF) (VERSED) 1 mg/mL injection 1 04/24/2023 nicotine polacrilex (COMMIT) 2 mg lozenge 2 mg 1 04/24/2023 nicotine polacrilex (NICORETTE) gum 4 mg 1 04/24/2023 verapamil (ISOPTIN) 2.5 mg/mL injection 1 0 04/24/2023 amLODIPine (NORVASC) tablet 5 mg 1 04/23/20 aspirin EC tablet 81 mg 1 04/23/2023 atorvastatin (LIPITOR) tablet 80 mg 1 04/23 buprenorphine-naloxone (SUBO XONE) 8-2 mg sublingual film 2 Film 1 04/23/2023 clonazePAM (KLONOPIN) tablet 2 mg 1 023 dextrose 50 % solution 12.5 g 1 04/23/2023 gabapentin (NEURONTIN) capsule 800 mg 1 glucagon injection 1 mg 1 04/23/2023 heparin 1,000 unit/mL inject ion 2,400 Units 1 04/23/2023 heparin 1,000 unit/mL inject ion 4,900 Units 1 04/23/2023 heparin in 11/04 NS 25,000 uni t/250 mL infusion 1 04/23/2023 insulin aspart U-100 (NOVOLO G FLEXPEN) injection 1 04/23/2023 metoprolol SUCCinate (TOPROL -XL) tablet 100 mg 1 04/23/2023 morphine injection 2 mg 1 04/23/2023 nicotine (NICODERM CQ) 21 mg /24 hr patch 1 Patch 1 04/23/2023 nitroglycerin (NITROSTAT) SL tablet 0.4 mg 1 04/23/2023 sodium chloride 0.9 % (flush) flush 5 mL 1 04/23/2023 Diet Count Last Ordered Date [...] Date First Orde red Date CASE REQUEST CHIEF UNDERWRITER 1 04/23/2023 documented in this encounter Care Teams Physical Therapy Aid Relationship Specialty Start Date End Date Ranjan Denise RPA [address] [place] [id number] PCP - General Family Medicine - Primary Care 12/17/22 08/07/23 documented as of this encounter
--- OUTSIDE RECORDS SUMMARY | 2024-08-14 17:36 | XMS_ITS | Encounter Summary ---
Author Organization [facility] Address [address] [place] [address] Care Team Providers Care Board Catcher Name Role Phone Micheal Moser MD Primary Care Provider Jorge carroll Encounter Details Date Type Department Care Team (Late st Contact Info) Description 02/08/2009 Before PRISM Converted Visit (Maple) [facility] - Maple conversion [address], [place] [id number] Emanuel Ayala MD [address] [facility] [address] [place] [address] Social History Tobacco Use Types Packs/Day Years Used Date Smoking Tobacco: Never Assessed Sex and Gender Information Value Date Recorded Sex Assigned at Not on file Gender Identity Male 08/08/2023 21:13 EDT Sexual Orientation Not on file documented as of this encounter Progress Notes * Emanuel Ayala Jr., MD - 12/06/2009 1442 EST RE: NAME: CARMELO COHEN : 1975 PROGRESS/FOLLOWUP NOTE - 02/08/2009 Jaswinder Wadsworth PA-C [address] [address] Dear Jaswinder: I had the pleasure of seeing Carmelo Cohen today. Mr Cohen is a 33-year-old male with a prior history of inferior ST-elevation myocardial infarction in March 2008. This was successfully stented with bare-metal stents. He has cardiovascular riskfactors of hypertension and hyperlipidemia. Mr Cohen has had no chest pain in the last year. He is quite fearful of having a second heart attack; however, not fearful enough to change his lifestyle habits, which consist of binge eating anddrinking approximately 1 liter of Mountain Dew a day. Additionally, he continues to smoke and does not follow a good diet. He has had no symptoms of syncope, presyncope, palpitations or shortness of breath. Current Medications: 1. Aspirin 81 mg daily. 2. Clopidogrel 75 mg a day. 3. Atenolol 100 mg a day. 4. Cymbalta. 5. Simvastatin 20 mg a day. 6. Alprazolam. 7. Niaspan 500 mg at bedtime. On exam, he is in no acute distress. His weight is 200 pounds, blood pressure 140/80, pulse of 88. He has no jugular venous distention. The lungs are clear to auscultation bilaterally. The heart is regular with normal S1 and S2. There are no murmurs, rubs, or gallops detected. The abdomen is soft with active bowel sounds. Lower extremities are without significant pitting edema. Recently he underwent blood tests in December. This demonstrated a random glucose of 242, a creatinine of 0.61, AST of 85 and ALT of 119, triglyceride level of 481 and an HDL of 33. They could not calculate LDL based on his triglyceride level. His hemoglobin A1c was 6.6%, which is elevated. Follow-up test in February demonstrated a random glucose of 86 and a hemoglobin A1c of 6.3%. Assessment: Mr Cohen is a 33-year-old male with chronic coronary disease, status post ST-elevation myocardial infarction almost a year ago now. He has cardiovascular risk factors of prediabetes, hypertension, hyperlipidemia and smoking. He is not doing well with controlling his risk factors other than taking his medications. He has no symptoms of recurrent coronary ischemia. He also has no symptoms of heart failure and he did have preserved left ventricular systolic function during his echo a year ago. Plan: Mr Cohen can stop his Plavix when he runs out of his prescription, for a total of one year of therapy. Additionally, he should stop his simvastatin at this point. He has elevated liver enzymes of a mildnature and this may be related to the simvastatin. I will have him undergo liver testing in one month. If his liver enzymes go back to normal, we can try a different cholesterol-lowering medication, possibly lovastatin 40 mg a day. He also needs to quit smoking. I told him to either drink water or diet soda instead of the one liter of sugary soda that he drinks per day. He also needs to exercise and lose weight. He does have prediabetes based on his random glucose, and this suggests that he has early metabolic syndrome. He needs to be treated medical for all of this. If his liver enzymes do not resume the normal range at the end of four weeks of simvastatin cessation, I would recommend a full evaluation, with a differential diagnosis that does include a steatohepatitis, which is likely with his diabetes and poor risk factor control. I plan on following up with Carmeol in one year. Thanks for allowing us to participate in the care of Carmelo Ziegler. Please feel free to contact me with any questions or concerns. Medications have been reviewed and updated with the patient. A list of current medications has beenprovided. Sincerely, Signed by Emanuel Ayala MD 02/10/2009 14:17 Emanuel Ayala MD - Emanuel Ayala MD - DSP Job ID: [id number] Doc ID: [id number] cc: Jaswinder Wadsworth PA-C documented in this encounter Plan of Treatment Not on file documented as of this encounter Visit Diagnoses Not on filedocumented in this encounter Care Teams Board Catcher Relationship Specialty Start Date End Date Micheal Moser MD PCP - General 02/24/09 08/21/10 documented as of this encounter
--- OUTSIDE RECORDS SUMMARY | 2024-08-14 17:36 | XMS_ITS | Encounter Summary ---
Author Organization [facility] Address [address] [place] [address] Care Team Providers Care Gamma Ray Operator Name Role Phone Micheal Moser MD Primary Care Provider Jorge carroll Encounter Details Date Type Department Care Team (Late st Contact Info) Description 04/20/2007 Office Visit [facility] [place] [facility] [address] [place] [address] Héctor Marsh, GUNNER[place] [address] [phone] Social History Tobacco Use Types Packs/Day Years Used Date Smoking Tobacco: Never Assessed Sex and Gender Information Value Date Recorded Sex Assigned at Not on file Gender Identity Male 08/08/2023 21:13 EDT Sexual Orientation Not on file documented as of this encounter Progress Notes * Héctor Marsh - 12/24/2009 0236 EST Department - Physician Summary Registration Date/Time: 04/20/2007 6:03 Time Seen: 06:23. Arrived- By private vehicle. Historian- patient. HISTORY OF PRESENT ILLNESS Chief Complaint: CHEST DISCOMFORT. FAST HEART RATE and ANXIETY. This started several days ago and is still present. Onset during rest. It is described as a pounding heart beat. He has had chest discomfort. No difficulty breathing, sweating episodes, fainting episodes or dizziness. No tingling. No tingling in the hands or face. No muscle spasms. No muscle spasms in the hands or feet. (Pt treated with oral medications for HTN and anxiety. Pt. states out of two or three medications for about three weeks. States his insurance ran out and is waiting for paperwork to come through so he can afford his meds.). The patient has had similar symptoms previously. REVIEW OF SYSTEMS No fever, chills, sweats, difficulty breathing or cough. No pedal edema, calf pain, nausea, vomiting or abdominal pain. No headache, head injury, alteration in mental status, dizziness or fainting episodes. No seizure. All systems otherwise negative, except as recorded above. PAST HISTORY See nurses notes. Hypertension. Medications: The patient's medications have been reviewed. Allergies: The patient's allergies have been reviewed. SOCIAL HISTORY Occasional alcohol use. ADDITIONAL NOTES The nursing notes have been reviewed. PHYSICAL EXAM Appearance: Alert. Oriented X3. Anxious. Patient in mild distress. Vital Signs: Have been reviewed. Neck: Normal inspection. Neck supple. CVS: Normal heart rate and rhythm. Heart sounds normal. Pulses normal. Respiratory: No respiratory distress. Breath sounds normal. Chest nontender. Abdomen: Abdomen soft. Skin: Normal skin color and turgor. Skin warm and dry. No rash. Extremities: Extremities exhibit normal ROM. Neuro: Oriented X 3. LABS, X-RAYS, AND EKG EKG: Normal EKG. Normal sinus rhythm. Normal P waves. Normal MARLIN. Normal QRS complex.Normal axis. Normal ST and T waves. No acute ischemia. The study has been interpreted contemporaneously by me. PROGRESS AND PROCEDURES E.D. Course: (DiovanHCT 160/25 mg PO). . ED Attending on duty and available for supervision: Nick Farah. Disposition: Discharged home. Condition: good. Discharged home in good condition. CLINICAL IMPRESSION Anxiety reaction. Hypertension. INSTRUCTIONS Warnings: GENERAL WARNINGS: Return to the Emergency Department or contact your physician immediately if your condition worsens or changes unexpectedly, if not improving as expected, or if other problems arise.SPECIFICALLY, return if you develop chest pain, difficulty breathing, lightheadedness, fainting, extreme fatigue or sudden sweating. Your Current Medications: Continue current medications. Follow-up: Follow up with your doctor. Call for the next available appointment. Understanding of the discharge instructions verbalized by patient. (Electronically signed by Alyse Farooq 04/20/2007 14:46) Attending Note: I supervised care provided by the PA. We have discussed the case. I have reviewed the note and agree with the plan of treatment. I personally interviewed the patient and examined the patient. (Here with chest discomfort, palpitations, and tachypnea. Sx worsening over past few weeks in association with stopping xanax and antihypertensive. Nl exam and eval in ED. Discharged with twolorazepam for use at bed time. Pt instructed to follow up with PCP to restart meds.). (Electronically signed by Danie Garrido M.D. 04/21/2007 21:54) Department - Nursing Summary Registration Date/Time: 04/20/2007 6:03 TRIAGE Initial Assessment Triage time 06:04. Acuity: LEVEL 3. BP: 169 / 101. HR: 76. RR: 16. Temp: 36.8 tympanic. Alert. --0607 Martha Olivo R.N.. Medications Alprazolam: 0.5mg three times a day (ran out three weeks). Atenolol: 100mg daily. Diovan with HCT: 160/25 mg daily (ran out three weeks ago). (dynacirc out last three weeks). --0607 Martha Olivo R.N.. Allergies No known drug allergies. --0607 Martha Olivo R.N.. History Pain level now: 410. (patient reports few day history of chest tightness. States he has been out of his medication for a few weeks and states that ). PAST HX: Hypertension. Anxiety. SOCIAL HX: Cigarette smoker: 1 pack per day. Alcohol use (on weekends). No report of abuse. Historian: patient. --0607 Martha Olivo R.N.. NURSING PROGRESS NOTES BP: 153/101 sitting auto. HR: 68. Temp: 98.7F oral. --0733 Nati Hutchins. late entry -629. 12-lead EKG was ordered and performed by a nurse (given to Rosa Maria MCNAIR). --0734 Marguerite Blum R.N. 0730. (Diovan HCTZ 160/25 mg p.o.). --0750 Iris Mariee R.N. (Ativan 1.0 mg p.o. times two tabs to go to use at bedtime.). --0751 Iris Mariee R.N.. DISPOSITION / DISCHARGE BP: 144 / 93. HR: 70. Patient reports pain level on departure as 0/10. Condition at departure: improved. No learning barriers present. Discharge instructions reviewed with the patient. Reviewed referrals (PMD at next available appointment). Patient verbalized understanding. Written instructions provided in French. The patient was discharged home. The patient left the Emergency Department ambulatory and via private vehicle. --0752 Iris Mariee R.N.. Aj Costello R.N., R.N., R.N. Locked/Released at 04/20/2007 8:02 by Olivia Jarquin R.N. documented in this encounter Plan of Treatment Not on file documented as of this encounter Visit Diagnoses Not on filedocumented in this encounter Care Teams Gamma Ray Operator Relationship Specialty Start Date End Date Micheal Moser MD PCP - General 02/24/09 08/21/10 documented as of this encounter
--- OUTSIDE RECORDS SUMMARY | 2024-08-14 17:36 | XMS_ITS | Encounter Summary ---
Author Organization [facility] Address [address] [place] [id number] Care Team Providers Care Designer/Writer Name Role Phone Micheal Moser MD Primary Care Provider Jorge carroll Encounter Details Date Type Department Care Team (Latest Contact Info) Description 04/11/2009 9:25 EDT - 04/11/2009 12:[address] [facility] Perioperative Services - [address] [address] Nolan Saucedo MD [address] [place] [address] Discharge Disposition: Home or Self Care Social History Tobacco Use Types Packs/Day Years Used Date Smoking Tobacco: Never Assessed Sex and Gender Information Value Date Recorded Sex Assigned at Not on file Gender Identity Male 08/08/2023 21:13 EDT Sexual Orientation Not on file documented as of this encounter Discharge Disposition Disposition Code Departure Means Destination Home or Self Care documented in this encounter H&P Notes * Inpatient, Physician - 05/10/2009 1318 EDT documented in this encounter Procedure Notes * Inpatient, Physician - 04/13/2009 1354 EDTAssociated Order(s): ORDERS - SCANNED * Inpatient, Physician - 04/13/2009 1354 EDTAssociated Order(s): ECG REPORT - SCANNED documented in this encounter OR Notes * Anesthesia Procedure Notes - Inpatient, Physician - 04/13/2009 1354 EDT * Anesthesia Preprocedure Evaluation - Inpatient, Physician - 04/13/2009 1354 EDT * OR PreOp - Inpatient, Physician - 04/13/2009 1354 EDT * OR PreOp - Inpatient, Physician - 04/13/2009 1354 EDT * OR PreOp - Inpatient, Physician - 04/13/2009 1354 EDT * OR Surgeon - Nolan Saucedo MD - 04/11/2009 0000 EDT PROCEDURE REPORT PT TYPE: OPPROC SERVICE DATE: 04/11/2009 SURGEON: Nolan Saucedo MD UNDER GROUND MINER: None. PREOPERATIVE DIAGNOSIS Left small and index trigger fingers. POSTOPERATIVE DIAGNOSIS Left small and index trigger fingers. PROCEDURE 1. Left small trigger finger release. 2. Left index trigger finger release. ANESTHESIA [place] block anesthesia. INDICATIONS Patient is a 33-year-old right-hand dominant gentleman who has had trigger fingers at his small, index, ring, and middle fingers for approximately a year and half now. He had a work-related incident in which he developed bilateral trigger fingers at all digits, causing him significant pain and dysfunction. His original surgery was back about 16 months ago when we did bilateral middle and ring trigger releases, which resolved these issues. Injections at that time to try and treat the index and small fingers, which were less severely affected, were somewhat effective. However, in recent months he has become more painful at the small and index fingers and has had a recurrence of his triggering. The risks and benefits of operative intervention for this problem were discussed with him and he wished to proceed. NARRATIVE Patient seen preoperatively and his left small and index fingers were identified as the operative site. He was brought back to the operating room and placed supine on the OR table. Esther block anesthesia was placed with a left upper arm tourniquet raised to a pressure of 250 mmHg. It was found to beworking well at the time of surgery. His left hand and arm were prepped and draped in the standard sterile manner. An oblique incision was made first over the left index finger A1 gonzalez. Blunt dissection was carried out down to the gonzalez itself which was easily identified. The gonzalez was released in a longitudinal direction. We then explored the FDS and FDP tendons to the index finger by pulling them outside the wound using a retractor. There was a nodule present on the tendon. The wound was irrigated usingnormal saline. The wound was closed using a 4-0 nylon in an interrupted horizontal mattress stitch. Attention was then turned to the small finger. Again, an oblique incision was made over the small finger A1 gonzalez. Blunt dissection was carried out down to the A1 gonzalez and the A1 gonzalez was divided in a longitudinal direction. The small finger FDS and FDP tendons were pulled outside the wound for inspection and a nodule was seen on both but minimal synovitis was present. The wound was irrigated using normal saline and the wound was closed using 4-0 nylon in an interrupted horizontal mattressstitch. The wounds were dressed using Xeroform and gauze. The patient did receive 7 mL of 0.5% Marcaine at the end of the case for postoperative analgesia. All counts were correct at the end of the case. I was present and scrubbed for the entirety of the case. Unless otherwise noted, there were no complications, no blood loss, cultures obtained, specimens removed, or drains retained. ESTIMATED BLOOD LOSS Minimal. TOURNIQUET TIME 23 minutes. FLUIDS Patient received 500 mL lactated Ringers intraoperatively. URINE OUTPUT No recorded urine output. SPECIMENS DRAINS/PACKS/FOREIGN MATERIALS None. COMPLICATIONS None. DISPOSITION To home. Nolan Saucedo MD - Nolan Saucedo MD A - gr Job ID: [id number] Document ID: [id number] cc: Ross Molina MD documented in this encounter Miscellaneous Notes * Scanned Note-Null - Inpatient, Physician - 04/13/2009 1354 EDT * Scanned Note-Null - Inpatient, Physician - 04/13/2009 1354 EDT * Scanned Note-Null - Inpatient, Physician - 04/13/2009 1354 EDT * Scanned Note-Null - Inpatient, Physician - 04/13/2009 1354 EDT * Scanned Note-Null - Inpatient, Physician - 04/13/2009 1354 EDT * Plan of Care - Inpatient, Physician - 04/13/2009 1354 EDT * Brief Op Note - Inpatient, Physician - 04/13/2009 1354 EDT documented in this encounter Plan of Treatment Not on file documented as of this encounter Procedures Procedure Name Priority Date/Time Associated Diagnosis Comments ECG REPORT - SCANNED 04/13/2009 13:54 EDT ORDERS - SCANNED 04/13/2009 13:5 4 EDT documented in this encounter Results * ECG REPORT - SCANNED (04/13/2009 13:54 EDT) 04/13/2009 13:5 4 EDT Narrative 04/13/2009 14:08 EDT [facility] by an unspecified provider. [facility] 04/13/2009 13:54 EDT Physician Inpatient MD PROCEDURE/MINOR S URGICAL ORDERABLES * ORDERS - SCANNED (04/13/2009 13:54 EDT) 04/13/2009 13:5 4 EDT Narrative 04/13/2009 14:08 EDT Ordered by an unspecified provider. [facility] - 04/13/2009 13:54 EDT Physician Inpatient MD ADMISSION ORDERAB LES documented in this encounter Visit Diagnoses Not on filedocumented in this encounter Care Teams Designer/Writer Relationship Specialty Start Date End Date Micheal Moser MD PCP - General 02/24/09 08/21/10 documented as of this encounter
--- OUTSIDE RECORDS SUMMARY | 2024-08-14 17:36 | XMS_ITS | Encounter Summary ---
Author Organization [facility] Address [address] [place] [address] Care Team Providers Care Course Developer Name Role Phone Unavailable Primary Care Provider Unavailabl e Encounter Details Date Type Department Care Team (Latest Contact Info) Description 06/02/2008 8:20 EDT - 06/02/2008 11:[address] [facility] Perioperative Services - [address] [id number] Nolan Saucedo MD [address] [place] [phone] Discharge Disposition: Home or Self Care [...] or Self Care documented in this encounter OR Notes * OR Surgeon - Nolan Saucedo MD - 06/02/2008 0000 EDT PROCEDURE REPORT PT TYPE: OPPROC SERVICE DATE: SURGEON: Akshat Saucedo MD MARKER HAND: None. PREOPERATIVE DIAGNOSIS Right carpal tunnel syndrome. POSTOPERATIVE DIAGNOSIS Right carpal tunnel syndrome. PROCEDURE Endoscopic right carpal tunnel release. ANESTHESIA [place] block anesthesia with sedation. INDICATIONS Mr. Solano is a 32right-hand dominant gentleman who has had numbness and tingling in his right hand for approximately one year now. He has tried splinting of his hand to try and get rid of the carpal tunnel symptoms. An EMG nerve conduction study did demonstratecarpal tunnel syndrome on the right side. The risks and benefits of operative intervention were discussed with him and he wished to proceed. FINDINGS The patient was found to have a thickened transverse carpal ligament. NARRATIVE The patient was seen preoperatively and his right hand was identified as the operative site. He wasbrought back to the operating room and placed supine on the OR table. Esther block anesthesia was induced by the anesthesiology staff with an upper arm tourniquet and the tourniquet raised to a pressure of 250 mmHg. It was found to be working well at the time of surgery. His right hand and arm were prepped and draped in the standard sterile manner. A 1 cm transverse incision was made just proximal to the wrist crease. Blunt dissection was carriedout down to the palmar fascia at the forearm. This was incised sharply in line with the skin incision and a distally based flap was created. This was retracted. A synovial [place] was then placed into the carpal tunnel and used to scrape the undersurface of the transverse carpal ligament. Next, the endoscope was introduced into the carpal tunnel. Excellent visualization of the transverse carpal ligament was achieved. Using the endoscope, the transverse carpal ligament was divided from distal to proximal. A second pass was taken to make sure that the ligament had been fully divided at its most distal extent. Next, using scissors at the site of the wound, freeing of the palmar fascia at the forearm was performed under direct visualization. The median nerve was visualized throughout the portion of this procedure. The wound was irrigated using normal saline. The wound was closed using 4-0 nylon in an interrupted horizontal mattress stitch. The wound was dressed using Xeroform and gauze. The patient received 7 mL of 0.5% Marcaine at the end of the case for postoperative analgesia. All counts were correct at the end of the case. I was present and scrubbed for the entirety of the case. TOURNIQUET TIME 21 minutes. ESTIMATED BLOOD LOSS Minimal. FLUIDS 500 mL lactated Ringer. URINE OUTPUT Not recorded. DRAINS, PACKS, FOREIGN MATERIALS None. COMPLICATIONS None. DISPOSITION To home. Signed by Nolan Saucedo MD 06/15/2008 15:24 Nolan Saucedo MD D: - Nolan Saucedo MD A - JAW Job ID: [id number] Document ID: [id number] cc: MD Ross Winter MD documented in this encounter Plan of Treatment Not on file documented as of this encounter Visit Diagnoses Not on filedocumented in this encounter
--- OUTSIDE RECORDS SUMMARY | 2024-08-14 17:36 | XMS_ITS | Encounter Summary ---
Author Organization [facility] Address [address] [place] [address] Care Team Providers Care Chief Technician X Ray Name Role Phone Unavailable Primary Care Provider Unavailabl e Encounter Details Date Type Department Care Team (Latest Contact Info) Description 03/28/2002 21:02 EDT Hospital Encounter [facility] Emergency Department - [facility] [address] [place], [place] [address] Emergency, Default, MD Discharge Disposition: Home or Self Care Social History Tobacco Use Types Packs/Day Years Used Date Smoking Tobacco: Never Assessed Sex and Gender Information Value Date Recorded Sex Assigned at Not on file Gender Identity Male 08/08/2023 21:13 EDT Sexual Orientation Not on file documented as of this encounter Discharge Disposition Disposition Code Departure Means Destination Home or Self Care documented in this encounter Plan of Treatment Not on file documented as of this encounter Procedures Procedure Name Priority Date/Time Associated Diagnosis Comments L SPINE 2-3 VIEWS Routine 03/28/2002 22: 32 EDT documented in this encounter Results * L SPINE 2-3 VIEWS (03/28/2002 22:32 EDT) Anatomical Region Laterality Modality Other 03/28/2002 22:3 2 EDT Narrative 08/16/2009 4:22 EDT 26 YO MALE C/O LS SPINE PAIN S/P FALL ON ROCKS R/O FX LUMBAR SPINE 2-3 VIEWS: 03/28/02 22:30 INDICATION FOR STUDY: 26-year-old male with complaint of lumbar spine pain status post fall on rocks. Rule out fracture. AP and lateral views of the lumbar spine are obtained. FINDINGS: The prevertebral soft tissues are normal in appearance. Vertebral body height and alignment is normal. The posterior elements are normal. There is no evidence of fracture or subluxation. geraldo Procedure Note Courtney Woods / Walker White MD - 08/16/2009 26 YO MALE C/O LS SPINE PAIN S/P FALL ON ROCKS R/O FX LUMBAR SPINE 2-3 VIEWS: 03/28/02 22:30 INDICATION FOR STUDY: 26-year-old male with complaint of lumbar spine pain status post fall on rocks. Rule out fracture. AP and lateral views of the lumbar spine are obtained. FINDINGS: The prevertebral soft tissues are normal in appearance. Vertebral body height and alignment is normal. The posterior elements are normal. There is no evidence of fracture or subluxation. geraldo [facility] DIAGNOSTIC IMAGI NG ORDERABLES documented in this encounter Visit Diagnoses Not on filedocumented in this encounter
--- OUTSIDE RECORDS SUMMARY | 2024-08-14 17:36 | XMS_ITS | Encounter Summary ---
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 Services [facility] 03/09/2008 8:04 EDT 03/10/2008 0:38 EDT Zeus Preciado MD CHEMISTRY & BLOOD GAS ORDERABLES [facility] [address] [place] [address] * PROTIME (03/09/2008 6:10 EDT) Pro Time 13.8 12.0 - 15.0 secs [facility] I.N.R. 1.0 0.9 - 1.1 Ratio [facility] Comment: Moderate Intensity Coumadin INR = 2.0-3.0 Adjustments in anticoagulant therapy dose should be based upon the INR and NOT the Pro Time. 03/09/2008 6:10 EDT 03/09/2008 7:05 EDT Zeus Preciado MD HEMATOLOGY & PF4 ORDERABLES Performing Organization Address [facility] de Phone Number [facility] [address] [place] [address] * ELECTROLYTES (03/09/2008 6:10 EDT) Sodium 139 136 - 145 mEq/L [facility] Potassium 4.2 3.5 - 5.0 mEq/L [facility] Chloride 107 96 - 110 mEq/L [facility] CO2 26 24 - 32 mEq/L [facility] 03/09/2008 6:10 EDT 03/09/2008 7:05 EDT Zeus Preciado MD CHEMISTRY & BLOOD GAS ORDERABLES Performing Organization Address [facility] Phone Number [facility] [address] [place] [address] * (ABNORMAL) LIPID PROFILE (INCLUDES CHOLESTEROL, TRIGLYCERIDES, HDL, LDL) (03/09/2008 6:10 EDT) Cholesterol 214 mg/dl [facility] Comment: Desirable:<200 Borderline:200-239 High Risk:>xy=669 Triglycerides 222(H) 35 - 160 mg/dl [facility] HDL 31 mg/dl [facility] Comment: Highly Desirable:>60 Desirable:35-60 High Risk:<35 LDL, Calculated 139 mg/dl [facility] Comment: Desirable:<130 Borderline:130-159 High Risk:>pg=409 Chol/HDL Ratio 6.9 [facility] Fasting? Unknown [facility] 03/09/2008 6:10 EDT 03/09/2008 7:05 EDT Zeus Preciado MD CHEMISTRY & BLOOD GAS ORDERABLES Performing Organization Address [facility] de Phone Number [facility] [address] [place] [address] * (ABNORMAL) CREATININE (03/09/2008 6:10 EDT) Pathologist [facility] Creatinine 0.67(L) 0.7 - 1.5 mg/dl [facility] GFR, Calculated >60 ml/min/1.7 3m2 [facility] 03/09/2008 6:10 EDT 03/09/2008 7:05 EDT Zeus Preciado MD CHEMISTRY & BLOOD GAS ORDERABLES Performing Organization Address [facility] Co de Phone Number [facility] [address] [place] [address] * (ABNORMAL) CK MB WITH TOTAL CK (03/09/2008 6:10 EDT) Pathologist [facility] CK 898(H) 0 - 250 U/L [facility] MB 82.4(H) 0 - 5.0 ng/ml [facility] CK-MB Index 9.2(H) 0 - 2.5 [facility] 03/09/2008 6:10 EDT 03/09/2008 7:05 EDT Zeus Preciado MD CHEMISTRY & BLOOD GAS ORDERABLES Performing Organization Address [facility] Co de Phone Number [facility] [address] [place] [address] * (ABNORMAL) HEMAGRAM (03/09/2008 6:10 EDT) WBC 10.21 4.0 - 10.4 K/cmm [facility] RBC 4.35(L) 4.36 - 5.78 M/cmm [facility] Hemoglobin 12.4(L) 13.8 - 17.3 gm/dl [facility] HCT 36.4(L) 39.5 - 50.2 % [facility] MCV 84 81 - 95 fl [facility] MCH 28.6 27.6 - 33.0 pg [facility] MCHC 34.1 32.8 - 36.4 gm/dl [facility] PLT 314 141 - 320 K/cmm [facility] RDW-CV 14.6(H) 11.8 - 14.1 % [facility] 03/09/2008 6:10 EDT 03/09/2008 7:05 EDT Zeus Preciado MD HEMATOLOGY & PF4 ORDERABLES Performing Organization Address [facility] Co de Phone Number [facility] [address] [place] [address] * BUN (03/09/2008 6:10 EDT) BUN 13 10 - 26 mg/dl [facility] 03/09/2008 6:10 EDT 03/09/2008 7:05 EDT Zeus Preciado MD CHEMISTRY & BLOOD GAS ORDERABLES Performing Organization Address [facility] de Phone Number [facility] [address] [place] [address] * (ABNORMAL) AST (03/09/2008 6:10 EDT) AST 152(H) 15 - 46 U/L [facility] 03/09/2008 6:10 EDT 03/09/2008 7:05 EDT Zeus Preciado MD CHEMISTRY & BLOOD GAS ORDERABLES Performing Organization Address [facility] de Phone Number [facility] [address] [place] [address] * ALT (03/09/2008 6:10 EDT) ALT 61 21 - 72 U/L [facility] 03/09/2008 6:10 EDT 03/09/2008 7:05 EDT Zeus Preciado MD CHEMISTRY & BLOOD GAS ORDERABLES Performing Organization Address [facility] Co de Phone Number [facility] [address] [place] [address] * (ABNORMAL) GLUCOSE, GLUCOMETER (03/09/2008 2:36 EDT) Pathologist [facility] Glucose, Fingerstick 116(H) 70 - 100 mg/dl [facility] Reference Services [place] [id number] Test Performed by Nursing Services [facility] 03/09/2008 2:36 EDT 03/10/2008 0:38 EDT Zeus Preciado MD CHEMISTRY & BLOOD GAS ORDERABLES Performing Organization Address [facility] Co de Phone Number [facility] [address] [place] [address] * TROPONIN I (03/08/2008 21:34 EDT) [facility] Troponin I pre 2011 0.20 ng/ml [facility] Comment: Reference Range: Normal: ??Less than 0.05 Indeterminate: ??0.05-0.80 Positive: ??Greater than 0.80 03/08/2008 21:3 4 EDT 03/08/2008 22:06 EDT Zeus Preciado MD CHEMISTRY & BLOOD GAS ORDERABLES Performing Organization Address [facility] Co de Phone Number [facility] [address] [place] [address] * (ABNORMAL) GLUCOSE, SERUM (03/08/2008 21:34 EDT) [facility] Glucose, Serum 200(H) 70 - 100 mg/dl [facility] 03/08/2008 21:3 4 EDT 03/08/2008 22:06 EDT Zeus Preciado MD CHEMISTRY & BLOOD GAS ORDERABLES Performing Organization Address [facility] de Phone Number [facility] [address] [place] [address] * (ABNORMAL) PTT (03/08/2008 21:34 EDT) Pathologist [facility] PTT >157(HH) 20 - 35 secs [facility] Comment:Therapeutic Heparin range: 60-100 seconds 03/08/2008 21:3 4 EDT 03/08/2008 22:06 EDT Zeus Preciado MD HEMATOLOGY & PF4 ORDERABLES Performing Organization Address [facility] de Phone Number [facility] [address] [place] [address] * (ABNORMAL) PROTIME (03/08/2008 21:34 EDT) Pro Time 58.7(H) 12.0 - 15.0 secs [facility] I.N.R. 6.4(HH) 0.9 - 1.1 Ratio [facility] Comment: Moderate Intensity Coumadin INR = 2.0-3.0 Adjustments in anticoagulant therapy dose should be based upon the INR and NOT the Pro Time. 03/08/2008 21:3 4 EDT 03/08/2008 22:06 EDT Zeus Preciado MD HEMATOLOGY & PF4 ORDERABLES Performing Organization Address [facility] de Phone Number [facility] [address] [place] [address] * MAGNESIUM (03/08/2008 21:34 EDT) Magnesium 1.8 1.7 - 2.8 mg/dl [facility] 03/08/2008 21:3 4 EDT 03/08/2008 22:06 EDT Zeus Preciado MD CHEMISTRY & BLOOD GAS ORDERABLES Performing Organization Address [facility] de Phone Number [facility] [address] [place] [address] * (ABNORMAL) ELECTROLYTES (03/08/2008 21:34 EDT) Sodium 139 136 - 145 mEq/L [facility] Potassium 3.8 3.5 - 5.0 mEq/L [facility] Chloride 106 96 - 110 mEq/L [facility] CO2 23(L) 24 - 32 mEq/L [facility] 03/08/2008 21:3 4 EDT 03/08/2008 22:06 EDT Zeus Preciado MD CHEMISTRY & BLOOD GAS ORDERABLES Performing Organization Address [facility] Co de Phone Number [facility] [address] [place] [address] * (ABNORMAL) LIPASE (03/08/2008 21:34 EDT) Lipase 278(H) 0 - 250 U/L [facility] 03/08/2008 21:3 4 EDT 03/08/2008 22:06 EDT Zeus Preciado MD CHEMISTRY & BLOOD GAS ORDERABLES Performing Organization Address [facility] de Phone Number [facility] [address] [place] [address] * CREATININE (03/08/2008 21:34 EDT) Creatinine 0.70 0.7 - 1.5 mg/dl [facility] GFR, Calculated >60 ml/min/1.7 3m2 [facility] 03/08/2008 21:3 4 EDT 03/08/2008 22:06 EDT Zeus Preciado MD CHEMISTRY & BLOOD GAS ORDERABLES Performing Organization Address [facility] de Phone Number [facility] [address] [place] [address] * CK MB WITH TOTAL CK (03/08/2008 21:34 EDT) CK 203 0 - 250 U/L [facility] MB 4.3 0 - 5.0 ng/ml [facility] CK-MB Index Not calculated , normal MB. 0 - 2.5 [facility] 03/08/2008 21:3 4 EDT 03/08/2008 22:06 EDT Zeus Preciado MD CHEMISTRY & BLOOD GAS ORDERABLES Performing Organization Address [facility] Co de Phone Number [facility] [address] [place] [address] * (ABNORMAL) HEMAGRAM AND DIFFERENTIAL (03/08/2008 21:34 EDT) WBC 16.28(H) 4.0 - 10.4 K/cmm [facility] RBC 4.26(L) 4.36 - 5.78 M/cmm [facility] Hemoglobin 12.2(L) 13.8 - 17.3 gm/dl [facility] HCT 35.7(L) 39.5 - 50.2 % [facility] MCV 84 81 - 95 fl [facility] MCH 28.7 27.6 - 33.0 pg [facility] MCHC 34.3 32.8 - 36.4 gm/dl [facility] PLT 310 141 - 320 K/cmm [facility] RDW-CV 14.2(H) 11.8 - 14.1 % [facility] Neutrophils 85.0(H) 45.5 - 79.7 % [facility] Lymphocytes 8.0(L) 15.0 - 46.8 % [facility] Monocytes 4.0 1.8 - 12.0 % [facility] Eosinophils 3.0 0.6 - 6.9 % [facility] ABS Neutrophils 13.84(H) 2.20 - 8.85 K/cmm [facility] ABS Lymphs 1.30 1.09 - 3.30 K/cmm [facility] ABS Monocytes 0.65 0.1 - 0.8 K/cmm [facility] ABS Eosinophils 0.49 0.03 - 0.61 K/cmm [facility] RBC Morphology 1+ Macrocytes F [facility] Type of Diff: Manual [facility] 03/08/2008 21:3 4 EDT 03/08/2008 22:06 EDT Zeus Preciado MD PACKAGES & DNA UT OBE ORDERABLES [facility] [address] [place] [address] * CALCIUM (03/08/2008 21:34 EDT) Calcium 8.8 8.5 - 10.5 mg/dl [facility] Calculated Calcium 8.9 8.5 - 10.5 mg/dl [facility] 03/08/2008 21:3 4 EDT 03/08/2008 22:06 EDT Zeus Preciado MD CHEMISTRY & BLOOD GAS ORDERABLES Performing Organization Address [facility] de Phone Number [facility] [address] [place] [address] * BUN (03/08/2008 21:34 EDT) BUN 17 10 - 26 mg/dl [facility] 03/08/2008 21:3 4 EDT 03/08/2008 22:06 EDT Zeus Preciado MD CHEMISTRY & BLOOD GAS ORDERABLES Performing Organization Address [facility] de Phone Number [facility] [address] [place] [address] * FIELD RESEARCH ASSISTANT PROCEDURE (03/08/2008 21:14 EDT) Anatomical Region Laterality Modality Other 03/08/2008 21:1 4 EDT Impressions 03/09/2008 9:48 EDT ?[facility] ? [address] ??[place] [address] ? [phone] ? [email or web address] ?Final Interventional Cardiovascular Catheterization Report ?--- SUMMARY OF RESULTS --- > The patient has significant (>70%) lesions in ??1 coronary vessel(s). >The culprit artery was the [...] normal flow in the mid RCA. > ??We accomplished complete revascularization. ??There are severe stenoses remaining in 0 coronary vessels or grafts. > Interventional cardiac catheterization was performed without any significant complications. ? --- PLAN --- >Aspirin is recommended indefinitely and should not be stopped without consultation with a geothermal installer. Clopidogrel (plavix) is recommended for a minimum of 1 month after the bare metal stent procedure. A bare metal stent was used in the setting of possible concern regarding aspirin and clopidogrel compliance. ? --- PATIENT PRESENTATION --- The patient is a 32 year old male. ??The primary indication for PCI was Therapy for Non-Q Wave or ST Elevation [place]. Additional indications include: STEMI - primary PCI. The patient has the following Comorbidities/Risk Factors: ??Hypertension. : 1975 ?Sex: male ?Height: 167.5cm ?Weight: 86.4kg ?BSA: 1.96 Allergies: ??NKA Pre-Crown Assembly Machine Set Up Mechanic Values: ? --- PROCEDURE --- ? CARDIAC ANATOMY AND FUNCTION ? Natives with > 70% stenosis: Mid-Distal RCA, Proximal RCA ? Dominance: Right ?LM Stenosis: 0% ? INTERVENTIONAL CARDIAC PROCEDURE PCI is indicated for this significant ACC/AHA class B1 lesion in the ??proxima and mid RCA vessel. A 6F CLS 3.5 guide catheter was chosen for the intervention . ??This catheter gave good engagement in the ostium of the RCA. The lesion in the ??mid RCA was crossed successfully with an 0.014 inch [employer] wire. We then performed a thrombectomy utilizing a La Puente catheter in the mid RCA. We then inflated a 3.0 mm diameter of approximately 23 mm length Vision stent in the ??mid RCA. ?? The maximal inflation pressure was 12-16 kathy. We then inflated a 3.5 mm diameter of approximately 23 mm length Vision stent in the ??proximal RCA. ?? The maximal inflation pressure was 12-16 kathy. The stent balloon was then inflated in the mid RCA stent. ??The maximal inflation pressure was 12-16 kathy. The right common femoral artery was normal in size and had no significant angiographic lesions. The femoral artery sheath was placed within the common femoral artery. The Access location was: ?? > Right Femoral Artery The Largest Arterial Sheath/Cath placed was ??6F The Hemostasis method used was: ??> Angioseal SELECTED MEDICATION ADMINISTERED DURING THE PROCEDURE: ??Bilvalirudin BOLUS, Bilvalirudin DRIP, FENTANYL, VERSED ? (Please see PhysioLog report for complete list of medications used.) Referring Physician: KIT MARIA,JESSICA Reyes Referring Physician 2: ZAC CONWAY DO Interventional Attending: Zeus Preciado MD Interventional Fellow: Poli Gonzalez MD As the attending, supervising geothermal installer, I was present for the entire procedure. Signature date/time: 03/09/2008 9:48:48 AM ? Narrative 03/09/2008 9:48 EDT ?[facility] ? [address] [place] [address] ??[place] [address] ? [phone] ? [email or web address] ?Final Diagnostic Cardiovascular Catheterization Report ?--- SUMMARY OF RESULTS --- > Diagnostic cardiac catheterization was performed without any significant complications. > The patient has significant (>70%) lesions in ??1 coronary vessel(s). ? --- PLAN --- > After careful review of the diagnostic images and findings, PCI of the proximal and mid RCA is indicated emergently based upon the indications, risk factors and anatomy described above. ? --- PATIENT PRESENTATION --- The patient is a 32 year old male with the following indications: ??STEMI - primary PCI . The patient has the following Comorbidities/Risk Factors: ??Hypertension. : 1975 ?Sex: male ?Height: 167.5cm ?Weight: 86.4kg ?BSA: 1.96 Allergies: ??NKA Pre-Crown Assembly Machine Set Up Mechanic Values: ? --- PROCEDURE --- DIAGNOSTIC CARDIAC PROCEDURE Under local anesthesia, the right femoral artery was accessed with a 6F sheath using modified Seldinger technique. ??A 6F JL4 catheter was introduced and positioned in the ascending aorta.Selective coronary arteriography was then performed using a 6F CLS 3.5 catheter to engage the left coronary artery and a 6F JR4 catheter to engage the right coronary artery. ??Right and left coronary arteriography were performed in multiple views. The Access location was: ?? > Right Femoral Artery The Largest Arterial Sheath/Cath placed was ??6F The Hemostasis method used was: ??> Angioseal SELECTED MEDICATION ADMINISTERED DURING THE PROCEDURE: ??Bilvalirudin BOLUS, Bilvalirudin DRIP, FENTANYL, VERSED ? (Please see PhysioLog report for complete list of medications used.) ?--- RESULTS --- HEMODYNAMICS ??Pressures: ?Site ?Systolic ??Diasto ??Mean ?lic ?AoA ? 104 ? 74 ?88 LEFT VENTRICULOGRAPHY Ventriculography was not performed during the procedure. FEMORAL ANGIOGRAPHIC FINDINGS The right common femoral artery was normal in size and had no significant angiographic lesions. The femoral artery sheath was placed within the common femoral artery. CORONARY ANGIOGRAPHIC FINDINGS Left Main Artery: The left main coronary [...] has a thrombotic and focal 90% stenosis. Referring Physician: KIT MARIA,JESSICA Reyes Referring Physician 2: ZAC CONWAY DO Diagnostic Attending: Zeus Preciado MD Diagnostic Fellow: Poli Gonzalez MD As the attending, supervising geothermal installer, I was present for the entire procedure. Signature date/time: 03/09/2008 9:37:53 AM Procedure Note 04/18/2010 [facility] [address] [place] [address] [phone] [email or web address] Final Diagnostic Cardiovascular Catheterization Report --- SUMMARY OF RESULTS --- > Diagnostic cardiac catheterization was performed without anysignificant complications. > The patient has significant (>70%) lesions in 1 coronary vessel(s). --- PLAN --- > After careful review of the diagnostic images and findings, PCI of the proximal and mid RCA is indicated emergently based upon the indications,risk factors and anatomy described above. --- PATIENT PRESENTATION --- The patient is a 32 year old male with the following indications: STEMI- primary PCI . The patient has the following Comorbidities/Risk Factors: Hypertension. : 1975 Sex: male Height: 167.5cm Weight: 86.4kg BSA:1.96 Allergies: NKA Pre-Crown Assembly Machine Set Up Mechanic Values: --- PROCEDURE --- DIAGNOSTIC CARDIAC PROCEDURE Under local anesthesia, the right femoral artery was accessed with a 6Fsheath using modified Seldinger technique. A 6F JL4 catheter was introducedand positioned in the ascending aorta.Selective coronary arteriography wasthen performed using a 6F CLS 3.5 catheter to engage the left coronary arteryand a 6F JR4 catheter to engage the right coronary artery. Right and leftcoronary arteriography were performed in multiple views. The Access location was: > Right Femoral Artery The Largest Arterial Sheath/Cath placed was 6F The Hemostasis method used was: > Angioseal SELECTED MEDICATION ADMINISTERED DURING THE PROCEDURE: BilvalirudinBOLUS, Bilvalirudin DRIP, FENTANYL, VERSED (Please see PhysioLog report for complete list of medicationsused.) --- RESULTS --- HEMODYNAMICS Pressures: Site Systolic Diasto Mean lic AoA 104 74 88 LEFT VENTRICULOGRAPHY Ventriculography was not performed during the procedure. FEMORAL ANGIOGRAPHIC FINDINGS The right common femoral artery was normal in size and had nosignificant angiographic lesions. The femoral artery sheath was placed within the common femoral artery. CORONARY ANGIOGRAPHIC FINDINGS Left Main Artery: The left main coronary artery is normal in size and hasno significant angiographic lesions. Left Anterior Descending Artery: The proximal LAD artery has a pelxtx07% stenosis. Circumflex Artery: The Circumflex is normal in size and has nosignificant angiographic lesions. Right Coronary Artery: The RCA is dominant. The proximal RCA has a smooth 70% stenosis. The mid RCA has a thrombotic and focal 90% stenosis. Referring Physician: KIT MARIA,JESSICA Reyes Referring Physician 2: ZAC CONWAY DO Diagnostic Attending: Zeus Preciado MD Diagnostic Fellow: Poli Gonzalez MD As the attending, supervising geothermal installer, I was present for the entire procedure. Signature date/time: 03/09/2008 9:37:53 AM IMPRESSION [facility] [address] [place] [address] [phone] [email or web address] Final Interventional Cardiovascular Catheterization Report --- SUMMARY OF RESULTS --- > The patient has significant (>70%) lesions in 1 coronary vessel(s). >The culprit artery was the proximal RCA. >Prior to PCI, there was 70% stenosis in the culprit artery. >Following PCI as described in the procedure section, there was 0%residual stenosis and normal flow in the proximal RCA. >The culprit artery was the mid RCA. >Prior to PCI, there was 90% stenosis in the culprit artery. >Following PCI as described in the procedure section, there was 0%residual stenosis and normal flow in the mid RCA. > We accomplished complete revascularization. There are severestenoses remaining in 0 coronary vessels or grafts. > Interventional cardiac catheterization was performed without anysignificant complications. --- PLAN --- >Aspirin is recommended indefinitely and should not be stopped without consultation with a geothermal installer. Clopidogrel (plavix) is recommended fora minimum of 1 month after the bare metal stent procedure. A bare metalstent was used in the setting of possible concern regarding aspirin andclopidogrel compliance. --- PATIENT PRESENTATION --- The patient is a 32 year old male. The primary indication for PCI wasTherapy for Non-Q Wave or ST Elevation [place]. Additional indications include: STEMI- primary PCI. The patient has the following Comorbidities/Risk Factors: Hypertension. : 1975 Sex: male Height: 167.5cm Weight: 86.4kg BSA:1.96 Allergies: NKA Pre-Crown Assembly Machine Set Up Mechanic Values: --- PROCEDURE --- CARDIAC ANATOMY AND FUNCTION Natives with > 70% stenosis: Mid-Distal RCA, Proximal RCA Dominance: Right LM Stenosis: 0% INTERVENTIONAL CARDIAC PROCEDURE PCI is indicated for this significant ACC/AHA class B1 lesion in theproxima and mid RCA vessel. A 6F CLS 3.5 guide catheter was chosen for the intervention . Thiscatheter gave good engagement in the ostium of the RCA. The lesion in the mid RCA was crossed successfully with an 0.014 inchAsahi Prowater wire. We then performed a thrombectomy utilizing a La Puente catheter in the midRCA. We then inflated a 3.0 mm diameter of approximately 23 mm length Visionstent in the mid RCA. The maximal inflation pressure was 12-16 kathy. We then inflated a 3.5 mm diameter of approximately 23 mm length Visionstent in the proximal RCA. The maximal inflation pressure was 12-16 kathy. The stent balloon was then inflated in the mid RCA stent. The maximal inflation pressure was 12-16 kathy. The right common femoral artery was normal in size and had nosignificant angiographic lesions. The femoral artery sheath was placed within the common femoral artery. The Access location was: > Right Femoral Artery The Largest Arterial Sheath/Cath placed was 6F The Hemostasis method used was: > Angioseal SELECTED MEDICATION ADMINISTERED DURING THE PROCEDURE: BilvalirudinBOLUS, Bilvalirudin DRIP, FENTANYL, VERSED (Please see PhysioLog report for complete list of medicationsused.) Referring Physician: KIT MARIA,JESSICA Reyes Referring Physician 2: ZAC CONWAY DO Interventional Attending: Zeus Preciado MD Interventional Fellow: Poli Gonzalez MD As the attending, supervising geothermal installer, I was present for the entire procedure. Signature date/time: 03/09/2008 9:48:48 AM [place] Provider [id number] CARDIAC CATH ORDERABLES documented in this encounter Visit Diagnoses Not on filedocumented in this encounter
--- OUTSIDE RECORDS SUMMARY | 2024-08-14 17:36 | XMS_ITS | Encounter Summary ---
Author Organization [facility] Address [address] [place] [address] Care Team Providers Care Metal Rolling Mill Operator Name Role Phone Tommy Tirado MD Primary Care Provider Reason for Visit * Reason Comments Dental Pain Pt has had left side d dental pain for one year. Has been seen here numerous times for same. Encounter Details Date Type Department Care Team (Late st Contact Info) Description 05/12/2012 2:30 EDT - 05/12/2012 3:18 EDT Emergency [facility] Emergency Department - [facility] [address] [place] [address] Timo Mayer PAGeraldineC [address] [place] [address] Emergency, MD Rosalind Dental caries Discharge Disposition: Home or Self Care Social History Tobacco Use Types Packs/Day Years Used Date Smoking Tobacco: Every Day Cigarettes Alcohol Use Standard Drinks/Week Comments Yes 0 (1 standard drink = 0.6 oz pur e alcohol) seldom Sex and Gender Information Value Date Recorded Sex Assigned at Not on file Gender Identity Male 08/08/2023 21:13 EDT Sexual Orientation Not on file documented as of this encounter Last Filed Vital Signs Vital Sign Reading Time Taken Comments Blood Pressure 164/97 05/12/2012 0242 EDT Pulse 88 05/12/2012 0242 EDT Temperature 36.5 ??C (97.7 ??F) 05/12/2012 0242 EDT Respiratory Rate 16 05/12/2012 0242 EDT Oxygen Saturation 100% 05/12/2012 0242 EDT Inhaled Oxygen Concentration - - Weight - - Height - - Body Mass Index - - documented in this encounter Functional Status Cognitive Status Response Date of Assessm ent Because of a physical, menta l, or emotional condition, do you have serious difficulty concentrating, remembering, or making decisions? (5 years old or older) Yes 08/13/2010 documented as of this encounter Discharge Instructions * Discharge Instructions* Jame Mayer - 05/12/2012 3:01 EDT Percocet for severe pain Tylenol for less severe pain. Do NOT take tylenol and Percocet at the same time. MAKE SURE you follow up with [facility]. Call in the morning. * Attachments The following attachments cannot be sent through Care Everywhere. * DENTAL PAIN: AFTER YOUR VISIT ([employer] [place]) documented in this encounter Medications at Time of Discharge Medication Sig Dispensed Refills Start Date End Date aspirin 81 mg EC tablet Take 81 mg by mouth daily. 04/24/2023 atenolol (TENORMIN) 100 mg tablet Take 100 mg by mouth daily. 03/17/2014 duloxetine (CYMBALTA) 60 mg capsule Take 60 mg by mouth daily. 03/18/2014 niacin (NIASPAN) 500 mg ER tablet Take 500 mg by mouth at bedtime. 03/17/2014 simvastatin (ZOCOR) 20 mg tablet Take 20 mg by mouth at bedtime. 03/17/2014 documented as of this encounter Discharge Disposition Disposition Code Departure Means Destination Home or Self Care documented in this encounter ED Notes * Jame Mayer - 05/12/2012 0254 EDT Images from the original note were not included. DOS: 05/12/2012 Chief Complaint Patient presents with ??? Dental Pain Pt has had left sided dental pain for one year. Has been seen here numerous times for same. The patient is a 36 y.o. male who presents today with Dental Pain HPI 36-year-old male who presents for left upper molar pain for one year. He reports he has had multiple dental blocks that have failed. He recently had to blocks in the last week Helped. He has tried taking Vicodin but this has not provided any significant pain relief. Denies any fevers, chills, sweats or other infectious symptoms. He states he has tried multiple times schedule appointments with the dental clinic but has been unsuccessful. Review of Systems HENT: Positive for dental problem. Negative for drooling. All other systems reviewed and are negative. Past Medical History Diagnosis Date ??? Hypertension ??? Psychiatric problem anxiety and depression ??? CAD (coronary artery disease) stents placed in 2006 Past Surgical History Procedure Date ??? Femur fracture surgery ??? Cardiac catherization ??? Finger trigger release No Known Allergies History Substance Use Topics ??? Smoking status: Current Everyday Smoker -- 1.0 packs/day ??? Smokeless tobacco: Not on file ??? Alcohol Use: Yes seldom No family history on file. Vital Signs Temp: 36.5 ??C (97.7 ??F) Temp src: Oral Pulse: 88 Resp: 16 SpO2: 100 % BP: 164/97 mmHg BP Device: BP Machine Physical Exam Constitutional: He appears well-developed. He appears distressed. HENT: Mouth/Throat: He does not have dentures. Abnormal dentition. Dental caries present. No dental abscesses. Cardiovascular: Normal rate. Pulmonary/Chest: Effort normal. Skin: He is not diaphoretic. Psychiatric: He has a normal mood and affect. His behavior is normal. Radiology orders: None Procedures ED Course: A medical screening exam was performed. Poor dentition and dental caries. Erosive tooth decay left upper molar. NO abscess/erythema .I have recommended that this patient have a dental block but he declines at this time. I have discussed the risks and benefits of this procedure with him. The patient verbalizes understanding. DC home with Percocet starter pack. Explained need to obtain dental care. Disposition: Discharged The patient's pain was managed to an adequate level weighing risk vs. benefit of further medications. Upon departure from the Emergency Department, the patient's pain was 4 on a zero to ten scale. Condition at departure from the Emergency Department: Stable Discharge Prescriptions New Prescriptions No Discharge Prescriptions for this patient MDM 1. Dental caries PCP: TOMMY Gerardo was available for supervision. 05/12/2012 3:01 documented in this encounter Miscellaneous Notes * Scanned Note-Null - STAMPING OPERATOR, SCAN 2 - 05/15/2012 4791 EDT documented in this encounter Plan of Treatment Not on file documented as of this encounter Visit Diagnoses Diagnosis Dental caries Unspecified dental caries documented in this encounter Administered Medications Inactive Administered Medications - up to 3 most recent administrations Medication Order MAR Action Action Date Dose Rate Site Oxycodone w APAP?? 5- 325 mg Tab STARTER PACK 1 Package, oral, NOW X1, 1 dose, On Fri05/12/12 at 0315, STAT Given 05/12/2012 3:18 EDT 1 Package documented in this encounter Active and Recently Administered Medications Times are shown in EDT. Scheduled Medication Order 05/10/2012 05/11/2012 05/12/2012 Oxycodone w APAP?? 5- 325 mg Tab STARTER PACK (COMPLETED) 1 Package, oral, NOW X1, 1 dose, On Fri05/12/12 at 0315, STAT 0318 (Given - Provid er: Tiffani Dunaway RN) documented in this encounter Orders Medications Ordered That Lester ht Not Have Been Administered Count Last Ordered Date First Ordered Date Oxycodone w APAP?? 5- 325 mg Tab STARTER PACK 1 05/12/2012 documented in this encounter Care Teams Metal Rolling Mill Operator Relationship Specialty Start Date End Date Tommy Tirado MD [address] [facility] [address] [place] [address] PCP - General 08/22/10 08/16/14 documented as of this encounter
--- OUTSIDE RECORDS SUMMARY | 2024-08-14 17:36 | XMS_ITS | Encounter Summary ---
Author Organization [facility] Address [address] [place] [address] Care Team Providers Care Operator Coating Furnace Name Role Phone Micheal Moser MD Primary Care Provider Jorge carroll Encounter Details Date Type Department Care Team (Late st Contact Info) Description 12/01/2007 Office Visit [facility] - Maple conversion [address] [place] [address] Mary Gandhi MD [address] [phone] Social History Tobacco Use Types Packs/Day Years Used Date Smoking Tobacco: Never Assessed Sex and Gender Information Value Date Recorded Sex Assigned at Not on file Gender Identity Male 08/08/2023 21:13 EDT Sexual Orientation Not on file documented as of this encounter Progress Notes * Mary Gandhi MD - 12/24/2009 0716 EST [facility] - Physician Summary Registration Date/Time: 12/01/2007 10:16 HISTORY OF PRESENT ILLNESS (Please see attached for preoperative H&P for release of trigger fingers involving the 3rd and 4th fingers of both hands by Dr. Saucedo). CLINICAL IMPRESSION Preoperative evaluation- bilateral trigger finger release of 3rd and 4th fingers of both hands. INSTRUCTIONS (Pt may proceed with surgery as scheduled. Was told to continue his meds for hypertension perioperatively. See H&P for details of evaluation.). (Electronically signed by Mary Gandhi MD 12/07/2007 15:23) [facility] Center - Nursing Summary Registration Date/Time: 12/01/2007 10:16 TRIAGE Initial Assessment BP: 140 / 90 sitting L arm. HR: 76. RR: 18. Temp: 97.7 oral. --1159 Christiana Hawley, Sue History Chief Complaint: (Pre-Op). --1159 Christiana Hawley, (See paper forms). --1200 Christiana Hawley . NURSING PROGRESS NOTES 12-lead EKG was performed by a tech and shown to the ED physician. --1243 Govind Carter, Sue DISPOSITION / DISCHARGE Condition at departure: unchanged. Patient reports pain level on departure as 0/10. No learning barriers present. Discharge instructions reviewed with the patient. Patient verbalized understanding. Written instructions provided in Thai. The patient was discharged home. The patient left the Emergency Department ambulatory and via private vehicle. Patient driving. Departure time: 13:01. --[address] Evangelista R.N.. Locked/Released at 12/01/2007 13:[address] Evangelista R[address]N. documented in this encounter Plan of Treatment Not on file documented as of this encounter Visit Diagnoses Not on filedocumented in this encounter Care Teams Operator Coating Furnace Relationship Specialty Start Date End Date Micheal Moser MD PCP - General 02/24/09 08/21/10 documented as of this encounter
--- OUTSIDE RECORDS SUMMARY | 2024-08-14 17:36 | XMS_ITS | Encounter Summary ---
Author Organization [facility] Address [address] [place] [address] Care Team Providers Care Supervisor Buffing And Pasting Name Role Phone Unavailable Primary Care Provider Unavailabl e Encounter Details Date Type Department Care Team (Latest Contact Info) Description 09/16/2001 21:54 EST Hospital Encounter [facility] Emergency Department - [address] [address] Emergency, Default, MD Discharge Disposition: Home or [...]
--- OUTSIDE RECORDS SUMMARY | 2024-08-14 17:36 | XMS_ITS | Encounter Summary ---
Author Organization [facility] Address [address] [place] [address] Care Team Providers Care Budget Record Clerk Name Role Phone Roman Tirado MD Primary Care Provider Encounter Details Date Type Department Care Team (Latest Contact Info) Description 11/09/2010 16:06 EST - 11/09/2010 23:59 EST Hospital Encounter [facility] [address] [place] [address] January, Deann Gaytan, PORTABLE SAWMILL OPERATOR [address] [facility] [address] [place] [address] Discharge Disposition: Home or Self Care Social [...] documented as of this encounter Functional Status Cognitive Status Response Date of Assessm ent Because of a physical, menta l, or emotional condition, do you have serious difficulty concentrating, remembering, or making decisions? (5 years old or older) Yes 08/13/2010 documented as of this encounter Medications at Time of Discharge [...] Code Departure Means Destination Home or Self Long-Term documented in this encounter Plan of Treatment Pending Results Name Type Priority Associated Diagnoses Date /Time OUTSIDE IMAGES - OTHER CHEST Imaging 03/17/2014 9:32 EDT NM NUCLEAR STRESS EXERCISE Cardiac Services 08/19/2014 0:00 EDT Scheduled Orders Name Type Priority Associated Diagnoses Orde r Schedule OUTSIDE IMAGES - OTHER CHEST Imaging One Time for 1 Occurrences starting 03/17/2014 until 03/17/2014 NM NUCLEAR STRESS EXERCISE Cardiac Services One Time for 1 Occurrences starting 08/19/2014 until 08/19/2014 documented as of this encounter Procedures Procedure Name Priority Date/Time Associated Diagnosis Comments NM NUCLEAR STRESS EXERCISE 06/20/2014 8:06 EDT documented in this encounter Results * NM NUCLEAR STRESS EXERCISE (06/20/2014 8:06 EDT) Anatomical Region Laterality Modality Other 06/20/2014 8:06 EDT Narrative 06/20/2014 16:59 EDT *Nuclear Cardiology and Stress Laboratory* [address] [place] [address] *Interpreting Groups:* *[facility] and Department of Radiology* Myocardial Perfusion Imaging - SPECT Regadenoson *PATIENT PRESENTATION* Height: ? 167.6cm (66in ) Blood Pressure: Weight: ? 78.2kg (172lb ) BSA: ?1.93m^2 Referring physician: Roman Tirado Unknown, Unknown Ordering physician: ??Trip Soto Impressions: ?? Normal study. Summary: 1. Myocardial perfusion imaging: No myocardial perfusion defects noted. 2. The calculated left ventricular ejection fraction after stress: 64%. LV ?? global systolic function is normal. No left ventricular regional motion ?? abnormality. 3. Stress ECG conclusions: The stress ECG is negative. CAD likelihood: ??Pre test likelihood of CAD: 100%. Post test likelihood of CAD: 100%. Indication: ?? 786.50 Chest Pain, Unspecified. History: ??38yo male with known CAD; hx of stenting x2 to RCA in 2007, NSTEMI with in-stent restenosis- 1 JOSE to RCA March 2014, severe anxiety, medical noncompliance. Pt admitted 06/19/14 to ICU after presenting with c/o chest pain- dull and sharp, constant, mildly pleuritic, nonexertional, no assoc factors. Pain continues to be 7/10 in left chest. No relief with percocet, morphine, dilaudid, nitro and ativan that has been given during admission. Pt very anxious and agitated. ??Risk factors: ??Family history of coronary artery disease. Current tobacco use. Hypertension. Diabetes mellitus. Dyslipidemia. ??Medications: ??ISIAH inhibitors. Aspirin. Beta blockers. Oral diabetic agent. Statin therapy. Seroquel, suboxone, clonazepam, cymbalta, hydroxyzine. Imaging Technique: Protocol: ??Regadenoson. Acquisition: ?? Gated SPECT; 1 day - rest/stress. ?The patient was imaged in the supine position. Isotope administration: - Rest. Tc[99m]-sestamibi. Injection to stress time: 00:45. Administered by: ??Allison Jack. - Stress. Tc[99m]-sestamibi. Injected at: peak pharmacologic stress. ??Administered by: Allison Jack. Stress protocol: +--------+---+ + + + Stage ?? HR BP (mmHg) ?? Symptoms ? Comments ? +--------+---+ + + + Baseline 101 150/85 (107) 7 out of 10 chest discomfort, ? persistent t/o hospital stay ? +--------+---+ + + + 1 min ?? 118 ? Moderate dyspnea ? Inject Regadenoson. +--------+---+ + + + 2 min ?? 120 150/85 (107) ? +--------+---+ + + + 3 min ?? 115 ? +--------+---+ + + + 4 min ?? 109 150/90 (110) Dyspnea resolved. CP unchanged ? +--------+---+ + + + 5 min ?? 114 ? +--------+---+ + + + 6 min ?? 109 148/97 (114) ? +--------+---+ + + + 7 min ?? 115 ? +--------+---+ + + + 8 min ?? 109 142/96 (111) ? +--------+---+ + + + 9 min ?? 105 ? +--------+---+ + + + 10 min ?? 107 147/95 (112) Baseline 7/10 cp unchanged ? +--------+---+ + + + Stress results: ??The patient experienced moderate dyspnea in response to stress. Stress ECG: ?? The stress ECG is negative. Myocardial perfusion: ?? Imaging information: gated. Left ventricular size is normal. Right ventricular size is normal. No myocardial perfusion defects noted. Ventricular Function (Wall Motion): ?? The calculated left ventricular ejection fraction after stress: 64%. LV global systolic function is normal. ?? No left ventricular regional motion abnormality. Right ventricular function is normal. ?? Study data: ??[facility] hospitalist supervised and was readily available during the procedure. ??Study status: ??Routine. ??Consent: ??The risks, benefits, and alternatives to the procedure were explained to the patient and informed consent was obtained. ??Procedure: ??Initial setup. A baseline ECG was recorded. Surface ECG leads and automatic cuff blood pressure measurements were monitored. Heart sounds: Normal. Lung sounds: Normal. ??Regadenoson stress test. Stress testing was performed, with regadenoson by intravenous bolus, for a total dose of 0.4mgover 10.00sec, followed by a 5ml saline flush. The infusion was terminated due to per protocol. ??Study completion: ??All catheters inserted during the procedure were removed. The patient tolerated the procedure well and was discharged from the lab. ??Discharge: ??The patient left the laboratory in stable condition. ? Birthdate: ??Patient birthdate: 1975. ??Sex: ??Gender: male. Study date: ??Study date: 20-Jun-2014. Signature Documentation: - The imaging portion of this study was interpreted by Nuclear Milieu Technician ??Maya Valdes. - The imaging portion of this study was interpreted by Nuclear Radiologist ??Giles Garcia. - Director Of Strategic Programs Dr. Jarad Witt participated in image interpretation. - The Stress ECG portion of this study was interpreted by Dr. Trejo ??Keisha. Electronically signed by Maya Valdes MD 06/20/2014 16:59 Procedure Note 06/20/2014 *[facility] Cardiology [facility] Stress [facility]* [address] [place] [address] *Interpreting Groups:* *[facility] and Department of Radiology* Myocardial Perfusion Imaging - SPECT Regadenoson *PATIENT PRESENTATION* Height: 167.6cm (66in ) Blood Pressure: Weight: 78.2kg (172lb ) BSA: 1.93m^2 Referring physician: Roman Tirado Unknown, Unknown Ordering physician: Trip Soto Impressions: Normal study. Summary: 1. Myocardial perfusion imaging: No myocardial perfusion defects noted. 2. The calculated left ventricular ejection fraction after stress: 64%. LV global systolic function is normal. No left ventricular regional motion abnormality. 3. Stress ECG conclusions: The stress ECG is negative. CAD likelihood: Pre test likelihood of CAD: 100%. Post test likelihood ofCAD: 100%. Indication: 786.50 Chest Pain, Unspecified. History: 38yo male with known CAD; hx of stenting x2 to RCA in 2007,NSTEMI with in-stent restenosis- 1 JOSE to RCA March 2014, severe anxiety, medical noncompliance. Pt admitted 06/19/14 to ICU after presenting with c/o chestpain- dull and sharp, constant, mildly pleuritic, nonexertional, no assocfactors. Pain continues to be 7/10 in left chest. No relief with percocet,morphine, dilaudid, nitro and ativan that has been given during admission. Pt veryanxious and agitated. Risk factors: Family history of coronary artery disease.Current tobacco use. Hypertension. Diabetes mellitus. Dyslipidemia. Medications:ISIAH inhibitors. Aspirin. Beta blockers. Oral diabetic agent. Statin therapy. Seroquel, suboxone, clonazepam, cymbalta, hydroxyzine. Imaging Technique: Protocol: Regadenoson. Acquisition: Gated SPECT; 1 day - rest/stress. The patient was imagedin the supine position. Isotope administration: - Rest. Tc[99m]-sestamibi. Injection to stress time: 00:45. Administeredby: Allison Jack. - Stress. Tc[99m]-sestamibi. Injected at: peak pharmacologic stress. Administered by: Allison Jack. Stress protocol: +--------+---+ + + + Stage HR BP (mmHg) Symptoms Comments +--------+---+ + + + Baseline 101 150/85 (107) 7 out of 10 chest discomfort, persistent t/o hospital stay +--------+---+ + + + 1 min 118 Moderate dyspnea InjectRegadenoson. +--------+---+ + + + 2 min 120 150/85 (107) +--------+---+ + + + 3 min 115 +--------+---+ + + + 4 min 109 150/90 (110) Dyspnea resolved. CP unchanged +--------+---+ + + + 5 min 114 +--------+---+ + + + 6 min 109 148/97 (114) +--------+---+ + + + 7 min 115 +--------+---+ + + + 8 min 109 142/96 (111) +--------+---+ + + + 9 min 105 +--------+---+ + + + 10 min 107 147/95 (112) Baseline 7/10 cp unchanged +--------+---+ + + + Stress results: The patient experienced moderate dyspnea in response tostress. Stress ECG: The stress ECG is negative. Myocardial perfusion: Imaging information: gated. Left ventricular sizeis normal. Right ventricular size is normal. No myocardial perfusion defectsnoted. Ventricular Function (Wall Motion): The calculated left ventricularejection fraction after stress: 64%. LV global systolic function is normal. Noleft ventricular regional motion abnormality. Right ventricular function isnormal. Study data: [facility] hospitalist supervised and was readily available duringthe procedure. Study status: Routine. Consent: The risks, benefits, and alternatives to the procedure were explained to the patient and informedconsent was obtained. Procedure: Initial setup. A baseline ECG was recorded.Surface ECG leads and automatic cuff blood pressure measurements were monitored.Heart sounds: Normal. Lung sounds: Normal. Regadenoson stress test. Stresstesting was performed, with regadenoson by intravenous bolus, for a total dose of 0.4mgover 10.00sec, followed by a 5ml saline flush. The infusion wasterminated due to per protocol. Study completion: All catheters inserted during the procedure were removed. The patient tolerated the procedure well and was discharged from the lab. Discharge: The patient left the laboratory instable condition. Birthdate: Patient birthdate: 1975. Sex: Gender:male. Study date: Study date: 20-Jun-2014. Signature Documentation: - The imaging portion of this study was interpreted by NuclearCardiologist Dr. Maya Valdes. - The imaging portion of this study was interpreted by Nuclear RadiologistDr. Giles Garcia. - Director Of Strategic Programs Dr. Jarad Witt participated in imageinterpretation. - The Stress ECG portion of this study was interpreted by Dr. Maya Valdes. Electronically signed by Maya Valdes MD 06/20/2014 16:59 Trip Soto MD CARDIAC NM ORDERABLE S documented in this encounter Visit Diagnoses Not on filedocumented in this encounter Care Teams Budget Record Clerk Relationship Specialty Start Date End Date Roman Tirado MD [address] [facility] [address] [place] [address] PCP - General 08/22/10 08/16/14 documented as of this encounter
--- OUTSIDE RECORDS SUMMARY | 2024-08-14 17:36 | XMS_ITS | Encounter Summary ---
Author Organization [facility] Address [address] [place] [address] Care Team Providers Care Joint Special Operations Name Role Phone Unavailable Primary Care Provider Unavailabl e Encounter Details Date Type Department Care Team (Late st Contact Info) Description 12/01/2007 10:15 EST - 12/01/2007 11:59 EST Hospital Encounter [address] [address] Sehlley Rodrigues MD [address] [place] [phone] Discharge Disposition: Auto Discharge Social History Tobacco Use Types Packs/Day Years Used Date Smoking Tobacco: Never Assessed Sex and Gender Information Value Date Recorded Sex Assigned at Not on file Gender Identity Male 08/08/2023 21:13 EDT Sexual Orientation Not on file documented as of this encounter Discharge Disposition Disposition Code Departure Means Destination Auto Discharge documented in this encounter Plan of Treatment Pending Results Name Type Priority Associated Diagnoses Date /Time OUTSIDE IMAGES - OTHER CHEST Imaging 08/13/2010 16:40 EDT Scheduled Orders Name Type Priority Associated Diagnoses Orde r Schedule OUTSIDE IMAGES - OTHER CHEST Imaging For medications that can be administered at any time during the hospitalization for visit such as immunizations. for 1 Occurrences starting 08/13/2010 until 08/13/2010 documented as of this encounter Visit Diagnoses Not on filedocumented in this encounter
--- OUTSIDE RECORDS SUMMARY | 2024-08-14 17:36 | XMS_ITS | Encounter Summary ---
Author Organization [facility] Address [address] [place] [address] Care Team Providers Care Pressure Testing Technician Name Role Phone Unavailable Primary Care Provider Unavailabl e Encounter Details Date Type Department Care Team (Latest Contact Info) Description 12/02/2007 7:33 EST - 12/02/2007 11:59 EST Hospital Encounter [facility] Perioperative Services- [facility] [address], [place] [id number] Nolan Saucedo MD [address] [place] [phone] Discharge Disposition: Home or Self Care [...] OR Surgeon - Nolan Saucedo MD - 12/02/2007 0000 EST PROCEDURE REPORT PT TYPE: OPPROC SERVICE DATE: 12/02/2007 SURGEON: Nolan Saucedo MD [employer] ASSEMBLER: None. PREOPERATIVE DIAGNOSIS 1. Right locked middle finger trigger finger. 2. Right locked ring finger trigger finger. 3. Left locked middle finger trigger finger. 4. Left locked ring finger trigger finger. 5. Right small and index finger trigger fingers. 6. Left small and index finger trigger fingers. POSTOPERATIVE DIAGNOSIS 1. Right locked middle finger trigger finger. 2. Right locked ring finger trigger finger. 3. Left locked middle finger trigger finger. 4. Left locked ring finger trigger finger. 5. Right small and index finger trigger fingers. 6. Left small and index finger trigger fingers. PROCEDURE 1. Right middle finger trigger finger release. 2. Right ring finger trigger finger release. 3. Left middle finger trigger finger release. 4. Left ring finger trigger finger release. 5. Right small finger and index finger trigger finger injections with corticosteroids. 6. Left small finger and index finger trigger finger injections with corticosteroids. ANESTHESIA General endotracheal. INDICATIONS Mr. Solano is a 32gentleman who came into our office on Friday with locked middle and ring trigger fingers bilaterally. These had been locked in place since November 12, 2007. He was experiencing asignificantamount of pain due to this trigger finger locking. He has been unable to use his hands during that time because of the flexed nature of his middle and ring fingers and their position in the palm. He has also had bilateral index and small finger trigger fingers for approximately six months now. This has been the duration of his middle and ring finger trigger fingers. The risks and benefits of operative intervention for this problem were discussed with him and he wished to proceed. FINDINGS The patient was found to have trigger fingers at his small and index fingers on both the right and left sides. He was found to have locked trigger fingers at his middle and ring fingers bilaterally. NARRATIVE The patient was seen preoperatively and his hands bilaterally were identified as the operative sites. He was brought back to the operating room and placed supine on the OR table. General anesthesia was induced. A right forearm tourniquet was placed distal to his antecubital IV. A left upper arm tourniquet was placed. His right hand and arm were prepped and draped in the standard sterile manner. An Esmarch bandage was used to exsanguinate the limb and the tourniquet was raised to a pressure of 250 mmHg. The middle and ring finger locked trigger fingers were first brought into an extended position, which was able to be performed once the patient had undergone general anesthesia. Next, the middle finger was addressed first. A 1-cm oblique incision was made over the A1 gonzalez. Blunt dissection was carried out down to theA1 gonzalez itself. Hemostasis was achieved in the wound using bipolar electrocautery. The A1 gonzalez was visualized. It was incised sharply in line with the flexor tendon ofthe finger. The FDP and FDS tendons to the middle finger were then retracted out ofthe wound to allow for inspection. No abnormalities were seen on either of these tendons. The tendons were then allowed to retract back into the wound. The wound was irrigated using normal saline. The wound was closed using 5-0 nylon in an interrupted simple stitch. Attention was then turned to the ring finger. A 1-cm oblique incision was made over the A1 gonzalez. Blunt dissection was carried out down to the gonzalez itself. Hemostasis was achieved using bipolar electrocautery. The A1 gonzalez was incised sharply in line with the tendons to the ring finger. The FDSand FDP tendons were retracted out of the wound to allow for inspection. No abnormalities were seenon the tendons. They were allowed to retract back into the wound. Irrigation was placed into the wound and the wound was closed using 5-0 nylon in an interrupted simple stitch. Attention was then turned to the small and index fingers. Depo-Medrol, 20 mg, 0.5 mL, as well as 0.25 mL of 0.5% Marcaine was injected into the index finger flexor tendon sheath. Care was taken not to inject into the tendon itself by flexing and extending the finger and making sure the needle was not in the tendon. This same procedure was performed for the small finger with the same mixture of injections. The patient did receive a total of 4 mL of 0.5% Marcaine around his middle and ring fingertrigger finger wounds. The wounds were dressed using Xeroform and gauze, as well as Coban. The tourniquet was let down and the tourniquet time was 19 minutes. Attention was then turned tothe left hand. The left hand and arm were prepped and draped in the standard sterile manner. An Esmarch bandage was used to exsanguinate the limb. The tourniquet was raised to a pressure of 250 mmHg. The locked trigger fingers were able to be reduced nowthat the patient was under general anesthesia. Attention was then turned first to the middle finger trigger finger. An oblique incision was made over the A1 gonzalez. Blunt dissection was carried out down to the gonzalez itself. The A1 gonzalez was incised sharply in line with the tendons to the finger. The middle finger tendons were retracted out of the wound and were inspected. No abnormalities were seen. They were allowed to retract back into the wound. The wound was irrigated and was closed using 5-0 nylon in an interrupted simple stitch. ring finger to the left hand was approached next. Again, a small 1-cm oblique incision was made over the ring finger A1 gonzalez. Blunt dissection was carried out down to the gonzalez itself. The A1 gonzalez was incised sharply in line with the tendons to the finger. The FDS and FDP tendons were retracted out of the wound and inspected. They were allowed to retract back into the wound. No abnormalitieswere seen on the tendons. The wound was irrigated and was closed using 5-0 nylon in an interrupted simple stitch. Both incisions received 5 mL total of 0.5% Marcaine around the incisions for postoperative analgesia. Attention was then turned to the index and small fingers. An injection again of 0.5 mL, 20 mg of Depo-Medrol, and 0.25 mL of Marcaine 0.5% was placed into each of the tendon sheaths for the small andindex fingers. Wounds were dressed using Xeroform and gauze. The patient was placed into a Coban dressing. The tourniquet was let off at a tourniquet time of 13 minutes. ESTIMATED BLOOD LOSS Minimal. FLUIDS 800 mL lactated Ringer. URINE OUTPUT None recorded. SPECIMENS/ CULTURES None. PACKS, DRAINS, FOREIGN MATERIALS None. COMPLICATIONS None. DISPOSITION To home. Signed by Nolan Saucedo MD 12/09/2007 07:32 Nolan Saucedo MD - Nolan Saucedo MD A - JAW Job ID: [id number] Document ID: [id number] cc: MD Ross Winter MD documented in this encounter Plan of Treatment Not on file documented as of this encounter Visit Diagnoses Not on filedocumented in this encounter
--- OUTSIDE RECORDS SUMMARY | 2024-08-14 17:36 | XMS_ITS | Encounter Summary ---
Author Organization [facility] Address [address] [place] [address] Care Team Providers Care Accounting Practice Manager Name Role Phone Roman Tirado MD Primary Care Provider Reason for Visit * Reason Onset Date Comments New Patient Visit 03/04/2011 Encounter Details Date Type Department Care Team (Late st Contact Info) Description 03/04/[address] [id number] Roman Tirado MD [address] [facility] [address] [place], [place] [phone] New Patient Visit Social History Tobacco Use Types Packs/Day Years [...] Yes 08/13/2010 documented as of this encounter Miscellaneous Notes * Telephone Encounter - Yesenia Ca - 03/04/2011 1341 EDT Would like to establish as new patient. documented in this encounter Plan of Treatment Not on file documented as of this encounter Visit Diagnoses Not on filedocumented in this encounter Care Teams Accounting Practice Manager Relationship Specialty Start Date End Date Roman Tirado MD [address] [facility] [address] [place] [address] PCP - General 08/22/10 08/16/14 documented as of this encounter
--- OUTSIDE RECORDS SUMMARY | 2024-08-14 17:36 | XMS_ITS | Encounter Summary ---
Author Organization [facility] Address [address] [place] [address] Care Team Providers Care Veterans Employment Representative Name Role Phone Tommy Tirado MD Primary Care Provider Reason for Visit * Reason Comments Psychiatric Evaluation Pt states recentl y hospitalized for depression / anxiety. Pt states he left AMA to take care of personal stuff Pt states he has intermittant thoughts of self harm. Today arrives in triage accompanied by fiancee. Pt states tearful and states continued thoughts of self harm. Denies attempt or plan. Not homicidal Encounter Details Date Type Department Care Team (Late st Contact Info) Description 08/22/2010 21:16 EDT - 08/23/2010 0:38 EDT Emergency [facility] [place] [address] [place] [id number] Yessi Amos MD [address] [facility], [address] [place] [address] Emergency, MD Rosalind Depression Discharge Disposition: Home or Self Care Social [...] Sign Reading Time Taken Comments Blood Pressure 145/90 08/22/20102126 EDT Pulse 73 08/22/20102126 EDT Temperature 36.7 ??C (98.1 ??F) 08/22/20102126 EDT Respiratory Rate 18 08/22/20102126 EDT Oxygen Saturation 100% 08/22/20102126 EDT Inhaled Oxygen Concentration - - Weight [...] Take 81 mg by mouth daily. 04/24/2023 aspirin chewable 81 mg tablet Take 1 Tab by mouth daily for 5 days. 5 Tab 0 08/20/2010 08/25/2010 atenolol (TENORMIN) 100 mg tablet Take 100 mg by mouth daily. 03/17/2014 clonAZEPAM (KLONOPIN) 0.5 mg tablet Take 3 Tabs by mouth daily for 5 days. 15 Tab 0 08/20/2010 08/25/2010 clonAZEPAM (KLONOPIN) 2 mg tablet Take 1 Tab by mouth 2 times daily for 5 days. 10 Tab 0 08/20/2010 08/25/2010 duloxetine (CYMBALTA) 60 mg capsule Take 60 mg by mouth daily. 03/18/2014 niacin (NIASPAN) 500 mg ER tablet Take 500 mg by mouth at bedtime. 03/17/2014 quetiapine (SEROQUEL) 50 mg tablet Take 3 Tabs by mouth at bedtime for 5 days. 15 Tab 0 08/20/2010 08/25/2010 quetiapine (SEROQUEL) 50 mg tablet Take 1 Tab by mouth daily for 5 days. 5 Tab 0 08/20/2010 08/25/2010 simvastatin (ZOCOR) 20 mg tablet Take 20 mg by mouth at bedtime. 03/17/2014 documented as of this encounter Discharge Disposition Disposition Code Departure Means Destination Home or Self Care Car Home documented in this encounter Progress Notes * Inpatient, Physician - 08/22/2010 0000 EDT documented in this encounter ED Notes * Yessi Amos MD - 08/28/2010 1026 EDT DOS: 08/22/2010 Chief Complaint Patient presents with ??? Psychiatric Evaluation Pt states recently hospitalized for depression / anxiety. Pt states he left AMA to take care of personal stuff Pt states he has intermittant thoughts of self harm. Today arrives in triage accompanied by carleen. Pt states tearful and states continued thoughts of self harm. Denies attempt or plan.Not homicidal The patient is a 34 y.o. male who presents today with Psychiatric Evaluation HPI Comments: 34-year-old male discharged 2 days ago from the psychiatric inpatient unit after requesting to leave. Patient states that he had personal issues which he needed to take care so he couldnot stay in the hospital. Since leaving he has taken care of his personal issues and states that hefeels the needs to come back to the hospital for further care as his depression is now worsening. Patient was given a prescription for Seroquel when he left the hospital however he states that the dose of the medicine was not written on it, and therefore the pharmacy was unable to fill it. Patient states that he had been doing better while he was in the hospital however has relapsed over the last2 days. Patient has thoughts of hurting himself but has no intent to do so and no plan as to how you would do this. Patient denies attempting to injure himself in any way since being discharged from the hospital. Patient denies any alcohol or drug use. Patient has no physical complaints The history is provided by the patient and the spouse. Psychiatric Evaluation The primary symptoms include dysphoric mood. The current episode started more than 2 weeks ago. This is a chronic problem. The degree of incapacity that he is experiencing as a consequence of his illness is moderate. Additional symptoms of the illness do not include no headaches or no abdominal pain. He admits to suicidal ideas. He does not have a plan to commit suicide. He does not contemplate harming himself. He has not already injured self. He does not contemplate injuring another person. He has not already injured another person. Risk factors that are present for mental illness include a history of mental illness. Review of Systems Constitutional: Negative for fever and chills. HENT: Negative for neck stiffness. Eyes: Negative for visual disturbance. Respiratory: Negative for shortness of breath. Cardiovascular: Negative for chest pain. Gastrointestinal: Negative for abdominal pain. Genitourinary: Negative for dysuria. Musculoskeletal: Negative for back pain. Skin: Negative for rash. Neurological: Negative for headaches. Psychiatric/Behavioral: Positive for dysphoric mood. Negative for confusion. All other systems reviewed and are negative. Past Medical History Diagnosis Date ??? Hypertension ??? Psychiatric problem anxiety and depression ??? CAD (coronary artery disease) stents placed in 2006 Past Surgical History Procedure Date ??? Femur fracture surgery ??? Cardiac catherization ??? Finger trigger release No Known Allergies History Substance Use Topics ??? Tobacco Use: Yes -- 1.0 packs/day ??? Alcohol Use: Yes seldom History reviewed. No pertinent family history. Vital Signs Temp: 36.7 ??C (98.1 ??F) Temp src: Tympanic Pulse: 73 Resp: 18 SpO2: 100 % BP: 145/90 mmHg BP Device: BP Machine O2 Device: None (Room air) Physical Exam Nursing note and vitals reviewed. Constitutional: He appears well-developed. HENT: Head: Normocephalic and atraumatic. Eyes: Pupils are equal, round, and reactive to light. Neck: Neck supple. No tracheal deviation present. Cardiovascular: Normal rate and normal heart sounds. Pulmonary/Chest: Effort normal and breath sounds normal. No respiratory distress. He has no wheezes. He has no rales. Abdominal: Soft. Bowel sounds are normal. He exhibits no distension. No tenderness. Musculoskeletal: Normal range of motion. Neurological: He is alert. Skin: Skin is warm and dry. He is not diaphoretic. Psychiatric: Flat affect, tearful, depressed Radiology orders: None Procedures ED Course: Patient with recurrence of depression not on his medication. I did contact crisis and psychiatry who came to evaluate the patient. Did not have any beds available for the patient and they would therefore recommend the patient try to get into another facility. After seeing the patient he did apparently leave his room without completion of care. The plan had been to give patient a prescription for Seroquel and for psychiatry to firm up plans for further care for him however he left prior to any of this occurring. Discharge Prescriptions New Prescriptions No Discharge Prescriptions for this patient MDM Number of Diagnoses or Management Options Depression: Diagnosis management comments: 3 Amount and/or Complexity of Data Reviewed Discuss the patient with other providers: yes 1. Depression (311L) PCP: TOMMY TIRADO 08/28/2010 10:32 * Rebecca Desai RN - 08/23/2010 0038 EDT Significant other to follow up tomorrow with crisis * Rebecca Desai RN - 08/23/2010 0037 EDT Pt d/c'd by crisis. documented in this encounter Plan of Treatment Not on file documented as of this encounter Visit Diagnoses Diagnosis Depression Depressive disorder, not elsewhere classified documented in this encounter Discontinued Medications Medication Sig Discontinue Reason Start Date End Da te clopidogrel (PLAVIX) 75 mg tablet Take 75 mg by mouth daily. Therapy completed 08/22/2010 oxycodone-acetaminophen (PERCOCET) 5-325 mg per tablet Take 1 Tab by mouth every 4 hours as needed for Pain. Therapy completed 12/21/2009 08/22/2010 documented as of this encounter Care Teams Veterans Employment Representative Relationship Specialty Start Date End Date Tommy Tirado MD [address] [facility] [address] [place] [address] PCP - General 08/22/10 08/16/14 documented as of this encounter
--- OUTSIDE RECORDS SUMMARY | 2024-08-14 17:36 | XMS_ITS | Encounter Summary ---
Author Organization [facility] Address [address] [place] [address] Care Team Providers Care Clinical Psychology Professor Name Role Phone Roman Tirado MD Primary Care Provider Encounter Details Date Type Department Care Team (Late st Contact Info) Description 11/09/2010 Results Only [facility]- PRISM [phone] January, Deann Gaytan, BONE COOKING OPERATOR [address] [place] [address] Social History Tobacco Use Types Packs/Day Years [...] Yes 08/13/2010 documented as of this encounter Plan of Treatment Not on file documented as of this encounter Procedures Procedure Name Priority Date/Time Associated Diagnosis Comments SYPHILIS SEROLOGY Routine 11/09/2010 16: 12 EST HEPATITIS C AB W REFLEX TO HCV RNA BY PCR Routine 11/09/2010 16:12 EST HEPATITIS A TOTAL ANTIBODY W REFLEX Routine 11/09/2010 16:12 EST HEPATITIS B SURFACE ANTIBODY Routine 11/09/2010 16:12 EST HEPATITIS B SURFACE ANTIGEN Routine 11/09/2010 16:12 EST COMPLETE BLOOD COUNT AND DIFFERENTIAL Routine 11/09/2010 16:12 EST HIV 1/2 ANTIGEN AND ANTIBODY, 4TH GENERATION Routine 11/09/2010 16:12 EST TSH Routine 11/09/2010 16:12 EST T4 FREE Routine 11/09/2010 16:12 EST LIPID PROFILE (INCLUDES CHOLESTEROL, TRIGLYCERIDES, HDL, LDL) Routine 11/09/2010 16:12 EST COMPREHENSIVE METABOLIC PANEL (CMP) Routine 11/09/2010 16:12 EST documented in this encounter Results * TSH (11/09/2010 16:12 EST) TSH 0.87 0.35 - 5.00 uIU/ml [facility] 11/09/2010 16:1 2 EST 11/09/2010 16:25 EST [facility] CHEMISTRY & BLOOD GA S ORDERABLES Performing Organization Address [facility] Co de Phone Number [facility] [address] [place] [address] * SYPHILIS SEROLOGY (11/09/2010 16:12 EST) Pathologist [facility] Syphilis Serology Interpretation: Nonreactive Reference Range: Nonreactive [facility] 11/09/2010 16:1 2 EST 11/09/2010 16:25 EST [facility] IMMUNOLOGY AND SEROL OGY ORDERABLES Performing Organization Address [facility] Co de Phone Number [facility] [address] [place] [address] * (ABNORMAL) LIPID PROFILE (INCLUDES CHOLESTEROL, TRIGLYCERIDES, HDL, LDL) (11/09/2010 16:12 EST) Pathologist [facility] Cholesterol 294 mg/dl [facility] Comment:Desirable:<200 Borde rline High:200-239 High:>fa=802 Triglycerides 413(H) 35 - 160 mg/dl [facility] HDL 37 mg/dl [facility] Comment:Low:<40 High(Desirab le):>or=60 LDL, Calculated Triglyceride greater than 400 mg/dl, LDL calculation invalid. Optimal:<100 Above optimal:100-129 Borderline High:130-159 High:160-189 Very High:>kr=231 mg/dl [facility] Chol/HDL Ratio 7.9 [facility] Fasting? Yes [facility] 11/09/2010 16:1 2 EST 11/09/2010 16:25 EST Deann Lukas January [facility] CHEMISTRY & BLOOD GA S ORDERABLES Performing Organization Address [facility] de Phone Number [facility] [address] [place] [address] * HIV ANTIBODY (11/09/2010 16:12 EST) HIV 1/2 Antibody Negative Reference Range: Negative [facility] 11/09/2010 16:1 2 EST 11/09/2010 16:25 EST Deann Gaytan January [facility] IMMUNOLOGY AND SEROL OGY ORDERABLES Performing Organization Address [facility] de Phone Number [facility] [address] [place] [address] * HEPATITIS C ANTIBODY (11/09/2010 16:12 EST) Hepatitis C Ab Negative Reference Range: Negative [facility] 11/09/2010 16:1 2 EST 11/09/2010 16:25 EST Deann Gaytan January [facility] CHEMISTRY & BLOOD GA S ORDERABLES Performing Organization Address [facility] Co de Phone Number [facility] [address] [place] [address] * HEPATITIS B SURFACE ANTIGEN (11/09/2010 16:12 EST) Hepatitis B Surface Ag Negative Reference Range: Negative [facility] 11/09/2010 16:1 2 EST 11/09/2010 16:25 EST January BONE COOKING OPERATOR CHEMISTRY & BLOOD GA S ORDERABLES Performing Organization Address [facility] Co de Phone Number [facility] [address] [place] [address] * HEPATITIS B SURFACE ANTIBODY (11/09/2010 16:12 EST) Hepatitis B Surface Ab Negative Reference Range: Negative Interpretation depends on clinical setting. [facility] 11/09/2010 16:1 2 EST 11/09/2010 16:[address] [facility] CHEMISTRY & BLOOD GA S ORDERABLES Performing Organization Address [facility] Phone Number [facility] [address] [place] [address] * HEPATITIS A TOTAL ANTIBODY (11/09/2010 16:12 EST) Hep A Antibody Negative Reference Range: Negative [facility] 11/09/2010 16:1 2 EST 11/09/2010 16:[address] [facility] CHEMISTRY & BLOOD GA S ORDERABLES Performing Organization Address [facility] Co de Phone Number [facility] [address] [place] [address] * T4 FREE (11/09/2010 16:12 EST) Free T4 0.9 0.8 - 1.8 ng/dL [facility] 11/09/2010 16:1 2 EST 11/09/2010 16:[address] [facility] CHEMISTRY & BLOOD GA S ORDERABLES Performing Organization Address [facility] Co de Phone Number [facility] [address] [place] [address] * (ABNORMAL) COMPREHENSIVE METABOLIC PANEL (CMP) (11/09/2010 16:12 EST) Potassium 4.7 3.5 - 5.0 mEq/L [facility] Sodium 139 136 - 145 mEq/L [facility] Chloride 99 96 - 110 mEq/L [facility] CO2 29 24 - 32 mEq/L [facility] Total Alkaline Phosphatase 99 38 - 126 U/L [facility] Bilirubin, Total <0.5 0.2 - 1.3 mg/dl [facility] AST 88(H) 15 - 46 U/L [facility] ALT 100(H) 21 - 72 U/L [facility] Albumin 4.6 3.4 - 4.9 g/dl [facility] Total Protein 7.6 6.5 - 8.3 g/dl [facility] Creatinine 0.90 0.7 - 1.5 mg/dl [facility] GFR, Calculated >60 ml/min/1.7 3m2 [facility] BUN 13 10 - 26 mg/dl [facility] Calcium 9.9 8.5 - 10.5 mg/dl [facility] Calculated Calcium 9.7 8.5 - 10.5 mg/dl [facility] Glucose, Serum 129(H) 70 - 100 mg/dl [facility] Fasting? Yes [facility] 11/09/2010 16:1 2 EST 11/09/2010 16:[address] [facility] CHEMISTRY & BLOOD GA S ORDERABLES [facility] [address] [place] [address] * (ABNORMAL) HEMAGRAM AND DIFFERENTIAL (11/09/2010 16:12 EST) WBC 15.97(H) 4.0 - 10.4 K/cmm [facility] RBC 5.29 4.36 - 5.78 M/cmm [facility] Hemoglobin 15.2 13.8 - 17.3 gm/dl [facility] HCT 44.6 39.5 - 50.2 % [facility] MCV 84 81 - 95 fl [facility] MCH 28.7 27.6 - 33.0 pg [facility] MCHC 34.0 32.8 - 36.4 gm/dl [facility] PLT 309 141 - 320 K/cmm [facility] RDW-CV 13.5 11.8 - 14.1 % [facility] % Neutrophils 74.2 45.5 - 79.7 % [facility] % Lymphocytes 20.7 15.0 - 46.8 % [facility] % Monocytes 3.9 1.8 - 12.0 % [facility] % Eosinophils 1.0 0.6 - 6.9 % [facility] % Basophils 0.2 0.2 - 1.4 % [facility] ABS Neutrophils 11.85(H) 2.20 - 8.85 K/cmm [facility] ABS Lymphs 3.31(H) 1.09 - 3.30 K/cmm [facility] ABS Monocytes 0.63 0.1 - 0.8 K/cmm [facility] ABS Eosinophils 0.16 0.03 - 0.61 K/cmm [facility] ABS Basophils 0.03 0.01 - 0.11 K/cmm [facility] Type of Diff: Automated [facility] 11/09/2010 16:1 2 EST 11/09/2010 16:25 EST January BONE COOKING OPERATOR PACKAGES & DNA PROBE ORDERABLES [facility] [address] [place] [address] documented in this encounter Visit Diagnoses Not on filedocumented in this encounter Care Teams Clinical Psychology Professor Relationship Specialty Start Date End Date Roman Tirado MD [address] [facility] [address] [place] [address] PCP - General 08/22/10 08/16/14 documented as of this encounter
--- OUTSIDE RECORDS SUMMARY | 2024-08-14 17:36 | XMS_ITS | Encounter Summary ---
Author Organization [facility] Address [address] [place] [address] Care Team Providers Care Cloth Designer Name Role Phone Ernie Rothman MD Primary Care Provider Jorge carroll Reason for Visit * Reason Comments Dental Pain dental pain for paula hs. Encounter Details Date Type Department Care Team (Late st Contact Info) Description 12/21/2009 16:12 EST - 12/21/2009 16:55 EST Emergency [facility] Emergency Department - Main [address] [address] Anibal Soto PA-C [address] [place] [phone] Emergency, MD Rosalind Tooth decay Discharge Disposition: Home or Self Care Social [...] Sign Reading Time Taken Comments Blood Pressure 153/99 12/21/2009 1616 EST Pulse 74 12/21/2009 1616 EST Temperature - - Respiratory Rate 16 12/21/2009 1615 EST Oxygen Saturation - - Inhaled Oxygen Concentration - - Weight - - Height - - Body Mass Index - - documented in this encounter Discharge Instructions * Discharge Instructions* Anibal Soto - 12/21/2009 16:50 EST * Attachments The following attachments cannot be sent through Care Everywhere. * BROKEN TOOTH: AFTER YOUR VISIT (CUBAN) * TOOTH DECAY: AFTER YOUR VISIT (CUBAN) documented in this encounter Medications at Time of Discharge Medication Sig Dispensed Refills Start Date End Date aspirin 81 mg EC tablet Take 81 mg by mouth daily. 04/24/2023 atenolol (TENORMIN) 100 mg tablet Take 100 mg by mouth daily. 03/17/2014 duloxetine (CYMBALTA) 60 mg capsule Take 60 mg by mouth daily. 03/18/2014 oxycodone-acetaminophen (PERCOCET) 5-325 mg per tablet Take 1 Tab by mouth every 4 hours as needed for Pain. 12 Tab none 12/21/2009 08/22/2010 penicillin v potassium (VEETID) 500 mg tablet Take 1 Tab by mouth every 8 hours for 7 days. 21 Tab 0 12/21/2009 12/28/2009 documented as of this encounter Ordered Prescriptions Prescription Sig Dispensed Refills Start Date End Da te penicillin v potassium (VEETID) 500 mg tablet Take 1 Tab by mouth every 8 hours for 7 days. 21 Tab 0 12/21/2009 12/28/2009 oxycodone-acetaminophen (PERCOCET) 5-325 mg per tablet Take 1 Tab by mouth every 4 hours as needed for Pain. 12 Tab none 12/21/2009 08/22/2010 documented in this encounter Discharge Disposition Disposition Code Departure Means Destination Home or Self Care Walk-out documented in this encounter ED Notes * Anibal Soto - 12/29/20090 EST DOS: 12/21/2009 Chief Complaint Patient presents with ??? Dental Pain dental pain for months. HPI Comments: Pt reports continuous dental pain and states he has no money for dental work. Requesting pain medication. Patient is a 34 y.o. male presenting with dental pain. The history is provided by the patient and the spouse. Dental Pain This is a recurrent problem. The current episode started more than 1 week ago. The problem occurs constantly. The problem has not changed since onset. The pain is at a severity of 6/10. The pain is moderate. He has tried acetaminophen and aspirin for the symptoms. The treatment provided no relief. Review of Systems Constitutional: Negative for fever and chills. HENT: Positive for dental problem. Negative for neck stiffness. Eyes: Negative for visual disturbance. Respiratory: Negative for shortness of breath. Cardiovascular: Negative for chest pain. Gastrointestinal: Negative for abdominal pain. Genitourinary: Negative for dysuria. Musculoskeletal: Negative for back pain. Skin: Negative for rash. Neurological: Negative for headaches. Psychiatric/Behavioral: Negative for confusion. All other systems reviewed and are negative. Past Medical History Diagnosis Date ??? CAD (coronary artery disease) ??? Hypertension Past Surgical History Procedure Date ??? Femur fracture surgery ??? Cardiac catherization ??? Finger trigger release No Known Allergies History Substance Use Topics ??? Tobacco Use: Yes -- 1.0 packs/day ??? Alcohol Use: Yes seldom No family history on file. BP 153/99 Pulse 74 Resp 16 Physical Exam Nursing note and vitals reviewed. Constitutional: He appears well-developed and well-nourished. He appears distressed (hand placed over mouth in discomfort). HENT: Head: No trismus in the jaw. Mouth/Throat: Oropharynx is clear and moist and mucous membranes are normal. He does not have dentures. No oral lesions. Abnormal dentition. Dental caries present. No dental abscesses, uvula swellingor lacerations. Radiology orders: None Procedures ED Course: Pt refused dental block. Given analgesia and Pen VK for prophylaxis. Advised to fu with [facility] for affordable dental work. Discharge Prescriptions New Prescriptions OXYCODONE-ACETAMINOPHEN (PERCOCET) 5-325 MG PER TABLET Take 1 Tab by mouth every 4 hours as needed for Pain. PENICILLIN V POTASSIUM (VEETID) 500 MG TABLET Take 1 Tab by mouth every 8 hours for 7 days. MDM Number of Diagnoses and Management Options Tooth decay: General comments: 3 Encounter Diagnoses Code Name Primary? Qualifier ??? 521.00U Tooth decay PCP: ERNIE ROTHMAN MD 12/29/2009 10:22 PM ED Attending Available for Supervision: Talat Farah documented in this encounter Miscellaneous Notes * Scanned Note-Null - Inpatient, Physician - 12/24/2009 0805 EST documented in this encounter Plan of Treatment Not on file documented as of this encounter Visit Diagnoses Diagnosis Tooth decay Unspecified dental caries documented in this encounter Discontinued Medications Medication Sig Discontinue Reason Start Date End Da te oxycodone-acetaminophen (PERCOCET) 5-325 mg per tablet Take 1 Tab by mouth every 6 hours as needed for Pain. Therapy completed 07/13/2009 12/21/2009 documented as of this encounter Active and Recently Administered Medications Orders Medications Ordered That Lester ht Not Have Been Administered Count Last Ordered Date First Ordered Date penicillin v potassium (VEET ID) tablet 500 mg 1 12/21/2009 documented in this encounter Care Teams Cloth Designer Relationship Specialty Start Date End Date Ernie Rothman MD PCP - General 02/24/09 08/21/10 documented as of this encounter
--- OUTSIDE RECORDS SUMMARY | 2024-08-14 17:36 | XMS_ITS | Encounter Summary ---
Author Organization [facility] Address [address] [place] [address] Care Team Providers Care Office Mover Name Role Phone Micheal Moser MD Primary Care Provider Jorge carroll Encounter Details Date Type Department Care Team (Late st Contact Info) Description 04/14/2008 Before PRISM Converted Visit (Maple) [facility] - Maple conversion [address] [place], [place] [id number] Emanuel Ayala MD [address] [facility] [address] [place] [address] Social History Tobacco Use Types Packs/Day Years Used Date Smoking Tobacco: Never Assessed Sex and Gender Information Value Date Recorded Sex Assigned at Not on file Gender Identity Male 08/08/2023 21:13 EDT Sexual Orientation Not on file documented as of this encounter Progress Notes * Emanuel Ayala Jr., MD - 07/27/2009 0128 EDT RE: NAME: CARMELO COHEN : 1975 PROGRESS/FOLLOWUP NOTE - 04/14/2008 Ross Molina MD [facility] [address] [place] [id number] Dear Ross: I had the pleasure of seeing Carmelo Cohen in the cardiology clinic today. As you know, Mr. Cohen is a 32male who was admitted in early March [address]-elevation myocardial infarction. He had received two bare-metal stents in his right coronary artery, and subsequently developeda very, very small myocardial infarction. In fact, echocardiography did not demonstrate wall motionabnormality the following day. Mr. Cohen presents today in one month followup. In the interim, he had attempted to get a tattoo despite being on dual-antiplatelet therapy. I personally talked to the makeup artistry instructor at that time and suggested postponing the tattoo until he can be off his dual-antiplatelet therapy. Mr. Cohen has had a lot of issues with anxiety attacks over the last month. It seems that this is only exacerbated by the fact that has now a new discovery of coronary artery disease. He has had no significant symptoms that replicate his presentation symptoms at the time of his myocardial infarction. This includes no significant chest pain, left arm pain, significant shortness of breath, or pallor. He is tolerating his medications quite well, although he is unsure how often he remembers to take all of them. Current Medications: 1. Aspirin 325 mg daily. 2. Clopidogrel 75 mg daily. 3. Atenolol 100 mg daily. 4. Cymbalta 60 mg daily. On exam, he is in no acute distress. His weight is 196 pounds with a blood pressure of 134/80 and apulse of 80. He has no jugular venous distention. The lungs are clear to auscultation bilaterally. The heart is regular with no murmurs, rubs or gallops detected. The abdomen is soft with active bowel sounds. The lower extremities have no pitting edema. He has 2+ pulses at the posterior tibial and radial arteries bilaterally. He has had no recent noninvasive imaging studies or laboratories since discharge. Assessment: Mr. Cohen is a 32-year-old male status post recent myocardial infarction. He has cardiovascular risk factors of hypertension and smoking. He has no symptoms suggestive of recurrent coronary ischemia, although he says he feels that his anxiety episodes make him worry about coronary artery disease, and possibly of whether his anxiety episode is actually another heart attack. Mr. Woods blood pressure is under good control today on the single atenolol therapy. Plan: I am going to have Mr. Cohen undergo conventional treadmill testing at [facility] in order to clear him for cardiac rehabilitation. Mr. Cohen should continue his current medical therapy, including dual- antiplatelet therapy for one year. I, however, have given him permission to hold the clopidogrel for one week to allow him toget a tattoo in June 2008. He should continue the clopidogrel thereafter, however, for one year. He should continue his atenolol as well. I have asked him to followup with you in terms of possible smoking cessation therapy, including possible Chantix. I plan on following up with Mr. Cohen in six months. Medications have been reviewed and updated with the patient. A copy of their current medications have been provided. Thank you for allowing us to participate in the care of Mr. Watters. Please feel free to call anytime if you have any questions or concerns. Sincerely, Signed by Emanuel Ayala MD 04/15/2008 13:42 Emanuel Ayala MD - Emanuel Ayala MD - JORDAN Job ID: [id number] Doc ID: [id number] cc: Ross Molina MD documented in this encounter Plan of Treatment Not on file documented as of this encounter Visit Diagnoses Not on filedocumented in this encounter Care Teams Office Mover Relationship Specialty Start Date End Date Micheal Moser MD PCP - General 02/24/09 08/21/10 documented as of this encounter
--- OUTSIDE RECORDS SUMMARY | 2024-08-14 17:36 | XMS_ITS | Encounter Summary ---
Author Organization [facility] Address [address] [place] [address] Care Team Providers Care Chemical Test Engineer Name Role Phone Micheal Moser MD Primary Care Provider Jorge carroll Encounter Details Date Type Department Care Team (Latest Contact Info) Description 03/14/2009 8:27 EDT - 03/14/2009 12:27 EDT Hospital Encounter [facility] Perioperative Services - [address] [phone] Nolan Saucedo MD [address] [place] [address] Discharge Disposition: Home or Self [...] OR Surgeon - Nolan Saucedo MD - 03/14/2009 0000 EDT PROCEDURE REPORT PT TYPE: OPPROC SERVICE DATE: 03/14/2009 SURGEON: Nolan Saucedo MD ACCOUNTING/FINANCE TUTOR: Ivanna MCNAIR Student. PREOPERATIVE DIAGNOSIS Right small and index trigger fingers. POSTOPERATIVE DIAGNOSIS Right small and index trigger fingers. PROCEDURE 1. Right small finger trigger finger release. 2. Right index finger trigger finger release. ANESTHESIA General. INDICATIONS The patient is a 89-lzpa-nufhgdta-hand dominant gentleman who has had bilateral trigger fingers forover a year and a half now. The small finger and index finger trigger fingers on the right side were treated nonoperatively with an injection, which lasted for quite some time; however, it has returned. He is having increasing pain at the small and index fingers, as well as continued triggering. The risks and benefits of operative intervention were discussed with him and he wished to proceed. NARRATIVE The patient was seen preoperatively and his right small and index fingers were identified as the operative site. He was brought back to the operating room and placed supine on the OR table. General anesthesia was induced. A right upper quadrant tourniquet was placed. His right hand and arm were prepped and draped in the standard sterile manner. An Esmarch bandage was used to exsanguinate the limband tourniquet was raised to a pressure of 250 mmHg. A 1 cm incision was madefirst over the index finger A1 gonzalez. Blunt dissection was carried out down to the A1 gonzalez itself, which was easily identified. The A1 gonzalez was divided in a longitudinal We did remove the index finger flexor tendons from the wound to inspect them and no abnormalities were seen. The wound was irrigated using normal saline. The wound was closed using 4-0 nylon in an interrupted horizontal mattress stitch. Attention was then turned to the small finger. A 1 cm incision was made over the small finger A1 gonzalez. Blunt dissection was carried out down to the A1 gonzalez, which was incised sharply in a longitudinal direction. Again, the small finger flexor tendons were retrieved from the wound for inspected.There was seen to be some swelling but no real synovitis on the flexor tendons. The wound was irriga emeka using normal saline. The wound was closed using 4-0 nylon in an interrupted horizontal mattressstitch. The wounds were dressed using Xeroform and gauze. The patient received 7 mL of 0.5% Marcaine at theend of the case for postoperative analgesia. All counts were correct at the end of the case. I was present and scrubbed for the entirety of the case. otherwise noted, there were no complications, no blood loss, cultures obtained, specimens removed, or drains retained. TOURNIQUET TIME 11 minutes. ESTIMATED BLOOD LOSS Minimal. FLUIDS 350 mL of lactated Ringers. URINE OUTPUT No recorded urine output. SPECIMENS DRAINS/PACKS/FOREIGN MATERIALS The patient had no drains, packs, or foreign materials. COMPLICATIONS No complications. DISPOSITION To home. Signed by Nolan Saucedo MD 03/29/2009 19:33 Nolan Saucedo MD - Nolan Saucedo MD A - SS Job ID: [id number] Document ID: [id number] cc: MD Micheal Winter MD documented in this encounter Plan of Treatment Not on file documented as of this encounter Visit Diagnoses Not on filedocumented in this encounter Care Teams Chemical Test Engineer Relationship Specialty Start Date End Date Micheal Moser MD PCP - General 02/24/09 08/21/10 documented as of this encounter
--- OUTSIDE RECORDS SUMMARY | 2024-08-14 17:36 | XMS_ITS | Encounter Summary ---
Author Organization [facility] Address [address] [place] [address] Care Team Providers Care Fur Dyer Name Role Phone Micheal Moser MD Primary Care Provider Jorge carroll Encounter Details Date Type Department Care Team (Late st Contact Info) Description 06/26/2009 Orders Only [facility] [phone] Toro Maya MD [address] [place] [address] Social History Tobacco Use Types Packs/Day Years Used Date Smoking Tobacco: Never Assessed Sex and Gender Information Value Date Recorded Sex Assigned at Not on file Gender Identity Male 08/08/2023 21:13 EDT Sexual Orientation Not on file documented as of this encounter Plan of Treatment Not on file documented as of this encounter Procedures Procedure Name Priority Date/Time Associated Diagnosis Comments ECHOCARDIOGRAM 06/26/2009 9:10 EDT documented in this encounter Results * ECHOCARDIOGRAM (06/26/2009 9:10 EDT) Anatomical Region Laterality Modality Other 06/26/2009 9:10 EDT Narrative 06/26/2009 11:07 EDT Interpreting Group: [facility] [address] [place] [id number] *STUDY CONCLUSIONS* SUMMARY - ??Overall left ventricular systolic function was normal. Left ventricular ejection fraction was estimated in the range of 60 % to 65 %. There were no left ventricular regional wall motion abnormalities. - ??Right ventricular size was normal. Right ventricular systolic function was normal. - ??There are no significant valvular abnormalities. *PATIENT PRESENTATION* Height: ? 66 in ( 168 cm ) S/D Pressure: Weight: ? 176 lb ( 80 kg ) BSA: ?1.9 m^2 Referring MD: ??Toro Maya MD County Assessor: ?? Malcolm Altamirano MD: ?? Toro Maya MD Referring MD: ??Ross Molina MD Attending MD: ??Toro Maya MD *INDICATIONS AND HISTORY* DIAGNOSES SUPPORTING MEDICAL NECESSITY: 786.5 Chest pain *PROCEDURE DATA* PROCEDURE INFORMATION: A transthoracic complete 2D study was performed. Additional evaluation included M-mode, complete spectral Doppler, and color Doppler. This was a routine echocardiographic study. This study was interpreted by [facility] at [facility]. The procedure was started at 09:02:20. The procedure ended at 09:37:25. HD11 Image quality was fair. *CARDIAC ANATOMY* LEFT VENTRICLE: - ??Left ventricular size was normal. - ??Overall left ventricular systolic function was normal. - ??Left ventricular ejection fraction was estimated in the range of 60 % to 65 %. - ??There were no left ventricular regional wall motion abnormalities. - ??Left ventricular wall thickness was normal. RIGHT VENTRICLE: - ??Right ventricular size was [...] spectral Doppler. - ??There was no significant mitral valvular regurgitation by color Doppler. PULMONIC VALVE: - ??The structure of the pulmonic valve appeared to be normal. Doppler interpretation(s): - ??There was no significant pulmonic valve stenosis by color Doppler and spectral Doppler. - ??There was no significant pulmonic regurgitation by color Doppler. TRICUSPID VALVE: - ??The tricuspid valve structure was normal. - ??Tricuspid leaflet excursion was normal. Doppler interpretation(s): - ??There was no significant tricuspid valve stenosis by color Doppler and spectral Doppler. - ??There was no significant tricuspid valvular regurgitation by color Doppler. PERICARDIUM: - ??There was no significant pericardial effusion. - ??The pericardium was normal in appearance. AORTA: - ??The aortic root was normal in size. PULMONARY ARTERY: - ??The pulmonary artery was normal size. Doppler interpretation(s): - ??Estimated peak pulmonary artery systolic pressure could not be determined. SYSTEMIC VEINS: - ??The inferior vena cava was mildly dilated. *MEASUREMENT TABLES* 2D measurements LEFT VENTRICLE ? NORMAL LVID ed (chordal) ??48 ?mm ?<56 mm LVID es (chordal) ??26 ?mm ?<40 mm FS (chordal) ? 46 ?% ? >29% IVS ed ? 11 ?mm ?<11mm LVPW ed ?8 ? mm ?<11 mm AORTA ?NORMAL AO root (root) ? 32 ?mm ?<40 mm LEFT ATRIUM ?NORMAL LA diameter ?32 ?mm ?<40mm LAD index (A-P) ?1.7 ?? cm/m^2 ??-- Doppler measurements MITRAL VALVE ? NORMAL Peak E velocity ?126 ?? cm/sec ??62 + or - 14 cm/sec Peak A velocity ?58.6 ??cm/sec ??49 + or - 14 cm/sec MV peak E/A ?2.15 ?1.1-1.7 Reviewed and signed by Dennis Rodgers MD Confirmed 26-Jun-2009 11:05:44 Procedure Note 06/26/2009 Interpreting Group: [facility] [address] [place] [id number] *STUDY CONCLUSIONS* SUMMARY - Overall left ventricular systolic function was normal. Leftventricular ejection fraction was estimated in the range of 60 % to 65 %. There were no left ventricular regional wall motion abnormalities. - Right ventricular size was normal. Right ventricular systolicfunction was normal. - There are no significant valvular abnormalities. *PATIENT PRESENTATION* Height: 66 in ( 168 cm ) S/D Pressure: Weight: 176 lb ( 80 kg ) BSA: 1.9 m^2 Referring MD: Toro Maya MD County Assessor: Malcolm Altamirano MD: Toro Maya MD Referring MD: Ross Molina MD Attending MD: Toro Maya MD *INDICATIONS AND HISTORY* DIAGNOSES SUPPORTING MEDICAL NECESSITY: 786.5 Chest pain *PROCEDURE DATA* PROCEDURE INFORMATION: A transthoracic complete 2D study was performed. Additional evaluation included M-mode, complete spectral Doppler, and color Doppler. This wasa routine echocardiographic study. [facility]. The procedure was started at 09:02:20. The procedure ended at 09:37:25. HD11 Image quality was fair. *CARDIAC ANATOMY* LEFT VENTRICLE: - Left ventricular size was normal. - Overall left ventricular systolic function was normal. - Left ventricular ejection fraction was estimated in the range of 60 %to 65 %. - There were no left ventricular regional wall motion abnormalities. - Left ventricular wall thickness was normal. RIGHT VENTRICLE: - Right ventricular size was [...] spectral Doppler. - There was no significant mitral valvular regurgitation by colorDoppler. PULMONIC VALVE: - The structure of the pulmonic valve appeared to be normal. Doppler interpretation(s): - There was no significant pulmonic valve stenosis by color Doppler and spectral Doppler. - There was no significant pulmonic regurgitation by color Doppler. TRICUSPID VALVE: - The tricuspid valve structure was normal. - Tricuspid leaflet excursion was normal. Doppler interpretation(s): - There was no significant tricuspid valve stenosis by color Dopplerand spectral Doppler. - There was no significant tricuspid valvular regurgitation by color Doppler. PERICARDIUM: - There was no significant pericardial effusion. - The pericardium was normal in appearance. AORTA: - The aortic root was normal in size. PULMONARY ARTERY: - The pulmonary artery was normal size. Doppler interpretation(s): - Estimated peak pulmonary artery systolic pressure could not be determined. SYSTEMIC VEINS: - The inferior vena cava was mildly dilated. *MEASUREMENT TABLES* 2D measurements LEFT VENTRICLE NORMAL LVID ed (chordal) 48 mm <56 mm LVID es (chordal) 26 mm <40 mm FS (chordal) 46 % >29% IVS ed 11 mm <11mm LVPW ed 8 mm <11 mm AORTA NORMAL AO root (root) 32 mm <40 mm LEFT ATRIUM NORMAL LA diameter 32 mm <40mm LAD index (A-P) 1.7 cm/m^2 -- Doppler measurements MITRAL VALVE NORMAL Peak E velocity 126 cm/sec 62 + or - 14 cm/sec Peak A velocity 58.6 cm/sec 49 + or - 14 cm/sec MV peak E/A 2.15 1.1-1.7 Reviewed and signed by Dennis Rodgers MD Confirmed 26-Jun-2009 11:05:44 Toro Maya MD CARDIAC ECHO ORDER JACKIE documented in this encounter Visit Diagnoses Not on filedocumented in this encounter Care Teams Fur Dyer Relationship Specialty Start Date End Date Micheal Moser MD PCP - General 02/24/09 08/21/10 documented as of this encounter
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
--- OUTSIDE RECORDS SUMMARY | 2024-08-14 17:36 | XMS_ITS | Encounter Summary ---
Author Organization [facility] Address [address] [place] [address] Care Team Providers Care Shade Maker Name Role Phone Ernie Moser MD Primary Care Provider Jorge carroll Encounter Details Date Type Department Care Team (Latest Contact Info) Description 08/13/2010 17:06 EDT - 08/20/2010 15:01 EDT Hospital Encounter [facility] Inpatient Psychiatry Unit [address], [place] [id number] Kristin Corona MD [address] [place] [address] [address] [place] [address] Discharge Disposition: Home or Self Care Social [...] Sign Reading Time Taken Comments Blood Pressure 134/72 08/20/2010 0751 EDT Pulse 64 08/20/2010 075 EDT Temperature 35.5 ??C (95.9 ??F) 08/20/2010 075 EDT Respiratory Rate 16 08/20/2010 0751 EDT Oxygen Saturation 94% 08/20/2010 075 EDT Inhaled Oxygen Concentration - - Weight 78.7 kg (173 lb 6.4 oz) 08/14/2010 0908 E DT Height - - Body Mass Index - - documented in this encounter Functional Status Cognitive Status Response Date of Assessm ent Because of a physical, menta l, or emotional condition, do you have serious difficulty concentrating, remembering, or making decisions? (5 years old or older) Yes 08/13/2010 documented as of this encounter Discharge Summaries * Shelbi Barber MD - 08/14/20101999 EDT INPATIENT PSYCHIATRIC DISCHARGE SUMMARY Patient Name: Rizwan Solano : 1975 Date of Admission: 08/13/2010 Date of Discharge: 08/20/10 Attending at time of discharge: Shelbi Barber MD DISCHARGE DIAGNOSIS: [place] I: Generalized Anxiety Disorder, Major Depression, Reccurent and Panic Disorder [place] II: Deferred [place] III: Inferior ST-Elevation Myocardial infarction 03/03/2008 Hypertension Hyperlipidemia [place] IV: Problems with primary support group, Problems related to social environment, Occupational problems and Housing problems [place] V: GAF on admission: 21-30; GAF on discharge: Reason for Admission: Anxiety, Depression History of Present Illness: Rizwan Solano is a 34 y.o. male who presented with two weeks of worsening symptoms of depression, anxiety, and panic.?? He had not slept for two weeks and had been unable to contain ruminative worry regarding his current social situation (unemployed, facing imminent homelessness).?? He had recently developed suicidal ideation with a plan to shoot himselfor crash his car.?? His anxiety has gotten so bad that he no longer left the house and was highly isolative and withdrawn.?? In addition, his sleep and appetite were poor and he was anhedonic with poor concentration and feelings of hopelesness and helplessness.?? Meds on Admission: .No current facility-administered medications on file prior to encounter. Current outpatient prescriptions ordered prior to encounter Medication Sig Dispense Refill ??? clopidogrel (PLAVIX) 75 mg tablet Take 75 mg by mouth daily. ??? simvastatin (ZOCOR) 20 mg tablet Take 20 mg by mouth at bedtime. ??? alprazolam (XANAX) 0.5 mg tablet Take 0.5 mg by mouth 3 times daily. ??? niacin (NIASPAN) 500 mg ER tablet Take 500 mg by mouth at bedtime. ??? oxycodone-acetaminophen (PERCOCET) 5-325 mg per tablet Take 1 Tab by mouth every 4 hours as needed for Pain. 12 Tab none ??? atenolol (TENORMIN) 100 mg tablet Take 100 mg by mouth daily. ??? duloxetine (CYMBALTA) 60 mg capsule Take 60 mg by mouth daily. ??? aspirin 81 mg EC tablet Take 81 mg by mouth daily. Hospital Course: The patient was admitted to [address] psychiatry unit, on a voluntary basis for safety, stabilization and evaluation on 08/14/10. Admission physical exam was unremarkable. Admission labs were within normal range with the exception of Elevated GGT (123), elevated AST (59) and mildly elevated ALT (73). History was obtained from the patient. During the course of her hospitalization the patient was offered diagnostic assessment, pharmacologic evaluation, and medical consultation for chronic medical problems (past history of Myocardial Infarction).The patient took his prescribed medications. With changes in medications is anxiety levels were manageable. Simvastatin 20mg qd was started for the patient's hyperlipidemia , with a recommendation to check Liver function tests in 2 weeks. On HD#5: Quetiapine was increased from 100mg qhs to 150mg qhs and a daytime dose of 50mg Quetiapine was commenced.The patient's Clonazepam dose was increased to total daily dose of 5.5mg over the course of the day. In addition, lorazepam up to total daily dose 3mg PRNwas also available to the patient. Of note, he requested this complete amount on all days of his hospitalization. The lorezapam was discontinued on the day that the patient chose to leave AM. The patient remained highly ambivalent about decisions to sell his motorcyle to resolve his impending eviction. He remained anxious, occasionally medication seeking with other patients on the unit, with lability of affect that required further stabilization in hospital. Patient decided to leave hospital prematurily because of need to attend to business. The patient was isolative during his time on the unit and he did not attend any group activities. He interacted appropriately with staff members. He had successful visits on the unit with his fiance on several occasions and had a successful break off the unit. He did not display any behavior that was impulsive or inappropriate during these visits. The patient insisted on leaving Against Medical Advice (AMA) on 08/20/10 to tend to matters relatedto his housing situation. At the time of his discharge he had clear, goal-directed thinking. However this was accompanied with the significant anxiety that was present at the beginning of his hospitalization. He conveyed that he had gained some increased insight into his condition. He conveyed no fowler icidal or homicidal ideation. Condition on Discharge: Tenuous and unchanged. Mental Status Exam on Discharge: Appearance: Overweight man of medium build with short hair and a mustache and garcia, withmultiple tattoos on his neck, and arms. Appears his stated age. Well groomed with proper hygeine, wearing a baseball cap, white T- shirt, Blue Jeans and sneakers. Behavior: Cooperative with poor eye contact . Speech: Regular, Rate and soft Volume. Psychomotor activity: Normal. Gait: Steady. Mood: Anxious and Annoyed. Affect: Restricted and congruent with mood. Perception: No hallucinations. Thought process: Goal directed. Thought content: Intact. Suicidality: No suicidal thoughts. Homicidality: No homicidal thoughts. Cognition: Oriented to person, place, time/date, situation, day of week, month of year and year. Language: normal. Attention: intact. Concentration: intact. 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 Memory: Intact. Insight: poor. Judgment: poor. Discharge Medications: Patient stated that he had home medications and would resume these on discharge. He was provided with the following prescriptions: clonAZEPAM (KLONOPIN) 0.5 mg tablet. Take 3 Tabs by mouth daily for 5 days. clonAZEPAM (KLONOPIN) 2 mg tablet. Take 1 Tab by mouth 2 times daily for 5 days. quetiapine (SEROQUEL) 50 mg tablet. Take 1 Tab by mouth daily for 5 days. quetiapine (SEROQUEL) 50 mg tablet .Take 3 Tabs by mouth at bedtime for 5 days. Disposition: - Patient left Against Medical Advice (AMA) to return home - Referral completed to [facility] and appointment set up for intake for 08/23/10. ?? - Follow-up appointment with Dr Piyush Tirado on 08/31/10 Shelbi Barber MD [phone] Total time for discharge 40 minutes. documented in this encounter Discharge Instructions * Discharge Instructions* Bussiere, Jennfier M - 08/20/2010 13:12 EDT Additional Medication Instructions: Do not use alcohol Do no use illicit drugs Do not take any medications that were not prescribed Consult with a physician before starting any new herbal supplements or [id number] medications, as some of these may interact with your prescribed medication. Discharge Plans/Follow-up Appointments: [facility] ([phone]): You have an appt with Renetta Phillips on Aug 24 @ 11:[address] Piyush Tirado @ [facility]: Aug 31 @ 11:00 am. Mental Health Crisis Services: [facility]: [phone] documented in this encounter Medications at Time [...] 5 days. 10 Tab 0 08/20/2010 08/25/2010 clopidogrel (PLAVIX) 75 mg tablet Take 75 mg by mouth daily. 08/22/2010 duloxetine (CYMBALTA) 60 mg capsule Take 60 mg by mouth daily. 03/18/2014 niacin (NIASPAN) 500 mg ER tablet Take 500 mg by mouth at bedtime. 03/17/2014 oxycodone-acetaminophen (PERCOCET) 5-325 mg per tablet Take 1 Tab by mouth every 4 hours as needed for Pain. 12 Tab none 12/21/2009 08/22/2010 quetiapine (SEROQUEL) 50 mg tablet Take 3 Tabs by mouth at bedtime for 5 days. 15 Tab 0 08/20/2010 08/25/2010 quetiapine (SEROQUEL) 50 mg tablet Take 1 Tab by mouth daily for 5 days. 5 Tab 0 08/20/2010 08/25/2010 simvastatin (ZOCOR) 20 mg tablet Take 20 mg by mouth at bedtime. 03/17/2014 documented as of this encounter Ordered Prescriptions Prescription Sig Dispensed Refills Start Date End Da te quetiapine (SEROQUEL) 50 mg tablet Take 1 Tab by mouth daily for 5 days. 5 Tab 0 08/20/2010 08/25/2010 quetiapine (SEROQUEL) 50 mg tablet Take 3 Tabs by mouth at bedtime for 5 days. 15 Tab 0 08/20/2010 08/25/2010 clonAZEPAM (KLONOPIN) 2 mg tablet Take 1 Tab by mouth 2 times daily for 5 days. 10 Tab 0 08/20/2010 08/25/2010 clonAZEPAM (KLONOPIN) 0.5 mg tablet Take 3 Tabs by mouth daily for 5 days. 15 Tab 0 08/20/2010 08/25/2010 aspirin chewable 81 mg tablet Take 1 Tab by mouth daily for 5 days. 5 Tab 0 08/20/2010 08/25/2010 quetiapine (SEROQUEL) 50 mg tablet Take 1 Tab by mouth daily for 5 days. 5 Tab 0 08/20/2010 08/20/2010 quetiapine (SEROQUEL) 50 mg tablet Take 3 Tabs by mouth at bedtime for 5 days. 15 Tab 0 08/20/2010 08/20/2010 clonAZEPAM (KLONOPIN) 2 mg tablet Take 1 Tab by mouth 2 times daily for 5 days. 10 Tab 0 08/20/2010 08/20/2010 clonAZEPAM (KLONOPIN) 0.5 mg tablet Take 3 Tabs by mouth daily for 5 days. 15 Tab 0 08/20/2010 08/20/2010 documented in this encounter Discharge Disposition Disposition Code Departure Means Destination Home or Self Care documented in this encounter Progress Notes * Kayla Morton, RN - 08/20/2010 2764 EDT Active Multi-Disciplinary problems: ALTERATION IN SLEEP [496134] (08/19/10) ANXIETY [[id number]] (08/19/10) Data: Discharge Action: Patient discharged AMA. Paperwork in the chart to reflect being discharged AMA. Response: Discharge and follow-up appointments discussed and understood by client. He states he is not suicidal and his depression is in good control at this time. Kayla Morton RN 08/20/2010 14:54 * Jennifer Butler - 08/20/2010 1583 EDT Social Work Progress Note Intervention/Service: Couples, family, work and Discharge Note Met with pt and his girlfriend several times throughout the course of the day. Pt was requesting d/c so he could go home to sell his motorcycle. He had already called the dealership re how much they would give him for his bike and plans to use this money for deposit on a new apartment. They were strongly advised to put pt on the Section 8 listing so they don't have to sneak around and worry abouthaving someone find out he is living with his family. Pt sat during the conversation in a chair andleaned his head back against the wall. He spoke in a monotone voice with his eyes closed most of the time. He said he is doing his duty to support the family by seling his bike though he really doesn't want to but made it clear he is not happy about it. Discussed f/u care and pt agreed to referral to [facility] for therapy. Referral completed to [facility] and appt set up for intake for this . Phone call to [facility] to set up f/u appt with Dr P[facility]ush [facility] and was given the earliest appt which is Aug 31. Went back to see pt and met with him with Dr Negro and Dr Fernandes. Pt appeared brighter and madebetter eye contact with Dr Negro than he had when we met earlier. Pt explained why he is feeling pressured to leave today to sell his bike so he can get the money to put on the deposit for another apt. He denied having any SI and said it would be hard to sell his bike but he would cope with it because it is what he has to do. Reviewed d/c plans and f/u. Met with pt and his girlfriend again after lunch. At this time, pt and his girlfriend are arguing as she wants him to leave today. Pt is upset as he cannot sell his bike until tomorrow and would liketo stay in the hospital for another day to make sure his meds are working effectively and for the support. His girlfriend is saying that if he doesn't leave today, then he won't have a home to returnto. She pressed him further, stating that she doesn't have the gas money to come back and get him and that they have to meet with the landlord tomorrow am. She was not willing to consider alternatives such as changing the appt time. Ultimately, pt decided to leave AMA today. Informed him of f/u appts and stressed the importance of keeping the appts as he has a number of no-shows already and is atrisk of losing his providers. He agreed to keep the appts. Appts were written out and given to pt. He said I may just end up back here after I sell my bike!! but would not reconsider his decision to leave today. Advised him to call his doctor's office soon to try to get in for an earlier appt as he won't have enough meds to last until his appt on Aug 31 and he agreed to do this. * Jennifer Farrell, RN - 08/19/2010 0007 EDT Active Multi-Disciplinary problems: ALTERATION IN SLEEP [480546] (08/19/10) ANXIETY [[id number]] (08/19/10) Data: Pt out on 30 minute breaks x 2 this shift. Denies any S/I or H/I . Pt pleasant and cooperative. Pt uses ipod and plays guitar to help self soothe. Action: Frequent interaction with staff. Medications as ordered. Response: Pt still very worried about living situation. Stated he has to sell motor cycle to get extra ramos for housing. Pt also states he wants to leave tomorrow and work on personal life. Jennifer Farrell RN 08/19/2010 23:08 * Nayely Cam, SARAH - 08/19/2010 1349 EDT Active Multi-Disciplinary problems: ALTERATION IN SLEEP [[id number]] (08/19/10) ANXIETY [[id number]] (08/19/10) Data: pt up for breakfast acknowledged that he had some what better sleep last night, interrupted. His mood was slightly better. Most of the remainder of the shift he has been in his room and bed. Spoke briefly about his family and children. Action: monitor behavior encourage pt to attend groups, offer time to talk issues, Response: slept most of shift had prn ativan with am meds Nayely Cam RN 08/19/2010 13:50 * Dimitri Puckett MD - 08/19/2010 0910 EDT Inpatient Psychiatry Daily Progress Note Admit Date: 08/13/2010 Hospital day: LOS: 6 days Date of Service: 08/19/2010 Legal Status: Legal status: Voluntary Observation Level: Observation / visual check: Routine (Q hour day / mark, Q 1/2 hour night) Locus/Risk of Harm: Current locus of harm: 3 Subjective / Chief Complaint: S: Anxiety continues. Mood just the same, worse. Feels that his fiancee is using him (which may well be the case) but very stuck re: what is really happening, or may be, and what to do. LIfe shouldn't be this complicated. Thoughts of suicide, resisting these by being here. No . Not VH as such, but shadows. Doubt AH as such, but strong thoughts of failure, nearly (sor slightly?) audible. Clinical Update: AM Nurse Report: Mr. Zuniga ate well, took meds. Still reporting feelings of hopelessness and stuck in indecision. Pessimistic, loser feelings. Received extra lorazepam. Asked another patient with Suboxone to share it. Slept perhaps 6 hours. Current facility-administered medications Medication Route Frequency ??? quetiapine (SEROQUEL) tablet 150 mg Oral QHS ??? clonAZEPAM (KLONOPIN) tablet 1.5 mg Oral DAILY ??? quetiapine (SEROQUEL) tablet 50 mg Oral DAILY ??? atenolol (TENORMIN) tablet 100 mg Oral DAILY ??? clonAZEPAM (KLONOPIN) tablet 2 mg Oral BID ??? simvastatin (ZOCOR) tablet 20 mg Oral QPM ??? nicotine (NICODERM CQ) patch Removal Transdermal QHS ??? nicotine (NICODERM CQ) 14 mg/24 hr patch 1 Patch Transdermal DAILY ??? acetaminophen (TYLENOL) tablet 650 mg Oral Q4H PRN ? ? aluminum & magnesium hydroxide-simethicone (MYLANTA-DS) 400-400-40 mg/5 mL suspension 30 mLOral Q4H PRN ??? duloxetine (CYMBALTA) capsule 60 mg Oral BID ??? nicotine (NICOTROL) 10 mg inhaler 1 Inhaler Inhalation Q2H PRN ??? nicotine inhaler (delivery device) Inhalation PRN ??? lorazepam (ATIVAN) tablet 1 mg Oral TID PRN ??? aspirin chewable tablet 81 mg Oral DAILY Objective / Physical Exam: Mental Status Exam: Appearance: Casual dress, grooming, hygiene OK Behavior: Cooperative Speech: Normal Psychomotor activity: Normal at rest Mood:? As above Affect:?? congruent with mood; looks quite anxious Thought process:?? Perseverative, normal rate of thinking Thought content:?? As above Perceptual disturbances:?? Probably no hallucinations but likely is hypervigilant Insight:?? perhaps fair? Many of partner's demands are likely unreasonable, and he can't seem to get unstuck and less overwhelmed Judgement:?? nearly overwhelmed Vital Signs BP: 124/79 mmHg Pulse: 89 Resp: 18 Temp: 35.7 ??C (96.3 ??F) SpO2: 97 % Assessment/Problems: 34 year-old gentleman with long hx depression, anxiety, panic, agoraphobia, now very symptomatic with very large social stressors. Seems rather simple in some respects and very stuck. Needs practical assistance as well as meds, etc. Seeking Suboxone from another patient last night. Plan: 1) Present medication program for now. Would not Rx Ambien, given substantial benzo use at this time. 2) Present level and program. 3) Discussed current situation. Advised another night off from worrying, to the degree that he can.Watch football, meet with full team and SW on Friday to discuss practical aspects of his situation.He agreed to this. I also did not confront the Suboxone request today. He was extremely anxious, downtrodden, and this can be broached in the context of a larger discussion with more to offer. Discharge Plan: Uncertain at this time. Dimitri PUCKETT MD 08/19/2010 9:10 * Maritza Bernal RN - 08/19/2010 1327 EDT Active Multi-Disciplinary problems: ALTERATION IN SLEEP [701369] (08/19/10) ANXIETY [[id number]] (08/19/10) Data: A female patient reported that Rizwan has tried to get her to give him her Suboxone complaining to her he cannot sleep because of pain. Wakened just before 0100 and came to team station, looking sedated, speech slurred, stating he could not sleep. Angry affect but behavior in control. Action: Assessed for s/s pain. 0 pain. He went to kitchen and snacked in chocolate ice cream, was given 1 mg. Ativan prn and returned to bed. Response: Back to sleep, snoring soon after receiving Ativan. Awake, in bed at 0230 but did not complain at that time. Will continue to monitor on routine obs. Med seeking behavior noted. (Has been on fairly high doses of benzos) Maritza Bernal RN 08/19/2010 3:15 * Jennifer Farrell RN - 08/18/2010 3049 EDT No multi-disciplinary problems found Data: Pt.'s girlfriend and children came to visit. Girlfriend given copy of visitor guidelines and asked to call before bringing children back. This made pt. Angry and pt stated he would leave unit. Pt calmer after going on 30 minute break off unit with gf and his children. Action: Frequent observation when pt has ipod. Medications as ordered. Frequent 1:1. Response: Pt ate well and took all of his hs medications. Pt states he feels hopeless about his life and circumstances. Pt states he has continued pressure from gf to sell motor cycle. Pt states he will be the loser whether he keeps or sells the motor cycle. Pt feels that once any money he has isgone, the gf will leave him. Pt states he has no hope of getting a job any time soon, but would like to work and support his family. Pt denies any S/I or H/I. Pt is less intrusive this shift and morecooperative with staff. Jennifer Farrell RN 08/18/2010 21:34 * Nayely Cam RN - 08/18/2010 1516 EDT No multi-disciplinary problems found Data: reports no sleep last night. Had prn ativan with am meds and with 1500 klonapin. Did sleep briefly this pm may be an hour asked for a lunch when awake after probably having had a lunch. Protested no smoking policy Action: monitor behavior offer support offer 1:1 time Response: had one brief time of complaining and irritability very little sleep. Nayely Cam RN 08/18/2010 15:16 * Dimitri Puckett MD - 08/18/2010 0901 EDT Inpatient Psychiatry Daily Progress Note Admit Date: 08/13/2010 Hospital day: LOS: 5 days Date of Service: 08/18/2010 Legal Status: Legal status: Voluntary Observation Level: Observation / visual check: Q 15 minutes (frequent) (Pt has ipod with him. ) Locus/Risk of Harm: Current locus of harm: 3 Subjective / Chief Complaint: S: Anxiety. Many demands from fiancee. Does not like feeling of Seroquel. Wants Ambien. Anxious, head spins, HR increases, panicky. Mood: all right, scared a lot, don't know what of. No . +SI, due to feeling worthless, never acted on this in the past, no intent now. Just feels really pressured in the relationship. Strong head talk re: worthlessness, even SI, but not AH as such. Shadows c/w hypervigilance rather than as such. Clinical Update: AM Nurse Report: Mr. Zuniga becomes easily irritated; complained re: search after pass,threatened AMA. Anxious. Refused Seroquel. Seemed to be keeping awake on purpose, nurses noted. Eventually took Seroquel + Ativan Current facility-administered medications Medication Route Frequency ??? quetiapine (SEROQUEL) tablet 150 mg Oral QHS ??? clonAZEPAM (KLONOPIN) tablet 1.5 mg Oral DAILY ??? quetiapine (SEROQUEL) tablet 50 mg Oral DAILY ??? atenolol (TENORMIN) tablet 100 mg Oral DAILY ??? clonAZEPAM (KLONOPIN) tablet 2 mg Oral BID ??? simvastatin (ZOCOR) tablet 20 mg Oral QPM ??? nicotine (NICODERM CQ) patch Removal Transdermal QHS ??? nicotine (NICODERM CQ) 14 mg/24 hr patch 1 Patch Transdermal DAILY ??? acetaminophen (TYLENOL) tablet 650 mg Oral Q4H PRN ? ? aluminum & magnesium hydroxide-simethicone (MYLANTA-DS) 400-400-40 mg/5 mL suspension 30 mLOral Q4H PRN ??? duloxetine (CYMBALTA) capsule 60 mg Oral BID ??? nicotine (NICOTROL) 10 mg inhaler 1 Inhaler Inhalation Q2H PRN ??? nicotine inhaler (delivery device) Inhalation PRN ??? lorazepam (ATIVAN) tablet 1 mg Oral TID PRN ??? aspirin chewable tablet 81 mg Oral DAILY Objective / Physical Exam: Mental Status Exam: Appearance: Casual dress, grooming, hygiene OK Behavior: Cooperative Speech: Normal Psychomotor activity: Normal; sitting calmly while watching hockey, nearly tremulous with above Mood:? As above Affect:?? congruent with mood; looks anxious with this discussion Thought process:?? Perseverative, normal rate of thinking Thought content:?? As above Perceptual disturbances:?? No hallucinations but likely is hypervigilant Insight:?? perhaps fair? Many of partner's demands really seem unreasonable, and he can't seem to get unstuck and less overwhelmed Judgement:?? nearly overwhelmed Vital Signs BP: 139/96 mmHg Pulse: 75 Resp: 18 Temp: 36.1 ??C (96.9 ??F) SpO2: 99 % Assessment/Problems: 34 year-old gentleman with long hx depression, anxiety, panic, agoraphobia, now very symptomatic with very large social stressors. Seems rather simple in some respects and very stuck. Needs practical assistance as well as meds,etc. Plan: 1) Present medication program for now. Would not Rx Ambien, given substantial benzo use at this time. 2) Present level and program. 3) Discussed current situation. Advised night off from worrying, watch hockey, meet with full team and SW on Friday for details. He agreed to stay in hospital despite his partner's demands that he return home to be with her and sell his possessions. (She has reportedly sold some of them already andspent the money, would need his participation to sell his motorcycle.) Discharge Plan: Uncertain at this time. Dimitri PUCKETT MD 08/18/2010 9:01 * Fatou Venegas, RN - 08/18/2010 0650 EDT Patient Active Problem List Diagnoses Code ??? Myocardial infarction 410.90AT ??? Anxiety disorder 300.00G ??? Hypertension 401.9AJ ??? Hyperlipidemia 272.4S ??? Smoking 305.1AD ???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 worsening depressive and anxios symptoms in context of mounting psychosocial stressors. He has active SI with intent and plan and require admission for asfety and stabilization. Multiaxial Diagnostic Impression (including Differential Diagnosis) [place] I: Generalized Anxiety Disorder, Major Depression, Rec and Panic Disorder [place] II: No diagnosis [place] III: Patient Active Problem List Diagnoses Date Noted ??? Anxiety disorder Class: Permanent ??? Hypertension Class: Permanent ??? Hyperlipidemia Class: Permanent ??? Myocardial infarction 03/03/2008 Class: Permanent Inf set elevation [place] IV: Problems with primary support group, Problems related to social environment, Occupational problems and Housing problems [place] V: 21-30 behavior considerably influenced by delusions or hallucinations OR serious impairmentin judgment, communication OR inability to function in almost all areas SUICIDE RISK ASSESSMENT: Interventions / Plan: IMMEDIATE PLAN OF TREATMENT: 1. Admit SB 6, KRISTOFER, level IV, frequents 2. Increase duloxetine to 60mg BID 3. D/C alprazolam in favor of lorazepam 4. Seroquel for sleep 5. Admission labs plus fasting lipids given cardiac history 6. Encourage milieu engagement 7. Colateral infor from o/p providers 8. D/C planning per team Acuity / Indications for admission: This patient requires active treatment in the Inpatient Psychiatric Unit because of the following: Threat to self requiring 24-hour professional observation. PLAN TO RESTRICT ACCESS TO FIREARMS (outpatient setting): Access to firearms? no Viji Calderon MD Call Person, PGY-3 #[id number] VIJI CALDERON MD 08/13/2010 22:27 Attending Attestation: I saw and evaluated the patient today. I have reviewed the database as documented by the admitting resident. I agree with (and have edited in italics) the findings and plan of care as documented in the resident's admission database. I have discussed the treatment plan with the multidisciplinary team and patient. I have reviewed the nursing database. I have completed the AIMS and suicide risk eval that were omitted KRISTIN CORONA MD Attending Psychiatrist [facility] Pager [phone] documented in this encounter Miscellaneous Notes * Plan of Care - Maritza Bernal RN - 08/20/2010 0703 EDT Problem: ALTERATION IN SLEEP Goal: Reports Nightly Sleep, Duration And Quality Active Multi-Disciplinary problems: ALTERATION IN SLEEP [253964] (08/19/10) ANXIETY [825661] (08/19/10) Data: Ruminative about all he has to do and wants to go home today to take care of matters at hand.Very restless and anxious, requesting VS and medication. No complaints of pain or SI, HI. Action: Seroquel 150 mg given with 1 mg ativan at 0058. Nicotine patch removed at 0000. Patient advised to attempt sleep 20 minutes after getting meds and he did try but was so worried and anxious about family issues and finding housing that he really could not fall asleep. Assessed for s/s pain, sleep, frequent obs. Suggested he speak to SW about his problems and he said she told him he knows more about what to do than she does. I encouraged him to try again. Response: No sleep tonight though behavior was in good control. Paced rapidly a couple of times andlooked angry but did not act out. Maritza Bernal RN 08/20/2010 6:56 * Plan of Care - Maritza Bernal RN - 08/19/2010 0619 EDT Problem: ALTERATION IN SLEEP Goal: Reports Nightly Sleep, Duration And Quality Intervention: Document duration, quality of sleep and reasons Active Multi-Disciplinary problems: ALTERATION IN SLEEP [971030] (08/19/10) ANXIETY [[id number]] (08/19/10) Data: Patient slept in 1.5 hour periods tonight, waking briefly, then falling back to sleep quicklymost times. Up x 2 to snack. Ate juan jose. Ice cream the first time and vanilla the next. Stated I'm having a terrible time sleeping. Speech was slurred, and he appeared sedated. Did not ask for more meds after Ativan given at 0058. (see previous note) No complaints of pain, SI or HI thoughts. Affect sad with angry edge. Action: Monitored on routine obs, Medicated prn early in shift for sleep. Assessed for s/s pain. Offered supportive interaction when awake. Response: Intermittent sleep with frequent wakings. Had fallen asleep at 2300 and had a total of 6 hours. Maritza Bernal RN 08/19/2010 6:12 * Scanned Note-Null - Inpatient, Physician - 08/13/2010 0000 EDT * Scanned Note-Null - Inpatient, Physician - 08/13/2010 0000 EDT * Scanned Note-Null - Inpatient, Physician - 08/13/2010 0000 EDT * Scanned Note-Null - Inpatient, Physician - 08/13/2010 0000 EDT * Scanned Note-Null - Inpatient, Physician - 08/13/2010 0000 EDT * Scanned Note-Null - Inpatient, Physician - 08/13/2010 0000 EDT * Scanned Note-Null - Inpatient, Physician - 08/13/2010 0000 EDT * Scanned Note-Null - Inpatient, Physician - 08/13/2010 0000 EDT * Scanned Note-Null - Inpatient, Physician - 08/13/2010 0000 EDT * Plan of Care - Inpatient, Physician - 08/13/2010 0000 EDT documented in this encounter Plan of Treatment Not on file documented as of this encounter Procedures Procedure Name Priority Date/Time Associated Diagnosis Comments ALT Routine 08/20/2010 12:01 EDT AST Routine 08/20/2010 12:01 EDT HEMOGLOBIN A1C Routine 08/20/2010 12:01 EDT LIPID PROFILE (INCLUDES CHOLESTEROL, TRIGLYCERIDES, HDL, LDL) Routine 08/14/2010 8:29 EDT SCREENING GLUCOSE Routine 08/13/2010 20: 06 EDT COMPLETE BLOOD COUNT AND DIFFERENTIAL Routine 08/13/2010 20:06 EDT BUN Routine 08/13/2010 20:06 EDT ALT Routine 08/13/2010 20:06 EDT AST Routine 08/13/2010 20:06 EDT TSH Routine 08/13/2010 20:06 EDT ALKALINE PHOSPHATASE Routine 08/13/2010 20:06 EDT GGT Routine 08/13/2010 20:06 EDT CREATININE Routine 08/13/2010 20:06 EDT ALBUMIN Routine 08/13/2010 20:06 EDT ELECTROLYTES Routine 08/13/2010 20:06 EDT documented in this encounter Results * HEMOGLOBIN A1C (08/20/2010 12:01 EDT) Hemoglobin A1C 6.1 % [facility] Comment: Reference Range: <5.7% Normal 5.7-6.4% Increased risk for diabetes =>6.5% Diagnostic for diabetes (if confirmed) ?? The A1c goal for non adults in general is <7%. ?? The A1c goal for selected patients may be significantly lower than 7% if this can be achieved without significant hypoglycemia or other adverse effects of treatment. Est Avg Glucose 128 mg/dl [facility] Comment:eAG represents the A 1c result expressed as average glucose in mg/dl. Blood specimen (specimen) 08/20/2010 12:01 EDT 08/20/2010 12:28 EDT Hermilo Grimaldo MD CHEMISTRY & BLOOD GA S ORDERABLES Performing Organization Address City/[facility] Co de Phone Number [facility] [address] [place] [address] * ALT (08/20/2010 12:01 EDT) ALT 50 21 - 72 U/L [facility] Blood specimen (specimen) 08/20/2010 12:01 EDT 08/20/2010 12:28 EDT Hermilo Grimaldo MD CHEMISTRY & BLOOD GA S ORDERABLES Performing Organization Address City/[facility]/ZIP Co de Phone Number [facility] [address] [place] [address] * AST (08/20/2010 12:01 EDT) AST 33 15 - 46 U/L [facility] Blood specimen (specimen) 08/20/2010 12:01 EDT 08/20/2010 12:28 EDT Hermilo Grimaldo MD CHEMISTRY & BLOOD GA S ORDERABLES Performing Organization Address [facility] Co de Phone Number [facility] [address] [place] [address] * (ABNORMAL) LIPID PROFILE (INCLUDES CHOLESTEROL, TRIGLYCERIDES, HDL, LDL) (08/14/2010 8:29 EDT) Cholesterol 276 mg/dl [facility] Comment:Desirable:<200 Borde rline High:200-239 High:>ih=114 Triglycerides 225(H) 35 - 160 mg/dl [facility] HDL 38 mg/dl [facility] Comment:Low:<40 High(Desirab le):>or=60 LDL, Calculated 193 mg/dl [facility] Comment: Optimal:<100 Above optimal:100-129 Borderline High:130-159 High:160-189 Very High:>ck=080 Chol/HDL Ratio 7.3 [facility] Fasting? Unknown [facility] Blood specimen (specimen) 08/14/2010 8:29 EDT 08/14/2010 8:51 EDT Viji Calderon MD CHEMISTRY & BLOOD WI S ORDERABLES Performing Organization Address [facility] Co de Phone Number [facility] [address] [place] [address] * (ABNORMAL) HEMAGRAM AND DIFFERENTIAL (08/13/2010 20:06 EDT) WBC 7.78 4.0 - 10.4 K/cmm [facility] RBC 4.87 4.36 - 5.78 M/cmm [facility] Hemoglobin 14.3 13.8 - 17.3 gm/dl [facility] HCT 42.1 39.5 - 50.2 % [facility] MCV 86 81 - 95 fl [facility] MCH 29.4 27.6 - 33.0 pg [facility] MCHC 34.0 32.8 - 36.4 gm/dl [facility] PLT 288 141 - 320 K/cmm [facility] RDW-CV 14.2(H) 11.8 - 14.1 % [facility] % Neutrophils 50.4 45.5 - 79.7 % [facility] % Lymphocytes 35.9 15.0 - 46.8 % [facility] % Monocytes 7.8 1.8 - 12.0 % [facility] % Eosinophils 5.2 0.6 - 6.9 % [facility] % Basophils 0.7 0.2 - 1.4 % [facility] ABS Neutrophils 3.92 2.20 - 8.85 K/cmm [facility] ABS Lymphs 2.79 1.09 - 3.30 K/cmm [facility] ABS Monocytes 0.61 0.1 - 0.8 K/cmm [facility] ABS Eosinophils 0.41 0.03 - 0.61 K/cmm [facility] ABS Basophils 0.05 0.01 - 0.11 K/cmm [facility] Type of Diff: Automated [facility] Blood specimen (specimen) 08/13/2010 20:06 EDT 08/13/2010 20:27 EDT Viji Calderon MD PACKAGES & DNA PROBE ORDERABLES Performing Organization Address City/[facility] Co de Phone Number [facility] [address] [place] [address] * TSH (08/13/2010 20:06 EDT) TSH 0.68 0.35 - 5.00 uIU/ml [facility] Blood specimen (specimen) 08/13/2010 20:06 EDT 08/13/2010 20:27 EDT Viji Calderon MD CHEMISTRY & BLOOD GA S ORDERABLES Performing Organization Address [facility] Co de Phone Number [facility] [address] [place] [address] * (ABNORMAL) ALT (08/13/2010 20:06 EDT) ALT 73(H) 21 - 72 U/L [facility] Blood specimen (specimen) 08/13/2010 20:06 EDT 08/13/2010 20:27 EDT Viji Calderon MD CHEMISTRY & BLOOD GA S ORDERABLES Performing Organization Address City/[facility]/ZIP Co de Phone Number [facility] [address] [place] [address] * (ABNORMAL) AST (08/13/2010 20:06 EDT) AST 59(H) 15 - 46 U/L [facility] Blood specimen (specimen) 08/13/2010 20:06 EDT 08/13/2010 20:27 EDT Viji Calderon MD CHEMISTRY & BLOOD GA S ORDERABLES Performing Organization Address [facility] Co de Phone Number [facility] [address] [place] [address] * ALBUMIN (08/13/2010 20:06 EDT) Albumin 4.3 3.4 - 4.9 g/dl [facility] Blood specimen (specimen) 08/13/2010 20:06 EDT 08/13/2010 20:27 EDT Viji Calderon MD CHEMISTRY & BLOOD GA S ORDERABLES Performing Organization Address [facility] de Phone Number [facility] [address] [place] [address] * (ABNORMAL) GGT (08/13/2010 20:06 EDT) GGT 123(H) 15 - 73 U/L [facility] Blood specimen (specimen) 08/13/2010 20:06 EDT 08/13/2010 20:27 EDT Viji Calderon MD CHEMISTRY & BLOOD GA S ORDERABLES Performing Organization Address [facility] Co de Phone Number [facility] [address] [place] [address] * ALKALINE PHOSPHATASE (08/13/2010 20:06 EDT) Total Alkaline Phosphatase 120 38 - 126 U/L [facility] Blood specimen (specimen) 08/13/2010 20:06 EDT 08/13/2010 20:27 EDT Viji Calderon MD CHEMISTRY & BLOOD GA S ORDERABLES Performing Organization Address [facility] Co de Phone Number [facility] [address] [place] [address] * CREATININE (08/13/2010 20:06 EDT) Creatinine 0.72 0.7 - 1.5 mg/dl [facility] GFR, Calculated >60 ml/min/1.7 3m2 [facility] Blood specimen (specimen) 08/13/2010 20:06 EDT 08/13/2010 20:27 EDT Viji Calderon MD CHEMISTRY & BLOOD GA S ORDERABLES Performing Organization Address [facility] de Phone Number [facility] [address] [place] [address] * (ABNORMAL) BUN (08/13/2010 20:06 EDT) BUN 9(L) 10 - 26 mg/dl [facility] Blood specimen (specimen) 08/13/2010 20:06 EDT 08/13/2010 20:27 EDT Viji Calderon MD CHEMISTRY & BLOOD GA S ORDERABLES Performing Organization Address [facility] de Phone Number [facility] [address] [place] [address] * ELECTROLYTES (08/13/2010 20:06 EDT) Sodium 137 136 - 145 mEq/L [facility] Potassium 4.0 3.5 - 5.0 mEq/L [facility] Chloride 99 96 - 110 mEq/L [facility] CO2 29 24 - 32 mEq/L [facility] Blood specimen (specimen) 08/13/2010 20:06 EDT 08/13/2010 20:27 EDT Viji Calderon MD CHEMISTRY & BLOOD GA S ORDERABLES [facility] [address] [place] [address] * (ABNORMAL) SCREENING GLUCOSE (08/13/2010 20:06 EDT) Glucose, Screening 126(H) 70 - 100 mg/dl [facility] Blood specimen (specimen) 08/13/2010 20:06 EDT 08/13/2010 20:27 EDT Viji Calderon MD CHEMISTRY & BLOOD GA S ORDERABLES Performing Organization Address [facility] Co de Phone Number [facility] [address] [place] [address] documented in this encounter Visit Diagnoses Diagnosis Smoking Tobacco use disorder Hypertension Unspecified essential hypertension Hyperlipidemia Other and unspecified hyperlipidemia documented in this encounter Administered Medications Inactive Administered Medications - up to 3 most recent administrations Medication Order MAR Action Action Date Dose Rate Site acetaminophen (TYLENOL) tablet 650 mg 650 mg, oral, EVERY 4 HOURS PRN, Starting on Fri08/13/10 at 1931, Until Fri08/20/10 at 1708, Pain, Routine Given 08/18/2010 2:54 EDT 650 mg Given 08/17/2010 19:58 EDT 650 mg Given 08/17/2010 8:27 EDT 650 mg aspirin chewable tablet 81 mg 81 mg, oral, DAILY, First dose on Fri08/14/10 at 0900, Until Discontinued, Routine Given 08/20/2010 9:00 EDT 81 mg Given 08/19/2010 9:00 EDT 81 mg Given 08/18/2010 9:00 EDT 81 mg atenolol (TENORMIN) tablet 100 mg 100 mg, oral, DAILY, First dose on Fri08/17/10 at 0900, Until Discontinued, Routine Given 08/20/2010 9:00 EDT 100 mg Given 08/19/2010 9:00 EDT 100 mg Given 08/18/2010 9:00 EDT 100 mg atenolol (TENORMIN) tablet 50 mg 50 mg, oral, DAILY, First dose on Fri08/14/10 at 0900, Until Discontinued, Routine Given 08/16/2010 9:00 EDT 50 mg Given 08/15/2010 9:08 EDT 50 mg Given 08/14/2010 9:00 EDT 50 mg atenolol (TENORMIN) tablet 50 mg 50 mg, oral, NOW X1, 1 dose, On [facility] 08/16/10 at 0915, Routine Given 08/16/2010 9:15 EDT 50 mg clonAZEPAM (KLONOPIN) tablet 1 mg 1 mg, oral, 3 TIMES DAILY, First dose on Fri08/13/10 at 2100, Until Discontinued, Routine Given 08/16/2010 9:00 EDT 1 mg Given 08/15/2010 21:00 EDT 1 mg Given 08/15/2010 14:17 EDT 1 mg clonAZEPAM (KLONOPIN) tablet 1 mg 1 mg, oral, DAILY, First dose on [facility] 08/16/10 at 1500, Until Discontinued, Routine Given 08/16/2010 15:00 EDT 1 mg clonAZEPAM (KLONOPIN) tablet 1.5 mg 1.5 mg, oral, DAILY, First dose (after last modification) on Fri08/17/10 at 1500, Until Discontinued, Routine Given 08/20/2010 15:00 EDT 1.5 mg Given 08/19/2010 15:13 EDT 1.5 mg Given 08/18/2010 15:19 EDT 1.5 mg clonAZEPAM (KLONOPIN) tablet 2 mg 2 mg, oral, NOW X1, 1 dose, On [facility] 08/16/10 at 1000, Routine Given 08/16/2010 10:00 EDT 2 mg clonAZEPAM (KLONOPIN) tablet 2 mg 2 mg, oral, 2 TIMES DAILY, First dose (after last modification) on [facility] 08/16/10 at 2100, Until Discontinued, Routine Given 08/20/2010 9:00 EDT 2 mg Given 08/19/2010 21:00 EDT 2 mg Given 08/19/2010 9:00 EDT 2 mg duloxetine (CYMBALTA) capsule 60 mg 60 mg, oral, 2 TIMES DAILY, First dose on Fri08/13/10 at 2100, Until Discontinued, Routine Given 08/20/2010 9:00 EDT 6 0 mg Given 08/19/2010 21:00 EDT 60 mg Given 08/19/2010 9:00 EDT 60 mg lorazepam (ATIVAN) tablet 1 mg 1 mg, oral, 3 TIMES DAILY PRN, Starting on Fri08/13/10 at 1949, Until Fri08/20/10 at 1125, Anxiety, Routine Given 08/20/2010 9:02 EDT 1 mg Given 08/20/2010 1:02 EDT 1 mg Given 08/19/2010 18:56 EDT 1 mg nicotine (NICODERM CQ) 14 mg/24 hr patch 1 Patch 1 Patch, transdermal, DAILY, First dose on Fri08/15/10 at 1445, Until Discontinued, Routine Given 08/20/2010 9:00 ED T 1 Patch Given 08/19/2010 9:00 EDT 1 Patch Given 08/18/2010 9:00 EDT 1 Patch nicotine (NICODERM CQ) patch Removal transdermal, AT BEDTIME, First dose on Fri08/15/10 at 2100, Until Discontinued Given 08/20/2010 0:00 EDT Given 08/18/2010 21:00 EDT Given 08/17/2010 21:00 EDT nicotine (NICOTROL) 10 mg inhaler 1 Inhaler 1 Inhaler, inhalation, EVERY 2 HOURS PRN, Starting on Fri08/13/10 at 1931, Until Fri08/20/10 at 1708, Smoking Cessation, Routine Given 08/17/2010 20:3 5 EDT 1 Inhaler Given 08/17/2010 9:58 EDT 1 Inhaler Given 08/14/2010 9:43 EDT 1 Inhaler nicotine inhaler (delivery device) 1 Each, inhalation, PRN, Starting on Fri08/13/10 at 1931, Until Fri08/20/10 at 1708, Smoking Cessation Given 08/14/2010 9:43 EDT 1 Each Given 08/13/2010 21:43 EDT 1 Each quetiapine (SEROQUEL) tablet 100 mg 100 mg, oral, AT BEDTIME, First dose on Fri08/13/10 at 2100, Until Discontinued, Routine Given 08/16/2010 20:09 E DT 100 mg Given 08/15/2010 21:00 EDT 100 mg Given 08/14/2010 20:39 EDT 100 mg quetiapine (SEROQUEL) tablet 150 mg 150 mg, oral, AT BEDTIME, First dose (after last modification) on Fri08/17/10 at 2100, Until Discontinued, Routine Given 08/20/2010 1:03 EDT 150 mg Given 08/18/2010 21:00 EDT 150 mg Given 08/18/2010 3:03 EDT 150 mg quetiapine (SEROQUEL) tablet 50 mg 50 mg, oral, DAILY, First dose on Fri08/17/10 at 1045, Until Discontinued, Routine Given 08/20/2010 9:00 EDT 50 mg Given 08/19/2010 9:00 EDT 50 mg Given 08/18/2010 9:00 EDT 50 mg rosuvastatin (CRESTOR) tablet 10 mg 10 mg, oral, DAILY, First dose on Fri08/20/10 at 1200, Until Discontinued, Routine Given 08/20/2010 13:00 EDT 10 mg simvastatin (ZOCOR) tablet 20 mg 20 mg, oral, EVERY EVENING, First dose on Fri08/15/10 at 1700, Until Discontinued, Routine Given 08/19/2010 17:00 EDT 20 mg Given 08/18/2010 17:00 EDT 20 mg Given 08/17/2010 17:00 EDT 20 mg documented in this encounter Discontinued Medications Medication Sig Discontinue Reason Start Date End Da te alprazolam (XANAX) 0.5 mg tablet Take 0.5 mg by mouth 3 times daily. 08/20/2010 quetiapine (SEROQUEL) 50 mg tablet Take 1 Tab by mouth daily for 5 days. 08/20/2010 08/20/2010 clonAZEPAM (KLONOPIN) 0.5 mg tablet Take 3 Tabs by mouth daily for 5 days. 08/20/2010 08/20/2010 quetiapine (SEROQUEL) 50 mg tablet Take 3 Tabs by mouth at bedtime for 5 days. 08/20/2010 08/20/2010 clonAZEPAM (KLONOPIN) 2 mg tablet Take 1 Tab by mouth 2 times daily for 5 days. 08/20/2010 08/20/2010 documented as of this encounter Active and Recently Administered Medications Times are shown in EDT. Scheduled Medication Order 08/18/2010 08/19/2010 08/20/2010 aspirin chewable tablet 81 mg 81 mg, oral, DAILY, First dose on Fri08/14/10 at 0900, Until Discontinued, Routine 0900 (Given - Provider: Nayely Cam RN) 0900 (Given - Provider: Nayely Cam RN) 0900 (Given - Provider: Kayla Morton RN) atenolol (TENORMIN) tablet 100 mg (CANCELED) 100 mg, oral, DAILY, First dose on Fri08/17/10 at 0900, Until Discontinued, Routine 0900 (Given - Provider: Nayely Cam RN) 0900 (Given - Provider: Nayely Cam RN) 0900 (Given - Provider: Kayla Morton RN) clonAZEPAM (KLONOPIN) tablet 1.5 mg 1.5 mg, oral, DAILY, First dose (after last modification) on Fri08/17/10 at 1500, Until Discontinued, Routine 1519 (Given - Provider: Tayla Weston RN) 1513 (Given - Provider: Tayla Weston RN) 1500 (Given - Provider: Kayla Morton RN) clonAZEPAM (KLONOPIN) tablet 2 mg 2 mg, oral, 2 TIMES DAILY, First dose (after last modification) on [place] 08/16/10 at 2100, Until Discontinued, Routine 0900 (Given - Provider: Nayely Cam RN)2100 (Given - Provider: Jennifer Farrell RN) 0900 (Given - Provider: Nayely Cam RN)2100 (Given - Provider: Jennifer Farrell RN) 0900 (Given - Provider: Kayla Morton RN) duloxetine (CYMBALTA) capsule 60 mg (CANCELED) 60 mg, oral, 2 TIMES DAILY, First dose on Fri08/13/10 at 2100, Until Discontinued, Routine 0900 (Given - Provider: Nayely Cam RN)2100 (Given - Provider: Jennifer Farrell RN) 0900 (Given - Provider: Nayely Cam RN)2100 (Given - Provider: Jennifer Farrell RN) 0900 (Given - Provider: Kayla Morton RN) nicotine (NICODERM CQ) 14 mg/24 hr patch 1 Patch (CANCELED) 1 Patch, transdermal, DAILY, First dose on Fri08/15/10 at 1445, Until Discontinued, Routine 0900 (Given - Provider: Nayely Cam RN) 0900 (Given - Provider: Nayely Cam RN) 0900 (Given - Provider: Kayla Morton RN) nicotine (NICODERM CQ) patch Removal (CANCELED) transdermal, AT BEDTIME, First dose on Fri08/15/10 at 2100, Until Discontinued 2100 (Given - Provider: Jennifer Farrell RN) 2100 (Not Given - Provider: Maritza Bernal RN - Reason: Patient/family refused - Comment: Patient states it was removed at 2100) 0000 (Given - Provider: Maritza Bernal, SARAH) quetiapine (SEROQUEL) tablet 150 mg 150 mg, oral, AT BEDTIME, First dose (after last modification) on Fri08/17/10 at 2100, Until Discontinued, Routine 0303 (Given - Provider: Oneida Galarza - Comment: Pt refused at HS, requested for sleep at this time.)2100 (Given - Provider: Jennifer Farrell RN) 0103 (Given - Provider: Maritza Bernal RN) quetiapine (SEROQUEL) tablet 50 mg 50 mg, oral, DAILY, First dose on Fri08/17/10 at 1045, Until Discontinued, Routine 0900 (Given - Provider: Nayely Cam RN) 0900 (Given - Provider: Nayely Cam RN) 0900 (Given - Provider: Kayla Morton RN) rosuvastatin (CRESTOR) tablet 10 mg (CANCELED) 10 mg, oral, DAILY, First dose on Fri08/20/10 at 1200, Until Discontinued, Routine 1300 (Given - Provider: Kayla Morton, SARAH) simvastatin (ZOCOR) tablet 20 mg (CANCELED) 20 mg, oral, EVERY EVENING, First dose on Fri08/15/10 at 1700, Until Discontinued, Routine 1700 (Given - Provider: Jennifer Farrell RN) 1700 (Given - Provider: Jennifer Farrell RN) PRN Medication Order 08/18/2010 08/19/2010 08/20/2010 acetaminophen (TYLENOL) tablet 650 mg (CANCELED) 650 mg, oral, EVERY 4 HOURS PRN, Starting on Fri08/13/10 at 1931, Until Fri08/20/10 at 1708, Pain, Routine 0254 (Given - Provider: Oneida Galarza) lorazepam (ATIVAN) tablet 1 mg (CANCELED) 1 mg, oral, 3 TIMES DAILY PRN, Starting on Fri08/13/10 at 1949, Until 08/20/10 at 1125, Anxiety, Routine 0043 (Given - Provider: Fatou Venegas, RN)0917 (Given - Provider: Nayely Cam, SARAH)1520 (Given - Provider: Tayla Weston, SARAH)1932 (Given - Provider: Jennifer Farrell, RN) 0058 (Given - Provider: Maritza Bernal, SARAH)0905 (Given - Provider: Nayely Cam, SARAH)1856 (Given - Provider: Jennifer Farrell, SARAH) 0102 (Given - Provider: Maritza Bernal RN)0902 (Given - Provider: Kayla Morton RN) documented in this encounter Orders Medications Ordered That Lester ht Not Have Been Administered Count Last Ordered Date First Ordered Date clonAZEPAM (KLONOPIN) tablet 0.5 mg 1 08/17 aluminum & magnesium hydroxi de-simethicone (MYLANTA-DS) 400-400-40 mg/5 mL suspension 30 mL 1 08/13/2010 lorazepam (ATIVAN) tablet 0.5 mg 1 08/13/20 10 quetiapine (SEROQUEL) tablet 50 mg 1 2009 Admission Count Last Ordered Date First Orde red Date NOTIFY PPS OF DISCHARGE COMPLETE 1 08/20/20 10 ADMIT TO INPATIENT 1 08/13/2010 Discharge Count Last Ordered Date First Orde red Date DISCHARGE PATIENT 1 08/20/2010 documented in this encounter Care Teams Shade Maker Relationship Specialty Start Date End Date Ernie Moser MD PCP - General 02/24/09 08/21/10 documented as of this encounter
--- OUTSIDE RECORDS SUMMARY | 2024-08-14 17:36 | XMS_ITS | Encounter Summary ---
Author Organization [facility] Address [address] [place] [address] Care Team Providers Care Receiver Stocker Name Role Phone Micheal Moser MD Primary Care Provider Jorge carroll Encounter Details Date Type Department Care Team (Late st Contact Info) Description 12/28/2009 Abstract [facility] Cardiology - [address] [place] [address] Micheal Moser MD Myocardial infarction ([facility]); Anxiety disorder; Hypertension; Hyperlipidemia Social History Tobacco Use Types Packs/Day Years [...] as of this encounter Visit Diagnoses Diagnosis Myocardial infarction ([facility]) Acute myocardial infarction, unspecified site, episode of care unspecified Anxiety disorder Anxiety state, unspecified Hypertension Unspecified essential hypertension Hyperlipidemia Other and unspecified hyperlipidemia documented in this encounter Historical Medications * This list may reflect changes made after this encounter. Medication Sig Dispensed Refills Start Date End Date niacin (NIASPAN) 500 mg ER tablet Take 500 mg by mouth at bedtime. 03/17/2014 alprazolam (XANAX) 0.5 mg tablet Take 0.5 mg by mouth 3 times daily. 08/20/2010 simvastatin (ZOCOR) 20 mg tablet Take 20 mg by mouth at bedtime. 03/17/2014 clopidogrel (PLAVIX) 75 mg tablet Take 75 mg by mouth daily. 08/22/2010 added in this encounter Care Teams Receiver Stocker Relationship Specialty Start Date End Date Micheal Moser MD PCP - General 02/24/09 08/21/10 documented as of this encounter
[2024-08-14 17:37] LABS: Troponin I 5 ng/L (<or=76)
[2024-08-14 18:15] VITALS: BP 164/98; PULSE 94; O2SAT 97
[2024-08-14] MEDS: Metoprolol 50 MG TAB 400 MG PO (18:46)
[2024-08-14] MEDS: clonazePAM 1 MG TAB 2 MG PO (18:46)
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
== END 2024-08-14 18:47 | disposition home or self-care (01) ==
PROVIDERS: Emergency Provider Physician Assistant; PCP Physician Assistant
DX: I10 Essential (primary) hypertension (principal); E11.9 Type 2 diabetes mellitus without complications; F41.9 Anxiety disorder, unspecified
CPT/HCPCS: 80053; 80307; 93005; 99285; 71045; 81003; 83735; 84443; 84484; 85025; 93010; 99284

== ENCOUNTER 2024-09-13 13:18 | Outpatient (REF) | payer MEDICAID, SELFPAY ==
[2024-09-13 16:04] LABS: ALT 55 U/L (16-63); AST 39 U/L (15-37); Albumin 4.2 g/dL (3.4-5.0); Alkaline Phosphatase 106 U/L (46-116); Anion Gap 11.1 mmol/L (3-11); BUN 16 mg/dL (7-18); CO2 27.9 mmol/L (21.0-32.0); CREATININE 0.8 mg/dL (0.70-1.30); Calcium 9.4 mg/dL (8.5-10.1); Calculated LDL 80 mg/dL (<100); Chloride 103 mmol/L (98-107); Cholesterol 139 mg/dL (<200); Estimated GFR 107.82 (mL/min/1.73m2); Glucose 177 mg/dL (74-106); HDL Cholesterol 49 mg/dL (40-60); Potassium 4.1 mmol/L (3.5-5.1); Sodium 142 mmol/L (136-145); Total Protein 8.2 g/dL (6.4-8.2); Triglyceride 50 mg/dL (<150)
[2024-09-13 17:18] LABS: Hemoglobin A1C 6.8 % (<5.7)
[2024-09-15 13:37] LABS: HCV RNA Qualitative Detected (Undetected)
[2024-09-15 15:52] LABS: HCV Genotype 1a (Undetected)
== END 2024-09-13 13:19 | disposition home or self-care (01) ==
LOC: NCHCN 13:18
PROVIDERS: PCP Physician Assistant; Visit Provider Physician Assistant
DX: E11.9 Type 2 diabetes mellitus without complications (principal); B18.2 Chronic viral hepatitis C
CPT/HCPCS: 80053; 80061; 87522; 83036; 87521

== ENCOUNTER 2025-05-11 08:56 | Inpatient (IN) | payer MEDICAID, SELFPAY ==
[2025-05-11] VITALS (27 sets, daily range): BP systolic 165–226; BP diastolic 74–139; PULSE 79–109; RESP 13–25; TEMP 36–37.7; O2SAT 97–100
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
[2025-05-11] MEDS: PHENobarbital 250 MG in Normal Saline 50 ML 100 MG IVPB (09:28)
[2025-05-11 09:45] LABS: Abs Immature Grans 0.03 10^3/uL (0.0-0.06); HCT 39.2 % (40.0-50.0); HGB 13.4 g/dL (13.5-17.5); Immature Grans % 0.3 %; MCH 27.6 pg (27.0-33.0); MCHC 34.2 % (32.0-36.0); MCV 81 fL (80-95); MPV 9.4 fL (8.0-11.0); Platelet Count 211 10^3/uL (130-400); RBC 4.86 10^6/uL (4.36-5.78); RDW 15.0 % (11.8-14.1); RDW-SD 43.9 fL; WBC 11.26 10^3/uL (4.4-10.8)
[2025-05-11] MEDS: Metoprolol 50 MG TAB 100 MG PO (10:04)
[2025-05-11] MEDS: THIAMINE 100 MG in Normal Saline 100 ML 200 MG IVPB (10:05)
[2025-05-11] MEDS: Normal Saline 1,000 ML 500 ML IV (10:07)
[2025-05-11 10:21] LABS: ALT 109 U/L (16-63); AST 92 U/L (15-37); Albumin 3.7 g/dL (3.4-5.0); Alkaline Phosphatase 134 U/L (46-116); Anion Gap 11.2 mmol/L (3-11); BUN 5 mg/dL (7-18); Bilirubin, Total 0.8 mg/dL (0.2-1.0); CO2 25.8 mmol/L (21.0-32.0); Calcium 8.8 mg/dL (8.5-10.1); Chloride 96 mmol/L (98-107); Estimated GFR 116.87 (mL/min/1.73m2); Glucose 200 mg/dL (74-106); Magnesium 1.5 mg/dL (1.8-2.4); Potassium 3.3 mmol/L (3.5-5.1); Sodium 133 mmol/L (136-145); Total Protein 7.8 g/dL (6.4-8.2); Troponin I 13 ng/L (<or=76)
[2025-05-11 10:28] LABS: Acetaminophen < 2 ug/mL (10-30); Salicylate < 2.8 mg/dL (<2.8)
[2025-05-11 11:29] LABS: Troponin I 14 ng/L (<or=76)
[2025-05-11] MEDS: Magnesium Oxide 400 MG TAB 800 MG PO (11:36)
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
[2025-05-11 12:06] LABS: Cannabinoids THC Positive (Negative); METHADONE URINE SCREEN Negative (Negative)
--- NOTE | 2025-05-11 12:30 | RT.EKG_ITS ---
APPROVED REPORT Exam: Resting ECG Reason for Exam: Chest pain Patient Location: E HR:87 bpm ECG Measurements Heart Rate 87 AXIS NH 144 P 68 QRSd 81 QRS 59 QT 378 T 24 QTc 456 Conclusion Sinus rhythm 87 normal axis no stemi
[2025-05-11] MEDS: PHENobarbital 180 MG in Normal Saline 50 ML 100 MG IVPB ×2 (13:01→17:02)
[2025-05-11 13:49] LABS: Troponin I 12 ng/L (<or=76)
--- NOTE | 2025-05-11 14:42 | W.PC.ACHO ---
Registration Status: REG ER Primary Language: Preferred Language: ED Information & Data Chief Complaint ETOHWithdr 05/11/25 12:00 Chief Complaint ETOHWithdr 05/11/25 09:31 Triage Note JUAN ALBERTOA from [facility] 05/11/25 08:58 [facility]al center. Patient was not incarcerated but there as ICP. Pt RUDDY on admission last night was . 381, currently 0 per correctional staff. Drinks 30+ beers daily, last drink sometime yesterday. Pt is unable to remember the last time he went through withdrawal. Denies any history of seizures Medical / Surgical History (Last Reviewed 05/16/23 @ 11:09 by Diane Knowles MD) Myocardial infarction Most Recent Vital Signs Temperature 37.7 C H 05/11/25 08:58 Temperature Source Tympanic 05/11/25 08:58 Pulse 102 H 05/11/25 14:17 Pulse 80 05/11/25 10:50 Respiratory Rate 18 05/11/25 14:17 Respiratory Pattern Normal 05/11/25 14:30 Blood Pressure 226/102 H 05/11/25 14:17 Blood Pressure Mean 143 05/11/25 14:17 Blood Pressure Position Standing 05/11/25 14:17 Pulse Oximetry 98 05/11/25 14:17 Oxygen Delivery Method Room Air 05/11/25 08:58 Oxygen Flow Rate 0 05/11/25 08:58 Pain Level 10 05/11/25 08:58 Allergies No Known Allergies Allergy (Verified 05/11/25 09:02) Precautions Isolation Standard precaution 05/11/25 12:00 IV IV Catheter Type [] Peripheral IV IV Catheter Type [Left Peripheral IV Antecubital] IV Catheter Gauge [] 20 IV Catheter Gauge [Left 20 Antecubital] Diagnostics 05/11/25 05/11/25 05/11/25 Range/Units 13:00 11:30 10:46 WBC (4.4-10.8) 10^3/uL RBC (4.36-5.78) 10^6/uL Hgb (13.5-17.5) g/dL Hct (40.0-50.0) % MCV (80-95) fL MCH (27.0-33.0) pg MCHC (32.0-36.0) % RDW (11.8-14.1) % Plt Count (130-400) 10^3/uL MPV (8.0-11.0) fL Immature Gran % % Neutrophils % % Lymphocytes % % Monocytes % % Eosinophils % % Basophils % % Nucleated RBC % (0.0-0.3) % Absolute Neutrophils (1.2-6.7) 10^3/uL Absolute Lymphocytes (1.2-3.4) 10^3/uL Absolute Monocytes (0.1-0.8) 10^3/uL Absolute Eosinophils (0.0-0.7) 10^3/uL Absolute Basophils (0.0-0.2) 10^3/uL Sodium (136-145) mmol/L Potassium (3.5-5.1) mmol/L Chloride (98-107) mmol/L Carbon Dioxide (21.0-32.0) mmol/L Anion Gap (3-11) mmol/L BUN (7-18) mg/dL Creatinine (0.70-1.30) mg/dL Est GFR (CKD-EPI 2020) (mL/min/1.73m2) Glucose (74-106) mg/dL Calcium (8.5-10.1) mg/dL Magnesium (1.8-2.4) mg/dL Total Bilirubin (0.2-1.0) mg/dL AST (15-37) U/L ALT (16-63) U/L Alkaline Phosphatase (46-116) U/L Troponin I 12 14 (<or=76) ng/L Total Protein (6.4-8.2) g/dL Albumin (3.4-5.0) g/dL Salicylates (<2.8) mg/dL Urine Opiates Screen Negative (Negative) Urine Methadone Screen Negative (Negative) Acetaminophen (10-30) ug/mL Ur Barbiturates Screen Positive A (Negative) Ur Tricyclics Screen Negative (Negative) Ur Amphetamines Screen Negative (Negative) U Benzodiazepines Scrn Negative (Negative) Urine Cocaine Screen Negative (Negative) Ur THC Screen Positive A (Negative) Ethyl Alcohol (<10) mg/dL 05/11/25 Range/Units 09:30 WBC 11.26 H (4.4-10.8) 10^3/uL RBC 4.86 (4.36-5.78) 10^6/uL Hgb 13.4 L (13.5-17.5) g/dL Hct 39.2 L (40.0-50.0) % MCV 81 (80-95) fL MCH 27.6 (27.0-33.0) pg MCHC 34.2 (32.0-36.0) % RDW 15.0 H (11.8-14.1) % Plt Count 211 (130-400) 10^3/uL MPV 9.4 (8.0-11.0) fL Immature Gran % 0.3 % Neutrophils % 85.5 % Lymphocytes % 7.6 % Monocytes % 6.4 % Eosinophils % 0.0 % Basophils % 0.2 % Nucleated RBC % 0.0 (0.0-0.3) % Absolute Neutrophils 9.63 H (1.2-6.7) 10^3/uL Absolute Lymphocytes 0.86 L (1.2-3.4) 10^3/uL Absolute Monocytes 0.72 (0.1-0.8) 10^3/uL Absolute Eosinophils 0.00 (0.0-0.7) 10^3/uL Absolute Basophils 0.02 (0.0-0.2) 10^3/uL Sodium 133 L (136-145) mmol/L Potassium 3.3 L (3.5-5.1) mmol/L Chloride 96 L (98-107) mmol/L Carbon Dioxide 25.8 (21.0-32.0) mmol/L Anion Gap 11.2 H (3-11) mmol/L BUN 5 L (7-18) mg/dL Creatinine 0.6 L (0.70-1.30) mg/dL Est GFR (CKD-EPI 2020) 116.87 (mL/min/1.73m2) Glucose 200 H (74-106) mg/dL Calcium 8.8 (8.5-10.1) mg/dL Magnesium 1.5 L (1.8-2.4) mg/dL Total Bilirubin 0.8 (0.2-1.0) mg/dL AST 92 H (15-37) U/L ALT 109 H (16-63) U/L Alkaline Phosphatase 134 H (46-116) U/L Troponin I 13 (<or=76) ng/L Total Protein 7.8 (6.4-8.2) g/dL Albumin 3.7 (3.4-5.0) g/dL Salicylates < 2.8 (<2.8) mg/dL Urine Opiates Screen (Negative) Urine Methadone Screen (Negative) Acetaminophen < 2 (10-30) ug/mL Ur Barbiturates Screen (Negative) Ur Tricyclics Screen (Negative) Ur Amphetamines Screen (Negative) U Benzodiazepines Scrn (Negative) Urine Cocaine Screen (Negative) Ur THC Screen (Negative) Ethyl Alcohol < 3.0 (<10) mg/dL [id number] Documentation Fingerstick Glucose Start: 05/11/25 09:15 Freq: Status: Active Protocol: Activity Type Activity Date Activity User E-sign Co-sign Detail Recorded Client Recorded Date Recorded By Document 05/11/25 09:14 SARAHG DAEMON(3) [id number] 05/11/25 09:15 BKG DAEMON(4) Intake and Output - 24 Hour Total 05/11/25 08:50 thru 05/11/25 13:01 Intake Total 1152.9231 Balance 1152.9231 Weight 77.111 kg Intake: IV 1152.9231 Falls Risk Assessment History of Falls No History 05/11/25 12:00 Contributing Factors No Factors 05/11/25 12:00 Ambulatory Aids Independent 05/11/25 12:00 Tubes/Lines W/no contributing factors 05/11/25 12:00 Gait Evaluation No gait disturbance 05/11/25 12:00 Cognition No cognitive impairment 05/11/25 12:00 Fall Total Score 10 05/11/25 12:00 Level of Risk Standard/Low Risk 05/11/25 12:00 Problems (Last Reviewed 05/16/23 @ 11:09 by Diane Knowles MD) Transaminitis (Acute) Hypomagnesemia (Acute) Hypokalemia (Acute) Hyponatremia (Acute) Discharge planning issues (Acute) On deep vein thrombosis (DVT) prophylaxis (Acute) Alcohol withdrawal (Acute) Hypertension (Chronic) Hyperlipidemia (Acute) Nicotine dependence (Acute) CAD (coronary artery disease) (Chronic) ADD (attention deficit disorder) (Acute) Anxiety (Chronic) Diabetes mellitus, type II (Acute) v v v v v v v v v Sending and/or Receiving Nurses: Please use comment section below to note any information pertinent to the patient hand-off not included above. Information / Comments: Pt is actively withdrawing from alcohol he drinks 30 pack a day of beer per ED report. BP taking at this time during telephone report is 226/102. Pt received Metoprolol 100mg at 1000 in the ED per ED report. Most recent CIWA per ER report 12 Second bag of phenobarbital has been hung and Magnesium given in ED per ED report. Pt has a #20 IV in his LAC, per ED report, another IV access was requested before pt transfers to [facility] was requested. Discussed with Dr Emmanuel and Nick Nielsen CNP concern of patient possibly needed ICU inpatient care instead of medsurg. Current plan is medsurg admit, will monitor. Report received from: Sanna Latif RN
[2025-05-11] MEDS: Gabapentin 800 MG TAB PO (16:29)
[2025-05-11] MEDS: amLODIPine 5 MG TAB PO (17:03)
[2025-05-11] MEDS: Normal Saline Flush 10 ML SYR IVP ×3 (17:03→21:59)
[2025-05-11] MEDS: Insulin Aspart 300 UNITS/3 ML PEN SC (17:23)
[2025-05-11] MEDS: MAGNESIUM SULFATE 4 GM/100 ML BAG IV_INF (20:20)
[2025-05-11] MEDS: PHENobarbital 130 MG/ML VIAL IVP ×2 (20:21→21:59)
[2025-05-11] MEDS: Atorvastatin 40 MG TAB 80 MG PO (20:21)
[2025-05-11] MEDS: Potassium Chloride 20 MEQ TABCR 40 MEQ PO (20:21)
[2025-05-11] MEDS: Ketorolac 30 MG/ML VIAL IM (22:55)
[2025-05-12] VITALS (20 sets, daily range): BP systolic 110–169; BP diastolic 85–103; PULSE 78–110; RESP 11–19; TEMP 36–36.9; O2SAT 96–99
[2025-05-12] MEDS: PHENobarbital 130 MG/ML VIAL IVP ×3 (00:28→20:13)
[2025-05-12] MEDS: Insulin Aspart 300 UNITS/3 ML PEN SC ×3 (00:36→16:14)
[2025-05-12] MEDS: Ketorolac 15 MG/ML VIAL IVP ×2 (05:15→14:06)
[2025-05-12] MEDS: Normal Saline Flush 10 ML SYR IVP ×4 (05:16→21:23)
[2025-05-12 07:29] LABS: Abs Immature Grans 0.05 10^3/uL (0.0-0.06); HCT 40.3 % (40.0-50.0); HGB 13.6 g/dL (13.5-17.5); Immature Grans % 0.4 %; MCH 28.3 pg (27.0-33.0); MCHC 33.7 % (32.0-36.0); MCV 84 fL (80-95); MPV 10.0 fL (8.0-11.0); Platelet Count 204 10^3/uL (130-400); RBC 4.81 10^6/uL (4.36-5.78); RDW 15.6 % (11.8-14.1); RDW-SD 47.3 fL; WBC 11.31 10^3/uL (4.4-10.8)
[2025-05-12 07:32] LABS: ALT 114 U/L (16-63); AST 102 U/L (15-37); Albumin 3.6 g/dL (3.4-5.0); Alkaline Phosphatase 136 U/L (46-116); Anion Gap 10.1 mmol/L (3-11); BUN 11 mg/dL (7-18); Bilirubin, Total 1.0 mg/dL (0.2-1.0); CO2 25.9 mmol/L (21.0-32.0); Calcium 8.7 mg/dL (8.5-10.1); Chloride 98 mmol/L (98-107); Estimated GFR 111.56 (mL/min/1.73m2); Glucose 177 mg/dL (74-106); Potassium 3.9 mmol/L (3.5-5.1); Sodium 134 mmol/L (136-145); Total Protein 8.0 g/dL (6.4-8.2)
[2025-05-12 07:41] LABS: Magnesium 2.4 mg/dL (1.8-2.4)
[2025-05-12] MEDS: Empaglifozin 10 MG TAB PO (08:32)
[2025-05-12] MEDS: Metoprolol CR 100 MG TABCR PO (08:32)
[2025-05-12] MEDS: amLODIPine 10 MG TAB PO (08:32)
[2025-05-12] MEDS: Losartan 50 MG TAB 100 MG PO (08:32)
[2025-05-12] MEDS: Thiamine 100 MG TAB PO (08:33)
[2025-05-12] MEDS: Potassium Chloride 20 MEQ TABCR 40 MEQ PO (08:33)
[2025-05-12] MEDS: Clopidogrel 75 MG TAB PO (08:33)
[2025-05-12] MEDS: Venlafaxine 150 MG CAPCR PO (08:33)
[2025-05-12] MEDS: Folic Acid 1 MG TAB PO (08:33)
[2025-05-12] MEDS: Nicotine 21 MG/24 HR PATCH TD (09:13)
[2025-05-12] MEDS: LORazepam 20 MG/10 ML VIAL IVP ×2 (09:13→21:22)
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
[2025-05-12] MEDS: diphenhydrAMINE 50 MG/ML VIAL 25 MG IVP (11:13)
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
[2025-05-12] MEDS: Atorvastatin 40 MG TAB 80 MG PO (20:13)
[2025-05-13] VITALS (35 sets, daily range): BP systolic 115–160; BP diastolic 79–115; PULSE 61–112; RESP 7–22; TEMP 36.5–36.6; O2SAT 92–98
[2025-05-13] MEDS: Normal Saline Flush 10 ML SYR IVP ×3 (00:36→08:14)
[2025-05-13] MEDS: LORazepam 20 MG/10 ML VIAL IVP ×3 (00:36→08:19)
[2025-05-13] MEDS: Insulin Aspart 300 UNITS/3 ML PEN SC ×2 (07:22→23:50)
[2025-05-13] MEDS: Venlafaxine 150 MG CAPCR PO (08:10)
[2025-05-13] MEDS: Losartan 50 MG TAB 100 MG PO (08:10)
[2025-05-13] MEDS: Empaglifozin 10 MG TAB PO (08:10)
[2025-05-13] MEDS: Clopidogrel 75 MG TAB PO (08:10)
[2025-05-13] MEDS: amLODIPine 10 MG TAB PO (08:10)
[2025-05-13] MEDS: Metoprolol CR 100 MG TABCR PO (08:10)
--- NOTE | 2025-05-13 10:11 | CMPROGNOTE_ITS ---
Care Management Progress Note Progress Note Text Progress Note Text: Rizwan was sitting up in a chair in the ICU when CM met with him. He was extremely fidgety, constantly moving both his body and his limbs. His speech was mostly incoherent and he did not make a lot of sense. Rizwan was able to answer one or two questions but the reliability of his answers is questionable. He did state that his arms and legs hurt, and he did receive Toradol for that. This afternoon, shortly after CM's visit. Rizwan scored a 12 on the CIWA scale and was given IV Ativan per protocol. Hopefully that will help with his symptoms and restlessness. Discharge Potential Discharge Needs: PCP F/U Appt Anticipated Barriers to Discharge: None Identified Patient/Family Education Needs: Review discharge instructions, discuss Ask Me Three Transportation: RCT Plan: Anticipate Rizwan will be discharged with no new services when medically cleared. He will follow up with his PCP and plan of care and transport via RCT. CM will follow. Social Determinants of Health Screening Social Determinants of health last assessed in clinic: 05/12/25 Will the Patient Participate in the Screening?: Declined to provide Do you worry about having a steady place to live?: no Problems where you live: other In the past 12 months, have you had to go without electric, gas, oil or water in your home?: choose not to answer Has lack of transportation kept you from medical appointments or from doing things needed for daily living?: choose not to answer Has anyone in your life made you feel unsafe or unsupported?: choose not to answer How hard is it for you to pay for the very basics like food, housing, medical care, and heating? Would you say it is:: Not hard at all Do you want help finding or keeping work or a job?: I do not need or want help If for any reason you need help with day-to-day activities such as bathing, preparing meals, shopping, managing finances, etc., do you get the help you need?: I need a lot more help How often do you feel lonely or isolated from those around you?: Often Do you speak a language other than Hebrew at home?: No Comments: Pt is homeless. He has been living outdoors. Health Related Social Needs Health related social needs: inadequate housing (Z59.1), material hardship(utilities) (Z59.12), problems with daily activities (Z73.9) and feeling lonely/isolated (Z60.8) Health related social needs details: .
[2025-05-13] MEDS: Ketorolac 15 MG/ML VIAL IVP ×2 (10:20→23:50)
[2025-05-13] MEDS: diphenhydrAMINE 25 MG CAP PO ×3 (11:35→21:32)
--- NOTE | 2025-05-13 14:06 | W.PM.PROGNOT ---
Date of Service Date of service: 05/13/25 Time of Service: 08:00 Assessment and Plan Assessment and plan (1) Alcohol withdrawal: Status: Acute Assessment and plan: CIWA protocol Phenobarbital discontinued Now on ativan PO PRNs Downgrading from ICU to MS with telemetry (2) Hypertension: Status: Chronic Assessment and plan: on home meds (3) Diabetes mellitus, type II: Status: Acute Assessment and plan: Gluc AC and HS with SSI coverage and jardiance holding other home Rx (4) Transaminitis: Status: Acute Assessment and plan: Mild will continue to monitor (5) Hyponatremia: Status: Acute Assessment and plan: Mild, 133 on arrival, improving with PO intake (6) Hypokalemia: Status: Resolved Assessment and plan: replaced labs in AM (7) Hypomagnesemia: Status: Resolved Assessment and plan: supplemented Labs in AM (8) CAD (coronary artery disease): Status: Chronic Assessment and plan: on home meds regimen (9) Nicotine dependence: Status: Acute Assessment and plan: NRT PRN (10) Hyperlipidemia: Status: Acute Assessment and plan: On home meds / statin (11) Anxiety: Status: Chronic Assessment and plan: holding home dose of clonazepam - was not taking 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 Solano's agitation is improving and he has been able to downgrade to the medical surgical service. He is tolerating PO. He is very emotional and tearful. Exam Narrative Exam Narrative: General: This is an intermittently agitated, unkempt man in mild distress HEENT: Normocephalic, atraumatic. Heavy garcia. CV: RRR Resp: CTAB Abd: NTND +NBS Neuro: Awake and alert, emotional, no focal deficits Objective Last Vital Signs Temp 36.5 C 05/13/25 10:31 Pulse 79 05/13/25 10:36 Resp 12 05/13/25 10:36 BP 142/103 H 05/13/25 10:36 Pulse Ox 96 05/12/25 20:01 PAWSS Have you Been Recently Intoxicated or Drunk Within the Last 30 days?: Yes Have you Ever Experienced Previous Episodes of Alcohol Withdrawal?: Yes Have you ever Experienced Withdrawal Seizures?: Unable to Obtain Have you ever Experienced Delirium Tremens(DT)s?: Unable to Obtain Have you ever undergone Alcohol Rehabilitation Treatment (i.e, inpt ot outpatient treatment programs)?: Unable to Obtain Have you ever Experienced Blackouts?: Unable to Obtain Have you ever Combined Alcohol with other Downers within the last 90 days?: Unable to Obtain Have you ever Combined Alcohol with any other Substance of Abuse during the last 90 days?: Unable to Obtain Positive Blood Alcohol level on Presentation? [PCS.BAL]: Unable to Obtain Evidence of Increased Autonomic Activity (i.e. HR>120, tremor, sweating, agitation, nausea)?: Unable to Obtain Result: 2 Time Spent with Patient Time Spent with Patient: 35-49 minutes Time was spent: preparing to see the patient(eg.review tests), obtaining and/or reviewing separately otained hiistory, ordering medications,tests, procedures, referring, communicating with other health special needs caregiver, indepentently interpreting results, counseling the patient and care coordination
[2025-05-13] MEDS: LORazepam 1 MG TAB PO/SL ×4 (14:38→21:35)
[2025-05-13] MEDS: Nicotine 21 MG/24 HR PATCH TD (16:19)
[2025-05-14] VITALS (10 sets, daily range): BP systolic 129–153; BP diastolic 81–99; PULSE 52–107; RESP 11–18; TEMP 36–36.5; O2SAT 88–98
[2025-05-14] MEDS: LORazepam 1 MG TAB PO/SL (01:25)
[2025-05-14] MEDS: diphenhydrAMINE 25 MG CAP PO ×2 (01:25→20:49)
[2025-05-14 06:57] LABS: Abs Immature Grans 0.03 10^3/uL (0.0-0.06); HCT 37.7 % (40.0-50.0); HGB 12.5 g/dL (13.5-17.5); Immature Grans % 0.6 %; MCH 28.3 pg (27.0-33.0); MCHC 33.2 % (32.0-36.0); MCV 86 fL (80-95); MPV 10.3 fL (8.0-11.0); Platelet Count 177 10^3/uL (130-400); RBC 4.41 10^6/uL (4.36-5.78); RDW 15.3 % (11.8-14.1); RDW-SD 48.1 fL; WBC 4.75 10^3/uL (4.4-10.8)
[2025-05-14 07:34] LABS: ALT 136 U/L (16-63); AST 136 U/L (15-37); Albumin 3.2 g/dL (3.4-5.0); Alkaline Phosphatase 140 U/L (46-116); Anion Gap 9.4 mmol/L (3-11); BUN 20 mg/dL (7-18); Bilirubin, Total 0.3 mg/dL (0.2-1.0); CO2 25.6 mmol/L (21.0-32.0); Calcium 8.8 mg/dL (8.5-10.1); Chloride 98 mmol/L (98-107); Estimated GFR 111.56 (mL/min/1.73m2); Glucose 138 mg/dL (74-106); Magnesium 2.0 mg/dL (1.8-2.4); Potassium 4.1 mmol/L (3.5-5.1); Sodium 133 mmol/L (136-145); Total Protein 7.2 g/dL (6.4-8.2)
[2025-05-14] MEDS: amLODIPine 10 MG TAB PO (09:03)
[2025-05-14] MEDS: Empaglifozin 10 MG TAB PO (09:04)
[2025-05-14] MEDS: Metoprolol CR 100 MG TABCR PO (09:04)
[2025-05-14] MEDS: Clopidogrel 75 MG TAB PO (09:04)
[2025-05-14] MEDS: Venlafaxine 150 MG CAPCR PO (09:04)
[2025-05-14] MEDS: Losartan 50 MG TAB 100 MG PO (09:05)
[2025-05-14] MEDS: Normal Saline Flush 10 ML SYR IVP ×3 (09:05→22:09)
[2025-05-14] MEDS: Insulin Aspart 300 UNITS/3 ML PEN SC ×3 (09:13→21:30)
[2025-05-14] MEDS: chlordiazePOXIDE 25 MG CAP PO (12:29)
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
--- NOTE | 2025-05-14 14:42 | PDOC.CMPRO ---
Date of service: 05/14/25 Time of Service: 14:42 Care Management Progress Note Progress Note Text Progress Note Text: CM met with Rizwan early this morning. He stated that he wants rehab. CM contacted the [facility] Coach, who came in to see Rizwan today. His intake is complete at [facility], all requested documents were sent by CM after Rizwan signed the release. It seemed promising that Rizwan may actually have a bed today, but that seems to not be true. CM reached out to Rizwan' disaster recovery specialist, Korey, and she had not heard yet from [facility]. She stated that she has a contact there that she can call. CM also called [facility] admissions, but had to leave a VM. Discharge Potential Discharge Needs: PCP F/U Appt (outpatient rehab bed.) Anticipated Barriers to Discharge: None Identified Patient/Family Education Needs: Review discharge instructions, discuss Ask Me Three Transportation: Private vehicle (If Rizwan is able to discharge to a rehab bed, he will be transported by [facility]) Plan: Anticipate that Rizwan will discharge home with no new services. Hopefully he will be able to transfer straight to [facility] to begin his rehab. Regardless, Rizwan will follow up with his PCP and continue per his plan of care. CM will continue to follow and to keep in touch with [facility] and [facility]. Social Determinants of Health Screening Social Determinants of health last assessed in clinic: 05/12/25 Will the Patient Participate in the Screening?: Declined to provide Do you worry about having a steady place to live?: no Problems where you live: other In the past 12 months, have you had to go without electric, gas, oil or water in your home?: choose not to answer Has lack of transportation kept you from medical appointments or from doing things needed for daily living?: choose not to answer Has anyone in your life made you feel unsafe or unsupported?: choose not to answer How hard is it for you to pay for the very basics like food, housing, medical care, and heating? Would you say it is:: Not hard at all Do you want help finding or keeping work or a job?: I do not need or want help If for any reason you need help with day-to-day activities such as bathing, preparing meals, shopping, managing finances, etc., do you get the help you need?: I need a lot more help How often do you feel lonely or isolated from those around you?: Often Do you speak a language other than Hebrew at home?: No Comments: Pt is homeless. He has been living outdoors. Health Related Social Needs Health related social needs: inadequate housing (Z59.1), material hardship(utilities) (Z59.12), problems with daily activities (Z73.9) and feeling lonely/isolated (Z60.8) Health related social needs details: .
[2025-05-14] MEDS: Atorvastatin 40 MG TAB 80 MG PO (20:49)
[2025-05-14] MEDS: chlordiazePOXIDE 25 MG CAP 50 MG PO (20:49)
[2025-05-14] MEDS: Nicotine 21 MG/24 HR PATCH TD (20:49)
[2025-05-14] MEDS: Ketorolac 15 MG/ML VIAL IVP (22:09)
[2025-05-15 04:58] VITALS: BP 124/98; PULSE 77; RESP 16; O2SAT 98
[2025-05-15 05:04] VITALS: TEMP 36
[2025-05-15] MEDS: diphenhydrAMINE 25 MG CAP PO (06:34)
[2025-05-15] MEDS: Losartan 50 MG TAB 100 MG PO (09:01)
[2025-05-15] MEDS: Venlafaxine 150 MG CAPCR PO (09:02)
[2025-05-15] MEDS: Normal Saline Flush 10 ML SYR IVP (09:02)
[2025-05-15] MEDS: Clopidogrel 75 MG TAB PO (09:02)
[2025-05-15] MEDS: Empaglifozin 10 MG TAB PO (09:02)
[2025-05-15] MEDS: amLODIPine 10 MG TAB PO (09:02)
[2025-05-15] MEDS: Metoprolol CR 100 MG TABCR PO (09:02)
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
[2025-05-15] MEDS: Insulin Aspart 300 UNITS/3 ML PEN SC (11:31)
--- NOTE | 2025-05-15 11:42 | PDOC.CMDIS ---
Date of service: 05/15/25 Time of Service: 11:42 LACE Index Scoring Tool Questions: Length of Stay (in days): 4 - 6 Was the patient admitted via the E.D.?: Yes Comorbidities: Diabetes w/o Complication E.D. Visits: 1 Answers: Total Score: 9 Risk of Readmission: Low Risk Care Management Discharge Plan Reason for Hospitalization: alcohol withdrawal Discharge Plan: Rizwan is being discharged today. He will transport with [facility] to [facility]. Discharge summary has been faxed. Patient/Family Education Needs: Review of discharge instructions, activity , limitations, and discuss Ask me 3. SDOH Health Related Social Needs: Health related social needs inadequate housing material hardship daily activities lonely/isolated Health related social needs details . Health related social needs details: .
== END 2025-05-15 11:55 | disposition home or self-care (01) | DRG 897 ==
LOC: ER 13:18 → MS 14:53 → ICU 05-12 15:25
PROVIDERS: Nurse Practitioner Acute Care; Admitting Provider Family Medicine; Emergency Provider Physician Assistant; PCP Physician Assistant; Responsible Provider Family Medicine; Visit Provider Family Medicine
DX: F10.139 Alcohol abuse with withdrawal, unspecified (principal); E87.1 Hypo-osmolality and hyponatremia; F11.20 Opioid dependence, uncomplicated; Z59.00 Homelessness unspecified; E11.65 Type 2 diabetes mellitus with hyperglycemia; I16.0 Hypertensive urgency; I10 Essential (primary) hypertension; B18.2 Chronic viral hepatitis C; R74.01 Elevation of levels of liver transaminase levels; T38.3X6A Underdosing of insulin and oral hypoglycemic [antidiabetic] drugs, initial encounter; E87.6 Hypokalemia; Z91.141 Patient's other noncompliance with medication regimen due to financial hardship; E83.42 Hypomagnesemia; I25.10 Atherosclerotic heart disease of native coronary artery without angina pectoris; F17.210 Nicotine dependence, cigarettes, uncomplicated; E78.5 Hyperlipidemia, unspecified; F41.8 Other specified anxiety disorders; Z95.5 Presence of coronary angioplasty implant and graft; F90.9 Attention-deficit hyperactivity disorder, unspecified type; R45.1 Restlessness and agitation
CPT/HCPCS: 00123; 36415; 36416; 80053; 80307; 82962; 93005; 96365; 96366; 96367; 99285; 80320; 80329; 83735; 84100; 84484; 85025; 93010; 99223; 99232; 99238; J1200; J1815; J1885; J2060; J2560; J3411; J3475; J3490